=== PATIENT | female | born 1960 | race African-American/Black ===

== ENCOUNTER 2016-11-21 15:18 | Inpatient (IN) | payer MEDICAID, SELFPAY ==
[~2016-11-21] VITALS: Ht 175.3 cm; Wt 59.9 kg
--- NOTE | 2016-11-21 15:50 | Emergency Room Report ---
History of Present Illness General Chief Complaint: Upper Respiratory Illness Source: Patient Present Illness HPI 56-year-old female presents emergency department complaining of productive cough times greater than 2 weeks with dyspnea and orthopnea. Patient denies fevers or chills she states she recently finished a course of antibiotics which provided no relief. Patient denies history of asthma, COPD or tobacco use. PT states she feels she was previously rather healthy and reports being an avid runner. Patient denies cardiac history or previous pulmonary history. Patient denies lower extremity edema. bloody sputum, recent travel, or ill contacts. Denies CP, Palpitations, LOC, AMS, dizziness, Changes in Vision, Sensation, paresthesias, or a sudden severe headache. Allergies: Uncoded Allergies: CITRUS (Allergy, Severe, 11/21/16) aloc Patient History Past Medical History: see triage record Past Surgical History: none Pertinent Family History: none Last Menstrual Period: na Now: No Reviewed Nursing Documentation: PMH: Agreed, PSxH: Agreed Nursing Documentation-PMH Past Medical History: No History, Except For Review of Systems All Other Systems: negative except mentioned in HPI Physical Exam Vital Signs Date Time Temp Pulse Resp B/P Pulse Ox O2 Delivery O2 Flow Rate FiO2 11/21/16 15:21 98.4 128 20 122/80 100 Room Air Sp02 EP Interpretation: reviewed, abnormal - Tachycardic at 128 BPM, tachynepic upon PE. General Appearance: alert, GCS 15, non-toxic, mild distress Head: normocephalic, atraumatic Eyes: bilateral eye PERRL, bilateral eye normal inspection ENT: hearing grossly normal, normal pharynx, no angioedema, normal voice Neck: full range of motion, supple/symm/no masses Respiratory: chest non-tender, lungs clear, normal breath sounds, rhonchi, wheezing, other - Pt. has difficulty speaking full sentences, deep inhalation exacerbates coughing. Cardiovascular #1: no edema, tachycardia Musculoskeletal: back normal, gait/station normal, normal range of motion, non- tender, no calf tenderness, other - no swelling or tenderness. Neurologic: alert, oriented x3, responsive, motor strength/tone normal, sensory intact, speech normal Psychiatric: judgement/insight normal, memory normal, mood/affect normal Skin: normal color, no rash, warm/dry, well hydrated Medical Decision Making PA Attestation Dr. Mendiola is my supervising Physician whom patient management has been discussed with. Diagnostic Impression: Primary Impression: Dyspnea Qualified Codes: R06.09 - Other forms of dyspnea Additional Impression: Tachycardia ER Course 56-year-old female presents emergency department complaining of productive cough times greater than 2 weeks with dyspnea. Patient denies fevers or chills she states she recently finished a course of antibiotics which provided no relief. Patient denies history of asthma, COPD or tobacco use. Patient reports marijuana use. Patient denies cardiac history or previous pulmonary history. Patient denies lower extremity edema. bloody sputum, recent travel, or ill contacts. Ddx considered but are not limited to PNA, CHF, PE, Asthma/COPD, Cardiac pathology just to name a few. Vital signs: pt. is afebrile, tachycardic and tachypneic. -- Upon physical exam patient is noted to be to, tachycardiac, with distant lung sounds and wheezing/Rhonchi. I feel this patient requires early supervising physician involvement, in addition to a bed with cardiac monitoring. Dr. Gresham has been familiarized with this patient, and will be taking over further management and evaluation of this patient. ORDERS: - Albuterol HHN Treatment. DISPOSITION : Pt. Signed out to Supervising Physician Dr. Mendiola please see his note. Last Vital Signs Date Time Temp Pulse Resp B/P Pulse Ox O2 Delivery O2 Flow Rate FiO2 11/21/16 15:21 98.4 128 20 122/80 100 Room Air Disposition: ADMITTED INPATIENT Condition: Serious Signed Out To: Torrie Darby November 21, 2016 15:50
[2016-11-21] MEDS ORDERED: Solu-MEDROL 125mg Inj IVP ONE (16:00)
[2016-11-21] MEDS ORDERED: Albuterol ud Inhalation HHN ONE (16:00)
--- NOTE | 2016-11-21 16:26 | Emergency Room Report ---
History of Present Illness General Chief Complaint: Upper Respiratory Illness Source: Patient Present Illness HPI Patient presents with complaints of shortness of breath ongoing for the past 3 weeks Patient reports a pleuritic component to the left side Patient reports fevers and chills at nighttime Denies any bloody sputum denies any recent travel Denies any chest pain Patient used to be fairly active and run on a regular basis however she feels that she is decompensated Denies any diarrhea denies any headache or neck pain Denies any rash Allergies: Uncoded Allergies: CITRUS (Allergy, Severe, 11/21/16) aloc Patient History Past Medical History: see triage record Pertinent Family History: none Last Menstrual Period: na Reviewed Nursing Documentation: PMH: Agreed, PSxH: Agreed Nursing Documentation-PMH Past Medical History: No History, Except For Review of Systems All Other Systems: negative except mentioned in HPI Physical Exam Vital Signs Date Time Temp Pulse Resp B/P Pulse Ox O2 Delivery O2 Flow Rate FiO2 11/21/16 15:21 98.4 128 20 122/80 100 Room Air Sp02 EP Interpretation: reviewed, normal General Appearance: thin - And appears mildly tachypneic Head: normocephalic, atraumatic Eyes: bilateral eye EOMI, bilateral eye PERRL ENT: hearing grossly normal, normal pharynx, TMs + canals normal, uvula midline Neck: full range of motion, supple, no meningismus, no bony tend Respiratory: no retraction, no accessory muscle use, crackles - Appears tachypneic, no obvious retractions crackles are noted bilaterally, Cardiovascular #1: normal peripheral pulses, regular rate, rhythm, no edema, no gallop, no JVD, no murmur Gastrointestinal: normal bowel sounds, non tender, soft, no mass, no organomegaly, non-distended, no guarding, no hernia, no pulsatile mass, no rebound Genitourinary: no CVA tenderness Musculoskeletal: normal inspection Neurologic: oriented x3, responsive, millwork estimator III-XII nml as tested, motor strength/ tone normal, sensory intact Psychiatric: mood/affect normal Skin: normal color, no rash, warm/dry, palpation normal Lymphatic: normal inspection, no adenopathy Medical Decision Making Diagnostic Impression: Primary Impression: Dyspnea Qualified Codes: R06.09 - Other forms of dyspnea Additional Impressions: Pleural effusion, left Tachycardia ER Course Patient is a fairly complex patient with multiple differential to consideration including but not limited to cardiac cardiopulmonary and vascular emergencies Patient's imaging on the chest x-ray appeared abnormal the left lower lobe therefore CT imaging was obtained that shows large effusion with multiple differentials including carcinoma versus infectious Patient also is mildly anemic Given the mildly elevated high white blood for count a she was given antibiotics as well At this time patient requires further inpatient care and workup specialty consultation Labs Test 11/21/16 16:15 11/21/16 16:30 11/21/16 18:55 11/22/16 07:15 White Blood Count 16.1 K/UL (4.8-10.8) 16.4 K/UL (4.8-10.8) Red Blood Count 3.47 M/UL (4.20-5.40) 3.44 M/UL (4.20-5.40) Hemoglobin 10.6 G/DL (12.0-16.0) 9.8 G/DL (12.0-16.0) Hematocrit 31.5 % (37.0-47.0) 30.4 % (37.0-47.0) Mean Corpuscular Volume 91 FL (80-99) 88 FL (80-99) Mean Corpuscular Hemoglobin 30.6 PG (27.0-31.0) 28.5 PG (27.0-31.0) Mean Corpuscular Hemoglobin Concent 33.8 G/DL (32.0-36.0) 32.2 G/DL (32.0-36.0) Red Cell Distribution Width 12.0 % (11.6-14.8) 12.3 % (11.6-14.8) Platelet Count 393 K/UL (150-450) 448 K/UL (150-450) Mean Platelet Volume 5.9 FL (6.5-10.1) 6.3 FL (6.5-10.1) Neutrophils (%) (Auto) 86.0 % (45.0-75.0) % (45.0-75.0) Lymphocytes (%) (Auto) 6.8 % (20.0-45.0) % (20.0-45.0) Monocytes (%) (Auto) 6.4 % (1.0-10.0) % (1.0-10.0) Eosinophils (%) (Auto) 0.2 % (0.0-3.0) % (0.0-3.0) Basophils (%) (Auto) 0.7 % (0.0-2.0) % (0.0-2.0) Differential Total Cells Counted 100 100 Neutrophils % (Manual) 95 % (45-75) 93 % (45-75) Lymphocytes % (Manual) 2 % (20-45) 3 % (20-45) Monocytes % (Manual) 2 % (1-10) 4 % (1-10) Eosinophils % (Manual) 0 % (0-3) 0 % (0-3) Basophils % (Manual) 1 % (0-2) 0 % (0-2) Band Neutrophils 0 % (0-8) 0 % (0-8) Platelet Estimate Adequate Adequate Platelet Morphology Normal Normal Prothrombin Time 12.0 SEC (9.30-11.50) Prothromb Time International Ratio 1.2 (0.9-1.1) Activated Partial Thromboplast Time 34 SEC (23-33) Sodium Level 136 mEQ/L (135-145) Potassium Level 3.8 mEQ/L (3.4-4.9) Chloride Level 95 mEQ/L (98-107) Carbon Dioxide Level 27 mEQ/L (20-30) Anion Gap 14 (5-15) Blood Urea Nitrogen 5 mg/dL (7-23) Creatinine 0.7 mg/dL (0.5-0.9) Estimat Glomerular Filtration Rate > 60 mL/min (>60) Glucose Level 114 mg/dL (74-106) Calcium Level 8.7 mg/dL (8.6-10.2) Total Bilirubin 0.3 mg/dL (0.0-1.2) Aspartate Amino Transf (AST/SGOT) 10 U/L (5-40) Alanine Aminotransferase (ALT/SGPT) 6 U/L (3-33) Alkaline Phosphatase 98 U/L (35-104) Total Creatine Kinase 65 U/L (26-140) Creatine Kinase MB < 1.5 ng/mL (< 3.8) Creatine Kinase MB Relative Index Troponin I < 0.30 ng/mL (<=0.30) Pro-B-Type Natriuretic Peptide 35 pg/mL (0-125) Total Protein 7.2 g/dL (6.6-8.7) Albumin 2.8 g/dL (3.5-5.2) Globulin 4.4 g/dL Albumin/Globulin Ratio 0.6 (1.0-2.7) Lipase 14 U/L (< 60) Reticulocyte Count 0.4 % (0.0-2.0) Iron Level 16 ug/dL (37-145) Total Iron Binding Capacity 192 ug/dL (250-400) Percent Iron Saturation 8 % (15-50) Unsaturated Iron Binding 176 ug/dL (112-346) Ferritin 183 ng/mL (13-150) Lactate Dehydrogenase 136 U/L (135-230) Carcinoembryonic Antigen 1.8 ng/mL Vitamin B12 Level 993 pg/mL (211-946) Folate 10.2 ng/mL (>3.0) Hypochromasia 2+ Anisocytosis 1+ Spherocytes 1+ Test 11/22/16 15:15 Prothrombin Time 11.3 SEC (9.30-11.50) Prothromb Time International Ratio 1.1 (0.9-1.1) Activated Partial Thromboplast Time 35 SEC (23-33) Rhythm Strip Diag. Results EP Interpretation: yes Rate: 76 Rhythm: NSR, no PVC's, no ectopy Chest X-Ray Diagnostic Results EP Interpretation: Yes Findings: no pneumothorax, other - Left lower lobe effusion/atelectasis, heart size normal no acute bony abnormalities Number of Views: 1 CT/MRI/US Diagnostic Results CT/MRI/US Diagnostic Results : Impression CT chest:Impression: No evidence of pulmonary embolus, aortic dissection or aneurysm. Atelectasis of the left lower lobe with suggestion of underlying lung abscess versus tumor. Moderate left pleural effusion Moderate pericardial effusion Left hilar and mediastinal lymphadenopathy. Inflammatory versus neoplastic. 3.4 x 2.0 x 3.0 cm ovoid nodule, possibly cystic within the right breast. Mammographic and sonographic evaluation suggested. Abdomen findings discussed on the CT abdomen pelvis report CT abdomen pelvisImpression: 8 x 6 x 8 cm mass demonstrated in the left ischiorectal fossa containing fat and calcium suspicious for dermoid tumor. 4.3 x 3.5 x 5.2 cm mass involving the right adrenal gland. Complex cystic versus solid mass. This may be an adenoma. 4.3 x 3.7 cm left adnexal cyst possibly ovarian. Moderate stool Few hypodensities in the liver nonspecific. Moderate to large left pleural effusion. Atelectasis of the left lower lobe with suggestion of underlying tumor nodules versus abscess. Please refer to the CT chest for more information. Pericardial effusion. Spondylosis Last Vital Signs Date Time Temp Pulse Resp B/P Pulse Ox O2 Delivery O2 Flow Rate FiO2 11/21/16 15:21 98.4 128 20 122/80 100 Room Air Status: improved Disposition: ADMITTED INPATIENT Condition: Serious Referrals: KAYLEE MCCRACKEN,REFERRING (PCP) HEMANTH SWANN D.O. November 21, 2016 16:26
--- NOTE | 2016-11-21 16:29 | Diagnostic Imaging Report ---
Indication: COUGH for 2 weeks Technique: One view of the chest Comparison: none Findings: There is a apparent elevation left hemidiaphragm as well as some overlying parenchymal opacity. Right lung and pleural space, left upper lung are clear. There is a 1 cm calcific density projecting in the right mid lung periphery, may represent a calcified granuloma or a sclerotic rib lesion. Impression: Apparent elevation of the left hemidiaphragm, may indicate a large subpulmonic pleural effusion and/or parenchymal volume loss. There is probably some underlying parenchymal consolidation as well. Other findings as noted
[2016-11-21 16:39] LABS: MEAN CORPUSCULAR HEMOGLOBIN 30.6 PG (27.0-31.0); MEAN CORPUSCULAR HGB CONC 33.8 G/DL (32.0-36.0); MEAN CORPUSCULAR VOLUME 91 FL (80-99); MEAN PLATELET VOLUME 5.9 FL (6.5-10.1); PLATELET COUNT 393 K/UL (150-450); RED BLOOD COUNT 3.47 M/UL (4.20-5.40); WHITE BLOOD COUNT 16.1 K/UL (4.8-10.8)
[2016-11-21 16:40] VITALS: BP_SYST 116; BP_SYST 122; BP_DIAS 80; BP_DIAS 87
[2016-11-21 16:41] LABS: BASOPHILS % (AUTO) 0.7 % (0.0-2.0); EOSINOPHILS % (AUTO) 0.2 % (0.0-3.0); LYMPHOCYTES % (AUTO) 6.8 % (20.0-45.0); MONOCYTES % (AUTO) 6.4 % (1.0-10.0)
[2016-11-21 16:49] LABS: TROPONIN I < 0.30 ng/mL (<=0.30)
[2016-11-21 16:50] LABS: ALANINE AMINOTRANSFERASE 6 U/L (3-33); ALBUMIN/GLOBULIN RATIO 0.6 (1.0-2.7); ANION GAP 14 (5-15); ASPARTATE AMINO TRANSFERASE 10 U/L (5-40); CALCIUM 8.7 mg/dL (8.6-10.2); CARBON DIOXIDE 27 mEQ/L (20-30); CHLORIDE 95 mEQ/L (98-107); CREATININE 0.7 mg/dL (0.5-0.9); GLOMERULAR FILTRATION RATE > 60 mL/min (>60); HEMOLYSIS 1; LIPASE 14 U/L (< 60); POTASSIUM 3.8 mEQ/L (3.4-4.9); SODIUM 136 mEQ/L (135-145); TOTAL PROTEIN 7.2 g/dL (6.6-8.7)
[2016-11-21 16:55] LABS: INR 1.2 (0.9-1.1)
[2016-11-21 17:00] LABS: CKMB < 1.5 ng/mL (< 3.8)
[2016-11-21] MEDS ORDERED: LEVOFLOXACIN750 MG ORAL (18:00)
[2016-11-21] MEDS ORDERED: ASPIRIN81 MG ORAL (18:01)
[2016-11-21] MEDS ORDERED: CALCIUM + D SO1 EACH PO (18:03)
[2016-11-21] MEDS ORDERED: POTASSIUM99 M3 PO (18:04)
[2016-11-21] MEDS ORDERED: POTASSIUM CHLO10 ME3 ORAL (18:06)
[2016-11-21 18:07] VITALS: BP 111/68
[2016-11-21] MEDS ORDERED: BLACK COHOSH40 M2 PO (18:07)
[2016-11-21] MEDS ORDERED: NIACIN50 MG PO (18:08)
[2016-11-21] MEDS ORDERED: [UNRECOGNIZED DRUG - OTHER] INH (18:11)
[2016-11-21] MEDS ORDERED: Promethazine/Codeine 5ml UD ORAL PRN (19:45)
[2016-11-21] MEDS ORDERED: DuoNeb 0.5-3(2.5)mg/3ml neb HHN PRN (19:45)
[2016-11-21 20:00] VITALS: BP 116/73
[2016-11-21 21:34] LABS: BASOPHILS % (MANUAL) 1 % (0-2); LYMPHOCYTES % (MANUAL) 2 % (20-45); NEUTROPHILS % (MANUAL) 95 % (45-75); TOTAL CELLS COUNTED 100
[2016-11-21 21:35] LABS: BAND NEUTROPHILS % (MANUAL) 0 % (0-8); EOSINOPHILS % (MANUAL) 0 % (0-3); PLATELET ESTIMATE ADEQUATE; PLATELET MORPHOLOGY NORMAL
[2016-11-21 21:37] LABS: PATH BLOOD SMEAR/OMC SENT TO PATHOLOGIST
[2016-11-22] VITALS (7 sets, daily range): BP systolic 112–125; BP diastolic 74–84
[2016-11-22] MEDS ORDERED: ASPIRIN325 MG ORAL (00:54)
[2016-11-22 08:15] LABS: MEAN CORPUSCULAR HEMOGLOBIN 28.5 PG (27.0-31.0); MEAN CORPUSCULAR HGB CONC 32.2 G/DL (32.0-36.0); MEAN CORPUSCULAR VOLUME 88 FL (80-99); MEAN PLATELET VOLUME 6.3 FL (6.5-10.1); PLATELET COUNT 448 K/UL (150-450); RED BLOOD COUNT 3.44 M/UL (4.20-5.40); RED CELL DISTRIBUTION WIDTH 12.3 % (11.6-14.8); WHITE BLOOD COUNT 16.4 K/UL (4.8-10.8)
[2016-11-22] MEDS ORDERED: Vancomycin 1 GM in D5W 275 ML IVPB SCH (08:15)
--- NOTE | 2016-11-22 08:15 | Infectious Diseases Prog Note ---
Assessment/Plan Problems: (1) LLL pneumonia Assessment & Plan: possible abscess, will start vancomycin and zosyn empirically, and get fungal serology, send sputum culture (2) Pleural effusion, left Assessment & Plan: rule out empyema, recommend thoracentesis , and fluids to be sent for culture, fungal and AFB, and cytology (3) Sepsis Assessment & Plan: due to the above, will start vancomycin and zosyn , pending culture results (4) SOB (shortness of breath) Assessment & Plan: due to the above, pulmonary is following Subjective Allergies: Uncoded Allergies: CITRUS (Allergy, Severe, 11/21/16) aloc Objective Vital Signs Last 24 Hour Vital Signs Date Time Temp Pulse Resp B/P Pulse Ox O2 Delivery O2 Flow Rate FiO2 11/22/16 06:55 92 20 Nasal Cannula 2.0 28 11/22/16 06:55 94 Nasal Cannula 2.0 28 11/22/16 06:55 Nasal Cannula 2.0 28 11/22/16 04:00 97.9 99 20 114/78 95 Nasal Cannula 2.0 28 11/22/16 04:00 109 11/22/16 00:00 105 11/22/16 00:00 98.1 72 20 114/74 95 Nasal Cannula 2.0 28 11/21/16 23:54 Nasal Cannula 2.0 28 11/21/16 23:54 95 Nasal Cannula 2.0 28 11/21/16 23:53 106 20 98 Nasal Cannula 2.0 28 11/21/16 23:53 103 20 95 Nasal Cannula 2.0 28 11/21/16 23:52 103 20 Nasal Cannula 2.0 28 11/21/16 20:00 120 11/21/16 20:00 98.1 118 24 116/73 98 Room Air 11/21/16 19:12 98.4 124 24 126/85 98 Room Air 21 11/21/16 18:07 119 24 111/68 98 Room Air 11/21/16 16:40 117 24 Room Air 21 11/21/16 16:40 117 24 116/87 98 Room Air 11/21/16 16:33 118 23 100 Room Air 21 11/21/16 16:23 21 11/21/16 16:23 117 24 98 Room Air 21 11/21/16 16:23 117 24 Room Air 21 11/21/16 15:21 98.4 128 20 122/80 100 Room Air Height (Feet): 5 Height (Inches): 9.00 Weight (Pounds): 132 Laboratory Tests Test 11/21/16 16:15 11/21/16 16:30 11/21/16 18:55 11/22/16 07:15 White Blood Count 16.1 K/UL (4.8-10.8) H Pending Red Blood Count 3.47 M/UL (4.20-5.40) L Pending Hemoglobin 10.6 G/DL (12.0-16.0) L Pending Hematocrit 31.5 % (37.0-47.0) L Pending Mean Corpuscular Volume 91 FL (80-99) Pending Mean Corpuscular Hemoglobin 30.6 PG (27.0-31.0) Pending Mean Corpuscular Hemoglobin Concent 33.8 G/DL (32.0-36.0) Pending Red Cell Distribution Width 12.0 % (11.6-14.8) Pending Platelet Count 393 K/UL (150-450) Pending Mean Platelet Volume 5.9 FL (6.5-10.1) L Pending Neutrophils (%) (Auto) 86.0 % (45.0-75.0) H Pending Lymphocytes (%) (Auto) 6.8 % (20.0-45.0) L Pending Monocytes (%) (Auto) 6.4 % (1.0-10.0) Pending Eosinophils (%) (Auto) 0.2 % (0.0-3.0) Pending Basophils (%) (Auto) 0.7 % (0.0-2.0) Pending Differential Total Cells Counted 100 Neutrophils % (Manual) 95 % (45-75) H Lymphocytes % (Manual) 2 % (20-45) L Monocytes % (Manual) 2 % (1-10) Eosinophils % (Manual) 0 % (0-3) Basophils % (Manual) 1 % (0-2) Band Neutrophils 0 % (0-8) Platelet Estimate Adequate Platelet Morphology Normal Prothrombin Time 12.0 SEC (9.30-11.50) H Prothromb Time International Ratio 1.2 (0.9-1.1) H Activated Partial Thromboplast Time 34 SEC (23-33) H Sodium Level 136 mEQ/L (135-145) Potassium Level 3.8 mEQ/L (3.4-4.9) Chloride Level 95 mEQ/L (98-107) L Carbon Dioxide Level 27 mEQ/L (20-30) Anion Gap 14 (5-15) Blood Urea Nitrogen 5 mg/dL (7-23) L Creatinine 0.7 mg/dL (0.5-0.9) Estimat Glomerular Filtration Rate > 60 mL/min (>60) Glucose Level 114 mg/dL (74-106) H Calcium Level 8.7 mg/dL (8.6-10.2) Total Bilirubin 0.3 mg/dL (0.0-1.2) Aspartate Amino Transf (AST/SGOT) 10 U/L (5-40) Alanine Aminotransferase (ALT/SGPT) 6 U/L (3-33) Alkaline Phosphatase 98 U/L (35-104) Total Creatine Kinase 65 U/L (26-140) Creatine Kinase MB < 1.5 ng/mL (< 3.8) Creatine Kinase MB Relative Index Troponin I < 0.30 ng/mL (<=0.30) Pro-B-Type Natriuretic Peptide 35 pg/mL (0-125) Total Protein 7.2 g/dL (6.6-8.7) Albumin 2.8 g/dL (3.5-5.2) L Globulin 4.4 g/dL Albumin/Globulin Ratio 0.6 (1.0-2.7) L Lipase 14 U/L (< 60) Reticulocyte Count 0.4 % (0.0-2.0) Iron Level 16 ug/dL (37-145) L Total Iron Binding Capacity 192 ug/dL (250-400) L Percent Iron Saturation 8 % (15-50) L Unsaturated Iron Binding 176 ug/dL (112-346) Ferritin 183 ng/mL (13-150) H Lactate Dehydrogenase 136 U/L (135-230) Carcinoembryonic Antigen 1.8 ng/mL Vitamin B12 Level 993 pg/mL (211-946) H Folate Pending Current Medications Medications (Trade) Dose Ordered Sig/Ruben Route PRN Reason Start Time Stop Time Status Last Admin Dose Admin Acetaminophen (Tylenol) 650 mg Q4H PRN ORAL Mild Pain/Temp > 100.5 11/21/16 22:45 12/21/16 22:44 Albuterol/ Ipratropium (DuoNeb 0.5-3(2.5)mg/3ml) 3 ml Q4H PRN HHN Shortness of Breath 11/21/16 19:45 11/26/16 19:44 11/21/16 23:52 Aspirin (Ecotrin) 325 mg DAILY ORAL 11/22/16 09:00 12/22/16 08:59 Dextrose (Dextrose 50%) STAT PRN IV Hypoglycemia 11/21/16 22:45 12/21/16 22:44 Ondansetron HCl (Zofran) 4 mg Q6H PRN IVP Nausea & Vomiting 11/21/16 22:45 12/21/16 22:44 Promethazine HCl/ Codeine (Phenergan with Codeine) 5 ml Q4H PRN ORAL For Cough 11/21/16 19:45 12/21/16 19:44 Nicolle Schmitz M.D. November 22, 2016 08:15
[2016-11-22] MEDS ORDERED: Aspirin EC 325mg tab ORAL SCH (09:00)
[2016-11-22 09:37] LABS: LYMPHOCYTES % (MANUAL) 3 % (20-45); NEUTROPHILS % (MANUAL) 93 % (45-75); TOTAL CELLS COUNTED 100
[2016-11-22 09:38] LABS: ANISOCYTOSIS 1+; BAND NEUTROPHILS % (MANUAL) 0 % (0-8); BASOPHILS % (MANUAL) 0 % (0-2); EOSINOPHILS % (MANUAL) 0 % (0-3); HYPOCHROMASIA 2+; PLATELET ESTIMATE ADEQUATE; PLATELET MORPHOLOGY NORMAL; SPHEROCYTES 1+
--- NOTE | 2016-11-22 09:53 | Diagnostic Imaging Report ---
Indication: Dyspnea Technique: Continuous helical transaxial imaging of the chest was obtained from the thoracic inlet to the upper abdomen during rapid intravenous contrast administration. Arterial phase of enhancement obtained. Coronal 2-D reformats were also obtained and maximum intensity projection images in multiple planes. Study obtained in a Siemens sensation [address] Total Dose length Product (DLP): [address] Dose Index Volume (CTDIvol): 12.6x5, 14.3 mGy Comparison: None Findings: There is no evidence of pulmonary embolus with fairly good opacification of the pulmonary artery. Aorta is unremarkable. There are lymph nodes in the left abhijeet which may be inflammatory or neoplastic. Small nodes are also seen in the aortopulmonary window of the mediastinum. There is an ill-defined infiltrate involving the left lower lobe. In addition there is atelectasis of a portion of the left lower lobe. Within the collapsed lung there are areas of rounded lower attenuation suspicious for necrosis due to phlegmon or abscess. Differential includes tumor. There is a moderate-sized left pleural effusion. There is also moderate pericardial effusion. In the lateral aspect of the right breast there is a ovoid probably cystic appearing mass measuring approximately 3.4 x 2.0 x 3.0 cm. Suggest diagnostic mammography and ultrasound evaluation. Impression: No evidence of pulmonary embolus, aortic dissection or aneurysm. Atelectasis of the left lower lobe with suggestion of underlying lung abscess versus tumor. Moderate left pleural effusion Moderate pericardial effusion Left hilar and mediastinal lymphadenopathy. Inflammatory versus neoplastic. 3.4 x 2.0 x 3.0 cm ovoid nodule, possibly cystic within the right breast. Mammographic and sonographic evaluation suggested. Abdomen findings discussed on the CT abdomen pelvis report. The CT scanner at [facility] is accredited by the [employer] and the scans are performed using dose optimization techniques as appropriate to a performed exam including Automatic Exposure control.
--- NOTE | 2016-11-22 09:55 | Diagnostic Imaging Report ---
Indication: Abdominal pain Technique: Continuous helical transaxial imaging of the abdomen and pelvis was obtained from the lung bases to the pubic symphysis. No intravenous contrast was administered. Coronal 2-D reformats were also obtained. Total Dose length Product (DLP): [address] Dose Index Volume (CTDIvol): 10 mGy Comparison: none Findings: Pericardial effusion and moderate to large left pleural effusion noted. Abnormal hypodensities within the collapsed left lower lobe noted. These could be tumor nodules or areas of parenchymal necrosis the abscess. A There is slightly heterogeneous low-density right adrenal mass measuring 4.3 x 3.5 x 5.2 cm. This could be a low-density solid mass or possibly a cystic mass. This does not contain macroscopic fat. In the left ischiorectal fossa there is a well-circumscribed mass composed largely of macroscopic fat. Within the central part of the mass there is a ovoid focus of ossification with surrounding halo of soft tissue density. This has the appearance of a dermoid tumor and measures about 8 x 6 x 8 cm. In the left adnexa there is a 4.3 x 3.7 cm cyst which could be ovarian. Uterus is present. The right ovary is not seen. Moderate stool noted. Gallbladder is contracted. There are a few hypodensities within the liver nonspecific. Is at the time of the scan there is excreted contrast within the ureters and portions of the collecting system and the urinary bladder. Solid organ or parenchymal enhancement is limited on this current study given no contrast was administered, the bolus of contrast was given earlier for the CT chest. There is narrowing of intervertebral discs and accompanying endplate osteophyte formation. Hypertrophied facet joints also demonstrated. Impression: 8 x 6 x 8 cm mass demonstrated in the left ischiorectal fossa containing fat and calcium suspicious for dermoid tumor. 4.3 x 3.5 x 5.2 cm mass involving the right adrenal gland. Complex cystic versus solid mass. This may be an adenoma. 4.3 x 3.7 cm left adnexal cyst possibly ovarian. Moderate stool Few hypodensities in the liver nonspecific. Moderate to large left pleural effusion. Atelectasis of the left lower lobe with suggestion of underlying tumor nodules versus abscess. Please refer to the CT chest for more information. Pericardial effusion. Spondylosis The CT scanner at [facility] is accredited by the [employer] and the scans are performed using dose optimization techniques as appropriate to a performed exam including Automatic Exposure control.
[2016-11-22] MEDS ORDERED: Vancomycin 1gm in D5W 275ml IVPB ONE (10:30)
--- NOTE | 2016-11-22 12:00 | Diagnostic Imaging Report ---
Indication: Right adrenal mass Technique: MRI of the adrenal glands was performed in a 1.5 [place] magnet. Pulse sequences obtained include coronal and axial T2 single shot fast spin echo breathhold, axial T1 gradient echo in and out of phase, axial 2-D fiesta, axial T1 noncontrast lava, and axial T2 fast recovery fast spin-echo with fat saturation. Comparison: CT abdomen 11/21/16 Findings: There is a right adrenal mass noted. The mass measures approximately 4.7 x 3.4 x 5.1 cm and corresponds to the CT described mass. On in phase T1 gradient echo, the mass is relatively isointense to the spleen. On T1 gradient echo obtained out of phase, the mass exhibits markedly diminished signal intensity, which is indicative of micro-lipid content resulting in chemical shift artifact. This is pathognomonic of a benign adrenal adenoma, which requires no further workup. Once again, we note a partially imaged left pleural effusion. There are a few tiny cysts noted within the liver corresponding to a small hypodensity seen on recent CT. Small cyst noted in the upper pole the right kidney. Left adrenal gland is unremarkable. Desiccation and narrowing of several of the lumbar discs noted with accompanying endplate spurs. Impression: Current study is diagnostic of a 4.7 x 3.4 x 5.1 cm right adrenal adenoma. This is benign and requires no further workup. Left pleural effusion Multiple tiny liver cysts and a single right renal cyst. Spondylosis
--- NOTE | 2016-11-22 13:35 | Consultation ---
History of Present Illness General Date patient seen: November 22, 2016 Chief Complaint: Upper Respiratory Illness Referring physician: Dr. Ronquillo Reason for Consultation: pneumonia Present Illness HPI 56 year old female presented with complaints of shortness of breath ongoing for the past 3 weeks, fevers and chills at nighttime Denies any bloody sputum denies any recent travel. She took levofloxacin for 2 days prior to admission Allergies: Uncoded Allergies: CITRUS (Allergy, Severe, 11/21/16) aloc Medication History Scheduled Aspirin* (Aspirin*), 325 MG ORAL DAILY, (Reported) Ca Carbonate/Vitamin D3/Vit K (Calcium + D Soft Chewable Tab), 1 EACH PO QWEEK, (Reported) Levofloxacin* (Levofloxacin*), 750 MG ORAL DAILY, (Reported) Miscellaneous Medications Black Cohosh (Black Cohosh), Unknown Dose PO, (Reported) Eucalyptus Oil (Eucalyptus Oil), Unknown Dose INH, (Reported) Niacin* (Niacin*), Unknown Dose PO, (Reported) Potassium Chloride (Potassium Chloride), Unknown Dose ORAL, (Reported) Discontinued Medications Aspirin* (Aspirin*), 81 MG ORAL PRN PRN for For Pain, (Reported) Discontinued Reason: Prescription changed Potassium Gluconate (Potassium), Unknown Dose PO, (Reported) Discontinued Reason: Medication dose changed Patient History Healthcare decision maker pt A&Ox4 Resuscitation status Full Code Advanced Directive on File Review of Systems All Other Systems: negative except mentioned in HPI Physical Exam General Appearance: WD/WN Lines, tubes and drains: peripheral, PICC HEENT: normocephalic, atraumatic Neck: non-tender, normal alignment Respiratory/Chest: chest wall non-tender, lungs clear Abdomen: normal bowel sounds Genitourinary/Rectal: normal genital exam Last 24 Hour Vital Signs Date Time Temp Pulse Resp B/P Pulse Ox O2 Delivery O2 Flow Rate FiO2 11/22/16 11:46 97.2 112 18 114/76 95 Nasal Cannula 2.0 11/22/16 08:20 97.9 90 18 125/84 97 Nasal Cannula 2.0 11/22/16 06:55 92 20 Nasal Cannula 2.0 11/22/16 06:55 94 Nasal Cannula 2.0 11/22/16 06:55 Nasal Cannula 2.0 11/22/16 04:00 97.9 99 20 114/78 95 Nasal Cannula 2.0 28 11/22/16 04:00 109 11/22/16 00:00 105 11/22/16 00:00 98.1 72 20 114/74 95 Nasal Cannula 2.0 28 11/21/16 23:54 Nasal Cannula 2.0 28 11/21/16 23:54 95 Nasal Cannula 2.0 28 11/21/16 23:53 106 20 98 Nasal Cannula 2.0 28 11/21/16 23:53 103 20 95 Nasal Cannula 2.0 11/21/16 23:52 103 20 Nasal Cannula 2.0 28 11/21/16 20:00 120 11/21/16 20:00 98.1 118 24 116/73 98 Room Air 21 11/21/16 19:12 98.4 124 24 126/85 98 Room Air 21 11/21/16 18:07 119 24 111/68 98 Room Air 11/21/16 16:40 117 24 Room Air 21 11/21/16 16:40 117 24 116/87 98 Room Air 11/21/16 16:33 118 23 100 Room Air 21 11/21/16 16:23 21 11/21/16 16:23 117 24 98 Room Air 21 11/21/16 16:23 117 24 Room Air 21 11/21/16 15:21 98.4 128 20 122/80 100 Room Air Intake and Output 11/21/16 11/22/16 19:00 07:00 Intake Total 500 ml Balance 500 ml Intake IV Total 500 ml # Voids 2 Laboratory Tests Test 11/21/16 16:15 11/21/16 16:30 11/21/16 18:55 11/22/16 07:15 White Blood Count 16.1 K/UL (4.8-10.8) H 16.4 K/UL (4.8-10.8) H Red Blood Count 3.47 M/UL (4.20-5.40) L 3.44 M/UL (4.20-5.40) L Hemoglobin 10.6 G/DL (12.0-16.0) L 9.8 G/DL (12.0-16.0) L Hematocrit 31.5 % (37.0-47.0) L 30.4 % (37.0-47.0) L Mean Corpuscular Volume 91 FL (80-99) 88 FL (80-99) Mean Corpuscular Hemoglobin 30.6 PG (27.0-31.0) 28.5 PG (27.0-31.0) Mean Corpuscular Hemoglobin Concent 33.8 G/DL (32.0-36.0) 32.2 G/DL (32.0-36.0) Red Cell Distribution Width 12.0 % (11.6-14.8) 12.3 % (11.6-14.8) Platelet Count 393 K/UL (150-450) 448 K/UL (150-450) Mean Platelet Volume 5.9 FL (6.5-10.1) L 6.3 FL (6.5-10.1) L Neutrophils (%) (Auto) 86.0 % (45.0-75.0) H % (45.0-75.0) Lymphocytes (%) (Auto) 6.8 % (20.0-45.0) L % (20.0-45.0) Monocytes (%) (Auto) 6.4 % (1.0-10.0) % (1.0-10.0) Eosinophils (%) (Auto) 0.2 % (0.0-3.0) % (0.0-3.0) Basophils (%) (Auto) 0.7 % (0.0-2.0) % (0.0-2.0) Differential Total Cells Counted 100 100 Neutrophils % (Manual) 95 % (45-75) H 93 % (45-75) H Lymphocytes % (Manual) 2 % (20-45) L 3 % (20-45) L Monocytes % (Manual) 2 % (1-10) 4 % (1-10) Eosinophils % (Manual) 0 % (0-3) 0 % (0-3) Basophils % (Manual) 1 % (0-2) 0 % (0-2) Band Neutrophils 0 % (0-8) 0 % (0-8) Platelet Estimate Adequate Adequate Platelet Morphology Normal Normal Prothrombin Time 12.0 SEC (9.30-11.50) H Prothromb Time International Ratio 1.2 (0.9-1.1) H Activated Partial Thromboplast Time 34 SEC (23-33) H Sodium Level 136 mEQ/L (135-145) Potassium Level 3.8 mEQ/L (3.4-4.9) Chloride Level 95 mEQ/L (98-107) L Carbon Dioxide Level 27 mEQ/L (20-30) Anion Gap 14 (5-15) Blood Urea Nitrogen 5 mg/dL (7-23) L Creatinine 0.7 mg/dL (0.5-0.9) Estimat Glomerular Filtration Rate > 60 mL/min (>60) Glucose Level 114 mg/dL (74-106) H Calcium Level 8.7 mg/dL (8.6-10.2) Total Bilirubin 0.3 mg/dL (0.0-1.2) Aspartate Amino Transf (AST/SGOT) 10 U/L (5-40) Alanine Aminotransferase (ALT/SGPT) 6 U/L (3-33) Alkaline Phosphatase 98 U/L (35-104) Total Creatine Kinase 65 U/L (26-140) Creatine Kinase MB < 1.5 ng/mL (< 3.8) Creatine Kinase MB Relative Index Troponin I < 0.30 ng/mL (<=0.30) Pro-B-Type Natriuretic Peptide 35 pg/mL (0-125) Total Protein 7.2 g/dL (6.6-8.7) Albumin 2.8 g/dL (3.5-5.2) L Globulin 4.4 g/dL Albumin/Globulin Ratio 0.6 (1.0-2.7) L Lipase 14 U/L (< 60) Reticulocyte Count 0.4 % (0.0-2.0) Iron Level 16 ug/dL (37-145) L Total Iron Binding Capacity 192 ug/dL (250-400) L Percent Iron Saturation 8 % (15-50) L Unsaturated Iron Binding 176 ug/dL (112-346) Ferritin 183 ng/mL (13-150) H Lactate Dehydrogenase 136 U/L (135-230) Carcinoembryonic Antigen 1.8 ng/mL Vitamin B12 Level 993 pg/mL (211-946) H Folate 10.2 ng/mL (>3.0) Hypochromasia 2+ Anisocytosis 1+ Spherocytes 1+ Blastomyces Ab Immunodiffusion Pending Coccidioides Antibody (Comp Fix) Pending Cryptococcus Antigen Pending Histoplasma Mycelial Antibody Pending Histoplasma Antibody w Mycelial Ag Pending Histoplasma Antibody with Yeast Ag Pending Microbiology Date/Time Source Procedure Growth Status 11/21/16 22:50 Sputum Expectorated Gram Stain - Final Resulted 11/21/16 22:50 Sputum Expectorated Sputum Culture Pending Resulted Height (Feet): 5 Height (Inches): 9.00 Weight (Pounds): 132 Medications Current Medications Medications (Trade) Dose Ordered Sig/Ruben Route PRN Reason Start Time Stop Time Status Last Admin Dose Admin Acetaminophen 650 mg 650 mg Q4H PRN ORAL Mild Pain/Temp > 100.5 11/21/16 22:45 12/21/16 22:44 Albuterol/ Ipratropium (DuoNeb 0.5-3(2.5)mg/3ml) 3 ml Q4H PRN HHN Shortness of Breath 11/21/16 19:45 11/26/16 19:44 11/21/16 23:52 Aspirin (Ecotrin) 325 mg DAILY ORAL 11/22/16 09:00 12/22/16 08:59 11/22/16 09:42 Dextrose (Dextrose 50%) STAT PRN IV Hypoglycemia 11/21/16 22:45 12/21/16 22:44 Ondansetron HCl (Zofran) 4 mg Q6H PRN IVP Nausea & Vomiting 11/21/16 22:45 12/21/16 22:44 Piperacillin Sod/ Tazobactam Sod 4.5 gm/Dextrose 110 ml @ 27.5 mls/hr EVERY 8 HOURS IVPB 11/22/16 14:00 11/27/16 13:59 Promethazine HCl/ Codeine (Phenergan with Codeine) 5 ml Q4H PRN ORAL For Cough 11/21/16 19:45 12/21/16 19:44 Vancomycin HCl/ Dextrose (Vancomycin/D5W) 275 ml @ 183.708 mls/hr Q12H IVPB 11/22/16 21:00 11/27/16 20:59 Assessment/Plan Problem List: (1) LLL pneumonia ICD Codes: J18.1 - Lobar pneumonia, unspecified organism SNOMED: 241727745 (2) Sepsis ICD Codes: A41.9 - Sepsis, unspecified organism SNOMED: 53657934 Assessment/Plan check sputum Iv antibiotics ESTEFANI AVILES November 22, 2016 13:35
[2016-11-22] MEDS ORDERED: Piperacillin/Tazobactam 4.5 GM in D5W 110 ML IVPB SCH (14:00)
[2016-11-22 15:45] LABS: INR 1.1 (0.9-1.1); PROTHROMBIN TIME 11.3 SEC (9.30-11.50)
--- NOTE | 2016-11-22 17:58 | Consultation ---
Consult Note Consult Note Hematology Consultation Note REQ : TALIB RFC: Anemia eval ID: 56y old female with complaints of shortness of breath ongoing for the past 3 weeks, patient reports a pleuritic component to the left side, noted in er to have a left pleural effusion, she reports fevers and chills at nighttime. She denies any bloody sputum denies any recent travel. Denies any chest pain. Patient used to be fairly active and run on a regular basis however she feels that she is decompensated. She denies any diarrhea denies any headache or neck pain. She denies any rash. Hematology consulted for further eval and rx for her anemia. Allergies: CITRUS (Allergy, Severe, 11/21/16) Past Medical History: none Family History: none Reviewed Nursing Documentation: PMH: Agreed, PSxH: Agreed ROS: Constitutional: No fever, no chills, no night sweats, no fatigue Skin: No rashes, lumps, itchiness, dryness HEENT: No RILEY, ear ache, visual changes, double vision, nosebleeds, sore throat, lumps, swollen glands Breasts: No lumps, pain, discharge Pulmonary: No cough, sputum, shortness of breath, coughing up blood, hemoptysis Cardiovascular: No chest pain, tightness, palpitations, syncope GI: No nausea, vomiting, diarrhea, melena, hematochezia : No dysuria, frequency, urgency, urinary incontinence, foamy urine Musculoskeletal: No joint swelling or muscle pain Neurologic: No dizziness, fainting, seizures Endocrine: No weight change, heat or cold intolerance PE: General Appearance: A+O x3, NAD HEENT: normocephalic, atraumatic Neck: non-tender, normal alignment Respiratory/Chest: chest wall non-tender Cardiovascular/Chest: normal peripheral pulses Abdomen: normal bowel sounds, non tender Extremities: normal range of motion Laboratory Tests Test 11/21/16 18:55 11/22/16 07:15 11/22/16 15:15 Iron Level 16 ug/dL (37-145) L Total Iron Binding Capacity 192 ug/dL (250-400) L Percent Iron Saturation 8 % (15-50) L Unsaturated Iron Binding 176 ug/dL (112-346) Ferritin 183 ng/mL (13-150) H Lactate Dehydrogenase 136 U/L (135-230) Carcinoembryonic Antigen 1.8 ng/mL Vitamin B12 Level 993 pg/mL (211-946) H Folate 10.2 ng/mL (>3.0) White Blood Count 16.4 K/UL (4.8-10.8) H Red Blood Count 3.44 M/UL (4.20-5.40) L Hemoglobin 9.8 G/DL (12.0-16.0) L Hematocrit 30.4 % (37.0-47.0) L Mean Corpuscular Volume 88 FL (80-99) Mean Corpuscular Hemoglobin 28.5 PG (27.0-31.0) Mean Corpuscular Hemoglobin Concent 32.2 G/DL (32.0-36.0) Red Cell Distribution Width 12.3 % (11.6-14.8) Platelet Count 448 K/UL (150-450) Mean Platelet Volume 6.3 FL (6.5-10.1) L Neutrophils (%) (Auto) % (45.0-75.0) Lymphocytes (%) (Auto) % (20.0-45.0) Monocytes (%) (Auto) % (1.0-10.0) Eosinophils (%) (Auto) % (0.0-3.0) Basophils (%) (Auto) % (0.0-2.0) Differential Total Cells Counted 100 Neutrophils % (Manual) 93 % (45-75) H Lymphocytes % (Manual) 3 % (20-45) L Monocytes % (Manual) 4 % (1-10) Eosinophils % (Manual) 0 % (0-3) Basophils % (Manual) 0 % (0-2) Band Neutrophils 0 % (0-8) Platelet Estimate Adequate Platelet Morphology Normal Hypochromasia 2+ Anisocytosis 1+ Spherocytes 1+ Blastomyces Ab Immunodiffusion Pending Coccidioides Antibody (Comp Fix) Pending Cryptococcus Antigen Pending Histoplasma Mycelial Antibody Pending Histoplasma Antibody w Mycelial Ag Pending Histoplasma Antibody with Yeast Ag Pending Prothrombin Time 11.3 SEC (9.30-11.50) Prothromb Time International Ratio 1.1 (0.9-1.1) Activated Partial Thromboplast Time 35 SEC (23-33) H Assessment and Recs: # Anemia of chronic disease - evaluate with a anemia w/u, results are pending # Coagulopathy - likely related to poor po intake, recheck inr # LLL pneumonia with possible abscess, on abx as per ID service # Pleural effusion, left - pending thoracentesis # Sepsis - on abx as per ID # SOB (shortness of breath) - likely related to pna Matheus Lombardi November 22, 2016 17:58
--- NOTE | 2016-11-22 19:49 | Cardiology Progress Note ---
Assessment/Plan Assessment/Plan The patient is seen and examined, full consult note is dictated. Objective Last 24 Hour Vital Signs Date Time Temp Pulse Resp B/P Pulse Ox O2 Delivery O2 Flow Rate FiO2 11/22/16 16:00 100 11/22/16 15:58 98.1 103 18 124/84 98 Nasal Cannula 2.0 11/22/16 12:00 103 11/22/16 11:46 97.2 112 18 114/76 95 Nasal Cannula 2.0 11/22/16 08:20 97.9 90 18 125/84 97 Nasal Cannula 2.0 11/22/16 08:00 91 11/22/16 06:55 92 20 Nasal Cannula 2.0 28 11/22/16 06:55 94 Nasal Cannula 2.0 28 11/22/16 06:55 Nasal Cannula 2.0 28 11/22/16 04:00 97.9 99 20 114/78 95 Nasal Cannula 2.0 28 11/22/16 04:00 109 11/22/16 00:00 105 11/22/16 00:00 98.1 72 20 114/74 95 Nasal Cannula 2.0 28 11/21/16 23:54 Nasal Cannula 2.0 28 11/21/16 23:54 95 Nasal Cannula 2.0 28 11/21/16 23:53 106 20 98 Nasal Cannula 2.0 28 11/21/16 23:53 103 20 95 Nasal Cannula 2.0 28 11/21/16 23:52 103 20 Nasal Cannula 2.0 28 11/21/16 20:00 120 11/21/16 20:00 98.1 118 24 116/73 98 Room Air 21 Intake and Output 11/21/16 11/22/16 19:00 07:00 Intake Total 500 ml Balance 500 ml IV Total 500 ml # Voids 2 Laboratory Tests Test 11/22/16 07:15 11/22/16 15:15 White Blood Count 16.4 K/UL (4.8-10.8) H Red Blood Count 3.44 M/UL (4.20-5.40) L Hemoglobin 9.8 G/DL (12.0-16.0) L Hematocrit 30.4 % (37.0-47.0) L Mean Corpuscular Volume 88 FL (80-99) Mean Corpuscular Hemoglobin 28.5 PG (27.0-31.0) Mean Corpuscular Hemoglobin Concent 32.2 G/DL (32.0-36.0) Red Cell Distribution Width 12.3 % (11.6-14.8) Platelet Count 448 K/UL (150-450) Mean Platelet Volume 6.3 FL (6.5-10.1) L Neutrophils (%) (Auto) % (45.0-75.0) Lymphocytes (%) (Auto) % (20.0-45.0) Monocytes (%) (Auto) % (1.0-10.0) Eosinophils (%) (Auto) % (0.0-3.0) Basophils (%) (Auto) % (0.0-2.0) Differential Total Cells Counted 100 Neutrophils % (Manual) 93 % (45-75) H Lymphocytes % (Manual) 3 % (20-45) L Monocytes % (Manual) 4 % (1-10) Eosinophils % (Manual) 0 % (0-3) Basophils % (Manual) 0 % (0-2) Band Neutrophils 0 % (0-8) Platelet Estimate Adequate Platelet Morphology Normal Hypochromasia 2+ Anisocytosis 1+ Spherocytes 1+ Blastomyces Ab Immunodiffusion Pending Coccidioides Antibody (Comp Fix) Pending Cryptococcus Antigen Pending Histoplasma Mycelial Antibody Pending Histoplasma Antibody w Mycelial Ag Pending Histoplasma Antibody with Yeast Ag Pending Prothrombin Time 11.3 SEC (9.30-11.50) Prothromb Time International Ratio 1.1 (0.9-1.1) Activated Partial Thromboplast Time 35 SEC (23-33) H Microbiology Date/Time Source Procedure Growth Status 11/21/16 22:50 Sputum Expectorated Gram Stain - Final Resulted 11/21/16 22:50 Sputum Expectorated Sputum Culture Pending Resulted ALVINO RIVERO November 22, 2016 19:49
--- NOTE | 2016-11-22 20:16 | History and Physical Report ---
DATE OF ADMISSION: 11/21/2016 HISTORY OF PRESENT ILLNESS: The patient is admitted for shortness of breath as well as fever and productive cough which has been going on for two weeks. The patient got Z-PRITI, actually her symptoms got worse which is why she came to the hospital. Initially in the ER, she was tachycardiac and imaging done which also showed pleural effusion, cannot rule out also diagnosed. The patient also had leukocytosis. The patient was admitted for all those reasons. PAST MEDICAL HISTORY: Significant for history of hypertension, history of gastroesophageal reflux disease. PAST SURGICAL HISTORY: Benign lesion removed from the breasts. SOCIAL HISTORY: History of smoking. History of drug abuse. No history of alcohol abuse. MEDICATIONS: The patient takes mostly herbal medications. The patient is not taking any non-herbal medication at home except recent Z-PRITI that she took for upper respiratory symptoms. ALLERGIES: The patient is allergic to citrus FAMILY HISTORY: Noncontributory. SOCIAL HISTORY: As mentioned. REVIEW OF SYSTEMS: HEENT: Denies headaches. Respiratory: Reports shortness of breath, cough unproductive for the past two weeks, getting worse, no wheezing. No hemoptysis. Cardiovascular: Denies chest pain. Denies orthopnea. Gastrointestinal: Denies nausea, vomiting, or diarrhea. Does have occasional heart burn. Extremities: Denies any significant pain. [employer]S: Denies change in vision or speech pattern. PHYSICAL EXAMINATION: VITAL SIGNS: Temperature is 98.1 degrees, pulse 105, and blood pressure 114/75. HEENT: PERRLA. NECK: Supple. No lymphadenopathy. CHEST: Bibasilar rales CARDIOVASCULAR: Known tachycardic, regular rate and rhythm . GASTROINTESTINAL: Soft, nontender, and nondistended. No organomegaly. EXTREMITIES: No edema. Reflexes are equal on both sides. Moves all four extremities. NEUROLOGIC: Sensation intact to light touch. Cranial nerves II through XII are intact. LABORATORY DATA: Laboratory phillips, WBC 16, hemoglobin 10.6, and platelets of 393,000. Sodium 136, potassium 3.8, glucose 114, BUN 5, creatinine 0.7. ASSESSMENT: Basically the patient has multiple imaging abnormalities that includes adenopathy as well as pleural effusion, need to rule out pneumonia, need to rule out sepsis. I have consulted multiple consultants for electrolyte imbalance and all these abnormalities that includes Dr. Schneider, Dr. Lombardi, Dr. Schmitz, Dr. Hwang, Dr. Jones, Dr. Lomax. We will discuss with consultants regarding findings and workup and see what workup shows. Kahlil Ronquillo M.D. DR: Juan C JOB#: [id number] CC:
[2016-11-22] MEDS ORDERED: Iron Sucrose 100 MG in NS 55 ML IVPB SCH (21:00)
[2016-11-22] MEDS ORDERED: Vancomycin 750mg/D5W 275ml IVPB SCH ×2 (21:00)
--- NOTE | 2016-11-22 21:16 | Consultation ---
DATE OF CONSULTATION: 11/22/2016 INFECTIOUS DISEASE CONSULTATION: CONSULTING PHYSICIAN: Nicolle Scmhitz M.D. REQUESTING PHYSICIAN: Kahlil Ronquillo M.D. REASON FOR CONSULTATION: Left lung abscess with pleural effusion and recommendation for antibiotics treatment. HISTORY OF PRESENT ILLNESS: The patient is a 56-year-old female with no significant past medical history, presented to [facility] for progressive shortness of breath, started last week, associated with productive cough and night sweats. The patient's symptoms started a month ago with mild shortness of breath. Especially, when she exercises and runs, her shortness of breath has been progressive. Last week, she developed cough, productive of yellowish phlegm. She also had night sweats. She was seen by clinic as an outpatient and had workup including PPD test, which was negative in the skin. Once her symptoms got worse, she was referred to be admitted to the hospital. In ED, her CT scan of the chest showed left pleural effusion with cystic lesion at the left lower lobe, suspicious of abscess and pulmonary infiltrate, so I was consulted by the primary provider for antibiotics treatment and further management. PAST MEDICAL HISTORY: Negative. PAST SURGICAL HISTORY: Negative. ALLERGIES: She is allergic to citrus. MEDICATIONS: She received levofloxacin and methylprednisone in the emergency room. For the rest of her medications, please refer to MAR. SOCIAL HISTORY: She is unemployed. [place] runner. She denies using any drugs, tobacco, or alcohol. FAMILY HISTORY: Negative for malignancy or recurrent infection. REVIEW OF SYSTEMS: A 12-point of system reviewed were all negative apart from those mentioned above in the history of present illness. PHYSICAL EXAMINATION: VITAL SIGNS: Temperature is 97.2 degrees, pulse 112, respirations 18, blood pressure 114/76, and pulse oximetry 95% on two liters nasal cannula. GENERAL: A middle-aged female, up in bed, awake, alert, and oriented, not in distress. HEENT: Normocephalic and atraumatic. Pupils are reactive to light. Pale sclerae. Dry oral mucosa. No exudate. NECK: Supple. No lymphadenopathy. CARDIOVASCULAR: She is tachycardic. S1 and S2 are normal. No murmur. LUNGS: She had diminished breathing sound on the left lower lobe with crackles and fine wheezing on the right lower lobe. Normal breathing effort. ABDOMEN: Soft, nontender, and nondistended. Positive bowel sounds. No hepatosplenomegaly. No ascites. EXTREMITIES: No edema or cyanosis. LABORATORY DATA: White count is 16.4, BUN 5, and creatinine 0.7. IMAGING DATA: Chest CT scan with angiogram showed no evidence of PE, aortic dissection, or aneurysm, atelectasis of the left lower lobe with suggestion of underlying lung abscess versus tumor, moderate left pleural effusion, moderate pericardial effusion, left hilar and mediastinal lymphadenopathy, and 3.4 x 2 x 3 cm ovoid nodule cystic within the right breast. CT scan abdomen and pelvis without contrast showed 8 x 6 x 8 cm mass, demonstrated in the left ischiorectal fossa containing fat and calcium suspicious for dermoid tumor. A 4.3 x 3.5 x 5.2 cm mass involving the right adrenal gland. A 4.3 x 3.7 left adnexal cyst, possibly ovarian. [id number] left pleural effusion. Atelectasis of the left lower lobe with suggestion of underlying tumor nodule versus abscess. MRI of the abdomen showed 4.7 x 3.4 x 5.1 cm right adrenal adenoma and left pleural effusion. ASSESSMENT AND RECOMMENDATION: 1. Left lower lobe pneumonia, complicated with pleural effusion, rule out abscess versus tumor. Today, we will start the patient on vancomycin and Zosyn empiric treatment for possible abscess. We will send fungal serology and sputum culture. Recommend thoracentesis for further evaluation. The patient had skin PPD test, which was negative as an outpatient. We will order T-spot for screening to rule out tuberculosis. 2. Pleural effusion on the left, rule out empyema. Recommend thoracentesis and fluid to be sent for culture, fungal, AFB, and cytology. 3. Sepsis with leukocytosis due to the above. We will start vancomycin and Zosyn. Pending culture results. 4. Shortness of breath due to the above with no evidence of pulmonary embolism. Continue nebulizer treatment. Pulmonary is following. 5. Adrenal gland adenoma. Recommend Endocrinology consult and followup. 6. Adnexal cystic lesion. Recommend PEDIATRIC PHYSICIAN evaluation. and followup. Nicolle Schmitz M.D. DR: RIMA/blayne JOB#: [id number] CC:
--- NOTE | 2016-11-22 22:17 | General Progress Note ---
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, likely okay with outpatient eval, generally is benign # Anemia of chronic disease - anemia 2/2 chronic disease, no iron deficiency # Coagulopathy - likely related to poor po intake, recheck inr # LLL pneumonia with possible abscess, on abx as per ID service # Pleural effusion, left - pending thoracentesis # Sepsis - on abx as per ID # SOB (shortness of breath) - likely related to pna Subjective Constitutional: Reports: no symptoms HEENT: Reports: no symptoms Cardiovascular: Reports: no symptoms Respiratory: Reports: no symptoms Gastrointestinal/Abdominal: Reports: no symptoms Genitourinary: Reports: no symptoms Neurologic/Psychiatric: Reports: no symptoms Endocrine: Reports: no symptoms Hematologic/Lymphatic: Reports: anemia Allergies: Uncoded Allergies: CITRUS (Allergy, Severe, 11/21/16) aloc Subjective no chills, no events Objective Last 24 Hour Vital Signs Date Time Temp Pulse Resp B/P Pulse Ox O2 Delivery O2 Flow Rate FiO2 11/22/16 20:33 Nasal Cannula 2.0 28 11/22/16 20:33 95 Nasal Cannula 2.0 28 11/22/16 20:33 82 18 Nasal Cannula 2.0 28 11/22/16 20:21 98.1 83 19 112/77 96 Nasal Cannula 11/22/16 16:00 100 11/22/16 15:58 98.1 103 18 124/84 98 Nasal Cannula 2.0 11/22/16 12:00 103 11/22/16 11:46 97.2 112 18 114/76 95 Nasal Cannula 2.0 11/22/16 08:20 97.9 90 18 125/84 97 Nasal Cannula 2.0 11/22/16 08:00 91 11/22/16 06:55 92 20 Nasal Cannula 2.0 28 11/22/16 06:55 94 Nasal Cannula 2.0 28 11/22/16 06:55 Nasal Cannula 2.0 28 11/22/16 04:00 97.9 99 20 114/78 95 Nasal Cannula 2.0 28 11/22/16 04:00 109 11/22/16 00:00 105 11/22/16 00:00 98.1 72 20 114/74 95 Nasal Cannula 2.0 28 11/21/16 23:54 Nasal Cannula 2.0 28 11/21/16 23:54 95 Nasal Cannula 2.0 28 11/21/16 23:53 106 20 98 Nasal Cannula 2.0 28 11/21/16 23:53 103 20 95 Nasal Cannula 2.0 28 11/21/16 23:52 103 20 Nasal Cannula 2.0 28 Intake and Output 11/21/16 11/22/16 19:00 07:00 Intake Total 500 ml Balance 500 ml IV Total 500 ml # Voids 2 Laboratory Tests 11/22/16 07:15: White Blood Count 16.4H, Red Blood Count 3.44L, Hemoglobin 9.8L, Hematocrit 30.4L, Mean Corpuscular Volume 88, Mean Corpuscular Hemoglobin 28.5, Mean Corpuscular Hemoglobin Concent 32.2, Red Cell Distribution Width 12.3, Platelet Count 448, Mean Platelet Volume 6.3L, Neutrophils (%) (Auto) , Lymphocytes (%) ( Auto) , Monocytes (%) (Auto) , Eosinophils (%) (Auto) , Basophils (%) (Auto) , Differential Total Cells Counted 100, Neutrophils % (Manual) 93H, Lymphocytes % (Manual) 3L, Monocytes % (Manual) 4, Eosinophils % (Manual) 0, Basophils % ( Manual) 0, Band Neutrophils 0, Platelet Estimate Adequate, Platelet Morphology Normal, Hypochromasia 2+, Anisocytosis 1+, Spherocytes 1+, Blastomyces Ab Immunodiffusion [Pending], Coccidioides Antibody (Comp Fix) [Pending], Cryptococcus Antigen [Pending], Histoplasma Mycelial Antibody [Pending], Histoplasma Antibody w Mycelial Ag [Pending], Histoplasma Antibody with Yeast Ag [Pending] 11/22/16 15:15: Prothrombin Time 11.3, Prothromb Time International Ratio 1.1, Activated Partial Thromboplast Time 35H Height (Feet): 5 Height (Inches): 9.00 Weight (Pounds): 132 General Appearance: alert EENT: TMs normal Neck: normal alignment Cardiovascular: normal rate Respiratory/Chest: normal breath sounds Genitourinary/Rectal: heme negative stool Extremities: normal inspection Edema: no edema noted Leg (L), no edema noted Leg (R) Edema: mild edema Neurologic: alert Matheus Lombardi November 22, 2016 22:16
[2016-11-22] MEDS: Piperacillin/Tazobactam 4.5 GM in D5W 110 ML IVPB SCH (22:20)
--- NOTE | 2016-11-23 03:31 | Consultation ---
DATE OF CONSULTATION: 11/22/2016 CARDIOLOGY CONSULTATION CONSULTING PHYSICIAN: Tyson Schneider M.D. REFERRING PHYSICIAN: Kahlil Ronquillo M.D. REASON FOR CONSULTATION: Management of shortness of breath. HISTORY OF PRESENT ILLNESS: The patient is a very unfortunate 56-year-old female who presents to the hospital with complaints of productive cough and shortness of breath that has been going on for about three weeks. This was associated with a pleuritic chest pain that affecting mostly the left side. The patient started three weeks ago with fever, chills, has diaphoresis, and productive cough. Later on, just about a week ago, she was diagnosed with pneumonia and was placed on IV antibiotic. The patient was then referred to the hospital for further evaluation and management. In the emergency department, a CT of chest was done, which showed evidence of moderate pericardial effusion. Therefore, Cardiology consultation was made for evaluation of pericardial effusion as well as dyspnea. CT scan of the chest was also significant for pleural effusion, moderate size on the left as well as infiltration in the left lower lobe. There was no evidence of pulmonary embolism. There was also presence of left hilar mediastinal lymphadenopathy and inflammatory versus neoplastic and also an ovoid nodule within the right breast measured by 3.4 x 2.0 x 3.0 and evidence of the left lower lobe infiltration and atelectasis associated with chest x-ray and also showed presence of left pleural effusion and also volume loss on the left side. A 12-lead electrocardiogram in the emergency department showed sinus tachycardia. The patient was admitted to telemetry for further evaluation and management. PAST MEDICAL HISTORY: 1. History of anemia. 2. History of meningitis at age of 23. 3. History of cardiac problems. PAST SURGICAL HISTORY: There is no history of surgery. ALLERGIES: To citrus. MEDICATIONS: List of medications including aspirin 325 mg p.o. daily, calcium vitamin D chewable one tablet p.o. weekly, eucalyptus oil inhalation on a daily basis, levofloxacin 750 mg p.o. daily, Niacin 500 mg p.o. daily, and potassium chloride 10 mEq p.o. daily. HABITS: Former smoker, quit many years ago. Denies any alcohol or illicit drug use. REVIEW OF SYSTEMS: A 12-system review done essentially negative except what mentioned in the history of present illness. PHYSICAL EXAMINATION: VITAL SIGNS: Blood pressure at the time of arrival to the emergency department was 122/80, pulse of 128, respirations 20, and temperature 98.2 degrees Fahrenheit. GENERAL: The patient is a very unfortunate lady, in mild respiratory distress, consecutive coughing. HEENT: Atraumatic and normocephalic. Anicteric. Pupils are equal, round, and reactive to light and accommodation. Extraocular muscles intact. NECK: JVP is less than 5 cm. No carotid bruit. Carotid upstrokes 2+ bilaterally. CVS: Normal S1 and S2. Tachycardic. No murmurs, gallops, or rubs. No pulsus paradoxus. LUNGS: Diminished breath sounds at the left base. ABDOMEN: Soft, nontender, and nondistended. No hepatosplenomegaly. Positive bowel sounds. EXTREMITIES: No evidence of edema, clubbing, or cyanosis. LABORATORY AND DIAGNOSTIC DATA: Laboratory findings, WBC 16.1, hemoglobin 10.6, hematocrit 31.5, and platelet count is 393,000. Chemistry showed sodium of 136, potassium 3.8, chloride 95, bicarbonate 27, BUN 5, creatinine 0.7, and glucose 114. Calcium is 8.7. Troponin I is less than 0.3. ProBNP was 35. INR is 1.2. A 12-lead electrocardiogram, sinus tachycardia with a rate of 122 with no signs of acute ischemic features and normal QT interval. ASSESSMENT AND PLAN: This is a very unfortunate 56-year-old lady who is seen in Cardiology consultation at the request of Dr. Ronquillo. 1. Dyspnea due to moderate-sized pleural effusion. cause hypoxemia and tachypnea, most likely due to underlying infiltration/pneumonia. Left thoracentesis is scheduled for this patient in the morning. 2. A small pericardial effusion by echocardiography. The size of pleural effusion is inaccurately assessed as moderate size. There is no evidence of pericardial tamponade. However, the etiology of pericardial effusion remains to be unclear in view of the breast. No findings on CT scan because there is presence of a nodule in the breast. Recommend mammography to rule out breast carcinoma. Other etiology for pericardial effusion could be due to underlying left lower lobe lung pathology/infection/abscess/tumor. There is no indication for pericardiocentesis at this time. 3. Sinus tachycardia, secondary to infection/hypovolemia/hypoxemia. 4. Treatment of the underlying disorder is the mainstay of treatment for sinus tachycardia. I will continue monitoring hemodynamics. No AV gaurang agent is required at this time. 5. A 2D echocardiography shows presence of a normal left ventricular systolic function with no evidence of wall motion abnormalities. Normal BNP essentially rules out congestive heart failure. I would like to thank, Dr. Ronquillo, for involving me in the care of this most pleasant patient. Tyson Schneider M.D. DR: EDER JOB#: [id number] CC:
[2016-11-23 04:00] VITALS: BP 115/83
[2016-11-23] MEDS: Piperacillin/Tazobactam 4.5 GM in D5W 110 ML IVPB SCH ×3 (04:53→22:31)
[2016-11-23] MEDS: Promethazine/Codeine 5ml UD ORAL PRN ×3 (05:04→15:47)
[2016-11-23] MEDS: DuoNeb 0.5-3(2.5)mg/3ml neb HHN PRN ×2 (05:36→15:49)
[2016-11-23 08:03] VITALS: BP 112/69
[2016-11-23] MEDS: Aspirin EC 325mg tab ORAL SCH (08:41)
[2016-11-23] MEDS: Vancomycin 750 MG in D5W 275 ML IVPB SCH ×2 (08:42→20:46)
--- NOTE | 2016-11-23 11:35 | Diagnostic Imaging Report ---
APPROVED REPORT CPT Code: 44507 Present Symptoms Comments: CP SOB BILATERAL: Imaging reveals a patent deep venous system bilaterally. There is no evidence of thrombus within the femoral, popliteal or tibial segments. The greater saphenous veins are also within normal limits. Doppler indicates normal spontaneous flow within these segments.
[2016-11-23 12:00] VITALS: BP 112/73
--- NOTE | 2016-11-23 12:16 | General Progress Note ---
Assessment/Plan Problem List: (1) SOB (shortness of breath) ICD Codes: R06.02 - Shortness of breath SNOMED: 909685327 (2) Sepsis ICD Codes: A41.9 - Sepsis, unspecified organism SNOMED: 77857949 (3) Pleural effusion, left ICD Codes: J90 - Pleural effusion, not elsewhere classified SNOMED: 83796259 (4) Upper respiratory infection ICD Codes: J06.9 - Acute upper respiratory infection, unspecified SNOMED: 02902917 (5) Abnormal blood pressure SNOMED: 12142457 Status: progressing Assessment/Plan still has sob r/o pna adenopathy will discuss w hem/onc re etilology of adenopathy Subjective Respiratory: Reports: shortness of breath Allergies: Uncoded Allergies: CITRUS (Allergy, Severe, 11/21/16) aloc Objective Last 24 Hour Vital Signs Date Time Temp Pulse Resp B/P Pulse Ox O2 Delivery O2 Flow Rate FiO2 11/23/16 08:03 98.1 108 18 112/69 98 Room Air 11/23/16 07:57 86 18 Nasal Cannula 2.0 11/23/16 07:53 Room Air 11/23/16 07:52 97 Room Air 11/23/16 05:37 104 20 98 Room Air 21 11/23/16 05:36 106 20 96 Room Air 21 11/23/16 04:00 97.7 98 18 115/83 94 Room Air 11/22/16 23:43 98.1 102 18 117/80 93 Room Air 11/22/16 20:33 Nasal Cannula 2.0 28 11/22/16 20:33 95 Nasal Cannula 2.0 28 11/22/16 20:33 82 18 Nasal Cannula 2.0 28 11/22/16 20:21 98.1 83 19 112/77 96 Nasal Cannula 11/22/16 16:00 100 11/22/16 15:58 98.1 103 18 124/84 98 Nasal Cannula 2.0 Intake and Output 11/22/16 11/23/16 19:00 07:00 Intake Total 625.000 ml 575.0 ml Balance 625.000 ml 575.0 ml Intake Oral 240 ml 350 ml IV Total 385.000 ml 225.0 ml # Voids 3 1 Laboratory Tests 11/22/16 15:15: Prothrombin Time 11.3, Prothromb Time International Ratio 1.1, Activated Partial Thromboplast Time 35H 11/23/16 05:00: TB Test (T-Spot) [Pending], TB Test Nil Control (T-Spot) [Pending], TB Test Panel A (T-Spot) [Pending], TB Test Panel B (T-Spot) [Pending], TB Test Positive Control (T-Spot) [Pending] Height (Feet): 5 Height (Inches): 9.00 Weight (Pounds): 132 Cardiovascular: normal rate Respiratory/Chest: lungs clear Abdomen: soft Kahlil Ronquillo MD November 23, 2016 12:16
--- NOTE | 2016-11-23 15:01 | Diagnostic Imaging Report ---
Indications: Post left thoracentesis Technique: Portable AP chest Findings: Comparison: 11/21/16 Left basal hazy and consolidative opacities, elevation apparent left hemidiaphragm, indistinctness of left costophrenic angle persists, not significantly changed. Questionable development of small left basal pneumothorax. No apical pneumothorax. Linear density has developed in right lung base. Cardio mediastinal silhouette stable. IMPRESSION: No significant change in appearance of left basal pleural/parenchymal opacities following thoracentesis Questionable development of small left basal pneumothorax. Development of subsegmental atelectasis right lung base
--- NOTE | 2016-11-23 15:11 | Infectious Diseases Prog Note ---
Assessment/Plan Problems: (1) LLL pneumonia Assessment & Plan: with possible abscess, continue vancomycin and zosyn empirically, await fungal serology, and sputum culture, will screen for HIV (2) Pleural effusion, left Assessment & Plan: S/P thoracentesis , rule out empyema, recommend fluids to be sent for culture, fungal and AFB, and cytology (3) Sepsis Assessment & Plan: due to the above, on vancomycin and zosyn , pending culture results (4) SOB (shortness of breath) Assessment & Plan: due to the above, pulmonary is following (5) Adrenal adenoma Assessment & Plan: confirmed on MRI, recommend endocrinology eval and management Subjective Constitutional: Reports: anorexia, fatigue HEENT: Reports: no symptoms Respiratory: Reports: productive cough, shortness of breath Cardiovascular: Reports: no symptoms Gastrointestinal/Abdominal: Reports: no symptoms Genitourinary: Reports: no symptoms Neurologic: Reports: no symptoms Psychiatric: Reports: no symptoms Skin: Reports: no symptoms Endocrine: Reports: no symptoms Allergies: Uncoded Allergies: CITRUS (Allergy, Severe, 11/21/16) aloc Objective Vital Signs Last 24 Hour Vital Signs Date Time Temp Pulse Resp B/P Pulse Ox O2 Delivery O2 Flow Rate FiO2 11/23/16 12:00 98.1 93 18 112/73 98 Room Air 11/23/16 08:03 98.1 108 18 112/69 98 Room Air 11/23/16 07:57 86 18 Nasal Cannula 2.0 11/23/16 07:53 Room Air 11/23/16 07:52 97 Room Air 11/23/16 05:37 104 20 98 Room Air 21 11/23/16 05:36 106 20 96 Room Air 21 11/23/16 04:00 97.7 98 18 115/83 94 Room Air 11/22/16 23:43 98.1 102 18 117/80 93 Room Air 11/22/16 20:33 Nasal Cannula 2.0 28 11/22/16 20:33 95 Nasal Cannula 2.0 11/22/16 20:33 82 18 Nasal Cannula 2.0 11/22/16 20:21 98.1 83 19 112/77 96 Nasal Cannula 11/22/16 16:00 100 11/22/16 15:58 98.1 103 18 124/84 98 Nasal Cannula 2.0 Height (Feet): 5 Height (Inches): 9.00 Weight (Pounds): 132 General Appearance: WD/WN, no acute distress HEENT: normocephalic, atraumatic, anicteric, mucous membranes moist Respiratory/Chest: chest wall non-tender, no respiratory distress, no accessory muscle use, decreased breath sounds, crackles/rales Cardiovascular: normal peripheral pulses, normal rate, regular rhythm, no gallop/murmur Abdomen: normal bowel sounds, soft, non tender, no organomegaly, non distended , no mass Extremities: no cyanosis, no clubbing Skin: no rash, no lesions Microbiology Date/Time Source Procedure Growth Status 11/21/16 16:00 Blood Blood Culture - Preliminary NO GROWTH AFTER 24 HOURS Resulted 11/21/16 15:15 Blood Blood Culture - Preliminary NO GROWTH AFTER 24 HOURS Resulted 11/21/16 23:15 Nasal Nares Left MRSA Culture - Final NO METHICILLIN RESISTANT STAPH AUREUS... Complete 11/21/16 22:50 Sputum Expectorated Gram Stain - Final Resulted 11/21/16 22:50 Sputum Expectorated Sputum Culture Pending Resulted 11/21/16 23:15 Rectal Mucosa VRE Culture - Final NO VANCOMYCIN RESISTANT ENTEROCOCCUS ... Complete Laboratory Tests Test 11/22/16 15:15 11/23/16 05:00 11/23/16 14:39 Prothrombin Time 11.3 SEC (9.30-11.50) Prothromb Time International Ratio 1.1 (0.9-1.1) Activated Partial Thromboplast Time 35 SEC (23-33) H TB Test (T-Spot) Pending TB Test Nil Control (T-Spot) Pending TB Test Panel A (T-Spot) Pending TB Test Panel B (T-Spot) Pending TB Test Positive Control (T-Spot) Pending Body Fluid Source Pending Body Fluid Volume Pending Body Fluid Appearance Pending Body Fluid RBC Pending Body Fluid Total Nucleated Cells Pending Body Fluid Polynuclear WBCs (%) Pending Body Fluid Mononuclear WBCs (%) Pending Body Fluid Mesothelial Cells (%) Pending Body Fluid Glucose Pending Body Fluid Total Protein Pending Body Fluid Albumin Pending Current Medications Medications (Trade) Dose Ordered Sig/Ruben Route PRN Reason Start Time Stop Time Status Last Admin Dose Admin Acetaminophen (Tylenol) 650 mg Q4H PRN ORAL Mild Pain/Temp > 100.5 11/22/16 22:45 12/22/16 22:44 Albuterol/ Ipratropium (DuoNeb 0.5-3(2.5)mg/3ml) 3 ml Q4H PRN HHN Shortness of Breath 11/22/16 23:45 11/27/16 23:44 11/23/16 05:36 Aspirin (Ecotrin) 325 mg DAILY ORAL 11/23/16 09:00 12/23/16 08:59 11/23/16 08:41 Dextrose (Dextrose 50%) STAT PRN IV Hypoglycemia 11/22/16 22:45 12/22/16 22:44 Iron Sucrose 100 mg/Sodium Chloride 60 ml @ 240 mls/hr BEDTIME IVPB 11/23/16 21:00 11/26/16 21:01 Ondansetron HCl (Zofran) 4 mg Q6H PRN IVP Nausea & Vomiting 11/22/16 22:45 12/22/16 22:44 Piperacillin Sod/ Tazobactam Sod 4.5 gm/Dextrose 110 ml @ 27.5 mls/hr EVERY 8 HOURS IVPB 11/22/16 22:00 11/27/16 21:59 11/23/16 14:51 Promethazine HCl/ Codeine (Phenergan with Codeine) 5 ml Q4H PRN ORAL For Cough 11/22/16 23:45 12/22/16 23:44 11/23/16 09:13 Vancomycin HCl/ Dextrose (Vancomycin/D5W) 275 ml @ 183.708 mls/hr Q12H IVPB 11/23/16 09:00 11/28/16 08:59 11/23/16 08:42 Nicolle Schmitz M.D. November 23, 2016 15:11
--- NOTE | 2016-11-23 15:20 | Pulmonology Progress Note ---
Assessment/Plan Problems: (1) LLL pneumonia (2) Sepsis (3) Pleural effusion, left Assessment/Plan s/p paracentesis continue antibiotics check cultures Subjective ROS Limited/Unobtainable: No Interval Events: s/p thoracentesis Allergies: Uncoded Allergies: CITRUS (Allergy, Severe, 11/21/16) aloc Objective Last 24 Hour Vital Signs Date Time Temp Pulse Resp B/P Pulse Ox O2 Delivery O2 Flow Rate FiO2 11/23/16 12:00 98.1 93 18 112/73 98 Room Air 11/23/16 08:03 98.1 108 18 112/69 98 Room Air 11/23/16 07:57 86 18 Nasal Cannula 2.0 11/23/16 07:53 Room Air 11/23/16 07:52 97 Room Air 11/23/16 05:37 104 20 98 Room Air 21 11/23/16 05:36 106 20 96 Room Air 21 11/23/16 04:00 97.7 98 18 115/83 94 Room Air 11/22/16 23:43 98.1 102 18 117/80 93 Room Air 11/22/16 20:33 Nasal Cannula 2.0 28 11/22/16 20:33 95 Nasal Cannula 2.0 28 11/22/16 20:33 82 18 Nasal Cannula 2.0 28 11/22/16 20:21 98.1 83 19 112/77 96 Nasal Cannula 11/22/16 16:00 100 11/22/16 15:58 98.1 103 18 124/84 98 Nasal Cannula 2.0 Intake and Output 11/22/16 11/23/16 19:00 07:00 Intake Total 625.000 ml 575.0 ml Balance 625.000 ml 575.0 ml Intake Oral 240 ml 350 ml IV Total 385.000 ml 225.0 ml # Voids 3 1 General Appearance: cachetic HEENT: normocephalic Respiratory/Chest: lungs clear Cardiovascular: normal peripheral pulses, normal rate Abdomen: normal bowel sounds, soft, non tender Skin: no rash 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 Complete 11/21/16 22:50 Sputum Expectorated Gram Stain - Final Resulted 11/21/16 22:50 Sputum Expectorated Sputum Culture Pending Resulted 11/21/16 23:15 Rectal Mucosa VRE Culture - Final NO VANCOMYCIN RESISTANT ENTEROCOCCUS ... Complete Laboratory Tests 11/23/16 05:00: TB Test (T-Spot) [Pending], TB Test Nil Control (T-Spot) [Pending], TB Test Panel A (T-Spot) [Pending], TB Test Panel B (T-Spot) [Pending], TB Test Positive Control (T-Spot) [Pending] 11/23/16 14:39: Body Fluid Source [Pending], Body Fluid Volume [Pending], Body Fluid Appearance [Pending], Body Fluid RBC [Pending], Body Fluid Total Nucleated Cells [Pending] , Body Fluid Polynuclear WBCs (%) [Pending], Body Fluid Mononuclear WBCs (%) [ Pending], Body Fluid Mesothelial Cells (%) [Pending], Body Fluid Glucose [ Pending], Body Fluid Total Protein [Pending], Body Fluid Albumin [Pending] Current Medications Medications (Trade) Dose Ordered Sig/Ruben Route PRN Reason Start Time Stop Time Status Last Admin Dose Admin Acetaminophen (Tylenol) 650 mg Q4H PRN ORAL Mild Pain/Temp > 100.5 11/22/16 22:45 12/22/16 22:44 Albuterol/ Ipratropium (DuoNeb 0.5-3(2.5)mg/3ml) 3 ml Q4H PRN HHN Shortness of Breath 11/22/16 23:45 11/27/16 23:44 11/23/16 05:36 Aspirin (Ecotrin) 325 mg DAILY ORAL 11/23/16 09:00 12/23/16 08:59 11/23/16 08:41 Dextrose (Dextrose 50%) STAT PRN IV Hypoglycemia 11/22/16 22:45 12/22/16 22:44 Iron Sucrose 100 mg/Sodium Chloride 60 ml @ 240 mls/hr BEDTIME IVPB 11/23/16 21:00 11/26/16 21:01 Ondansetron HCl (Zofran) 4 mg Q6H PRN IVP Nausea & Vomiting 11/22/16 22:45 12/22/16 22:44 Piperacillin Sod/ Tazobactam Sod 4.5 gm/Dextrose 110 ml @ 27.5 mls/hr EVERY 8 HOURS IVPB 11/22/16 22:00 11/27/16 21:59 11/23/16 14:51 Promethazine HCl/ Codeine (Phenergan with Codeine) 5 ml Q4H PRN ORAL For Cough 11/22/16 23:45 12/22/16 23:44 11/23/16 09:13 Vancomycin HCl/ Dextrose (Vancomycin/D5W) 275 ml @ 183.708 mls/hr Q12H IVPB 11/23/16 09:00 11/28/16 08:59 11/23/16 08:42 ESTEFANI AVILES November 23, 2016 15:20
[2016-11-23 16:00] VITALS: BP 101/66
--- NOTE | 2016-11-23 16:13 | Diagnostic Imaging Report ---
Indications: Multiloculated left pleural effusion, left lower lobe lung collapse with multiple adjacent masses--abscesses versus neoplasm Technique: Procedure, indications, risks and alternatives were explained to the patient who understands and gives consent to proceed. The left pleural space was surveyed sonographically. The skin over the lateral aspect of the left hemithorax was sterilely prepped and draped in usual fashion. Skin and subcutaneous soft tissues were infiltrated with 1% lidocaine and sodium bicarbonate. A small dermatotomy was made, through which an 8 Slovenian thoracentesis catheter was advanced under direct sonographic guidance into the left pleural space. Pleural fluid was maximally aspirated via syringe. Followup imaging was performed. Catheter was removed. Dermatotomy site was manually compressed to achieve stasis, then cleansed and bandaged. The skin over the posterior aspect of the left hemithorax was sterilely prepped and draped in usual fashion. Skin and subcutaneous soft tissues were infiltrated with 1% lidocaine and sodium bicarbonate. A small dermatotomy was made, through which an 8 Slovenian thoracentesis catheter was advanced under direct sonographic guidance into the left pleural space. Pleural fluid was maximally drained via vacuum apparatus.. Followup imaging was performed. Catheter was removed. Dermatotomy site was manually compressed to achieve stasis, then cleansed and bandaged. Patient tolerated the procedure well without immediate complications. Fluid was sent to laboratory and pathology for analysis, as ordered. Findings: Initial imaging demonstrates a moderate amount of multiloculated fluid within the left pleural space, both laterally and posteriorly. Post procedure imaging demonstrates decrease in pleural fluid with some remaining loculations. Thoracentesis yields 60 cc of orange brown, slightly turbid fluid from the lateral loculations and 50 cc of clear light yellow fluid from the posterior loculations. IMPRESSION: Ultrasound-guided left thoracentesis yielding a total of 110 cc of of pleural fluid , laboratory and pathology results pending. Followup chest radiograph pending.
--- NOTE | 2016-11-23 16:56 | General Progress Note ---
Assessment/Plan Assessment/Plan Assessment and Recs: # Mediastinal and hilar adenopathy as well as pleural effusion - have discussed with radiology, at this time agree to proceed with thoracentesis with cytology and eval for malignant cells. IF negative can discuss to approach on the lung lesions v airway visualization with pulm # Anemia of chronic disease - anemia 2/2 chronic disease, no iron deficiency # Coagulopathy - likely related to poor po intake, recheck inr # LLL pneumonia with possible abscess, on abx as per ID service # Pleural effusion, left - s/p thora # Sepsis - on abx as per ID # SOB (shortness of breath) - likely related to pna Subjective Constitutional: Reports: no symptoms HEENT: Reports: no symptoms Cardiovascular: Reports: no symptoms Respiratory: Reports: no symptoms Gastrointestinal/Abdominal: Reports: poor appetite Genitourinary: Reports: no symptoms Neurologic/Psychiatric: Reports: no symptoms Endocrine: Reports: no symptoms Hematologic/Lymphatic: Reports: anemia Allergies: Uncoded Allergies: CITRUS (Allergy, Severe, 11/21/16) aloc Subjective no chills, no events, no fevers noted Objective Last 24 Hour Vital Signs Date Time Temp Pulse Resp B/P Pulse Ox O2 Delivery O2 Flow Rate FiO2 11/23/16 15:56 88 20 99 Room Air 21 11/23/16 15:45 95 20 97 Room Air 11/23/16 12:00 98.1 93 18 112/73 98 Room Air 11/23/16 08:03 98.1 108 18 112/69 98 Room Air 11/23/16 07:57 86 18 Nasal Cannula 2.0 11/23/16 07:53 Room Air 11/23/16 07:52 97 Room Air 11/23/16 05:37 104 20 98 Room Air 21 11/23/16 05:36 106 20 96 Room Air 21 11/23/16 04:00 97.7 98 18 115/83 94 Room Air 11/22/16 23:43 98.1 102 18 117/80 93 Room Air 11/22/16 20:33 Nasal Cannula 2.0 11/22/16 20:33 95 Nasal Cannula 2.0 28 11/22/16 20:33 82 18 Nasal Cannula 2.0 11/22/16 20:21 98.1 83 19 112/77 96 Nasal Cannula Intake and Output 11/22/16 11/23/16 19:00 07:00 Intake Total 625.000 ml 575.0 ml Balance 625.000 ml 575.0 ml Intake Oral 240 ml 350 ml IV Total 385.000 ml 225.0 ml # Voids 3 1 Laboratory Tests 11/23/16 05:00: TB Test (T-Spot) [Pending], TB Test Nil Control (T-Spot) [Pending], TB Test Panel A (T-Spot) [Pending], TB Test Panel B (T-Spot) [Pending], TB Test Positive Control (T-Spot) [Pending] 11/23/16 14:39: Body Fluid Source [Pending], Body Fluid Volume [Pending], Body Fluid Appearance [Pending], Body Fluid RBC [Pending], Body Fluid Total Nucleated Cells [Pending] , Body Fluid Polynuclear WBCs (%) [Pending], Body Fluid Mononuclear WBCs (%) [ Pending], Body Fluid Mesothelial Cells (%) [Pending], Body Fluid Glucose [ Pending], Body Fluid Total Protein [Pending], Body Fluid Albumin [Pending] Height (Feet): 5 Height (Inches): 9.00 Weight (Pounds): 132 General Appearance: alert EENT: TMs normal Neck: normal inspection Cardiovascular: regular rhythm Respiratory/Chest: normal breath sounds Abdomen: no mass Genitourinary/Rectal: normal rectal exam Edema: 1+ Leg (L), 1+ Leg (R) Edema: mild edema Neurologic: oriented x 3 Skin: warm/dry Matheus Lombardi November 23, 2016 16:56
[2016-11-23] MEDS ORDERED: NS 275ml ONE (17:45)
[2016-11-23] MEDS ORDERED: Tubing IV Secondary IV ONE (17:45)
[2016-11-23 17:48] LABS: APPEARANCE, BODY FLUID HAZY; BD FL SOURCE PLEURAL; BD FL VOLUME 48 mL; BODY FLUID NUCLEATED CELLS 318 /CUMM
[2016-11-23 17:49] LABS: BODY FLUID RBC 7680 /CUMM; MONONUCLEAR WBC 88 %; POLYMORPHONUCLEAR WBC 10 %
[2016-11-23 19:41] VITALS: BP 109/69
[2016-11-23] MEDS: Iron Sucrose 100 MG in NS 55 ML IVPB SCH (20:18)
--- NOTE | 2016-11-23 23:56 | Cardiology Progress Note ---
Assessment/Plan Assessment/Plan 1. Sinus tachycardia, due to hypovolemia, hypoxia, sepsis/PNA, treat the underlying culprit. 2. Dyspnea due to left lower lobe PNA/left pleural effusion, s/p left thoracentesis, normal LV systolic function, no evidence of CHF. 3. Small pericardial effusion, ? reactive due to PNA Subjective Subjective Sinus tachycardia at 110. s/p left thoracentesis. Objective Last 24 Hour Vital Signs Date Time Temp Pulse Resp B/P Pulse Ox O2 Delivery O2 Flow Rate FiO2 11/23/16 19:45 Room Air 11/23/16 19:45 94 Room Air 11/23/16 19:41 97.6 117 20 109/69 96 Room Air 11/23/16 16:00 98.1 95 18 101/66 97 Room Air 11/23/16 15:56 88 20 99 Room Air 21 11/23/16 15:45 95 20 97 Room Air 11/23/16 12:00 98.1 93 18 112/73 98 Room Air 11/23/16 08:03 98.1 108 18 112/69 98 Room Air 11/23/16 07:57 86 18 Nasal Cannula 2.0 11/23/16 07:53 Room Air 11/23/16 07:52 97 Room Air 11/23/16 05:37 104 20 98 Room Air 21 11/23/16 05:36 106 20 96 Room Air 21 11/23/16 04:00 97.7 98 18 115/83 94 Room Air Intake and Output 11/22/16 11/23/16 19:00 07:00 Intake Total 625.000 ml 575.0 ml Balance 625.000 ml 575.0 ml Intake Oral 240 ml 350 ml IV Total 385.000 ml 225.0 ml # Voids 3 1 2D Echo: LVEF 55%,small pericardial eff,large pleural eff,RVSP 56 mmHg, Grdae I LVDD Laboratory Tests Test 11/23/16 05:00 11/23/16 14:39 11/23/16 16:53 TB Test (T-Spot) Pending TB Test Nil Control (T-Spot) Pending TB Test Panel A (T-Spot) Pending TB Test Panel B (T-Spot) Pending TB Test Positive Control (T-Spot) Pending Body Fluid Source Pleural Body Fluid Volume 48 mL Body Fluid Appearance Hazy Body Fluid RBC 7680 /CUMM Body Fluid Total Nucleated Cells 318 /CUMM Body Fluid Polynuclear WBCs (%) 10 % Body Fluid Mononuclear WBCs (%) 88 % Body Fluid Mesothelial Cells (%) 2 % Body Fluid Glucose Pending Body Fluid Total Protein Pending Body Fluid Albumin Pending HIV (1&2) Antibody Rapid Negative (NEGATIVE) Microbiology Date/Time Source Procedure Growth Status 11/21/16 16:00 Blood Blood Culture - Preliminary NO GROWTH AFTER 24 HOURS Resulted 11/21/16 15:15 Blood Blood Culture - Preliminary NO GROWTH AFTER 24 HOURS Resulted 11/21/16 23:15 Nasal Nares Left MRSA Culture - Final NO METHICILLIN RESISTANT STAPH AUREUS... Complete 11/21/16 22:50 Sputum Expectorated Gram Stain - Final Resulted 11/21/16 22:50 Sputum Expectorated Sputum Culture Pending Resulted 11/21/16 23:15 Rectal Mucosa VRE Culture - Final NO VANCOMYCIN RESISTANT ENTEROCOCCUS ... Complete Objective HEENT: Atraumatic and normocephalic. Anicteric. Pupils are equal, round, and reactive to light and accommodation. Extraocular muscles intact. NECK: JVP is less than 5 cm. No carotid bruit. Carotid upstrokes 2+ bilaterally. CVS: Normal S1 and S2. Tachycardic. No murmurs, gallops, or rubs. No pulsus paradoxus. LUNGS: Diminished breath sounds at the left base. ABDOMEN: Soft, nontender, and nondistended. No hepatosplenomegaly. Positive bowel sounds. EXTREMITIES: No evidence of edema, clubbing, or cyanosis. ALVINO RIVERO November 23, 2016 23:55
[2016-11-24] VITALS: BP 129/66
[2016-11-24 04:00] VITALS: BP 125/70
[2016-11-24] MEDS: Piperacillin/Tazobactam 4.5 GM in D5W 110 ML IVPB SCH ×3 (04:50→22:50)
[2016-11-24] MEDS: DuoNeb 0.5-3(2.5)mg/3ml neb HHN PRN ×2 (05:18→20:10)
[2016-11-24 08:15] VITALS: BP 115/70
[2016-11-24] MEDS: Aspirin EC 325mg tab ORAL SCH (10:17)
[2016-11-24] MEDS: Vancomycin 750 MG in D5W 275 ML IVPB SCH ×2 (10:17→20:33)
[2016-11-24 11:49] VITALS: BP 105/71
--- NOTE | 2016-11-24 13:44 | General Progress Note ---
Assessment/Plan Problem List: (1) SOB (shortness of breath) ICD Codes: R06.02 - Shortness of breath SNOMED: 432724931 (2) Sepsis ICD Codes: A41.9 - Sepsis, unspecified organism SNOMED: 25975534 (3) Pleural effusion, left ICD Codes: J90 - Pleural effusion, not elsewhere classified SNOMED: 78030912 (4) Upper respiratory infection ICD Codes: J06.9 - Acute upper respiratory infection, unspecified SNOMED: 95230166 (5) Abnormal blood pressure SNOMED: 78733601 Status: progressing Assessment/Plan clinically improving biopsy pending removal of fluid Subjective ROS Limited/Unobtainable: Yes Constitutional: Reports: no symptoms Allergies: Uncoded Allergies: CITRUS (Allergy, Severe, 11/21/16) aloc Objective Last 24 Hour Vital Signs Date Time Temp Pulse Resp B/P Pulse Ox O2 Delivery O2 Flow Rate FiO2 11/24/16 11:49 97.4 90 21 105/71 100 Nasal Cannula 2.0 11/24/16 08:15 98.5 100 20 115/70 98 Nasal Cannula 2.0 11/24/16 07:20 Room Air 11/24/16 07:20 97 Room Air 11/24/16 05:29 105 18 99 Room Air 21 11/24/16 05:18 101 18 94 Room Air 11/24/16 04:00 97.5 65 20 125/70 97 Room Air 11/24/16 00:00 97.3 89 20 129/66 96 Room Air 11/23/16 19:45 Room Air 11/23/16 19:45 94 Room Air 11/23/16 19:41 97.6 117 20 109/69 96 Room Air 11/23/16 16:00 98.1 95 18 101/66 97 Room Air 11/23/16 15:56 88 20 99 Room Air 21 11/23/16 15:45 95 20 97 Room Air Intake and Output 11/23/16 11/24/16 19:00 07:00 Intake Total 1085.000 ml 500.000 ml Balance 1085.000 ml 500.000 ml Intake Oral 700 ml IV Total 385.000 ml 500.000 ml # Voids 2 2 # Bowel Movements 1 1 Laboratory Tests 11/23/16 14:39: Body Fluid Source Pleural, Body Fluid Volume 48, Body Fluid Appearance Hazy, Body Fluid RBC 7680, Body Fluid Total Nucleated Cells 318, Body Fluid Polynuclear WBCs (%) 10, Body Fluid Mononuclear WBCs (%) 88, Body Fluid Mesothelial Cells (%) 2, Body Fluid Glucose [Pending], Body Fluid Total Protein [Pending], Body Fluid Albumin [Pending] 11/23/16 16:53: HIV (1&2) Antibody Rapid Negative Height (Feet): 5 Height (Inches): 9.00 Weight (Pounds): 132 Neck: supple Cardiovascular: normal rate Respiratory/Chest: lungs clear Abdomen: soft Kahlil Ronquillo MD November 24, 2016 13:44
[2016-11-24] MEDS: Promethazine/Codeine 5ml UD ORAL PRN ×2 (15:24→21:54)
--- NOTE | 2016-11-24 15:48 | Infectious Diseases Prog Note ---
Assessment/Plan Problems: (1) LLL pneumonia Assessment & Plan: with possible abscess, continue vancomycin and zosyn empirically, await fungal serology, sputum culture grew brody spp, and normal linette , screening for HIV is negative (2) Pleural effusion, left Assessment & Plan: S/P thoracentesis , rule out empyema, fluids culture is negative so far , fungal and AFB, and cytology are pending (3) Sepsis Assessment & Plan: due to the above, on vancomycin and zosyn , pending culture results (4) SOB (shortness of breath) Assessment & Plan: due to the above, pulmonary is following (5) Adrenal adenoma Assessment & Plan: confirmed on MRI, recommend endocrinology eval and management Subjective Constitutional: Reports: no symptoms HEENT: Reports: no symptoms Respiratory: Reports: productive cough, shortness of breath Breasts: Reports: no symptoms Cardiovascular: Reports: no symptoms Gastrointestinal/Abdominal: Reports: no symptoms Genitourinary: Reports: no symptoms Neurologic: Reports: no symptoms Psychiatric: Reports: no symptoms Skin: Reports: no symptoms Endocrine: Reports: no symptoms Allergies: Uncoded Allergies: CITRUS (Allergy, Severe, 11/21/16) aloc Objective Vital Signs Last 24 Hour Vital Signs Date Time Temp Pulse Resp B/P Pulse Ox O2 Delivery O2 Flow Rate FiO2 11/24/16 11:49 97.4 90 21 105/71 100 Nasal Cannula 2.0 11/24/16 08:15 98.5 100 20 115/70 98 Nasal Cannula 2.0 11/24/16 07:20 Room Air 11/24/16 07:20 97 Room Air 11/24/16 05:29 105 18 99 Room Air 11/24/16 05:18 101 18 94 Room Air 11/24/16 04:00 97.5 65 20 125/70 97 Room Air 11/24/16 00:00 97.3 89 20 129/66 96 Room Air 11/23/16 19:45 Room Air 11/23/16 19:45 94 Room Air 11/23/16 19:41 97.6 117 20 109/69 96 Room Air 11/23/16 16:00 98.1 95 18 101/66 97 Room Air 11/23/16 15:56 88 20 99 Room Air 21 11/23/16 15:45 95 20 97 Room Air Height (Feet): 5 Height (Inches): 9.00 Weight (Pounds): 132 General Appearance: WD/WN, no acute distress HEENT: normocephalic, atraumatic, anicteric, mucous membranes moist Respiratory/Chest: chest wall non-tender, normal breath sounds, no respiratory distress, no accessory muscle use, decreased breath sounds, crackles/rales Cardiovascular: normal peripheral pulses, normal rate, regular rhythm, no gallop/murmur, no JVD Abdomen: normal bowel sounds, soft, non tender, no organomegaly, non distended , no mass, no scars Extremities: no cyanosis, no clubbing Skin: no rash, no lesions, no ulcers Microbiology Date/Time Source Procedure Growth Status 11/21/16 16:00 Blood Blood Culture - Preliminary NO GROWTH AFTER 48 HOURS Resulted 11/23/16 14:39 Pleural Fluid Gram Stain - Final Resulted 11/23/16 14:39 Pleural Fluid Body Fluid Culture - Preliminary NO GROWTH AFTER 24 HOURS Resulted 11/23/16 14:39 Thoracic Fluid Gram Stain - Final Resulted 11/23/16 14:39 Thoracic Fluid Body Fluid Culture - Preliminary NO GROWTH AFTER 24 HOURS Resulted 11/21/16 23:15 Nasal Nares Left MRSA Culture - Final NO METHICILLIN RESISTANT STAPH AUREUS... Complete 11/21/16 22:50 Sputum Expectorated Gram Stain - Final Complete 11/21/16 22:50 Sputum Culture - Final Brody Albicans Usual Upper Respiratory Linette Complete 11/21/16 23:15 Rectal Mucosa VRE Culture - Final NO VANCOMYCIN RESISTANT ENTEROCOCCUS ... Complete Laboratory Tests Test 11/23/16 16:53 HIV (1&2) Antibody Rapid Negative (NEGATIVE) Current Medications Medications (Trade) Dose Ordered Sig/Ruben Route PRN Reason Start Time Stop Time Status Last Admin Dose Admin Acetaminophen (Tylenol) 650 mg Q4H PRN ORAL Mild Pain/Temp > 100.5 11/22/16 22:45 12/22/16 22:44 Albuterol/ Ipratropium (DuoNeb 0.5-3(2.5)mg/3ml) 3 ml Q4H PRN HHN Shortness of Breath 11/22/16 23:45 11/27/16 23:44 11/24/16 05:18 Aspirin (Ecotrin) 325 mg DAILY ORAL 11/23/16 09:00 12/23/16 08:59 11/24/16 10:17 Dextrose (Dextrose 50%) STAT PRN IV Hypoglycemia 11/22/16 22:45 12/22/16 22:44 Iron Sucrose 100 mg/Sodium Chloride 60 ml @ 240 mls/hr BEDTIME IVPB 11/23/16 21:00 11/26/16 21:01 11/23/16 20:18 Ondansetron HCl (Zofran) 4 mg Q6H PRN IVP Nausea & Vomiting 11/22/16 22:45 12/22/16 22:44 Piperacillin Sod/ Tazobactam Sod 4.5 gm/Dextrose 110 ml @ 27.5 mls/hr EVERY 8 HOURS IVPB 11/22/16 22:00 11/27/16 21:59 11/24/16 14:54 Promethazine HCl/ Codeine (Phenergan with Codeine) 5 ml Q4H PRN ORAL For Cough 11/22/16 23:45 12/22/16 23:44 11/24/16 15:24 Vancomycin HCl (Vanco rx to dose) 1 ea DAILY PRN MISC PER RX PROTOCOL 11/23/16 16:30 12/23/16 16:29 Vancomycin HCl/ Dextrose (Vancomycin/D5W) 275 ml @ 183.708 mls/hr Q12H IVPB 11/23/16 09:00 11/28/16 08:59 11/24/16 10:17 Nicolle Schmitz M.D. November 24, 2016 15:48
[2016-11-24 15:49] VITALS: BP 110/75
[2016-11-24 16:16] LABS: PROTEIN, BODY FLUID 4.8 g/dL (.)
[2016-11-24 20:00] VITALS: BP 111/66
--- NOTE | 2016-11-24 22:29 | Pulmonology Progress Note ---
Assessment/Plan Problems: (1) LLL pneumonia (2) Sepsis (3) Pleural effusion, left Assessment/Plan s/p paracentesis clinically improving repeat cxr in one or two days continue antibiotics check cultures Subjective ROS Limited/Unobtainable: No Constitutional: Reports: no symptoms HEENT: Repors: no symptoms Respiratory: Reports: no symptoms Allergies: Uncoded Allergies: CITRUS (Allergy, Severe, 11/21/16) aloc Objective Last 24 Hour Vital Signs Date Time Temp Pulse Resp B/P Pulse Ox O2 Delivery O2 Flow Rate FiO2 11/24/16 20:13 96 16 97 Nasal Cannula 2.0 28 11/24/16 20:13 Nasal Cannula 2.0 28 11/24/16 20:13 99 Nasal Cannula 28 11/24/16 20:00 98.1 104 18 111/66 97 Nasal Cannula 2.0 11/24/16 15:49 96.9 86 21 110/75 100 Nasal Cannula 2.0 11/24/16 11:49 97.4 90 21 105/71 100 Nasal Cannula 2.0 11/24/16 08:15 98.5 100 20 115/70 98 Nasal Cannula 2.0 11/24/16 07:20 Room Air 11/24/16 07:20 97 Room Air 11/24/16 05:29 105 18 99 Room Air 21 11/24/16 05:18 101 18 94 Room Air 11/24/16 04:00 97.5 65 20 125/70 97 Room Air 11/24/16 00:00 97.3 89 20 129/66 96 Room Air Intake and Output 11/23/16 11/24/16 19:00 07:00 Intake Total 1085.000 ml 500.000 ml Balance 1085.000 ml 500.000 ml Intake Oral 700 ml IV Total 385.000 ml 500.000 ml # Voids 2 2 # Bowel Movements 1 1 General Appearance: WD/WN HEENT: normocephalic, atraumatic Respiratory/Chest: chest wall non-tender, lungs clear Breasts: no masses Cardiovascular: normal rate, regular rhythm Abdomen: normal bowel sounds, soft, non tender, non distended Extremities: no cyanosis, no clubbing Skin: no lesions 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 Complete 11/21/16 22:50 Sputum Expectorated Gram Stain - Final Complete 11/21/16 22:50 Sputum Culture - Final Caridad Albicans Usual Upper Respiratory Sarah Complete 11/21/16 23:15 Rectal Mucosa VRE Culture - Final NO VANCOMYCIN RESISTANT ENTEROCOCCUS ... Complete Laboratory Tests 11/24/16 20:10: Vancomycin Level Trough 6.9 Current Medications Medications (Trade) Dose Ordered Sig/Ruben Route PRN Reason Start Time Stop Time Status Last Admin Dose Admin Acetaminophen (Tylenol) 650 mg Q4H PRN ORAL Mild Pain/Temp > 100.5 11/22/16 22:45 12/22/16 22:44 Albuterol/ Ipratropium (DuoNeb 0.5-3(2.5)mg/3ml) 3 ml Q4H PRN HHN Shortness of Breath 11/22/16 23:45 11/27/16 23:44 11/24/16 20:10 Aspirin (Ecotrin) 325 mg DAILY ORAL 11/23/16 09:00 12/23/16 08:59 11/24/16 10:17 Dextrose (Dextrose 50%) STAT PRN IV Hypoglycemia 11/22/16 22:45 12/22/16 22:44 Iron Sucrose 100 mg/Sodium Chloride 60 ml @ 240 mls/hr BEDTIME IVPB 11/23/16 21:00 11/26/16 21:01 11/23/16 20:18 Ondansetron HCl (Zofran) 4 mg Q6H PRN IVP Nausea & Vomiting 11/22/16 22:45 12/22/16 22:44 Piperacillin Sod/ Tazobactam Sod/ Dextrose (Zosyn/D5W) 110 ml @ 27.5 mls/hr EVERY 8 HOURS IVPB 11/22/16 22:00 11/27/16 21:59 11/24/16 14:54 Promethazine HCl/ Codeine (Phenergan with Codeine) 5 ml Q4H PRN ORAL For Cough 11/22/16 23:45 12/22/16 23:44 11/24/16 21:54 Vancomycin HCl 1 ea 1 ea DAILY PRN MISC PER RX PROTOCOL 11/23/16 16:30 12/23/16 16:29 Vancomycin HCl 1 gm/Dextrose 275 ml @ 183.708 mls/hr Q12HR IVPB 11/25/16 21:00 11/30/16 20:59 Vancomycin HCl/ Sodium Chloride (Vancomycin/ Sodium Chloride) 275 ml @ 183.708 mls/hr ONCE ONCE IVPB 11/25/16 09:00 11/25/16 10:29 ESTEFANI AVILES November 24, 2016 22:29
[2016-11-24] MEDS: Iron Sucrose 100 MG in NS 55 ML IVPB SCH (22:33)
[2016-11-25] VITALS: BP 105/74
[2016-11-25 04:00] VITALS: BP 110/75
[2016-11-25] MEDS: Piperacillin/Tazobactam 4.5 GM in D5W 110 ML IVPB SCH ×3 (05:49→23:33)
[2016-11-25] MEDS: DuoNeb 0.5-3(2.5)mg/3ml neb HHN PRN ×2 (06:27→18:32)
[2016-11-25 08:14] VITALS: BP 106/68
[2016-11-25] MEDS: Aspirin EC 325mg tab ORAL SCH (08:55)
[2016-11-25] MEDS ORDERED: Vancomycin 1250mg in D5W 275ml IVPB ONE (09:00)
[2016-11-25] MEDS ORDERED: Vancomycin 1.25 GM in NS 275 ML IVPB ONE (09:00)
--- NOTE | 2016-11-25 09:25 | General Progress Note ---
Assessment/Plan Problem List: (1) SOB (shortness of breath) ICD Codes: R06.02 - Shortness of breath SNOMED: 191938367 (2) Sepsis ICD Codes: A41.9 - Sepsis, unspecified organism SNOMED: 47535957 (3) Pleural effusion, left ICD Codes: J90 - Pleural effusion, not elsewhere classified SNOMED: 91892450 (4) Upper respiratory infection ICD Codes: J06.9 - Acute upper respiratory infection, unspecified SNOMED: 53528503 (5) Abnormal blood pressure SNOMED: 72664909 Status: progressing Assessment/Plan afebrile vitals stable sepsis pna resp insuff pleural effusion no wheezing biopsy pending Subjective ROS Limited/Unobtainable: Yes Constitutional: Reports: no symptoms Allergies: Uncoded Allergies: CITRUS (Allergy, Severe, 11/21/16) aloc Objective Last 24 Hour Vital Signs Date Time Temp Pulse Resp B/P Pulse Ox O2 Delivery O2 Flow Rate FiO2 11/25/16 08:14 97.7 109 18 106/68 97 Room Air 11/25/16 06:34 88 20 99 Nasal Cannula 2.0 11/25/16 06:33 99 Nasal Cannula 2.0 11/25/16 06:32 Nasal Cannula 2.0 11/25/16 06:22 88 18 95 Room Air 11/25/16 04:00 98.1 92 18 110/75 100 Nasal Cannula 2.0 11/25/16 00:00 98.1 94 18 105/74 97 Room Air 11/24/16 20:13 96 16 97 Nasal Cannula 2.0 28 11/24/16 20:13 Nasal Cannula 2.0 28 11/24/16 20:13 99 Nasal Cannula 28 11/24/16 20:00 98.1 104 18 111/66 97 Nasal Cannula 2.0 11/24/16 15:49 96.9 86 21 110/75 100 Nasal Cannula 2.0 11/24/16 11:49 97.4 90 21 105/71 100 Nasal Cannula 2.0 Intake and Output 11/24/16 11/25/16 19:00 07:00 Intake Total 1705.000 ml 472.500 ml Balance 1705.000 ml 472.500 ml Intake Oral 1320 ml IV Total 385.000 ml 472.500 ml # Voids 2 5 # Bowel Movements 3 Laboratory Tests 11/24/16 20:10: Vancomycin Level Trough 6.9 Height (Feet): 5 Height (Inches): 9.00 Weight (Pounds): 132 Neck: supple Cardiovascular: normal rate Respiratory/Chest: lungs clear Abdomen: soft Kahlil Ronquillo MD November 25, 2016 09:25
--- NOTE | 2016-11-25 09:56 | General Progress Note ---
Assessment/Plan Assessment/Plan Assessment and Recs: # Mediastinal and hilar adenopathy as well as pleural effusion - cytology of the fluid is still pending. IF cytology is negative can discuss to approach on the lung lesions *after pleural effusion drained* v airway visualization with pulm service # Anemia of chronic disease - anemia 2/2 chronic disease, no iron deficiency # Coagulopathy - likely related to poor po intake, recheck inr # LLL pneumonia with possible abscess, on abx as per ID service # Pleural effusion, left - s/p thora # Sepsis - on abx as per ID # SOB (shortness of breath) - likely related to pna Subjective Date patient seen: November 24, 2016 Constitutional: Reports: no symptoms HEENT: Reports: no symptoms Cardiovascular: Reports: no symptoms Respiratory: Reports: no symptoms Gastrointestinal/Abdominal: Reports: no symptoms Genitourinary: Reports: no symptoms Endocrine: Reports: no symptoms Hematologic/Lymphatic: Reports: anemia Allergies: Uncoded Allergies: CITRUS (Allergy, Severe, 11/21/16) aloc Subjective no chills, no events, no fevers noted, cytology of thora pending Objective Last 24 Hour Vital Signs Date Time Temp Pulse Resp B/P Pulse Ox O2 Delivery O2 Flow Rate FiO2 11/25/16 08:14 97.7 109 18 106/68 97 Room Air 11/25/16 06:34 88 20 99 Nasal Cannula 2.0 11/25/16 06:33 99 Nasal Cannula 2.0 11/25/16 06:32 Nasal Cannula 2.0 11/25/16 06:22 88 18 95 Room Air 11/25/16 04:00 98.1 92 18 110/75 100 Nasal Cannula 2.0 11/25/16 00:00 98.1 94 18 105/74 97 Room Air 11/24/16 20:13 96 16 97 Nasal Cannula 2.0 28 11/24/16 20:13 Nasal Cannula 2.0 28 11/24/16 20:13 99 Nasal Cannula 28 11/24/16 20:00 98.1 104 18 111/66 97 Nasal Cannula 2.0 11/24/16 15:49 96.9 86 21 110/75 100 Nasal Cannula 2.0 11/24/16 11:49 97.4 90 21 105/71 100 Nasal Cannula 2.0 Intake and Output 11/24/16 11/25/16 19:00 07:00 Intake Total 1705.000 ml 472.500 ml Balance 1705.000 ml 472.500 ml Intake Oral 1320 ml IV Total 385.000 ml 472.500 ml # Voids 2 5 # Bowel Movements 3 Laboratory Tests 11/24/16 20:10: Vancomycin Level Trough 6.9 Height (Feet): 5 Height (Inches): 9.00 Weight (Pounds): 132 General Appearance: no apparent distress EENT: normal ENT inspection Neck: supple Cardiovascular: regular rhythm Respiratory/Chest: normal breath sounds Abdomen: non tender, soft Extremities: non-tender Edema: 1+ Leg (L), 1+ Leg (R) Neurologic: alert Skin: normal pigmentation Matheus Lombardi November 25, 2016 09:56
--- NOTE | 2016-11-25 11:11 | Pulmonology Progress Note ---
Assessment/Plan Problems: (1) LLL pneumonia (2) Sepsis (3) Pleural effusion, left Assessment/Plan s/p paracentesis, exudate by protein, cultures negative continue antibiotics check cultures check labs holly Subjective ROS Limited/Unobtainable: No Constitutional: Reports: no symptoms HEENT: Repors: no symptoms Respiratory: Reports: no symptoms Allergies: Uncoded Allergies: CITRUS (Allergy, Severe, 11/21/16) aloc Objective Last 24 Hour Vital Signs Date Time Temp Pulse Resp B/P Pulse Ox O2 Delivery O2 Flow Rate FiO2 11/25/16 08:14 97.7 109 18 106/68 97 Room Air 11/25/16 06:34 88 20 99 Nasal Cannula 2.0 11/25/16 06:33 99 Nasal Cannula 2.0 11/25/16 06:32 Nasal Cannula 2.0 11/25/16 06:22 88 18 95 Room Air 11/25/16 04:00 98.1 92 18 110/75 100 Nasal Cannula 2.0 11/25/16 00:00 98.1 94 18 105/74 97 Room Air 11/24/16 20:13 96 16 97 Nasal Cannula 2.0 28 11/24/16 20:13 Nasal Cannula 2.0 28 11/24/16 20:13 99 Nasal Cannula 28 11/24/16 20:00 98.1 104 18 111/66 97 Nasal Cannula 2.0 11/24/16 15:49 96.9 86 21 110/75 100 Nasal Cannula 2.0 11/24/16 11:49 97.4 90 21 105/71 100 Nasal Cannula 2.0 Intake and Output 11/24/16 11/25/16 19:00 07:00 Intake Total 1705.000 ml 472.500 ml Balance 1705.000 ml 472.500 ml Intake Oral 1320 ml IV Total 385.000 ml 472.500 ml # Voids 2 5 # Bowel Movements 3 HEENT: normocephalic, atraumatic Respiratory/Chest: lungs clear Cardiovascular: normal peripheral pulses, normal rate Abdomen: normal bowel sounds, soft, non tender, non distended, no scars Extremities: no cyanosis Skin: no rash Microbiology Date/Time Source Procedure Growth Status 11/23/16 14:39 Pleural Fluid Gram Stain - Final Resulted 11/23/16 14:39 Pleural Fluid Body Fluid Culture - Preliminary NO GROWTH AFTER 48 HOURS Resulted 11/23/16 14:39 Thoracic Fluid Gram Stain - Final Resulted 11/23/16 14:39 Thoracic Fluid Body Fluid Culture - Preliminary NO GROWTH AFTER 48 HOURS Resulted Laboratory Tests 11/24/16 20:10: Vancomycin Level Trough 6.9 Current Medications Medications (Trade) Dose Ordered Sig/Ruben Route PRN Reason Start Time Stop Time Status Last Admin Dose Admin Acetaminophen (Tylenol) 650 mg Q4H PRN ORAL Mild Pain/Temp > 100.5 11/22/16 22:45 12/22/16 22:44 Albuterol/ Ipratropium (DuoNeb 0.5-3(2.5)mg/3ml) 3 ml Q4H PRN HHN Shortness of Breath 11/22/16 23:45 11/27/16 23:44 11/25/16 06:27 Aspirin (Ecotrin) 325 mg DAILY ORAL 11/23/16 09:00 12/23/16 08:59 11/25/16 08:55 Dextrose (Dextrose 50%) STAT PRN IV Hypoglycemia 11/22/16 22:45 12/22/16 22:44 Iron Sucrose 100 mg/Sodium Chloride 60 ml @ 240 mls/hr BEDTIME IVPB 11/23/16 21:00 11/26/16 21:01 11/24/16 22:33 Ondansetron HCl (Zofran) 4 mg Q6H PRN IVP Nausea & Vomiting 11/22/16 22:45 12/22/16 22:44 Piperacillin Sod/ Tazobactam Sod/ Dextrose (Zosyn/D5W) 110 ml @ 27.5 mls/hr EVERY 8 HOURS IVPB 11/22/16 22:00 11/27/16 21:59 11/25/16 05:49 Promethazine HCl/ Codeine (Phenergan with Codeine) 5 ml Q4H PRN ORAL For Cough 11/22/16 23:45 12/22/16 23:44 11/24/16 21:54 Vancomycin HCl 1 ea 1 ea DAILY PRN MISC PER RX PROTOCOL 11/23/16 16:30 12/23/16 16:29 Vancomycin HCl/ Dextrose (Vancomycin/D5W) 275 ml @ 183.708 mls/hr Q12HR IVPB 11/25/16 21:00 11/30/16 20:59 ESTEFANI AVILES November 25, 2016 11:11
[2016-11-25 11:52] VITALS: BP 104/67
[2016-11-25] MEDS ORDERED: Tubing IV Secondary IV ONE (13:53)
--- NOTE | 2016-11-25 14:15 | Infectious Diseases Prog Note ---
Assessment/Plan Problems: (1) LLL pneumonia Assessment & Plan: with possible abscess, improving on vancomycin and zosyn empirically, await fungal serology, sputum culture grew brody spp, and normal linette , screening for HIV is negative (2) Pleural effusion, left Assessment & Plan: S/P thoracentesis , rule out empyema, fluids culture is negative so far , fungal and AFB, and cytology are pending (3) Sepsis Assessment & Plan: due to the above, on vancomycin and zosyn , pending culture results (4) SOB (shortness of breath) Assessment & Plan: due to the above, pulmonary is following (5) Adrenal adenoma Assessment & Plan: confirmed on MRI, recommend endocrinology eval and management Subjective Constitutional: Reports: fatigue HEENT: Reports: no symptoms Respiratory: Reports: no symptoms Breasts: Reports: no symptoms Cardiovascular: Reports: no symptoms Gastrointestinal/Abdominal: Reports: no symptoms Genitourinary: Reports: no symptoms Neurologic: Reports: no symptoms Psychiatric: Reports: no symptoms Skin: Reports: no symptoms Endocrine: Reports: no symptoms Hematologic: Reports: no symptoms Allergies: Uncoded Allergies: CITRUS (Allergy, Severe, 11/21/16) aloc Subjective she feels better , less cough and phlegm, no fever or chills. Objective Vital Signs Last 24 Hour Vital Signs Date Time Temp Pulse Resp B/P Pulse Ox O2 Delivery O2 Flow Rate FiO2 11/25/16 11:52 97.9 85 16 104/67 100 Room Air 11/25/16 08:14 97.7 109 18 106/68 97 Room Air 11/25/16 06:34 88 20 99 Nasal Cannula 2.0 11/25/16 06:33 99 Nasal Cannula 2.0 11/25/16 06:32 Nasal Cannula 2.0 11/25/16 06:22 88 18 95 Room Air 11/25/16 04:00 98.1 92 18 110/75 100 Nasal Cannula 2.0 11/25/16 00:00 98.1 94 18 105/74 97 Room Air 11/24/16 20:13 96 16 97 Nasal Cannula 2.0 28 11/24/16 20:13 Nasal Cannula 2.0 28 11/24/16 20:13 99 Nasal Cannula 28 11/24/16 20:00 98.1 104 18 111/66 97 Nasal Cannula 2.0 11/24/16 15:49 96.9 86 21 110/75 100 Nasal Cannula 2.0 Height (Feet): 5 Height (Inches): 9.00 Weight (Pounds): 132 General Appearance: WD/WN, no acute distress HEENT: normocephalic, atraumatic, anicteric Respiratory/Chest: chest wall non-tender, lungs clear, normal breath sounds, no respiratory distress, decreased breath sounds, crackles/rales Cardiovascular: normal peripheral pulses, normal rate, regular rhythm, no gallop/murmur, no JVD Abdomen: normal bowel sounds, soft, non tender, no organomegaly, non distended , no mass Extremities: no cyanosis, no clubbing Skin: no rash, no lesions Microbiology Date/Time Source Procedure Growth Status 11/23/16 14:39 Pleural Fluid Gram Stain - Final Resulted 11/23/16 14:39 Pleural Fluid Body Fluid Culture - Preliminary NO GROWTH AFTER 48 HOURS Resulted 11/23/16 14:39 Thoracic Fluid Gram Stain - Final Resulted 11/23/16 14:39 Thoracic Fluid Body Fluid Culture - Preliminary NO GROWTH AFTER 48 HOURS Resulted Laboratory Tests Test 11/24/16 20:10 Vancomycin Level Trough 6.9 ug/mL (5.0-12.0) Current Medications Medications (Trade) Dose Ordered Sig/Ruben Route PRN Reason Start Time Stop Time Status Last Admin Dose Admin Acetaminophen (Tylenol) 650 mg Q4H PRN ORAL Mild Pain/Temp > 100.5 11/22/16 22:45 12/22/16 22:44 Albuterol/ Ipratropium (DuoNeb 0.5-3(2.5)mg/3ml) 3 ml Q4H PRN HHN Shortness of Breath 11/22/16 23:45 11/27/16 23:44 11/25/16 06:27 Aspirin (Ecotrin) 325 mg DAILY ORAL 11/23/16 09:00 12/23/16 08:59 11/25/16 08:55 Dextrose (Dextrose 50%) STAT PRN IV Hypoglycemia 11/22/16 22:45 12/22/16 22:44 Iron Sucrose 100 mg/Sodium Chloride 60 ml @ 240 mls/hr BEDTIME IVPB 11/23/16 21:00 11/26/16 21:01 11/24/16 22:33 Ondansetron HCl (Zofran) 4 mg Q6H PRN IVP Nausea & Vomiting 11/22/16 22:45 12/22/16 22:44 Piperacillin Sod/ Tazobactam Sod/ Dextrose (Zosyn/D5W) 110 ml @ 27.5 mls/hr EVERY 8 HOURS IVPB 11/22/16 22:00 11/27/16 21:59 11/25/16 13:52 Promethazine HCl/ Codeine (Phenergan with Codeine) 5 ml Q4H PRN ORAL For Cough 11/22/16 23:45 12/22/16 23:44 11/24/16 21:54 Vancomycin HCl 1 ea 1 ea DAILY PRN MISC PER RX PROTOCOL 11/23/16 16:30 12/23/16 16:29 Vancomycin HCl/ Dextrose (Vancomycin/D5W) 275 ml @ 183.708 mls/hr Q12HR IVPB 11/25/16 21:00 11/30/16 20:59 Nicolle Schmitz M.D. November 25, 2016 14:15
[2016-11-25 16:11] VITALS: BP 121/80
[2016-11-25] MEDS: metroNIDAZOLE 500mg tab ORAL SCH (16:55)
--- NOTE | 2016-11-25 18:36 | Cardiology Progress Note ---
Assessment/Plan Assessment/Plan 1. Sinus tachycardia, due to hypovolemia, hypoxia, sepsis/PNA, treat the underlying culprit. 2. Dyspnea due to left lower lobe PNA/left pleural effusion, s/p left thoracentesis, normal LV systolic function, no evidence of CHF. 3. Small pericardial effusion, ? reactive due to PNA 4. Moderate to severe pulmonary HTN Subjective Subjective Transferred to the med surg unit. Not on the telemetry unit. s/p left thoracentesis. Objective Last 24 Hour Vital Signs Date Time Temp Pulse Resp B/P Pulse Ox O2 Delivery O2 Flow Rate FiO2 11/25/16 16:11 97.5 101 20 121/80 98 Room Air 11/25/16 11:52 97.9 85 16 104/67 100 Room Air 11/25/16 08:14 97.7 109 18 106/68 97 Room Air 11/25/16 06:34 88 20 99 Nasal Cannula 2.0 11/25/16 06:33 99 Nasal Cannula 2.0 11/25/16 06:32 Nasal Cannula 2.0 11/25/16 06:22 88 18 95 Room Air 11/25/16 04:00 98.1 92 18 110/75 100 Nasal Cannula 2.0 11/25/16 00:00 98.1 94 18 105/74 97 Room Air 11/24/16 20:13 96 16 97 Nasal Cannula 2.0 28 11/24/16 20:13 Nasal Cannula 2.0 28 11/24/16 20:13 99 Nasal Cannula 28 11/24/16 20:00 98.1 104 18 111/66 97 Nasal Cannula 2.0 Intake and Output 11/24/16 11/25/16 19:00 07:00 Intake Total 1705.000 ml 472.500 ml Balance 1705.000 ml 472.500 ml Intake Oral 1320 ml IV Total 385.000 ml 472.500 ml # Voids 2 5 # Bowel Movements 3 2D Echo: EF 55%, Small pericardial Eff, Large pleural Eff, Grade I LVDD,RVSP 56 mmHg Laboratory Tests Test 11/24/16 20:10 Vancomycin Level Trough 6.9 ug/mL (5.0-12.0) Microbiology Date/Time Source Procedure Growth Status 11/23/16 14:39 Pleural Fluid Gram Stain - Final Resulted 11/23/16 14:39 Pleural Fluid Body Fluid Culture - Preliminary NO GROWTH AFTER 48 HOURS Resulted 11/23/16 14:39 Thoracic Fluid Gram Stain - Final Resulted 11/23/16 14:39 Thoracic Fluid Body Fluid Culture - Preliminary NO GROWTH AFTER 48 HOURS Resulted Objective HEENT: Atraumatic and normocephalic. Anicteric. Pupils are equal, round, and reactive to light and accommodation. Extraocular muscles intact. NECK: JVP is less than 5 cm. No carotid bruit. Carotid upstrokes 2+ bilaterally. CVS: Normal S1 and S2. Tachycardic. No murmurs, gallops, or rubs. No pulsus paradoxus. LUNGS: Diminished breath sounds at the left base. ABDOMEN: Soft, nontender, and nondistended. No hepatosplenomegaly. Positive bowel sounds. EXTREMITIES: No evidence of edema, clubbing, or cyanosis. ALVINO RIVERO November 25, 2016 18:36
[2016-11-25 20:00] VITALS: BP 126/79
[2016-11-25] MEDS ORDERED: Vancomycin 1gm in D5W 275ml IVPB SCH (21:00)
[2016-11-25] MEDS: Iron Sucrose 100 MG in NS 55 ML IVPB SCH (22:22)
[2016-11-26] VITALS: BP 106/65
[2016-11-26] MEDS: metroNIDAZOLE 500mg tab ORAL SCH ×4 (00:42→20:49)
[2016-11-26 04:00] VITALS: BP 117/67
[2016-11-26] MEDS: DuoNeb 0.5-3(2.5)mg/3ml neb HHN PRN ×2 (04:53→17:47)
[2016-11-26] MEDS: Piperacillin/Tazobactam 4.5 GM in D5W 110 ML IVPB SCH (06:20)
[2016-11-26 08:15] VITALS: BP 121/82
[2016-11-26] MEDS: Aspirin EC 325mg tab ORAL SCH (08:50)
[2016-11-26 09:31] LABS: MEAN CORPUSCULAR HEMOGLOBIN 29.1 PG (27.0-31.0); MEAN CORPUSCULAR HGB CONC 32.7 G/DL (32.0-36.0); MEAN CORPUSCULAR VOLUME 89 FL (80-99); MEAN PLATELET VOLUME 5.9 FL (6.5-10.1); PLATELET COUNT 433 K/UL (150-450); RED BLOOD COUNT 3.33 M/UL (4.20-5.40); RED CELL DISTRIBUTION WIDTH 12.3 % (11.6-14.8); WHITE BLOOD COUNT 18.9 K/UL (4.8-10.8)
[2016-11-26 09:39] LABS: ALANINE AMINOTRANSFERASE 5 U/L (3-33); ALBUMIN/GLOBULIN RATIO 0.5 (1.0-2.7); ANION GAP 14 (5-15); ASPARTATE AMINO TRANSFERASE 21 U/L (5-40); CALCIUM 8.5 mg/dL (8.6-10.2); CARBON DIOXIDE 26 mEQ/L (20-30); CHLORIDE 100 mEQ/L (98-107); CREATININE 2.1 mg/dL (0.5-0.9); GLOMERULAR FILTRATION RATE 29.3 mL/min (>60); HEMOLYSIS 1; POTASSIUM 3.9 mEQ/L (3.4-4.9); SODIUM 140 mEQ/L (135-145); TOTAL PROTEIN 6.3 g/dL (6.6-8.7)
[2016-11-26 10:13] LABS: BAND NEUTROPHILS % (MANUAL) 0 % (0-8); BASOPHILS % (MANUAL) 0 % (0-2); EOSINOPHILS % (MANUAL) 0 % (0-3); HYPOCHROMASIA 1+; LYMPHOCYTES % (MANUAL) 4 % (20-45); NEUTROPHILS % (MANUAL) 94 % (45-75); PLATELET ESTIMATE ADEQUATE; PLATELET MORPHOLOGY NORMAL; TOTAL CELLS COUNTED 100
--- NOTE | 2016-11-26 10:36 | Diagnostic Imaging Report ---
Indication: Dyspnea Comparison: 11/23/16 A single view chest radiograph was obtained. Findings: There is a left pleural effusion. The heart is normal in size. Bones are unremarkable Impression: Left pleural effusion. No change.
[2016-11-26] MEDS ORDERED: Vancomycin 750mg/D5W 275ml IVPB SCH ×4 (11:00→14:00)
[2016-11-26 12:16] VITALS: BP 113/73
--- NOTE | 2016-11-26 13:40 | General Progress Note ---
Assessment/Plan Problem List: (1) SOB (shortness of breath) ICD Codes: R06.02 - Shortness of breath SNOMED: 400618672 (2) Sepsis ICD Codes: A41.9 - Sepsis, unspecified organism SNOMED: 71725940 (3) Pleural effusion, left ICD Codes: J90 - Pleural effusion, not elsewhere classified SNOMED: 50392921 (4) Upper respiratory infection ICD Codes: J06.9 - Acute upper respiratory infection, unspecified SNOMED: 91929281 (5) Abnormal blood pressure SNOMED: 36409996 Status: progressing Assessment/Plan no wheezing sepsis pleural effusion biopsy pending adenopathy r/o malignancy Subjective ROS Limited/Unobtainable: Yes Constitutional: Reports: no symptoms Allergies: Uncoded Allergies: CITRUS (Allergy, Severe, 11/21/16) aloc Objective Last 24 Hour Vital Signs Date Time Temp Pulse Resp B/P Pulse Ox O2 Delivery O2 Flow Rate FiO2 11/26/16 12:16 98.9 90 21 113/73 97 Nasal Cannula 2.0 11/26/16 08:15 97.7 94 23 121/82 96 Nasal Cannula 2.0 11/26/16 07:45 95 Room Air 11/26/16 07:45 Room Air 11/26/16 05:02 95 20 99 Nasal Cannula 2.0 11/26/16 04:53 96 20 99 Nasal Cannula 2.0 11/26/16 04:00 97.9 95 20 117/67 Nasal Cannula 2.0 11/26/16 00:00 98.1 102 20 106/65 97 Nasal Cannula 2.0 11/25/16 20:00 98.1 124 20 126/79 95 Nasal Cannula 2.0 11/25/16 18:40 112 18 99 Nasal Cannula 2.0 11/25/16 18:32 109 18 94 Nasal Cannula 2.0 11/25/16 18:32 94 Nasal Cannula 2.0 11/25/16 18:32 Nasal Cannula 2.0 11/25/16 16:11 97.5 101 20 121/80 98 Room Air Intake and Output 11/25/16 11/26/16 19:00 07:00 Intake Total 1582.5 ml Balance 1582.5 ml Intake Oral 1500 ml IV Total 82.5 ml # Voids 5 2 # Bowel Movements 4 2 Laboratory Tests 11/26/16 08:50: White Blood Count 18.9H, Red Blood Count 3.33L, Hemoglobin 9.7L, Hematocrit 29.6L, Mean Corpuscular Volume 89, Mean Corpuscular Hemoglobin 29.1, Mean Corpuscular Hemoglobin Concent 32.7, Red Cell Distribution Width 12.3, Platelet Count 433, Mean Platelet Volume 5.9L, Neutrophils (%) (Auto) , Lymphocytes (%) ( Auto) , Monocytes (%) (Auto) , Eosinophils (%) (Auto) , Basophils (%) (Auto) , Differential Total Cells Counted 100, Neutrophils % (Manual) 94H, Lymphocytes % (Manual) 4L, Monocytes % (Manual) 2, Eosinophils % (Manual) 0, Basophils % ( Manual) 0, Band Neutrophils 0, Platelet Estimate Adequate, Platelet Morphology Normal, Hypochromasia 1+, Sodium Level 140, Potassium Level 3.9, Chloride Level 100, Carbon Dioxide Level 26, Anion Gap 14, Blood Urea Nitrogen 12, Creatinine 2.1H, Estimat Glomerular Filtration Rate 29.3, Glucose Level 118H, Calcium Level 8.5L, Total Bilirubin < 0.2, Aspartate Amino Transf (AST/SGOT) 21, Alanine Aminotransferase (ALT/SGPT) 5, Alkaline Phosphatase 84, Pro-B-Type Natriuretic Peptide 414H, Total Protein 6.3L, Albumin 2.3L, Globulin 4.0, Albumin/Globulin Ratio 0.5L, Vancomycin Level Trough 23.3H Height (Feet): 5 Height (Inches): 9.00 Weight (Pounds): 132 Cardiovascular: normal rate Respiratory/Chest: lungs clear Abdomen: soft Kahlil Ronquillo MD November 26, 2016 13:40
--- NOTE | 2016-11-26 14:53 | Consultation ---
Consult Note Consult Note Asked to eval for rising Cr to 2.1- Patient initially admitted with SOB and pleural effusion serum Cr of WNL has risen to 2.1 No UA available Patient interviewed and examined- data reviewed Assessment/Plan Status: Acute Renal Failure- Iron Defficiency Anemia- HypoAlbuminemia , Etiology ??? Penumonia / left Pleural effusion Adrenal Adenoma Plan: Andres- UA- ( none available since admission) Urine Eosinophils and Spot Na DC Vanco- Monitor dose- adjust Zosyn dose IV Iron per orders JOAQUÍN WORRELL November 26, 2016 14:53
[2016-11-26 16:25] LABS: APPEARANCE,URINE SLIGHTLY CLOUDY; KETONES,URINE NEGATIVE (NEGATIVE); LEUKOCYTE ESTERASE ,URINE 1+ (NEGATIVE); NITRITE,URINE NEGATIVE (NEGATIVE); PH,URINE 6.5 (4.5-8.0); PROTEIN,URINE 2+ (NEGATIVE); UROBILINOGEN,URINE NORMAL MG/DL (0.0-1.0)
[2016-11-26 16:39] LABS: RBC,URINE 0-2 /HPF (0 - 2)
[2016-11-26 16:40] LABS: AMORPHOUS SEDIMENT,UR MODERATE /LPF; BACTERIA,URINE FEW /HPF; SQUAMOUS EPITHELIAL CELL,UR MODERATE /LPF (NONE/OCC)
[2016-11-26] MEDS: Docusate 100mg cap ORAL SCH (17:14)
--- NOTE | 2016-11-26 18:31 | Pulmonology Progress Note ---
Assessment/Plan Problems: (1) LLL pneumonia (2) Sepsis (3) Pleural effusion, left Assessment/Plan s/p paracentesis wbc rising might need thoracoscopy watch labs continue antibiotics Subjective ROS Limited/Unobtainable: No Allergies: Coded Allergies: CITRUS AND DERIVATIVES (Unverified Allergy, Unknown, 11/27/16) TOMATO (Verified Allergy, Unknown, 11/27/16) per patient VANCOMYCIN (Verified Adverse Reaction, Unknown, 11/27/16) had severe abdominal pain per patient Uncoded Allergies: CITRUS (Allergy, Severe, 11/21/16) aloc Objective Last 24 Hour Vital Signs Date Time Temp Pulse Resp B/P Pulse Ox O2 Delivery O2 Flow Rate FiO2 11/26/16 17:57 97 20 99 Nasal Cannula 2.0 11/26/16 17:47 96 20 99 Nasal Cannula 2.0 11/26/16 12:16 98.9 90 21 113/73 97 Nasal Cannula 2.0 11/26/16 08:15 97.7 94 23 121/82 96 Nasal Cannula 2.0 11/26/16 07:45 95 Room Air 11/26/16 07:45 Room Air 11/26/16 05:02 95 20 99 Nasal Cannula 2.0 11/26/16 04:53 96 20 99 Nasal Cannula 2.0 11/26/16 04:00 97.9 95 20 117/67 Nasal Cannula 2.0 11/26/16 00:00 98.1 102 20 106/65 97 Nasal Cannula 2.0 11/25/16 20:00 98.1 124 20 126/79 95 Nasal Cannula 2.0 11/25/16 18:40 112 18 99 Nasal Cannula 2.0 11/25/16 18:32 109 18 94 Nasal Cannula 2.0 11/25/16 18:32 94 Nasal Cannula 2.0 11/25/16 18:32 Nasal Cannula 2.0 28 Intake and Output 11/25/16 11/26/16 19:00 07:00 Intake Total 1582.5 ml Balance 1582.5 ml Intake Oral 1500 ml IV Total 82.5 ml # Voids 5 2 # Bowel Movements 4 2 General Appearance: WD/WN HEENT: normocephalic, atraumatic Respiratory/Chest: chest wall non-tender, lungs clear Breasts: no masses Cardiovascular: normal peripheral pulses Abdomen: normal bowel sounds Genitourinary: normal external genitalia Laboratory Tests 11/26/16 08:50: White Blood Count 18.9H, Red Blood Count 3.33L, Hemoglobin 9.7L, Hematocrit 29.6L, Mean Corpuscular Volume 89, Mean Corpuscular Hemoglobin 29.1, Mean Corpuscular Hemoglobin Concent 32.7, Red Cell Distribution Width 12.3, Platelet Count 433, Mean Platelet Volume 5.9L, Neutrophils (%) (Auto) , Lymphocytes (%) ( Auto) , Monocytes (%) (Auto) , Eosinophils (%) (Auto) , Basophils (%) (Auto) , Differential Total Cells Counted 100, Neutrophils % (Manual) 94H, Lymphocytes % (Manual) 4L, Monocytes % (Manual) 2, Eosinophils % (Manual) 0, Basophils % ( Manual) 0, Band Neutrophils 0, Platelet Estimate Adequate, Platelet Morphology Normal, Hypochromasia 1+, Sodium Level 140, Potassium Level 3.9, Chloride Level 100, Carbon Dioxide Level 26, Anion Gap 14, Blood Urea Nitrogen 12, Creatinine 2.1H, Estimat Glomerular Filtration Rate 29.3, Glucose Level 118H, Calcium Level 8.5L, Total Bilirubin < 0.2, Aspartate Amino Transf (AST/SGOT) 21, Alanine Aminotransferase (ALT/SGPT) 5, Alkaline Phosphatase 84, Pro-B-Type Natriuretic Peptide 414H, Total Protein 6.3L, Albumin 2.3L, Globulin 4.0, Albumin/Globulin Ratio 0.5L, Vancomycin Level Trough 23.3H 11/26/16 16:00: Urine Color Pale yellow, Urine Appearance Slightly cloudy, Urine pH 6.5, Urine Specific [place] 1.005, Urine Protein 2+H, Urine Glucose (UA) Negative, Urine Ketones Negative, Urine Occult Blood Negative, Urine Nitrite Negative, Urine Bilirubin Negative, Urine Urobilinogen Normal, Urine Leukocyte Esterase 1+H, Urine RBC 0-2, Urine WBC 5-10H, Urine Squamous Epithelial Cells ModerateH, Urine Amorphous Sediment ModerateH, Urine Bacteria Few, Urine Random Sodium 26 Current Medications Medications (Trade) Dose Ordered Sig/Ruben Route PRN Reason Start Time Stop Time Status Last Admin Dose Admin Acetaminophen (Tylenol) 650 mg Q4H PRN ORAL Mild Pain/Temp > 100.5 11/22/16 22:45 12/22/16 22:44 Albuterol/ Ipratropium (DuoNeb 0.5-3(2.5)mg/3ml) 3 ml Q4H PRN HHN Shortness of Breath 11/22/16 23:45 11/27/16 23:44 11/26/16 17:47 Aspirin (Ecotrin) 325 mg DAILY ORAL 11/23/16 09:00 12/23/16 08:59 11/26/16 08:50 Dextrose (Dextrose 50%) STAT PRN IV Hypoglycemia 11/22/16 22:45 12/22/16 22:44 Docusate Sodium 100 mg 100 mg TWICE A DAY ORAL 11/26/16 18:00 12/26/16 17:59 Iron Sucrose/ Sodium Chloride (Venofer/Sodium Chloride) 60 ml @ 240 mls/hr BEDTIME IVPB 11/23/16 21:00 11/26/16 21:01 11/25/16 22:22 Metronidazole (Flagyl) 500 mg Q8H ORAL 11/25/16 17:00 12/02/16 16:59 11/26/16 17:14 Ondansetron HCl (Zofran) 4 mg Q6H PRN IVP Nausea & Vomiting 11/22/16 22:45 12/22/16 22:44 Pantoprazole (Protonix) 40 mg Q12HR ORAL 11/26/16 21:00 12/26/16 20:59 Piperacillin Sod/ Tazobactam Sod/ Dextrose (Zosyn/D5W) 110 ml @ 220 mls/hr Q6HR IVPB 11/26/16 20:00 12/03/16 19:59 Promethazine HCl/ Codeine (Phenergan with Codeine) 5 ml Q4H PRN ORAL For Cough 11/22/16 23:45 12/22/16 23:44 11/24/16 21:54 ESTEFANI AVILES November 26, 2016 18:31
[2016-11-26] MEDS: Piperacillin/Tazobactam 2.25 GM in D5W 110 ML IVPB SCH (19:59)
[2016-11-26 20:00] VITALS: BP 116/75
[2016-11-26] MEDS: Iron Sucrose 100 MG in NS 55 ML IVPB SCH (20:48)
[2016-11-26] MEDS ORDERED: Piperacillin/Tazobactam 2.25 GM in D5W 110 ML IVPB SCH (22:00)
--- NOTE | 2016-11-26 23:07 | General Progress Note ---
Assessment/Plan Assessment/Plan Assessment and Recs: # Mediastinal and hilar adenopathy as well as pleural effusion - cytology of the fluid is still pending. IF cytology is negative can discuss to approach on the lung lesions *after pleural effusion drained* v thorascopy/bronchoscopy if needed. cytology report still pending # Anemia of chronic disease - anemia 2/2 chronic disease, no iron deficiency # Coagulopathy - likely related to poor po intake, better # LLL pneumonia with possible abscess, on abx as per ID service # Pleural effusion, left - s/p thora 110cc removed # Sepsis - on abx as per ID # SOB (shortness of breath) - likely related to pna Subjective Constitutional: Reports: no symptoms HEENT: Reports: no symptoms Cardiovascular: Reports: no symptoms Respiratory: Reports: no symptoms Gastrointestinal/Abdominal: Reports: no symptoms Genitourinary: Reports: no symptoms Endocrine: Reports: no symptoms Hematologic/Lymphatic: Reports: anemia Allergies: Uncoded Allergies: CITRUS (Allergy, Severe, 11/21/16) aloc Subjective no chills, no events, no fevers noted, cytology of thora pending Objective Last 24 Hour Vital Signs Date Time Temp Pulse Resp B/P Pulse Ox O2 Delivery O2 Flow Rate FiO2 11/26/16 20:00 97.3 106 20 116/75 93 Room Air 11/26/16 19:40 95 Room Air 11/26/16 19:40 Room Air 11/26/16 17:57 97 20 99 Nasal Cannula 2.0 11/26/16 17:47 96 20 99 Nasal Cannula 2.0 11/26/16 12:16 98.9 90 21 113/73 97 Nasal Cannula 2.0 11/26/16 08:15 97.7 94 23 121/82 96 Nasal Cannula 2.0 11/26/16 07:45 95 Room Air 11/26/16 07:45 Room Air 11/26/16 05:02 95 20 99 Nasal Cannula 2.0 11/26/16 04:53 96 20 99 Nasal Cannula 2.0 11/26/16 04:00 97.9 95 20 117/67 Nasal Cannula 2.0 11/26/16 00:00 98.1 102 20 106/65 97 Nasal Cannula 2.0 Intake and Output 11/25/16 11/26/16 19:00 07:00 Intake Total 1582.5 ml Balance 1582.5 ml Intake Oral 1500 ml IV Total 82.5 ml # Voids 5 2 # Bowel Movements 4 2 Laboratory Tests 11/26/16 08:50: White Blood Count 18.9H, Red Blood Count 3.33L, Hemoglobin 9.7L, Hematocrit 29.6L, Mean Corpuscular Volume 89, Mean Corpuscular Hemoglobin 29.1, Mean Corpuscular Hemoglobin Concent 32.7, Red Cell Distribution Width 12.3, Platelet Count 433, Mean Platelet Volume 5.9L, Neutrophils (%) (Auto) , Lymphocytes (%) ( Auto) , Monocytes (%) (Auto) , Eosinophils (%) (Auto) , Basophils (%) (Auto) , Differential Total Cells Counted 100, Neutrophils % (Manual) 94H, Lymphocytes % (Manual) 4L, Monocytes % (Manual) 2, Eosinophils % (Manual) 0, Basophils % ( Manual) 0, Band Neutrophils 0, Platelet Estimate Adequate, Platelet Morphology Normal, Hypochromasia 1+, Sodium Level 140, Potassium Level 3.9, Chloride Level 100, Carbon Dioxide Level 26, Anion Gap 14, Blood Urea Nitrogen 12, Creatinine 2.1H, Estimat Glomerular Filtration Rate 29.3, Glucose Level 118H, Calcium Level 8.5L, Total Bilirubin < 0.2, Aspartate Amino Transf (AST/SGOT) 21, Alanine Aminotransferase (ALT/SGPT) 5, Alkaline Phosphatase 84, Pro-B-Type Natriuretic Peptide 414H, Total Protein 6.3L, Albumin 2.3L, Globulin 4.0, Albumin/Globulin Ratio 0.5L, Vancomycin Level Trough 23.3H 11/26/16 16:00: Urine Color Pale yellow, Urine Appearance Slightly cloudy, Urine pH 6.5, Urine Specific [place] 1.005, Urine Protein 2+H, Urine Glucose (UA) Negative, Urine Ketones Negative, Urine Occult Blood Negative, Urine Nitrite Negative, Urine Bilirubin Negative, Urine Urobilinogen Normal, Urine Leukocyte Esterase 1+H, Urine RBC 0-2, Urine WBC 5-10H, Urine Squamous Epithelial Cells ModerateH, Urine Amorphous Sediment ModerateH, Urine Bacteria Few, Urine Random Sodium 26 Height (Feet): 5 Height (Inches): 9.00 Weight (Pounds): 132 General Appearance: no apparent distress EENT: normal ENT inspection Neck: abnormal alignment Cardiovascular: no gallop/murmur Respiratory/Chest: normal breath sounds, respiratory distress Extremities: normal range of motion Edema: 1+ Leg (L), 1+ Leg (R) Edema: mild edema Neurologic: no motor/sensory deficits Matheus Lombardi November 26, 2016 23:07
--- NOTE | 2016-11-26 23:47 | Cardiology Progress Note ---
Assessment/Plan Assessment/Plan 1. Sinus tachycardia, due to hypovolemia, hypoxia, sepsis/PNA/ ?lung abscess, treatment of ST is treatment of the culprit. 2. Dyspnea due to left lower lobe PNA/left pleural effusion, s/p left thoracentesis, normal LV systolic function, no evidence of CHF. 3. Small pericardial effusion, ? reactive due to PNA 4. Moderate to severe pulmonary HTN Subjective Subjective Denies chest pain or SOB. Not on the telemetry unit. s/p left thoracentesis. Objective Last 24 Hour Vital Signs Date Time Temp Pulse Resp B/P Pulse Ox O2 Delivery O2 Flow Rate FiO2 11/26/16 20:00 97.3 106 20 116/75 93 Room Air 11/26/16 19:40 95 Room Air 11/26/16 19:40 Room Air 11/26/16 17:57 97 20 99 Nasal Cannula 2.0 11/26/16 17:47 96 20 99 Nasal Cannula 2.0 11/26/16 12:16 98.9 90 21 113/73 97 Nasal Cannula 2.0 11/26/16 08:15 97.7 94 23 121/82 96 Nasal Cannula 2.0 11/26/16 07:45 95 Room Air 11/26/16 07:45 Room Air 11/26/16 05:02 95 20 99 Nasal Cannula 2.0 11/26/16 04:53 96 20 99 Nasal Cannula 2.0 11/26/16 04:00 97.9 95 20 117/67 Nasal Cannula 2.0 11/26/16 00:00 98.1 102 20 106/65 97 Nasal Cannula 2.0 Intake and Output 11/25/16 11/26/16 19:00 07:00 Intake Total 1582.5 ml Balance 1582.5 ml Intake Oral 1500 ml IV Total 82.5 ml # Voids 5 2 # Bowel Movements 4 2 2D Echo: EF 55%, Small pericardial Eff, Large pleural Eff, Grade I LVDD,RVSP 56 mmHg Laboratory Tests Test 11/26/16 08:50 11/26/16 16:00 White Blood Count 18.9 K/UL (4.8-10.8) H Red Blood Count 3.33 M/UL (4.20-5.40) L Hemoglobin 9.7 G/DL (12.0-16.0) L Hematocrit 29.6 % (37.0-47.0) L Mean Corpuscular Volume 89 FL (80-99) Mean Corpuscular Hemoglobin 29.1 PG (27.0-31.0) Mean Corpuscular Hemoglobin Concent 32.7 G/DL (32.0-36.0) Red Cell Distribution Width 12.3 % (11.6-14.8) Platelet Count 433 K/UL (150-450) Mean Platelet Volume 5.9 FL (6.5-10.1) L Neutrophils (%) (Auto) % (45.0-75.0) Lymphocytes (%) (Auto) % (20.0-45.0) Monocytes (%) (Auto) % (1.0-10.0) Eosinophils (%) (Auto) % (0.0-3.0) Basophils (%) (Auto) % (0.0-2.0) Differential Total Cells Counted 100 Neutrophils % (Manual) 94 % (45-75) H Lymphocytes % (Manual) 4 % (20-45) L Monocytes % (Manual) 2 % (1-10) Eosinophils % (Manual) 0 % (0-3) Basophils % (Manual) 0 % (0-2) Band Neutrophils 0 % (0-8) Platelet Estimate Adequate Platelet Morphology Normal Hypochromasia 1+ Sodium Level 140 mEQ/L (135-145) Potassium Level 3.9 mEQ/L (3.4-4.9) Chloride Level 100 mEQ/L (98-107) Carbon Dioxide Level 26 mEQ/L (20-30) Anion Gap 14 (5-15) Blood Urea Nitrogen 12 mg/dL (7-23) Creatinine 2.1 mg/dL (0.5-0.9) H Estimat Glomerular Filtration Rate 29.3 mL/min (>60) Glucose Level 118 mg/dL (74-106) H Calcium Level 8.5 mg/dL (8.6-10.2) L Total Bilirubin < 0.2 mg/dL (0.0-1.2) Aspartate Amino Transf (AST/SGOT) 21 U/L (5-40) Alanine Aminotransferase (ALT/SGPT) 5 U/L (3-33) Alkaline Phosphatase 84 U/L (35-104) Pro-B-Type Natriuretic Peptide 414 pg/mL (0-125) H Total Protein 6.3 g/dL (6.6-8.7) L Albumin 2.3 g/dL (3.5-5.2) L Globulin 4.0 g/dL Albumin/Globulin Ratio 0.5 (1.0-2.7) L Vancomycin Level Trough 23.3 ug/mL (5.0-12.0) H Urine Color Pale yellow Urine Appearance Slightly cloudy Urine pH 6.5 (4.5-8.0) Urine Specific [place] 1.005 (1.005-1.035) Urine Protein 2+ (NEGATIVE) H Urine Glucose (UA) Negative (NEGATIVE) Urine Ketones Negative (NEGATIVE) Urine Occult Blood Negative (NEGATIVE) Urine Nitrite Negative (NEGATIVE) Urine Bilirubin Negative (NEGATIVE) Urine Urobilinogen Normal MG/DL (0.0-1.0) Urine Leukocyte Esterase 1+ (NEGATIVE) H Urine RBC 0-2 /HPF (0 - 2) Urine WBC 5-10 /HPF (0 - 2) H Urine Squamous Epithelial Cells Moderate /LPF (NONE/OCC) H Urine Amorphous Sediment Moderate /LPF (NONE) H Urine Bacteria Few /HPF (NONE) Urine Random Sodium 26 mmol/L Objective HEENT: Atraumatic and normocephalic. Anicteric. Pupils are equal, round, and reactive to light and accommodation. Extraocular muscles intact. NECK: JVP is less than 5 cm. No carotid bruit. Carotid upstrokes 2+ bilaterally. CVS: Normal S1 and S2. Tachycardic. No murmurs, gallops, or rubs. No pulsus paradoxus. LUNGS: Diminished breath sounds at the left base. ABDOMEN: Soft, nontender, and nondistended. No hepatosplenomegaly. Positive bowel sounds. EXTREMITIES: No evidence of edema, clubbing, or cyanosis. ALVINO RIVERO November 26, 2016 23:47
[2016-11-27] VITALS: BP 116/75
--- NOTE | 2016-11-27 01:45 | Consultation ---
DATE OF CONSULTATION: 11/26/2016 ENDOCRINOLOGY CONSULTATION CONSULTING PHYSICIAN: René Hwang M.D. REFERRING PHYSICIAN: Kahlil Ronquillo M.D. REASON FOR CONSULTATION: Adrenal mass. HISTORY OF PRESENT ILLNESS: This is a 56-year-old female who was admitted to the hospital with shortness of breath and was diagnosed with left-sided pleural effusion and pneumonia and incidentally she was diagnosed with right adrenal mass by CTA of the chest. An MRI of the abdomen was ordered, which revealed a 5.1 cm adrenal adenoma, not suspicious for malignancy. Endocrinology was consulted. PAST MEDICAL HISTORY: Anemia, HIV at the age of 23, and history of cardiac issues. PAST SURGICAL HISTORY: None. MEDICATIONS: Reviewed and reconciled. ALLERGIES: [place]. SOCIAL HISTORY: Former smoker, quit many years ago. No alcohol or drug use. REVIEW OF SYSTEMS: A 12-point review of systems was performed, pertinent positives and negatives are as mentioned in the history of present illness. PHYSICAL EXAMINATION: VITAL SIGNS: Blood pressure 120/80, pulse of 80, temperature 98.3 degrees, and respiratory rate 18. HEENT: Pupils are equal and reactive to light. Sclerae are anicteric. NECK: No JVD. No thyromegaly. No bruit. LUNGS: Left-sided decreased breath sounds. HEART: Regular rate and rhythm. ABDOMEN: Positive bowel sounds. EXTREMITIES: No clubbing, cyanosis, or edema. LABORATORY AND DIAGNOSTIC DATA: Imaging discussed in the history of present illness. WBC 18, hemoglobin 9.7, hematocrit 29.6, and platelets of 433,000. Sodium 140, potassium 3.9, chloride 100, bicarbonate 26, BUN 12, creatinine 2.1, and glucose of 118. Calcium 8.5. DIAGNOSES: 1. Pneumonia, left-sided pleural effusion. 2. A 5.1 cm right adrenal adenoma. DISCUSSION: The radiographic characteristics of the adenoma is consistent with a benign lesion. I doubt this adenoma is functional since the patient does not have any clinical features or findings of hyperaldosteronism or Xenia's disease or pheochromocytoma, but in any case such possibility seems to be ruled out and it is best to be ruled out as an outpatient since the patient is hospitalized now with a different acute illness, which is pleural effusion and pneumonia and she is on antibiotic and all those current treatment will affect the hormonal evaluation. I provided the patient with my business card so she or her physician can get in touch with me as an outpatient and at that time, I am going to guide her how to run the biochemical workup of adrenal adenoma. Even if the adrenal adenoma is not functional, which is most likely not, she is a candidate of right adrenalectomy due to the large size of adenoma, which is best to be done through a robotic assisted laparoscopic procedure. Thank you, Dr. Ronquillo, for the courtesy of this consultation. René Hwang M.D. DR: TANIA JOB#: [id number] CC: [email or web address]
[2016-11-27 04:00] VITALS: BP 107/60
[2016-11-27] MEDS: Piperacillin/Tazobactam 2.25 GM in D5W 110 ML IVPB SCH ×3 (05:59→19:01)
[2016-11-27 06:17] LABS: MEAN CORPUSCULAR HEMOGLOBIN 28.8 PG (27.0-31.0); MEAN CORPUSCULAR HGB CONC 32.3 G/DL (32.0-36.0); MEAN CORPUSCULAR VOLUME 89 FL (80-99); PLATELET COUNT 430 K/UL (150-450); RED BLOOD COUNT 3.21 M/UL (4.20-5.40); RED CELL DISTRIBUTION WIDTH 12.5 % (11.6-14.8); WHITE BLOOD COUNT 17.1 K/UL (4.8-10.8)
[2016-11-27 06:32] LABS: HEMOGLOBIN A1C 6.7 % (< 6.0)
[2016-11-27 06:37] LABS: CHOLESTEROL 99 mg/dL (< 200); CHOLESTEROL/HDL RATIO 2.4 (3.3-4.4); CRP QUANT 13.2 mg/dL (< 0.5); HEMOLYSIS 1; LDL CHOLESTEROL (CALC.) 47 mg/dL (60-99); MAGNESIUM 2.4 mg/dL (1.7-2.5); PHOSPHORUS 4.8 mg/dL (2.5-4.8); URIC ACID 4.6 mg/dL (3.0-7.5)
[2016-11-27 06:38] LABS: THYROID STIMULATING HORMONE 0.753 uIU/mL (0.300-4.500)
[2016-11-27 07:11] LABS: CREATININE 3.1 mg/dL (0.5-0.9); GLOMERULAR FILTRATION RATE 18.7 mL/min (>60)
[2016-11-27] MEDS: DuoNeb 0.5-3(2.5)mg/3ml neb HHN PRN ×2 (07:20→19:31)
--- NOTE | 2016-11-27 08:04 | General Progress Note ---
Assessment/Plan Problem List: (1) Upper respiratory infection ICD Codes: J06.9 - Acute upper respiratory infection, unspecified SNOMED: 97171473 (2) LLL pneumonia ICD Codes: J18.1 - Lobar pneumonia, unspecified organism SNOMED: 751673907 (3) Pleural effusion, left ICD Codes: J90 - Pleural effusion, not elsewhere classified SNOMED: 29704065 (4) Adrenal adenoma ICD Codes: D35.00 - Benign neoplasm of unspecified adrenal gland SNOMED: 504352384 Assessment/Plan 5.1 cm adrenal adenoma is most likely non functional she is a candidate for elective adrenalectomy due to the large size of adenoma > 5 cm biochemical testing in order to rule out possibility of functionality of adenoma is best to be done after her current acute illness is resolved and as OP I provided her with my contact information - she was advised to get in touch with me after discharge I will sign off for now Subjective Allergies: Uncoded Allergies: CITRUS (Allergy, Severe, 11/21/16) aloc All Systems: reviewed and negative except above Subjective events noted Objective Last 24 Hour Vital Signs Date Time Temp Pulse Resp B/P Pulse Ox O2 Delivery O2 Flow Rate FiO2 11/27/16 07:30 96 16 99 Nasal Cannula 2.0 11/27/16 07:20 92 16 99 Nasal Cannula 2.0 11/27/16 07:20 Nasal Cannula 2.0 11/27/16 07:20 97 Nasal Cannula 2.0 11/27/16 04:00 97.5 98 20 107/60 100 Nasal Cannula 2.0 11/27/16 00:00 98.1 103 20 116/75 96 Nasal Cannula 2.0 11/26/16 20:00 97.3 106 20 116/75 93 Room Air 11/26/16 19:40 95 Room Air 11/26/16 19:40 Room Air 11/26/16 17:57 97 20 99 Nasal Cannula 2.0 11/26/16 17:47 96 20 99 Nasal Cannula 2.0 11/26/16 12:16 98.9 90 21 113/73 97 Nasal Cannula 2.0 11/26/16 08:15 97.7 94 23 121/82 96 Nasal Cannula 2.0 Intake and Output 11/26/16 11/27/16 19:00 07:00 Intake Total 960 ml Output Total 1000 ml Balance 960 ml -1000 ml Intake Oral 960 ml Output Urine Total 1000 ml # Voids 4 # Bowel Movements 1 Laboratory Tests 11/26/16 08:50: White Blood Count 18.9H, Red Blood Count 3.33L, Hemoglobin 9.7L, Hematocrit 29.6L, Mean Corpuscular Volume 89, Mean Corpuscular Hemoglobin 29.1, Mean Corpuscular Hemoglobin Concent 32.7, Red Cell Distribution Width 12.3, Platelet Count 433, Mean Platelet Volume 5.9L, Neutrophils (%) (Auto) , Lymphocytes (%) ( Auto) , Monocytes (%) (Auto) , Eosinophils (%) (Auto) , Basophils (%) (Auto) , Differential Total Cells Counted 100, Neutrophils % (Manual) 94H, Lymphocytes % (Manual) 4L, Monocytes % (Manual) 2, Eosinophils % (Manual) 0, Basophils % ( Manual) 0, Band Neutrophils 0, Platelet Estimate Adequate, Platelet Morphology Normal, Hypochromasia 1+, Sodium Level 140, Potassium Level 3.9, Chloride Level 100, Carbon Dioxide Level 26, Anion Gap 14, Blood Urea Nitrogen 12, Creatinine 2.1H, Estimat Glomerular Filtration Rate 29.3, Glucose Level 118H, Calcium Level 8.5L, Total Bilirubin < 0.2, Aspartate Amino Transf (AST/SGOT) 21, Alanine Aminotransferase (ALT/SGPT) 5, Alkaline Phosphatase 84, Pro-B-Type Natriuretic Peptide 414H, Total Protein 6.3L, Albumin 2.3L, Globulin 4.0, Albumin/Globulin Ratio 0.5L, Vancomycin Level Trough 23.3H 11/26/16 16:00: Urine Color Pale yellow, Urine Appearance Slightly cloudy, Urine pH 6.5, Urine Specific [place] 1.005, Urine Protein 2+H, Urine Glucose (UA) Negative, Urine Ketones Negative, Urine Occult Blood Negative, Urine Nitrite Negative, Urine Bilirubin Negative, Urine Urobilinogen Normal, Urine Leukocyte Esterase 1+H, Urine RBC 0-2, Urine WBC 5-10H, Urine Squamous Epithelial Cells ModerateH, Urine Amorphous Sediment ModerateH, Urine Bacteria Few, Urine Random Sodium 26 11/27/16 03:00: Urine Eosinophils None seen 11/27/16 05:15: White Blood Count 17.1H, Red Blood Count 3.21L, Hemoglobin 9.2L, Hematocrit 28.6L, Mean Corpuscular Volume 89, Mean Corpuscular Hemoglobin 28.8, Mean Corpuscular Hemoglobin Concent 32.3, Red Cell Distribution Width 12.5, Platelet Count 430, Mean Platelet Volume 6.0L, Neutrophils (%) (Auto) , Lymphocytes (%) ( Auto) , Monocytes (%) (Auto) , Eosinophils (%) (Auto) , Basophils (%) (Auto) , Neutrophils % (Manual) [Pending], Lymphocytes % (Manual) [Pending], Platelet Estimate [Pending], Platelet Morphology [Pending], Creatinine 3.1H, Estimat Glomerular Filtration Rate 18.7, Pro-B-Type Natriuretic Peptide 315H, Hemoglobin A1c 6.7H, Uric Acid 4.6, Phosphorus Level 4.8, Magnesium Level 2.4, Gamma Glutamyl Transpeptidase 22, Total Creatine Kinase 24L, C-Reactive Protein , Quantitative 13.2H, Triglycerides Level 50, Cholesterol Level 99, LDL Cholesterol 47L, HDL Cholesterol 42, Cholesterol/HDL Ratio 2.4L, Thyroid Stimulating Hormone (TSH) 0.753, Random Vancomycin Level 24.1 Height (Feet): 5 Height (Inches): 9.00 Weight (Pounds): 132 General Appearance: no apparent distress Neck: normal alignment Cardiovascular: normal rate, regular rhythm Respiratory/Chest: chest wall non-tender Abdomen: normal bowel sounds Edema: no edema noted Arm (L), no edema noted Arm (R), no edema noted Leg (L), no edema noted Leg (R), no edema noted Pedal (L), no edema noted Pedal (R), no edema noted Generalized Objective Current Medications Medications (Trade) Dose Ordered Sig/Ruben Route PRN Reason Start Time Stop Time Status Last Admin Dose Admin Acetaminophen (Tylenol) 650 mg Q4H PRN ORAL Mild Pain/Temp > 100.5 11/22/16 22:45 12/22/16 22:44 Albuterol/ Ipratropium (DuoNeb 0.5-3(2.5)mg/3ml) 3 ml Q4H PRN HHN Shortness of Breath 11/22/16 23:45 11/27/16 23:44 11/27/16 07:20 Aspirin (Ecotrin) 325 mg DAILY ORAL 11/23/16 09:00 12/23/16 08:59 11/26/16 08:50 Dextrose (Dextrose 50%) STAT PRN IV Hypoglycemia 11/22/16 22:45 12/22/16 22:44 Docusate Sodium 100 mg 100 mg TWICE A DAY ORAL 11/26/16 18:00 12/26/16 17:59 Metronidazole (Flagyl) 500 mg Q8H ORAL 11/25/16 17:00 12/02/16 16:59 11/26/16 20:49 Ondansetron HCl (Zofran) 4 mg Q6H PRN IVP Nausea & Vomiting 11/22/16 22:45 12/22/16 22:44 11/27/16 06:17 Pantoprazole (Protonix) 40 mg Q12HR ORAL 11/26/16 21:00 12/26/16 20:59 11/26/16 20:48 Piperacillin Sod/ Tazobactam Sod/ Dextrose (Zosyn/D5W) 110 ml @ 220 mls/hr Q6HR IVPB 11/26/16 20:00 12/03/16 19:59 11/27/16 05:59 Promethazine HCl/ Codeine (Phenergan with Codeine) 5 ml Q4H PRN ORAL For Cough 11/22/16 23:45 12/22/16 23:44 11/24/16 21:54 QUINTON MELGOZA November 27, 2016 08:04
[2016-11-27 08:15] VITALS: BP 109/68
[2016-11-27 08:30] LABS: ALANINE AMINOTRANSFERASE 8 U/L (3-33); ALBUMIN/GLOBULIN RATIO 0.6 (1.0-2.7); ANION GAP 17 (5-15); ASPARTATE AMINO TRANSFERASE 20 U/L (5-40); CALCIUM 8.3 mg/dL (8.6-10.2); CARBON DIOXIDE 25 mEQ/L (20-30); CHLORIDE 98 mEQ/L (98-107); CREATININE 3.1 mg/dL (0.5-0.9); GLOMERULAR FILTRATION RATE 18.7 mL/min (>60); HEMOLYSIS 19; POTASSIUM 4.5 mEQ/L (3.4-4.9); SODIUM 140 mEQ/L (135-145); TOTAL PROTEIN 5.8 g/dL (6.6-8.7)
[2016-11-27] MEDS: Docusate 100mg cap ORAL SCH ×2 (08:45→18:00)
[2016-11-27] MEDS: metroNIDAZOLE 500mg tab ORAL SCH ×2 (08:50→16:00)
[2016-11-27] MEDS: Aspirin EC 325mg tab ORAL SCH (08:50)
[2016-11-27 09:05] LABS: BAND NEUTROPHILS % (MANUAL) 0 % (0-8); BASOPHILS % (MANUAL) 0 % (0-2); EOSINOPHILS % (MANUAL) 0 % (0-3); HYPOCHROMASIA 1+; LYMPHOCYTES % (MANUAL) 5 % (20-45); NEUTROPHILS % (MANUAL) 91 % (45-75); PLATELET ESTIMATE ADEQUATE; PLATELET MORPHOLOGY NORMAL; TOTAL CELLS COUNTED 100
[2016-11-27 12:32] VITALS: BP 127/67
--- NOTE | 2016-11-27 12:48 | General Progress Note ---
Assessment/Plan Status: unchanged, deteriorating - serum Cr Status Narrative Cr ernesto- Vanco 24 Assessment/Plan Status: Acute Renal Failure- worsening Iron Defficiency Anemia- HypoAlbuminemia , Etiology ??? Penumonia / left Pleural effusion Adrenal Adenoma high A1c ? DM Plan: Andres- 24 h urine for protein UA- ( none available since admission) Urine Eosinophils and Spot Na DC Vanco- monitor Vanco level Monitor dose- adjust Zosyn dose IV Iron change diet to renal , medium CHO per orders Subjective ROS Limited/Unobtainable: No Constitutional: Reports: malaise, weakness Allergies: Uncoded Allergies: CITRUS (Allergy, Severe, 11/21/16) aloc Objective Last 24 Hour Vital Signs Date Time Temp Pulse Resp B/P Pulse Ox O2 Delivery O2 Flow Rate FiO2 11/27/16 12:32 97.6 79 22 127/67 97 Room Air 11/27/16 08:15 98.3 111 24 109/68 97 Nasal Cannula 2.0 11/27/16 07:30 96 16 99 Nasal Cannula 2.0 11/27/16 07:20 92 16 99 Nasal Cannula 2.0 11/27/16 07:20 Nasal Cannula 2.0 28 11/27/16 07:20 97 Nasal Cannula 2.0 11/27/16 04:00 97.5 98 20 107/60 100 Nasal Cannula 2.0 11/27/16 00:00 98.1 103 20 116/75 96 Nasal Cannula 2.0 11/26/16 20:00 97.3 106 20 116/75 93 Room Air 11/26/16 19:40 95 Room Air 11/26/16 19:40 Room Air 11/26/16 17:57 97 20 99 Nasal Cannula 2.0 11/26/16 17:47 96 20 99 Nasal Cannula 2.0 28 Intake and Output 11/26/16 11/27/16 19:00 07:00 Intake Total 960 ml Output Total 1000 ml Balance 960 ml -1000 ml Intake Oral 960 ml Output Urine Total 1000 ml # Voids 4 # Bowel Movements 3 1 Laboratory Tests 11/26/16 16:00: Urine Color Pale yellow, Urine Appearance Slightly cloudy, Urine pH 6.5, Urine Specific [place] 1.005, Urine Protein 2+H, Urine Glucose (UA) Negative, Urine Ketones Negative, Urine Occult Blood Negative, Urine Nitrite Negative, Urine Bilirubin Negative, Urine Urobilinogen Normal, Urine Leukocyte Esterase 1+H, Urine RBC 0-2, Urine WBC 5-10H, Urine Squamous Epithelial Cells ModerateH, Urine Amorphous Sediment ModerateH, Urine Bacteria Few, Urine Random Sodium 26 11/27/16 03:00: Urine Eosinophils None seen 11/27/16 05:15: White Blood Count 17.1H, Red Blood Count 3.21L, Hemoglobin 9.2L, Hematocrit 28.6L, Mean Corpuscular Volume 89, Mean Corpuscular Hemoglobin 28.8, Mean Corpuscular Hemoglobin Concent 32.3, Red Cell Distribution Width 12.5, Platelet Count 430, Mean Platelet Volume 6.0L, Neutrophils (%) (Auto) , Lymphocytes (%) ( Auto) , Monocytes (%) (Auto) , Eosinophils (%) (Auto) , Basophils (%) (Auto) , Differential Total Cells Counted 100, Neutrophils % (Manual) 91H, Lymphocytes % (Manual) 5L, Monocytes % (Manual) 4, Eosinophils % (Manual) 0, Basophils % ( Manual) 0, Band Neutrophils 0, Platelet Estimate Adequate, Platelet Morphology Normal, Hypochromasia 1+, Sodium Level 140, Potassium Level 4.5, Chloride Level 98, Carbon Dioxide Level 25, Anion Gap 17H, Blood Urea Nitrogen 15, Creatinine 3.1H, Estimat Glomerular Filtration Rate 18.7, Glucose Level 84, Hemoglobin A1c 6.7H, Uric Acid 4.6, Calcium Level 8.3L, Phosphorus Level 4.8, Magnesium Level 2.4, Total Bilirubin < 0.2, Gamma Glutamyl Transpeptidase 22, Aspartate Amino Transf (AST/SGOT) 20, Alanine Aminotransferase (ALT/SGPT) 8, Alkaline Phosphatase 81, Total Creatine Kinase 24L, C-Reactive Protein, Quantitative 13.2H, Pro-B-Type Natriuretic Peptide 315H, Total Protein 5.8L, Albumin 2.2L, Globulin 3.6, Albumin/Globulin Ratio 0.6L, Triglycerides Level 50, Cholesterol Level 99, LDL Cholesterol 47L, HDL Cholesterol 42, Cholesterol/HDL Ratio 2.4L, Thyroid Stimulating Hormone (TSH) 0.753, Random Vancomycin Level 24.1 Height (Feet): 5 Height (Inches): 9.00 Weight (Pounds): 132 General Appearance: no apparent distress, lethargic Cardiovascular: tachycardia Respiratory/Chest: decreased breath sounds Abdomen: distended JOAQUÍN WORRELL November 27, 2016 12:48
--- NOTE | 2016-11-27 15:57 | Infectious Diseases Prog Note ---
Assessment/Plan Problems: (1) LLL pneumonia Assessment & Plan: with possible abscess, improved on vancomycin and zosyn empirically, now off vancomycin due to renal failure , will switch to doxycycline . await fungal serology, and T spot test sputum culture grew brody spp, and normal linette , screening for HIV is negative (2) Pleural effusion, left Assessment & Plan: S/P thoracentesis , rule out empyema, fluids culture is negative so far , fungal and AFB, and cytology are pending (3) SOB (shortness of breath) Assessment & Plan: due to the above, pulmonary is following (4) Adrenal adenoma Assessment & Plan: confirmed on MRI, recommend endocrinology eval and management (5) ESTHER (acute kidney injury) Assessment & Plan: multifactorial, MEDS VS dehydration , now off vancomycin, will start IVF for hydration, monitor renal function test. renal is following (6) Diarrhea Assessment & Plan: resolved, with negative C diff Subjective Constitutional: Reports: anorexia, fatigue HEENT: Reports: no symptoms Respiratory: Reports: dry cough Breasts: Reports: no symptoms Cardiovascular: Reports: no symptoms Gastrointestinal/Abdominal: Reports: bloating, nausea Genitourinary: Reports: no symptoms Neurologic: Reports: no symptoms Psychiatric: Reports: no symptoms Skin: Reports: no symptoms Endocrine: Reports: no symptoms Allergies: Coded Allergies: CITRUS AND DERIVATIVES (Unverified Allergy, Unknown, 11/27/16) Uncoded Allergies: CITRUS (Allergy, Severe, 11/21/16) aloc Subjective she feels worse today, more nauseated, no diarrhea, less cough and phlegm, no fever or chills. Objective Vital Signs Last 24 Hour Vital Signs Date Time Temp Pulse Resp B/P Pulse Ox O2 Delivery O2 Flow Rate FiO2 11/27/16 12:32 97.6 79 22 127/67 97 Room Air 11/27/16 08:15 98.3 111 24 109/68 97 Nasal Cannula 2.0 11/27/16 07:30 96 16 99 Nasal Cannula 2.0 11/27/16 07:20 92 16 99 Nasal Cannula 2.0 11/27/16 07:20 Nasal Cannula 2.0 11/27/16 07:20 97 Nasal Cannula 2.0 11/27/16 04:00 97.5 98 20 107/60 100 Nasal Cannula 2.0 11/27/16 00:00 98.1 103 20 116/75 96 Nasal Cannula 2.0 11/26/16 20:00 97.3 106 20 116/75 93 Room Air 11/26/16 19:40 95 Room Air 11/26/16 19:40 Room Air 11/26/16 17:57 97 20 99 Nasal Cannula 2.0 28 11/26/16 17:47 96 20 99 Nasal Cannula 2.0 28 Height (Feet): 5 Height (Inches): 9.00 Weight (Pounds): 132 General Appearance: WD/WN, no acute distress HEENT: normocephalic, atraumatic, anicteric, mucous membranes moist Respiratory/Chest: chest wall non-tender, no respiratory distress, no accessory muscle use, decreased breath sounds, crackles/rales Cardiovascular: normal peripheral pulses, normal rate, regular rhythm, no gallop/murmur, no JVD Abdomen: normal bowel sounds, soft, non tender, no organomegaly, non distended , no mass Extremities: no cyanosis, no clubbing Skin: no rash, no lesions Microbiology Date/Time Source Procedure Growth Status 11/26/16 20:30 Stool Clostridium difficile Toxin Assay - Final Complete Laboratory Tests Test 11/26/16 16:00 11/27/16 03:00 11/27/16 05:15 Urine Color Pale yellow Urine Appearance Slightly cloudy Urine pH 6.5 (4.5-8.0) Urine Specific [place] 1.005 (1.005-1.035) Urine Protein 2+ (NEGATIVE) H Urine Glucose (UA) Negative (NEGATIVE) Urine Ketones Negative (NEGATIVE) Urine Occult Blood Negative (NEGATIVE) Urine Nitrite Negative (NEGATIVE) Urine Bilirubin Negative (NEGATIVE) Urine Urobilinogen Normal MG/DL (0.0-1.0) Urine Leukocyte Esterase 1+ (NEGATIVE) H Urine RBC 0-2 /HPF (0 - 2) Urine WBC 5-10 /HPF (0 - 2) H Urine Squamous Epithelial Cells Moderate /LPF (NONE/OCC) H Urine Amorphous Sediment Moderate /LPF (NONE) H Urine Bacteria Few /HPF (NONE) Urine Random Sodium 26 mmol/L Urine Eosinophils None seen White Blood Count 17.1 K/UL (4.8-10.8) H Red Blood Count 3.21 M/UL (4.20-5.40) L Hemoglobin 9.2 G/DL (12.0-16.0) L Hematocrit 28.6 % (37.0-47.0) L Mean Corpuscular Volume 89 FL (80-99) Mean Corpuscular Hemoglobin 28.8 PG (27.0-31.0) Mean Corpuscular Hemoglobin Concent 32.3 G/DL (32.0-36.0) Red Cell Distribution Width 12.5 % (11.6-14.8) Platelet Count 430 K/UL (150-450) Mean Platelet Volume 6.0 FL (6.5-10.1) L Neutrophils (%) (Auto) % (45.0-75.0) Lymphocytes (%) (Auto) % (20.0-45.0) Monocytes (%) (Auto) % (1.0-10.0) Eosinophils (%) (Auto) % (0.0-3.0) Basophils (%) (Auto) % (0.0-2.0) Differential Total Cells Counted 100 Neutrophils % (Manual) 91 % (45-75) H Lymphocytes % (Manual) 5 % (20-45) L Monocytes % (Manual) 4 % (1-10) Eosinophils % (Manual) 0 % (0-3) Basophils % (Manual) 0 % (0-2) Band Neutrophils 0 % (0-8) Platelet Estimate Adequate Platelet Morphology Normal Hypochromasia 1+ Sodium Level 140 mEQ/L (135-145) Potassium Level 4.5 mEQ/L (3.4-4.9) Chloride Level 98 mEQ/L (98-107) Carbon Dioxide Level 25 mEQ/L (20-30) Anion Gap 17 (5-15) H Blood Urea Nitrogen 15 mg/dL (7-23) Creatinine 3.1 mg/dL (0.5-0.9) H Estimat Glomerular Filtration Rate 18.7 mL/min (>60) Glucose Level 84 mg/dL (74-106) Hemoglobin A1c 6.7 % (< 6.0) H Uric Acid 4.6 mg/dL (3.0-7.5) Calcium Level 8.3 mg/dL (8.6-10.2) L Phosphorus Level 4.8 mg/dL (2.5-4.8) Magnesium Level 2.4 mg/dL (1.7-2.5) Total Bilirubin < 0.2 mg/dL (0.0-1.2) Gamma Glutamyl Transpeptidase 22 U/L (5-36) Aspartate Amino Transf (AST/SGOT) 20 U/L (5-40) Alanine Aminotransferase (ALT/SGPT) 8 U/L (3-33) Alkaline Phosphatase 81 U/L (35-104) Total Creatine Kinase 24 U/L (26-140) L C-Reactive Protein, Quantitative 13.2 mg/dL (< 0.5) H Pro-B-Type Natriuretic Peptide 315 pg/mL (0-125) H Total Protein 5.8 g/dL (6.6-8.7) L Albumin 2.2 g/dL (3.5-5.2) L Globulin 3.6 g/dL Albumin/Globulin Ratio 0.6 (1.0-2.7) L Triglycerides Level 50 mg/dL (< 150) Cholesterol Level 99 mg/dL (< 200) LDL Cholesterol 47 mg/dL (60-99) L HDL Cholesterol 42 mg/dL (> 60) Cholesterol/HDL Ratio 2.4 (3.3-4.4) L Thyroid Stimulating Hormone (TSH) 0.753 uIU/mL (0.300-4.500) Random Vancomycin Level 24.1 ug/mL Current Medications Medications (Trade) Dose Ordered Sig/Ruben Route PRN Reason Start Time Stop Time Status Last Admin Dose Admin Acetaminophen (Tylenol) 650 mg Q4H PRN ORAL Mild Pain/Temp > 100.5 11/22/16 22:45 12/22/16 22:44 Albuterol/ Ipratropium (DuoNeb 0.5-3(2.5)mg/3ml) 3 ml Q4H PRN HHN Shortness of Breath 11/22/16 23:45 11/27/16 23:44 11/27/16 07:20 Aspirin (Ecotrin) 325 mg DAILY ORAL 11/23/16 09:00 12/23/16 08:59 11/27/16 08:50 Dextrose (Dextrose 50%) STAT PRN IV Hypoglycemia 11/22/16 22:45 12/22/16 22:44 Docusate Sodium 100 mg 100 mg TWICE A DAY ORAL 11/26/16 18:00 12/26/16 17:59 Metronidazole (Flagyl) 500 mg Q8H ORAL 11/25/16 17:00 6/3/17 16:59 11/27/16 08:50 Ondansetron HCl (Zofran) 4 mg Q6H PRN IVP Nausea & Vomiting 11/22/16 22:45 12/22/16 22:44 11/27/16 14:02 Pantoprazole (Protonix) 40 mg Q12HR ORAL 11/26/16 21:00 12/26/16 20:59 11/26/16 20:48 Piperacillin Sod/ Tazobactam Sod 2.25 gm/Dextrose 110 ml @ 220 mls/hr Q6HR IVPB 11/26/16 20:00 12/03/16 19:59 11/27/16 12:34 Promethazine HCl/ Codeine (Phenergan with Codeine) 5 ml Q4H PRN ORAL For Cough 11/22/16 23:45 12/22/16 23:44 11/24/16 21:54 Sodium Chloride (Sodium Chloride 1000ml bag) 1,000 ml @ 100 mls/hr Q10H IV 11/27/16 14:45 11/28/16 14:44 Nicolle Schmitz M.D. November 27, 2016 15:57
[2016-11-27 16:26] VITALS: BP 103/68
[2016-11-27] MEDS: Doxycycline Hyclate 100 MG in D5W 110 ML IV SCH (17:38)
[2016-11-27] MEDS ORDERED: NS 275ml ONE (17:57)
[2016-11-27] MEDS ORDERED: Tubing IV Secondary IV ONE (17:57)
--- NOTE | 2016-11-27 18:01 | General Progress Note ---
Assessment/Plan Assessment/Plan Assessment and Recs: # Mediastinal and hilar adenopathy as well as pleural effusion - cytology of the fluid is still pending. IF cytology is negative can discuss to approach on the lung lesions *after pleural effusion drained* v thorascopy/bronchoscopy if needed. cytology report still pending (talked to pathologist today, potential results tomorrow) # Anemia of chronic disease - anemia 2/2 chronic disease, no iron deficiency # Coagulopathy - likely related to poor po intake, better # LLL pneumonia with possible abscess, on abx as per ID service # Pleural effusion, left - s/p thora 110cc removed # Sepsis - on abx as per ID # SOB (shortness of breath) - likely related to pna Subjective Constitutional: Reports: no symptoms HEENT: Reports: no symptoms Cardiovascular: Reports: no symptoms Respiratory: Reports: no symptoms Gastrointestinal/Abdominal: Reports: poor appetite Genitourinary: Reports: no symptoms Neurologic/Psychiatric: Reports: no symptoms Endocrine: Reports: no symptoms Hematologic/Lymphatic: Reports: anemia Allergies: Coded Allergies: CITRUS AND DERIVATIVES (Unverified Allergy, Unknown, 11/27/16) Uncoded Allergies: CITRUS (Allergy, Severe, 11/21/16) aloc Subjective no chills, no events, no fevers noted, cytology of thora pending Objective Last 24 Hour Vital Signs Date Time Temp Pulse Resp B/P Pulse Ox O2 Delivery O2 Flow Rate FiO2 11/27/16 16:26 97.6 91 21 103/68 98 Nasal Cannula 2.0 11/27/16 12:32 97.6 79 22 127/67 97 Room Air 11/27/16 08:15 98.3 111 24 109/68 97 Nasal Cannula 2.0 11/27/16 07:30 96 16 99 Nasal Cannula 2.0 11/27/16 07:20 92 16 99 Nasal Cannula 2.0 11/27/16 07:20 Nasal Cannula 2.0 11/27/16 07:20 97 Nasal Cannula 2.0 11/27/16 04:00 97.5 98 20 107/60 100 Nasal Cannula 2.0 11/27/16 00:00 98.1 103 20 116/75 96 Nasal Cannula 2.0 11/26/16 20:00 97.3 106 20 116/75 93 Room Air 5/28/17 19:40 95 Room Air 11/26/16 19:40 Room Air Intake and Output 11/26/16 11/27/16 19:00 07:00 Intake Total 960 ml Output Total 1000 ml Balance 960 ml -1000 ml Intake Oral 960 ml Output Urine Total 1000 ml # Voids 4 # Bowel Movements 3 1 Laboratory Tests 11/27/16 03:00: Urine Eosinophils None seen 11/27/16 05:15: White Blood Count 17.1H, Red Blood Count 3.21L, Hemoglobin 9.2L, Hematocrit 28.6L, Mean Corpuscular Volume 89, Mean Corpuscular Hemoglobin 28.8, Mean Corpuscular Hemoglobin Concent 32.3, Red Cell Distribution Width 12.5, Platelet Count 430, Mean Platelet Volume 6.0L, Neutrophils (%) (Auto) , Lymphocytes (%) ( Auto) , Monocytes (%) (Auto) , Eosinophils (%) (Auto) , Basophils (%) (Auto) , Differential Total Cells Counted 100, Neutrophils % (Manual) 91H, Lymphocytes % (Manual) 5L, Monocytes % (Manual) 4, Eosinophils % (Manual) 0, Basophils % ( Manual) 0, Band Neutrophils 0, Platelet Estimate Adequate, Platelet Morphology Normal, Hypochromasia 1+, Sodium Level 140, Potassium Level 4.5, Chloride Level 98, Carbon Dioxide Level 25, Anion Gap 17H, Blood Urea Nitrogen 15, Creatinine 3.1H, Estimat Glomerular Filtration Rate 18.7, Glucose Level 84, Hemoglobin A1c 6.7H, Uric Acid 4.6, Calcium Level 8.3L, Phosphorus Level 4.8, Magnesium Level 2.4, Total Bilirubin < 0.2, Gamma Glutamyl Transpeptidase 22, Aspartate Amino Transf (AST/SGOT) 20, Alanine Aminotransferase (ALT/SGPT) 8, Alkaline Phosphatase 81, Total Creatine Kinase 24L, C-Reactive Protein, Quantitative 13.2H, Pro-B-Type Natriuretic Peptide 315H, Total Protein 5.8L, Albumin 2.2L, Globulin 3.6, Albumin/Globulin Ratio 0.6L, Triglycerides Level 50, Cholesterol Level 99, LDL Cholesterol 47L, HDL Cholesterol 42, Cholesterol/HDL Ratio 2.4L, Thyroid Stimulating Hormone (TSH) 0.753, Random Vancomycin Level 24.1 Height (Feet): 5 Height (Inches): 9.00 Weight (Pounds): 132 General Appearance: no apparent distress EENT: PERRL/EOMI Neck: supple Cardiovascular: normal rate Respiratory/Chest: lungs clear Genitourinary/Rectal: normal rectal exam Extremities: normal inspection Edema: mild edema Neurologic: abnormal gait Matheus Lombardi November 27, 2016 18:00
[2016-11-27 20:00] VITALS: BP 106/73
--- NOTE | 2016-11-27 22:42 | Pulmonology Progress Note ---
Assessment/Plan Problems: (1) LLL pneumonia (2) Sepsis (3) Pleural effusion, left Assessment/Plan s/p paracentesis wbc rising might need thoracoscopy continue antibiotics Subjective ROS Limited/Unobtainable: No Allergies: Coded Allergies: CITRUS AND DERIVATIVES (Unverified Allergy, Unknown, 11/27/16) TOMATO (Verified Allergy, Unknown, 11/27/16) per patient VANCOMYCIN (Verified Adverse Reaction, Unknown, 11/27/16) had severe abdominal pain per patient Uncoded Allergies: CITRUS (Allergy, Severe, 11/21/16) aloc Objective Last 24 Hour Vital Signs Date Time Temp Pulse Resp B/P Pulse Ox O2 Delivery O2 Flow Rate FiO2 11/27/16 20:00 98.2 92 16 106/73 99 Nasal Cannula 11/27/16 19:33 92 16 97 Nasal Cannula 2.0 11/27/16 19:33 97 16 100 Nasal Cannula 2.0 11/27/16 19:29 Nasal Cannula 2.0 11/27/16 19:29 100 Nasal Cannula 2.0 11/27/16 16:26 97.6 91 21 103/68 98 Nasal Cannula 2.0 11/27/16 12:32 97.6 79 22 127/67 97 Room Air 11/27/16 08:15 98.3 111 24 109/68 97 Nasal Cannula 2.0 11/27/16 07:30 96 16 99 Nasal Cannula 2.0 11/27/16 07:20 92 16 99 Nasal Cannula 2.0 11/27/16 07:20 Nasal Cannula 2.0 11/27/16 07:20 97 Nasal Cannula 2.0 11/27/16 04:00 97.5 98 20 107/60 100 Nasal Cannula 2.0 11/27/16 00:00 98.1 103 20 116/75 96 Nasal Cannula 2.0 Intake and Output 11/26/16 11/27/16 19:00 07:00 Intake Total 960 ml 110 ml Output Total 1000 ml Balance 960 ml -890 ml Intake Oral 960 ml IV Total 110 ml Output Urine Total 1000 ml # Voids 4 # Bowel Movements 3 1 General Appearance: WD/WN HEENT: normocephalic, anicteric Respiratory/Chest: chest wall non-tender, lungs clear Cardiovascular: normal peripheral pulses, normal rate Abdomen: soft, non tender Extremities: no clubbing Microbiology Date/Time Source Procedure Growth Status 11/26/16 20:30 Stool Clostridium difficile Toxin Assay - Final Complete Laboratory Tests 11/27/16 03:00: Urine Eosinophils None seen 11/27/16 05:15: White Blood Count 17.1H, Red Blood Count 3.21L, Hemoglobin 9.2L, Hematocrit 28.6L, Mean Corpuscular Volume 89, Mean Corpuscular Hemoglobin 28.8, Mean Corpuscular Hemoglobin Concent 32.3, Red Cell Distribution Width 12.5, Platelet Count 430, Mean Platelet Volume 6.0L, Neutrophils (%) (Auto) , Lymphocytes (%) ( Auto) , Monocytes (%) (Auto) , Eosinophils (%) (Auto) , Basophils (%) (Auto) , Differential Total Cells Counted 100, Neutrophils % (Manual) 91H, Lymphocytes % (Manual) 5L, Monocytes % (Manual) 4, Eosinophils % (Manual) 0, Basophils % ( Manual) 0, Band Neutrophils 0, Platelet Estimate Adequate, Platelet Morphology Normal, Hypochromasia 1+, Sodium Level 140, Potassium Level 4.5, Chloride Level 98, Carbon Dioxide Level 25, Anion Gap 17H, Blood Urea Nitrogen 15, Creatinine 3.1H, Estimat Glomerular Filtration Rate 18.7, Glucose Level 84, Hemoglobin A1c 6.7H, Uric Acid 4.6, Calcium Level 8.3L, Phosphorus Level 4.8, Magnesium Level 2.4, Total Bilirubin < 0.2, Gamma Glutamyl Transpeptidase 22, Aspartate Amino Transf (AST/SGOT) 20, Alanine Aminotransferase (ALT/SGPT) 8, Alkaline Phosphatase 81, Total Creatine Kinase 24L, C-Reactive Protein, Quantitative 13.2H, Pro-B-Type Natriuretic Peptide 315H, Total Protein 5.8L, Albumin 2.2L, Globulin 3.6, Albumin/Globulin Ratio 0.6L, Triglycerides Level 50, Cholesterol Level 99, LDL Cholesterol 47L, HDL Cholesterol 42, Cholesterol/HDL Ratio 2.4L, Thyroid Stimulating Hormone (TSH) 0.753, Random Vancomycin Level 24.1 Current Medications Medications (Trade) Dose Ordered Sig/Ruben Route PRN Reason Start Time Stop Time Status Last Admin Dose Admin Acetaminophen (Tylenol) 650 mg Q4H PRN ORAL Mild Pain/Temp > 100.5 11/22/16 22:45 12/22/16 22:44 Albuterol/ Ipratropium (DuoNeb 0.5-3(2.5)mg/3ml) 3 ml Q4H PRN HHN Shortness of Breath 11/22/16 23:45 11/27/16 23:44 11/27/16 19:31 Aspirin (Ecotrin) 325 mg DAILY ORAL 11/23/16 09:00 12/23/16 08:59 11/27/16 08:50 Dextrose (Dextrose 50%) STAT PRN IV Hypoglycemia 11/22/16 22:45 12/22/16 22:44 Docusate Sodium 100 mg 100 mg TWICE A DAY ORAL 11/26/16 18:00 12/26/16 17:59 Doxycycline Hyclate/Dextrose (Vibramycin/D5W) 110 ml @ 110 mls/hr Q12HR@0500,1700 IV 11/27/16 17:00 12/04/16 16:59 11/27/16 17:38 Metronidazole (Flagyl) 500 mg Q8H ORAL 11/25/16 17:00 12/02/16 16:59 11/27/16 16:00 Ondansetron HCl (Zofran) 4 mg Q6H PRN IVP Nausea & Vomiting 11/22/16 22:45 12/22/16 22:44 11/27/16 21:06 Pantoprazole (Protonix) 40 mg Q12HR ORAL 11/26/16 21:00 12/26/16 20:59 11/27/16 21:05 Piperacillin Sod/ Tazobactam Sod 2.25 gm/Dextrose 110 ml @ 220 mls/hr Q6HR IVPB 11/26/16 20:00 12/03/16 19:59 11/27/16 19:01 Promethazine HCl/ Codeine (Phenergan with Codeine) 5 ml Q4H PRN ORAL For Cough 11/22/16 23:45 12/22/16 23:44 11/24/16 21:54 Sodium Chloride 1,000 ml @ 100 mls/hr Q10H IV 11/27/16 14:45 11/28/16 14:44 11/27/16 15:58 ESTEFANI AVILES November 27, 2016 22:42
[2016-11-28] VITALS: BP_SYST 106; BP_SYST 175; BP_DIAS 71; BP_DIAS 95
[2016-11-28] MEDS: metroNIDAZOLE 500mg tab ORAL SCH ×3 (00:34→17:00)
[2016-11-28] MEDS: Piperacillin/Tazobactam 2.25 GM in D5W 110 ML IVPB SCH ×5 (00:34→23:13)
[2016-11-28 04:00] VITALS: BP 110/70
[2016-11-28] MEDS: Doxycycline Hyclate 100 MG in D5W 110 ML IV SCH ×2 (05:04→17:26)
[2016-11-28 06:57] LABS: MEAN CORPUSCULAR HEMOGLOBIN 28.4 PG (27.0-31.0); MEAN CORPUSCULAR HGB CONC 31.6 G/DL (32.0-36.0); MEAN CORPUSCULAR VOLUME 90 FL (80-99); MEAN PLATELET VOLUME 6.2 FL (6.5-10.1); PLATELET COUNT 426 K/UL (150-450); RED BLOOD COUNT 3.21 M/UL (4.20-5.40); RED CELL DISTRIBUTION WIDTH 12.9 % (11.6-14.8); WHITE BLOOD COUNT 15.3 K/UL (4.8-10.8)
[2016-11-28 07:14] LABS: ALANINE AMINOTRANSFERASE 6 U/L (3-33); ALBUMIN/GLOBULIN RATIO 0.5 (1.0-2.7); ANION GAP 13 (5-15); ASPARTATE AMINO TRANSFERASE 14 U/L (5-40); CALCIUM 8.3 mg/dL (8.6-10.2); CARBON DIOXIDE 25 mEQ/L (20-30); CHLORIDE 101 mEQ/L (98-107); CREATININE 3.6 mg/dL (0.5-0.9); GLOMERULAR FILTRATION RATE 15.8 mL/min (>60); HEMOLYSIS 2; POTASSIUM 4.2 mEQ/L (3.4-4.9); SODIUM 139 mEQ/L (135-145); TOTAL PROTEIN 6.2 g/dL (6.6-8.7)
[2016-11-28 07:50] LABS: CRP QUANT 10.8 mg/dL (< 0.5); MAGNESIUM 2.4 mg/dL (1.7-2.5); PHOSPHORUS 4.1 mg/dL (2.5-4.8); URIC ACID 4.7 mg/dL (3.0-7.5)
[2016-11-28 08:00] VITALS: BP 110/72
[2016-11-28] MEDS: Docusate 100mg cap ORAL SCH ×2 (09:00→18:00)
--- NOTE | 2016-11-28 09:00 | Cardiology Progress Note ---
Assessment/Plan Assessment/Plan 1. Sinus tachycardia, better, due to hypovolemia, hypoxia, sepsis/PNA/ ?lung abscess, treatment of ST is treatment of the culprit. 2. Dyspnea due to left lower lobe PNA/left pleural effusion, s/p left thoracentesis, normal LV systolic function, no evidence of CHF. 3. Small pericardial effusion, ? reactive due to PNA 4. Moderate to severe pulmonary HTN 5. In isolation for AFB sputum Subjective Subjective Denies chest pain, mild SOB. In isolation room Objective Last 24 Hour Vital Signs Date Time Temp Pulse Resp B/P Pulse Ox O2 Delivery O2 Flow Rate FiO2 11/28/16 08:00 98.1 90 20 110/72 97 Nasal Cannula 2.0 11/28/16 04:00 98.4 79 18 110/70 100 Room Air 11/28/16 00:00 98.2 87 18 106/71 98 Room Air 11/27/16 20:00 98.2 92 16 106/73 99 Nasal Cannula 11/27/16 19:33 92 16 97 Nasal Cannula 2.0 28 11/27/16 19:33 97 16 100 Nasal Cannula 2.0 28 11/27/16 19:29 Nasal Cannula 2.0 28 11/27/16 19:29 100 Nasal Cannula 2.0 28 11/27/16 16:26 97.6 91 21 103/68 98 Nasal Cannula 2.0 11/27/16 12:32 97.6 79 22 127/67 97 Room Air Intake and Output 11/27/16 11/28/16 19:00 07:00 Intake Total 1220 ml 330 ml Output Total 1000 ml 1400 ml Balance 220 ml -1070 ml Intake Oral 960 ml IV Total 260 ml 330 ml Output Urine Total 1000 ml 1400 ml # Bowel Movements 4 2D Echo: EF 55%, Small pericardial Eff, Large pleural Eff, Grade I LVDD,RVSP 56 mmHg Laboratory Tests Test 11/28/16 05:55 11/28/16 06:30 White Blood Count 15.3 K/UL (4.8-10.8) H Red Blood Count 3.21 M/UL (4.20-5.40) L Hemoglobin 9.1 G/DL (12.0-16.0) L Hematocrit 28.8 % (37.0-47.0) L Mean Corpuscular Volume 90 FL (80-99) Mean Corpuscular Hemoglobin 28.4 PG (27.0-31.0) Mean Corpuscular Hemoglobin Concent 31.6 G/DL (32.0-36.0) L Red Cell Distribution Width 12.9 % (11.6-14.8) Platelet Count 426 K/UL (150-450) Mean Platelet Volume 6.2 FL (6.5-10.1) L Neutrophils (%) (Auto) % (45.0-75.0) Lymphocytes (%) (Auto) % (20.0-45.0) Monocytes (%) (Auto) % (1.0-10.0) Eosinophils (%) (Auto) % (0.0-3.0) Basophils (%) (Auto) % (0.0-2.0) Neutrophils % (Manual) Pending Lymphocytes % (Manual) Pending Platelet Estimate Pending Platelet Morphology Pending Sodium Level 139 mEQ/L (135-145) Potassium Level 4.2 mEQ/L (3.4-4.9) Chloride Level 101 mEQ/L (98-107) Carbon Dioxide Level 25 mEQ/L (20-30) Anion Gap 13 (5-15) Blood Urea Nitrogen 17 mg/dL (7-23) Creatinine 3.6 mg/dL (0.5-0.9) H Estimat Glomerular Filtration Rate 15.8 mL/min (>60) Glucose Level 112 mg/dL (74-106) H Uric Acid 4.7 mg/dL (3.0-7.5) Calcium Level 8.3 mg/dL (8.6-10.2) L Phosphorus Level 4.1 mg/dL (2.5-4.8) Magnesium Level 2.4 mg/dL (1.7-2.5) Total Bilirubin < 0.2 mg/dL (0.0-1.2) Aspartate Amino Transf (AST/SGOT) 14 U/L (5-40) Alanine Aminotransferase (ALT/SGPT) 6 U/L (3-33) Alkaline Phosphatase 94 U/L (35-104) C-Reactive Protein, Quantitative 10.8 mg/dL (< 0.5) H Pro-B-Type Natriuretic Peptide 296 pg/mL (0-125) H Total Protein 6.2 g/dL (6.6-8.7) L Albumin 2.2 g/dL (3.5-5.2) L Globulin 4.0 g/dL Albumin/Globulin Ratio 0.5 (1.0-2.7) L Random Vancomycin Level 16.6 ug/mL Urine Eosinophils None seen Microbiology Date/Time Source Procedure Growth Status 11/26/16 20:30 Stool Clostridium difficile Toxin Assay - Final Complete Objective HEENT: Atraumatic and normocephalic. Anicteric. Pupils are equal, round, and reactive to light and accommodation. Extraocular muscles intact. NECK: JVP is less than 5 cm. No carotid bruit. Carotid upstrokes 2+ bilaterally. CVS: Normal S1 and S2. No murmurs, gallops, or rubs. No pulsus paradoxus. LUNGS: Diminished breath sounds at the left base. ABDOMEN: Soft, nontender, and nondistended. No hepatosplenomegaly. Positive bowel sounds. EXTREMITIES: No evidence of edema, clubbing, or cyanosis. ALVINO RIVERO November 28, 2016 09:00
[2016-11-28 09:15] LABS: BAND NEUTROPHILS % (MANUAL) 0 % (0-8); BASOPHILS % (MANUAL) 0 % (0-2); EOSINOPHILS % (MANUAL) 0 % (0-3); HYPOCHROMASIA 1+; LYMPHOCYTES % (MANUAL) 8 % (20-45); NEUTROPHILS % (MANUAL) 86 % (45-75); PLATELET ESTIMATE ADEQUATE; PLATELET MORPHOLOGY NORMAL; TOTAL CELLS COUNTED 100
[2016-11-28] MEDS: Aspirin EC 325mg tab ORAL SCH (10:18)
[2016-11-28 10:20] LABS: BLASTOMYCES AB - ID Negative (Neg:<1:1); CRYPTOCOCCAL ANTIGEN SERUM Negative (Negative); HISTO AB MYCELIAL Negative (Neg:<1:2); HISTO AB YEAST Negative (Neg:<1:2); HISTOPLASMA MYCELIAL ID AB Negative (Negative)
[2016-11-28 12:00] VITALS: BP 116/83
--- NOTE | 2016-11-28 13:01 | General Progress Note ---
Assessment/Plan Problem List: (1) SOB (shortness of breath) ICD Codes: R06.02 - Shortness of breath SNOMED: 043265979 (2) Sepsis ICD Codes: A41.9 - Sepsis, unspecified organism SNOMED: 78667082 (3) Pleural effusion, left ICD Codes: J90 - Pleural effusion, not elsewhere classified SNOMED: 47079756 (4) Upper respiratory infection ICD Codes: J06.9 - Acute upper respiratory infection, unspecified SNOMED: 39334858 (5) Abnormal blood pressure SNOMED: 60402010 Status: deteriorating Assessment/Plan no wheezing sepsis pleural effusion biopsy pending adenopathy r/o malignancy worsening azotemia.treatment per renal nausea and mild abdominal pain so i consutled dr alvarenga Subjective ROS Limited/Unobtainable: Yes Constitutional: Reports: no symptoms Allergies: Coded Allergies: CITRUS AND DERIVATIVES (Unverified Allergy, Unknown, 11/27/16) TOMATO (Verified Allergy, Unknown, 11/27/16) per patient VANCOMYCIN (Verified Adverse Reaction, Unknown, 11/27/16) had severe abdominal pain per patient Uncoded Allergies: CITRUS (Allergy, Severe, 11/21/16) aloc Objective Last 24 Hour Vital Signs Date Time Temp Pulse Resp B/P Pulse Ox O2 Delivery O2 Flow Rate FiO2 11/28/16 12:00 97.5 93 20 116/83 99 Nasal Cannula 2.0 11/28/16 08:00 98.1 90 20 110/72 97 Nasal Cannula 2.0 11/28/16 07:00 97 Nasal Cannula 2.0 28 11/28/16 07:00 Nasal Cannula 2.0 28 11/28/16 04:00 98.4 79 18 110/70 100 Room Air 11/28/16 00:00 98.2 87 18 106/71 98 Room Air 11/27/16 20:00 98.2 92 16 106/73 99 Nasal Cannula 11/27/16 19:33 92 16 97 Nasal Cannula 2.0 28 11/27/16 19:33 97 16 100 Nasal Cannula 2.0 28 11/27/16 19:29 Nasal Cannula 2.0 28 11/27/16 19:29 100 Nasal Cannula 2.0 28 11/27/16 16:26 97.6 91 21 103/68 98 Nasal Cannula 2.0 Intake and Output 11/27/16 11/28/16 19:00 07:00 Intake Total 1220 ml 330 ml Output Total 1000 ml 1400 ml Balance 220 ml -1070 ml Intake Oral 960 ml IV Total 260 ml 330 ml Output Urine Total 1000 ml 1400 ml # Bowel Movements 4 Laboratory Tests 11/28/16 05:55: White Blood Count 15.3H, Red Blood Count 3.21L, Hemoglobin 9.1L, Hematocrit 28.8L, Mean Corpuscular Volume 90, Mean Corpuscular Hemoglobin 28.4, Mean Corpuscular Hemoglobin Concent 31.6L, Red Cell Distribution Width 12.9, Platelet Count 426, Mean Platelet Volume 6.2L, Neutrophils (%) (Auto) , Lymphocytes (%) (Auto) , Monocytes (%) (Auto) , Eosinophils (%) (Auto) , Basophils (%) (Auto) , Differential Total Cells Counted 100, Neutrophils % ( Manual) 86H, Lymphocytes % (Manual) 8L, Monocytes % (Manual) 6, Eosinophils % ( Manual) 0, Basophils % (Manual) 0, Band Neutrophils 0, Platelet Estimate Adequate, Platelet Morphology Normal, Hypochromasia 1+, Sodium Level 139, Potassium Level 4.2, Chloride Level 101, Carbon Dioxide Level 25, Anion Gap 13, Blood Urea Nitrogen 17, Creatinine 3.6H, Estimat Glomerular Filtration Rate 15.8 , Glucose Level 112H, Uric Acid 4.7, Calcium Level 8.3L, Phosphorus Level 4.1, Magnesium Level 2.4, Total Bilirubin < 0.2, Aspartate Amino Transf (AST/SGOT) 14 , Alanine Aminotransferase (ALT/SGPT) 6, Alkaline Phosphatase 94, C-Reactive Protein, Quantitative 10.8H, Pro-B-Type Natriuretic Peptide 296H, Total Protein 6.2L, Albumin 2.2L, Globulin 4.0, Albumin/Globulin Ratio 0.5L, Random Vancomycin Level 16.6 11/28/16 06:30: Urine Eosinophils None seen 11/28/16 10:35: TB Test (T-Spot) [Pending], TB Test Nil Control (T-Spot) [Pending], TB Test Panel A (T-Spot) [Pending], TB Test Panel B (T-Spot) [Pending], TB Test Positive Control (T-Spot) [Pending] Height (Feet): 5 Height (Inches): 9.00 Weight (Pounds): 132 EENT: PERRL/EOMI Neck: supple Cardiovascular: normal rate Respiratory/Chest: lungs clear Abdomen: soft Kahlil Ronquillo MD November 28, 2016 13:01
--- NOTE | 2016-11-28 14:59 | General Progress Note ---
Assessment/Plan Status: unchanged, deteriorating - serum Cr Status Narrative Cr rising- Vanco level lower Assessment/Plan Status: Acute Renal Failure- worsening Iron Defficiency Anemia- HypoAlbuminemia , Etiology ??? Penumonia / left Pleural effusion Adrenal Adenoma high A1c ? DM Plan: Andres- 24 h urine for protein Urine Eosinophils and Spot Na DC Vanco- monitor Vanco level Monitor dose- adjust Zosyn dose IV Iron change diet to renal , medium CHO per orders Subjective ROS Limited/Unobtainable: No Constitutional: Reports: malaise, weakness Allergies: Coded Allergies: CITRUS AND DERIVATIVES (Unverified Allergy, Unknown, 11/27/16) TOMATO (Verified Allergy, Unknown, 11/27/16) per patient VANCOMYCIN (Verified Adverse Reaction, Unknown, 11/27/16) had severe abdominal pain per patient Uncoded Allergies: CITRUS (Allergy, Severe, 11/21/16) aloc Objective Last 24 Hour Vital Signs Date Time Temp Pulse Resp B/P Pulse Ox O2 Delivery O2 Flow Rate FiO2 11/28/16 12:00 97.5 93 20 116/83 99 Nasal Cannula 2.0 11/28/16 08:00 98.1 90 20 110/72 97 Nasal Cannula 2.0 11/28/16 07:00 97 Nasal Cannula 2.0 28 11/28/16 07:00 Nasal Cannula 2.0 28 11/28/16 04:00 98.4 79 18 110/70 100 Room Air 11/28/16 00:00 98.2 87 18 106/71 98 Room Air 11/27/16 20:00 98.2 92 16 106/73 99 Nasal Cannula 11/27/16 19:33 92 16 97 Nasal Cannula 2.0 28 11/27/16 19:33 97 16 100 Nasal Cannula 2.0 28 11/27/16 19:29 Nasal Cannula 2.0 28 11/27/16 19:29 100 Nasal Cannula 2.0 28 11/27/16 16:26 97.6 91 21 103/68 98 Nasal Cannula 2.0 Intake and Output 11/27/16 11/28/16 19:00 07:00 Intake Total 1220 ml 330 ml Output Total 1000 ml 1400 ml Balance 220 ml -1070 ml Intake Oral 960 ml IV Total 260 ml 330 ml Output Urine Total 1000 ml 1400 ml # Bowel Movements 4 Laboratory Tests 11/28/16 05:55: White Blood Count 15.3H, Red Blood Count 3.21L, Hemoglobin 9.1L, Hematocrit 28.8L, Mean Corpuscular Volume 90, Mean Corpuscular Hemoglobin 28.4, Mean Corpuscular Hemoglobin Concent 31.6L, Red Cell Distribution Width 12.9, Platelet Count 426, Mean Platelet Volume 6.2L, Neutrophils (%) (Auto) , Lymphocytes (%) (Auto) , Monocytes (%) (Auto) , Eosinophils (%) (Auto) , Basophils (%) (Auto) , Differential Total Cells Counted 100, Neutrophils % ( Manual) 86H, Lymphocytes % (Manual) 8L, Monocytes % (Manual) 6, Eosinophils % ( Manual) 0, Basophils % (Manual) 0, Band Neutrophils 0, Platelet Estimate Adequate, Platelet Morphology Normal, Hypochromasia 1+, Sodium Level 139, Potassium Level 4.2, Chloride Level 101, Carbon Dioxide Level 25, Anion Gap 13, Blood Urea Nitrogen 17, Creatinine 3.6H, Estimat Glomerular Filtration Rate 15.8 , Glucose Level 112H, Uric Acid 4.7, Calcium Level 8.3L, Phosphorus Level 4.1, Magnesium Level 2.4, Total Bilirubin < 0.2, Aspartate Amino Transf (AST/SGOT) 14 , Alanine Aminotransferase (ALT/SGPT) 6, Alkaline Phosphatase 94, C-Reactive Protein, Quantitative 10.8H, Pro-B-Type Natriuretic Peptide 296H, Total Protein 6.2L, Albumin 2.2L, Globulin 4.0, Albumin/Globulin Ratio 0.5L, Random Vancomycin Level 16.6 11/28/16 06:30: Urine Eosinophils None seen 11/28/16 10:35: TB Test (T-Spot) [Pending], TB Test Nil Control (T-Spot) [Pending], TB Test Panel A (T-Spot) [Pending], TB Test Panel B (T-Spot) [Pending], TB Test Positive Control (T-Spot) [Pending] Height (Feet): 5 Height (Inches): 9.00 Weight (Pounds): 132 General Appearance: alert, mild distress Cardiovascular: tachycardia Respiratory/Chest: decreased breath sounds Abdomen: distended Objective no other change JOAQUÍN WORRELL November 28, 2016 14:59
[2016-11-28 16:00] VITALS: BP 120/81
--- NOTE | 2016-11-28 16:00 | Pulmonology Progress Note ---
Assessment/Plan Problems: (1) Pleural effusion, left (2) LLL pneumonia (3) Sepsis (4) ESTHER (acute kidney injury) Assessment/Plan will need repeat paracentesis wbc still elevated f/u renal parameters continue antibiotics Subjective ROS Limited/Unobtainable: No - slightly better Allergies: Coded Allergies: CITRUS AND DERIVATIVES (Unverified Allergy, Unknown, 11/27/16) TOMATO (Verified Allergy, Unknown, 11/27/16) per patient VANCOMYCIN (Verified Adverse Reaction, Unknown, 11/27/16) had severe abdominal pain per patient Uncoded Allergies: CITRUS (Allergy, Severe, 11/21/16) aloc Objective Last 24 Hour Vital Signs Date Time Temp Pulse Resp B/P Pulse Ox O2 Delivery O2 Flow Rate FiO2 11/28/16 12:00 97.5 93 20 116/83 99 Nasal Cannula 2.0 11/28/16 08:00 98.1 90 20 110/72 97 Nasal Cannula 2.0 11/28/16 07:00 97 Nasal Cannula 2.0 28 11/28/16 07:00 Nasal Cannula 2.0 11/28/16 04:00 98.4 79 18 110/70 100 Room Air 11/28/16 00:00 98.2 87 18 106/71 98 Room Air 11/27/16 20:00 98.2 92 16 106/73 99 Nasal Cannula 11/27/16 19:33 92 16 97 Nasal Cannula 2.0 11/27/16 19:33 97 16 100 Nasal Cannula 2.0 11/27/16 19:29 Nasal Cannula 2.0 11/27/16 19:29 100 Nasal Cannula 2.0 11/27/16 16:26 97.6 91 21 103/68 98 Nasal Cannula 2.0 Intake and Output 11/27/16 11/28/16 19:00 07:00 Intake Total 1220 ml 330 ml Output Total 1000 ml 1400 ml Balance 220 ml -1070 ml Intake Oral 960 ml IV Total 260 ml 330 ml Output Urine Total 1000 ml 1400 ml # Bowel Movements 4 General Appearance: WD/WN HEENT: normocephalic, atraumatic Respiratory/Chest: chest wall non-tender, lungs clear Cardiovascular: normal peripheral pulses, normal rate Abdomen: normal bowel sounds, non distended Genitourinary: normal external genitalia Microbiology Date/Time Source Procedure Growth Status 11/26/16 20:30 Stool Clostridium difficile Toxin Assay - Final Complete Laboratory Tests 11/28/16 05:55: White Blood Count 15.3H, Red Blood Count 3.21L, Hemoglobin 9.1L, Hematocrit 28.8L, Mean Corpuscular Volume 90, Mean Corpuscular Hemoglobin 28.4, Mean Corpuscular Hemoglobin Concent 31.6L, Red Cell Distribution Width 12.9, Platelet Count 426, Mean Platelet Volume 6.2L, Neutrophils (%) (Auto) , Lymphocytes (%) (Auto) , Monocytes (%) (Auto) , Eosinophils (%) (Auto) , Basophils (%) (Auto) , Differential Total Cells Counted 100, Neutrophils % ( Manual) 86H, Lymphocytes % (Manual) 8L, Monocytes % (Manual) 6, Eosinophils % ( Manual) 0, Basophils % (Manual) 0, Band Neutrophils 0, Platelet Estimate Adequate, Platelet Morphology Normal, Hypochromasia 1+, Sodium Level 139, Potassium Level 4.2, Chloride Level 101, Carbon Dioxide Level 25, Anion Gap 13, Blood Urea Nitrogen 17, Creatinine 3.6H, Estimat Glomerular Filtration Rate 15.8 , Glucose Level 112H, Uric Acid 4.7, Calcium Level 8.3L, Phosphorus Level 4.1, Magnesium Level 2.4, Total Bilirubin < 0.2, Aspartate Amino Transf (AST/SGOT) 14 , Alanine Aminotransferase (ALT/SGPT) 6, Alkaline Phosphatase 94, C-Reactive Protein, Quantitative 10.8H, Pro-B-Type Natriuretic Peptide 296H, Total Protein 6.2L, Albumin 2.2L, Globulin 4.0, Albumin/Globulin Ratio 0.5L, Random Vancomycin Level 16.6 11/28/16 06:30: Urine Eosinophils None seen 11/28/16 10:35: TB Test (T-Spot) [Pending], TB Test Nil Control (T-Spot) [Pending], TB Test Panel A (T-Spot) [Pending], TB Test Panel B (T-Spot) [Pending], TB Test Positive Control (T-Spot) [Pending] 11/28/16 15:00: Urine Collection Time 24, Urine Total Volume 2500, Urine Total Protein mg/dL 22 , Urine Total Protein 24 Hour 550.0H Current Medications Medications (Trade) Dose Ordered Sig/Ruben Route PRN Reason Start Time Stop Time Status Last Admin Dose Admin Acetaminophen (Tylenol) 650 mg Q4H PRN ORAL Mild Pain/Temp > 100.5 11/22/16 22:45 12/22/16 22:44 Aspirin (Ecotrin) 325 mg DAILY ORAL 11/23/16 09:00 12/23/16 08:59 11/28/16 10:18 Dextrose (Dextrose 50%) STAT PRN IV Hypoglycemia 11/22/16 22:45 12/22/16 22:44 Docusate Sodium 100 mg 100 mg TWICE A DAY ORAL 11/26/16 18:00 12/26/16 17:59 Doxycycline Hyclate/Dextrose (Vibramycin/D5W) 110 ml @ 110 mls/hr Q12HR@0500,1700 IV 11/27/16 17:00 12/04/16 16:59 11/28/16 05:04 Metronidazole (Flagyl) 500 mg Q8H ORAL 11/25/16 17:00 12/02/16 16:59 11/28/16 10:18 Ondansetron HCl (Zofran) 4 mg Q6H PRN IVP Nausea & Vomiting 11/22/16 22:45 12/22/16 22:44 11/28/16 06:23 Pantoprazole (Protonix) 40 mg Q12HR ORAL 11/26/16 21:00 12/26/16 20:59 11/28/16 10:18 Piperacillin Sod/ Tazobactam Sod 2.25 gm/Dextrose 110 ml @ 220 mls/hr Q6HR IVPB 11/26/16 20:00 12/03/16 19:59 11/28/16 13:00 Promethazine HCl/ Codeine (Phenergan with Codeine) 5 ml Q4H PRN ORAL For Cough 11/22/16 23:45 12/22/16 23:44 11/24/16 21:54 ESTEFANI AVILES November 28, 2016 16:00
--- NOTE | 2016-11-28 16:04 | GI Initial Consult Note ---
History of Present Illness General Date patient seen: November 28, 2016 Time patient seen: 14:00 Reason for Hospitalization: Upper Respiratory Illness Referring physician: Dr. Ronquillo Reason for Consultation: NAUSEA Present Illness HPI HISTORY OF PRESENT ILLNESS: The patient is admitted for shortness of breath as well as fever and productive cough which has been going on for two weeks. The patient got Z-PRITI, actually her symptoms got worse which is why she came to the hospital. Initially in the ER, she was tachycardiac and imaging done which also showed pleural effusion. GI CONSULT: HPI as noted above. GI consulted for nausea. Pt seen on floor, airborne isolation, A&Ox4 NAD c/o of nausea without vomiting. Denies any abdominal pain at this time. Pt presents with leukocytosis, anemia, iron deficiency. No history of any endoscopic procedures. Home Meds Reported Medications Aspirin* (ASPIRIN*) 325 Mg Tablet, 325 MG ORAL DAILY, TAB 11/22/16 Eucalyptus Oil (EUCALYPTUS OIL) 118 Ml Oil, INH Inhales eucalyptus as many times as she can. 11/21/16 Niacin* (NIACIN*) 50 Mg Tablet, PO 11/21/16 Black Cohosh (BLACK COHOSH) 40 Mg Capsule, PO Patient takes 4 tablets/day. 11/21/16 Potassium Chloride (POTASSIUM CHLORIDE) 10 Meq Tablet.er, ORAL Patient takes potassium (unknown kind) 4x/month. 11/21/16 Ca Carbonate/Vitamin D3/Vit K (CALCIUM + D SOFT CHEWABLE TAB) 1 Each Tab.chew, 1 EACH PO QWEEK 11/21/16 Levofloxacin* (LEVOFLOXACIN*) 750 Mg Tablet, 750 MG ORAL DAILY Take Levofloxacin 750mg PO QD x 5 days. 11/21/16 Discontinued Reported Medications Aspirin* (ASPIRIN*) 81 Mg Tab.chew, 81 MG ORAL PRN Y for For Pain Patient takes 1-3 tablets depending on her pain 11/21/16 Med list reviewed/reconciled: Yes Allergies: Coded Allergies: CITRUS AND DERIVATIVES (Unverified Allergy, Unknown, 11/27/16) TOMATO (Verified Allergy, Unknown, 11/27/16) per patient VANCOMYCIN (Verified Adverse Reaction, Unknown, 11/27/16) had severe abdominal pain per patient Uncoded Allergies: CITRUS (Allergy, Severe, 11/21/16) aloc Patient History History Provided By: Patient, Medical Record PMH Narrative PAST MEDICAL HISTORY: Significant for history of hypertension, history of gastroesophageal reflux disease. PAST SURGICAL HISTORY: Benign lesion removed from the breasts. SOCIAL HISTORY: History of smoking. History of drug abuse. No history of alcohol abuse. Review of Systems All Other Systems: negative except mentioned in HPI Physical Exam Vital Signs Date Time Temp Pulse Resp B/P Pulse Ox O2 Delivery O2 Flow Rate FiO2 11/24/16 07:20 97 Room Air 11/24/16 08:15 98.5 100 20 115/70 2.0 11/24/16 20:13 28 Sp02 EP Interpretation: reviewed Labs Laboratory Tests Test 11/28/16 05:55 11/28/16 06:30 11/28/16 10:35 11/28/16 15:00 White Blood Count 15.3 K/UL (4.8-10.8) H Red Blood Count 3.21 M/UL (4.20-5.40) L Hemoglobin 9.1 G/DL (12.0-16.0) L Hematocrit 28.8 % (37.0-47.0) L Mean Corpuscular Volume 90 FL (80-99) Mean Corpuscular Hemoglobin 28.4 PG (27.0-31.0) Mean Corpuscular Hemoglobin Concent 31.6 G/DL (32.0-36.0) L Red Cell Distribution Width 12.9 % (11.6-14.8) Platelet Count 426 K/UL (150-450) Mean Platelet Volume 6.2 FL (6.5-10.1) L Neutrophils (%) (Auto) % (45.0-75.0) Lymphocytes (%) (Auto) % (20.0-45.0) Monocytes (%) (Auto) % (1.0-10.0) Eosinophils (%) (Auto) % (0.0-3.0) Basophils (%) (Auto) % (0.0-2.0) Differential Total Cells Counted 100 Neutrophils % (Manual) 86 % (45-75) H Lymphocytes % (Manual) 8 % (20-45) L Monocytes % (Manual) 6 % (1-10) Eosinophils % (Manual) 0 % (0-3) Basophils % (Manual) 0 % (0-2) Band Neutrophils 0 % (0-8) Platelet Estimate Adequate Platelet Morphology Normal Hypochromasia 1+ Sodium Level 139 mEQ/L (135-145) Potassium Level 4.2 mEQ/L (3.4-4.9) Chloride Level 101 mEQ/L (98-107) Carbon Dioxide Level 25 mEQ/L (20-30) Anion Gap 13 (5-15) Blood Urea Nitrogen 17 mg/dL (7-23) Creatinine 3.6 mg/dL (0.5-0.9) H Estimat Glomerular Filtration Rate 15.8 mL/min (>60) Glucose Level 112 mg/dL (74-106) H Uric Acid 4.7 mg/dL (3.0-7.5) Calcium Level 8.3 mg/dL (8.6-10.2) L Phosphorus Level 4.1 mg/dL (2.5-4.8) Magnesium Level 2.4 mg/dL (1.7-2.5) Total Bilirubin < 0.2 mg/dL (0.0-1.2) Aspartate Amino Transf (AST/SGOT) 14 U/L (5-40) Alanine Aminotransferase (ALT/SGPT) 6 U/L (3-33) Alkaline Phosphatase 94 U/L (35-104) C-Reactive Protein, Quantitative 10.8 mg/dL (< 0.5) H Pro-B-Type Natriuretic Peptide 296 pg/mL (0-125) H Total Protein 6.2 g/dL (6.6-8.7) L Albumin 2.2 g/dL (3.5-5.2) L Globulin 4.0 g/dL Albumin/Globulin Ratio 0.5 (1.0-2.7) L Random Vancomycin Level 16.6 ug/mL Urine Eosinophils None seen TB Test (T-Spot) Pending TB Test Nil Control (T-Spot) Pending TB Test Panel A (T-Spot) Pending TB Test Panel B (T-Spot) Pending TB Test Positive Control (T-Spot) Pending Urine Collection Time 24 HRS Urine Total Volume 2500 ML Urine Total Protein mg/dL 22 mg/dL Urine Total Protein 24 Hour 550.0 mg/24hr (< 150) H General Appearance: well appearing, no apparent distress Head: normocephalic EENT: normal ENT inspection Neck: full range of motion, supple Respiratory: normal breath sounds, no respiratory distress Cardiovascular: normal rate Gastrointestinal: normal inspection, non tender, normal bowel sounds Rectal: deferred Neurologic: normal inspection, alert, oriented x3, responsive Psychiatric: normal inspection, judgement/insight normal, memory normal Skin: normal inspection, normal color, no rash Lymphatic: normal inspection, no adenopathy Current Medications Current Medications Medications (Trade) Dose Ordered Sig/Ruben Route PRN Reason Start Time Stop Time Status Last Admin Dose Admin Acetaminophen (Tylenol) 650 mg Q4H PRN ORAL Mild Pain/Temp > 100.5 11/22/16 22:45 12/22/16 22:44 Aspirin (Ecotrin) 325 mg DAILY ORAL 11/23/16 09:00 12/23/16 08:59 11/28/16 10:18 Dextrose (Dextrose 50%) STAT PRN IV Hypoglycemia 11/22/16 22:45 12/22/16 22:44 Docusate Sodium 100 mg 100 mg TWICE A DAY ORAL 11/26/16 18:00 12/26/16 17:59 Doxycycline Hyclate/Dextrose (Vibramycin/D5W) 110 ml @ 110 mls/hr Q12HR@0500,1700 IV 11/27/16 17:00 12/04/16 16:59 11/28/16 05:04 Metronidazole (Flagyl) 500 mg Q8H ORAL 11/25/16 17:00 12/02/16 16:59 11/28/16 10:18 Ondansetron HCl (Zofran) 4 mg Q6H PRN IVP Nausea & Vomiting 11/22/16 22:45 12/22/16 22:44 11/28/16 06:23 Pantoprazole (Protonix) 40 mg Q12HR ORAL 11/26/16 21:00 12/26/16 20:59 11/28/16 10:18 Piperacillin Sod/ Tazobactam Sod 2.25 gm/Dextrose 110 ml @ 220 mls/hr Q6HR IVPB 11/26/16 20:00 12/03/16 19:59 11/28/16 13:00 Promethazine HCl/ Codeine (Phenergan with Codeine) 5 ml Q4H PRN ORAL For Cough 11/22/16 23:45 12/22/16 23:44 11/24/16 21:54 GI: Plan Problems: (1) Anemia (2) Iron deficiency (3) Vomiting (4) Diarrhea (5) Severe malnutrition Plan airborne isolation r/o TB iron deficiency cdiff negative s/p thoracentesis 11/23/16. defer GI procedures at this time symptomatic treatment zofran prn anemia work up OB stool monitor H&H, transfuse prn reorder iron panel con ppi bowel regime abx fu labs Discussed with Dr. Clark. Thank you for this referral, we will follow. Jeny Mao N.P. November 28, 2016 16:04
[2016-11-28] MEDS ORDERED: Tubing IV Secondary IV ONE (17:12)
[2016-11-28 17:53] LABS: INR 1.2 (0.9-1.1)
--- NOTE | 2016-11-28 18:50 | Infectious Diseases Prog Note ---
Assessment/Plan Problems: (1) LLL pneumonia Assessment & Plan: with possible tumor VS abscess, on doxycycline, and zosyn . await fungal serology, and T spot test sputum culture grew brody spp, and normal linette , screening for HIV is negative (2) Pleural effusion, left Assessment & Plan: S/P thoracentesis , fluids culture is negative so far , fungal and AFB are pending , cytology showed lymphocytosis which is suggestive of either malignancy VS TB. (3) SOB (shortness of breath) Assessment & Plan: due to the above, pulmonary is following (4) Adrenal adenoma Assessment & Plan: confirmed on MRI, recommend endocrinology eval and management (5) ESTHER (acute kidney injury) Assessment & Plan: multifactorial, MEDS VS dehydration , off vancomycin, continue IVF for hydration, monitor renal function test. renal is following (6) Diarrhea Assessment & Plan: resolved, with negative C diff Subjective Constitutional: Reports: anorexia, fatigue HEENT: Reports: no symptoms Respiratory: Reports: dry cough, shortness of breath Cardiovascular: Reports: no symptoms Gastrointestinal/Abdominal: Reports: no symptoms Genitourinary: Reports: no symptoms Neurologic: Reports: no symptoms Psychiatric: Reports: no symptoms Skin: Reports: no symptoms Endocrine: Reports: no symptoms Allergies: Coded Allergies: CITRUS AND DERIVATIVES (Unverified Allergy, Unknown, 11/27/16) TOMATO (Verified Allergy, Unknown, 11/27/16) per patient VANCOMYCIN (Verified Adverse Reaction, Unknown, 11/27/16) had severe abdominal pain per patient Uncoded Allergies: CITRUS (Allergy, Severe, 11/21/16) aloc Subjective she feels a little better , no diarrhea, less cough and phlegm, no fever or chills. Objective Vital Signs Last 24 Hour Vital Signs Date Time Temp Pulse Resp B/P Pulse Ox O2 Delivery O2 Flow Rate FiO2 11/28/16 16:00 97.3 92 20 120/81 99 Nasal Cannula 2.0 11/28/16 12:00 97.5 93 20 116/83 99 Nasal Cannula 2.0 11/28/16 08:00 98.1 90 20 110/72 97 Nasal Cannula 2.0 11/28/16 07:00 97 Nasal Cannula 2.0 28 11/28/16 07:00 Nasal Cannula 2.0 28 11/28/16 04:00 98.4 79 18 110/70 100 Room Air 11/28/16 00:00 98.2 87 18 106/71 98 Room Air 11/27/16 20:00 98.2 92 16 106/73 99 Nasal Cannula 11/27/16 19:33 92 16 97 Nasal Cannula 2.0 28 11/27/16 19:33 97 16 100 Nasal Cannula 2.0 28 11/27/16 19:29 Nasal Cannula 2.0 28 11/27/16 19:29 100 Nasal Cannula 2.0 28 Height (Feet): 5 Height (Inches): 9.00 Weight (Pounds): 132 General Appearance: WD/WN, no acute distress HEENT: normocephalic, atraumatic, anicteric, mucous membranes moist Respiratory/Chest: chest wall non-tender, no respiratory distress, no accessory muscle use, decreased breath sounds, crackles/rales Cardiovascular: normal peripheral pulses, normal rate, regular rhythm, no gallop/murmur, no JVD Abdomen: normal bowel sounds, soft, non tender, no organomegaly, non distended , no mass, no scars Extremities: no cyanosis, no clubbing Microbiology Date/Time Source Procedure Growth Status 11/26/16 20:30 Stool Clostridium difficile Toxin Assay - Final Complete Laboratory Tests Test 11/28/16 05:55 11/28/16 06:30 11/28/16 10:35 11/28/16 15:00 White Blood Count 15.3 K/UL (4.8-10.8) H Red Blood Count 3.21 M/UL (4.20-5.40) L Hemoglobin 9.1 G/DL (12.0-16.0) L Hematocrit 28.8 % (37.0-47.0) L Mean Corpuscular Volume 90 FL (80-99) Mean Corpuscular Hemoglobin 28.4 PG (27.0-31.0) Mean Corpuscular Hemoglobin Concent 31.6 G/DL (32.0-36.0) L Red Cell Distribution Width 12.9 % (11.6-14.8) Platelet Count 426 K/UL (150-450) Mean Platelet Volume 6.2 FL (6.5-10.1) L Neutrophils (%) (Auto) % (45.0-75.0) Lymphocytes (%) (Auto) % (20.0-45.0) Monocytes (%) (Auto) % (1.0-10.0) Eosinophils (%) (Auto) % (0.0-3.0) Basophils (%) (Auto) % (0.0-2.0) Differential Total Cells Counted 100 Neutrophils % (Manual) 86 % (45-75) H Lymphocytes % (Manual) 8 % (20-45) L Monocytes % (Manual) 6 % (1-10) Eosinophils % (Manual) 0 % (0-3) Basophils % (Manual) 0 % (0-2) Band Neutrophils 0 % (0-8) Platelet Estimate Adequate Platelet Morphology Normal Hypochromasia 1+ Sodium Level 139 mEQ/L (135-145) Potassium Level 4.2 mEQ/L (3.4-4.9) Chloride Level 101 mEQ/L (98-107) Carbon Dioxide Level 25 mEQ/L (20-30) Anion Gap 13 (5-15) Blood Urea Nitrogen 17 mg/dL (7-23) Creatinine 3.6 mg/dL (0.5-0.9) H Estimat Glomerular Filtration Rate 15.8 mL/min (>60) Glucose Level 112 mg/dL (74-106) H Uric Acid 4.7 mg/dL (3.0-7.5) Calcium Level 8.3 mg/dL (8.6-10.2) L Phosphorus Level 4.1 mg/dL (2.5-4.8) Magnesium Level 2.4 mg/dL (1.7-2.5) Total Bilirubin < 0.2 mg/dL (0.0-1.2) Aspartate Amino Transf (AST/SGOT) 14 U/L (5-40) Alanine Aminotransferase (ALT/SGPT) 6 U/L (3-33) Alkaline Phosphatase 94 U/L (35-104) C-Reactive Protein, Quantitative 10.8 mg/dL (< 0.5) H Pro-B-Type Natriuretic Peptide 296 pg/mL (0-125) H Total Protein 6.2 g/dL (6.6-8.7) L Albumin 2.2 g/dL (3.5-5.2) L Globulin 4.0 g/dL Albumin/Globulin Ratio 0.5 (1.0-2.7) L Random Vancomycin Level 16.6 ug/mL Urine Eosinophils None seen TB Test (T-Spot) Pending TB Test Nil Control (T-Spot) Pending TB Test Panel A (T-Spot) Pending TB Test Panel B (T-Spot) Pending TB Test Positive Control (T-Spot) Pending Urine Collection Time 24 HRS Urine Total Volume 2500 ML Urine Total Protein mg/dL 22 mg/dL Urine Total Protein 24 Hour 550.0 mg/24hr (< 150) H Test 11/28/16 17:20 Prothrombin Time 12.0 SEC (9.30-11.50) H Prothromb Time International Ratio 1.2 (0.9-1.1) H Activated Partial Thromboplast Time 37 SEC (23-33) H Current Medications Medications (Trade) Dose Ordered Sig/Ruben Route PRN Reason Start Time Stop Time Status Last Admin Dose Admin Acetaminophen (Tylenol) 650 mg Q4H PRN ORAL Mild Pain/Temp > 100.5 11/22/16 22:45 12/22/16 22:44 Aspirin (Ecotrin) 325 mg DAILY ORAL 11/23/16 09:00 12/23/16 08:59 11/28/16 10:18 Dextrose (Dextrose 50%) STAT PRN IV Hypoglycemia 11/22/16 22:45 12/22/16 22:44 Docusate Sodium 100 mg 100 mg TWICE A DAY ORAL 11/26/16 18:00 12/26/16 17:59 Doxycycline Hyclate/Dextrose (Vibramycin/D5W) 110 ml @ 110 mls/hr Q12HR@0500,1700 IV 11/27/16 17:00 12/04/16 16:59 11/28/16 17:26 Ondansetron HCl (Zofran) 4 mg Q6H PRN IVP Nausea & Vomiting 11/22/16 22:45 12/22/16 22:44 11/28/16 06:23 Pantoprazole (Protonix) 40 mg Q12HR ORAL 11/26/16 21:00 12/26/16 20:59 11/28/16 10:18 Piperacillin Sod/ Tazobactam Sod 2.25 gm/Dextrose 110 ml @ 220 mls/hr Q6HR IVPB 11/26/16 20:00 12/03/16 19:59 11/28/16 13:00 Promethazine HCl/ Codeine (Phenergan with Codeine) 5 ml Q4H PRN ORAL For Cough 11/22/16 23:45 12/22/16 23:44 11/24/16 21:54 Nicolle Schmitz M.D. November 28, 2016 18:50
[2016-11-28 20:00] VITALS: BP 124/69
--- NOTE | 2016-11-28 23:40 | General Progress Note ---
Assessment/Plan Assessment/Plan Assessment and Recs: # Mediastinal and hilar adenopathy as well as pleural effusion - cytology shows lymphocytosis, tumor v TB v abscess, final results pending, have discussed with Dr. Burr (pathology) on 11/28/16 # Anemia of chronic disease - anemia 2/2 chronic disease, no iron deficiency # Coagulopathy - likely related to poor po intake, better # LLL pneumonia with possible abscess, on abx as per ID service # Pleural effusion, left - s/p thora 110cc removed # Sepsis - on abx as per ID # SOB (shortness of breath) - likely related to pna Subjective HEENT: Denies: blurred vision, double vision, ear discharge, ear pain, eye pain , mouth pain, mouth swelling, no symptoms, nose congestion, nose pain, other, tearing, throat pain, throat swelling Cardiovascular: Denies: chest pain, edema, irregular heart rate, lightheadedness, no symptoms, other, palpitations, syncope Respiratory: Denies: SOB at rest, SOB with excertion, cough, no symptoms, orthopnea, other, shortness of breath, sputum, stridor, wheezing Gastrointestinal/Abdominal: Denies: abdomen distended, abdominal pain, black stools, blood in stool, constipated, diarrhea, difficulty swallowing, nausea, no symptoms, other, poor appetite, poor fluid intake, rectal bleeding, tarry stools, vomiting Genitourinary: Denies: burning, discharge, flank pain, frequency, hematuria, incontinence, no symptoms, other, pain, urgency Neurologic/Psychiatric: Denies: anxiety, depressed, emotional problems, headache, no symptoms, numbness, other, paresthesia, pre-existing deficit, seizure, tingling, tremors, weakness Endocrine: Denies: excessive sweating, flushing, increased hunger, increased thirst, increased urine, intolerance to cold, intolerance to heat, no symptoms, other, unexplained weight gain, unexplained weight loss Hematologic/Lymphatic: Denies: anemia, easy bleeding, easy bruising, no symptoms, other Allergies: Coded Allergies: CITRUS AND DERIVATIVES (Unverified Allergy, Unknown, 11/27/16) TOMATO (Verified Allergy, Unknown, 11/27/16) per patient VANCOMYCIN (Verified Adverse Reaction, Unknown, 11/27/16) had severe abdominal pain per patient Uncoded Allergies: CITRUS (Allergy, Severe, 11/21/16) aloc Subjective no chills, no events, no fevers noted, cytology of thora pending Objective Last 24 Hour Vital Signs Date Time Temp Pulse Resp B/P Pulse Ox O2 Delivery O2 Flow Rate FiO2 11/28/16 20:00 98.2 96 18 124/69 100 Room Air 11/28/16 19:50 Nasal Cannula 2.0 28 11/28/16 19:50 88 18 Nasal Cannula 2.0 28 11/28/16 19:50 99 Nasal Cannula 2.0 28 11/28/16 16:00 97.3 92 20 120/81 99 Nasal Cannula 2.0 11/28/16 12:00 97.5 93 20 116/83 99 Nasal Cannula 2.0 11/28/16 08:00 98.1 90 20 110/72 97 Nasal Cannula 2.0 11/28/16 07:00 97 Nasal Cannula 2.0 28 11/28/16 07:00 Nasal Cannula 2.0 28 11/28/16 04:00 98.4 79 18 110/70 100 Room Air 11/28/16 00:00 98.2 87 18 106/71 98 Room Air Intake and Output 11/27/16 11/28/16 18:59 06:59 Intake Total 1330 ml 330 ml Output Total 1000 ml 1400 ml Balance 330 ml -1070 ml Intake Oral 960 ml IV Total 370 ml 330 ml Output Urine Total 1000 ml 1400 ml # Bowel Movements 4 Laboratory Tests 11/28/16 05:55: White Blood Count 15.3H, Red Blood Count 3.21L, Hemoglobin 9.1L, Hematocrit 28.8L, Mean Corpuscular Volume 90, Mean Corpuscular Hemoglobin 28.4, Mean Corpuscular Hemoglobin Concent 31.6L, Red Cell Distribution Width 12.9, Platelet Count 426, Mean Platelet Volume 6.2L, Neutrophils (%) (Auto) , Lymphocytes (%) (Auto) , Monocytes (%) (Auto) , Eosinophils (%) (Auto) , Basophils (%) (Auto) , Differential Total Cells Counted 100, Neutrophils % ( Manual) 86H, Lymphocytes % (Manual) 8L, Monocytes % (Manual) 6, Eosinophils % ( Manual) 0, Basophils % (Manual) 0, Band Neutrophils 0, Platelet Estimate Adequate, Platelet Morphology Normal, Hypochromasia 1+, Sodium Level 139, Potassium Level 4.2, Chloride Level 101, Carbon Dioxide Level 25, Anion Gap 13, Blood Urea Nitrogen 17, Creatinine 3.6H, Estimat Glomerular Filtration Rate 15.8 , Glucose Level 112H, Uric Acid 4.7, Calcium Level 8.3L, Phosphorus Level 4.1, Magnesium Level 2.4, Total Bilirubin < 0.2, Aspartate Amino Transf (AST/SGOT) 14 , Alanine Aminotransferase (ALT/SGPT) 6, Alkaline Phosphatase 94, C-Reactive Protein, Quantitative 10.8H, Pro-B-Type Natriuretic Peptide 296H, Total Protein 6.2L, Albumin 2.2L, Globulin 4.0, Albumin/Globulin Ratio 0.5L, Random Vancomycin Level 16.6 11/28/16 06:30: Urine Eosinophils None seen 11/28/16 10:35: TB Test (T-Spot) [Pending], TB Test Nil Control (T-Spot) [Pending], TB Test Panel A (T-Spot) [Pending], TB Test Panel B (T-Spot) [Pending], TB Test Positive Control (T-Spot) [Pending] 11/28/16 15:00: Urine Collection Time 24, Urine Total Volume 2500, Urine Total Protein mg/dL 22 , Urine Total Protein 24 Hour 550.0H 11/28/16 17:20: Prothrombin Time 12.0H, Prothromb Time International Ratio 1.2H, Activated Partial Thromboplast Time 37H Height (Feet): 5 Height (Inches): 9.00 Weight (Pounds): 132 General Appearance: lethargic EENT: normal ENT inspection Neck: normal inspection Cardiovascular: normal rate Respiratory/Chest: no respiratory distress Genitourinary/Rectal: normal rectal exam Edema: no edema noted Leg (L), no edema noted Leg (R) Edema: moderate edema Neurologic: alert Matheus Lombardi November 28, 2016 23:40
[2016-11-29] VITALS: BP 113/65
[2016-11-29 04:00] VITALS: BP 117/77
[2016-11-29] MEDS: Doxycycline Hyclate 100 MG in D5W 110 ML IV SCH ×2 (04:39→16:04)
[2016-11-29] MEDS: Piperacillin/Tazobactam 2.25 GM in D5W 110 ML IVPB SCH ×3 (06:23→18:24)
[2016-11-29 07:07] LABS: MEAN CORPUSCULAR HEMOGLOBIN 28.7 PG (27.0-31.0); MEAN CORPUSCULAR HGB CONC 31.9 G/DL (32.0-36.0); MEAN CORPUSCULAR VOLUME 90 FL (80-99); PLATELET COUNT 418 K/UL (150-450); RED BLOOD COUNT 3.16 M/UL (4.20-5.40); RED CELL DISTRIBUTION WIDTH 13.3 % (11.6-14.8); WHITE BLOOD COUNT 15.8 K/UL (4.8-10.8)
[2016-11-29 07:39] LABS: HEMOLYSIS 0; IRON 22 ug/dL (37-145); TOTAL IRON BINDING CAPACITY 142 ug/dL (250-400)
[2016-11-29 07:47] LABS: FERRITIN 479 ng/mL (13-150)
[2016-11-29 07:52] LABS: ALANINE AMINOTRANSFERASE 6 U/L (3-33); ALBUMIN/GLOBULIN RATIO 0.5 (1.0-2.7); ANION GAP 13 (5-15); ASPARTATE AMINO TRANSFERASE 13 U/L (5-40); CALCIUM 8.1 mg/dL (8.6-10.2); CARBON DIOXIDE 24 mEQ/L (20-30); CHLORIDE 103 mEQ/L (98-107); CREATININE 3.5 mg/dL (0.5-0.9); CRP QUANT 9.5 mg/dL (< 0.5); GLOMERULAR FILTRATION RATE 16.2 mL/min (>60); HEMOLYSIS 0; MAGNESIUM 2.2 mg/dL (1.7-2.5); PHOSPHORUS 3.3 mg/dL (2.5-4.8); POTASSIUM 4.2 mEQ/L (3.4-4.9); SODIUM 140 mEQ/L (135-145); TOTAL PROTEIN 6.3 g/dL (6.6-8.7)
[2016-11-29 08:07] VITALS: BP 122/85
[2016-11-29] MEDS: Docusate 100mg cap ORAL SCH ×2 (09:00→18:00)
[2016-11-29] MEDS: Aspirin EC 325mg tab ORAL SCH (09:03)
--- NOTE | 2016-11-29 09:21 | General Progress Note ---
Assessment/Plan Status: unchanged Status Narrative Cr unchanged Assessment/Plan Status: Acute Renal Failure- Cr appears to be levelling Iron Defficiency Anemia- HypoAlbuminemia , Etiology ??? Penumonia / left Pleural effusion Adrenal Adenoma high A1c ? DM Plan: Andres- 24 h urine for protein 500 mg Urine Eosinophils and Spot Na DC Vanco- monitor Vanco level Monitor dose- adjust Zosyn dose IV Iron change diet to renal , medium CHO per orders Subjective ROS Limited/Unobtainable: No Constitutional: Reports: malaise, weakness Allergies: Coded Allergies: CITRUS AND DERIVATIVES (Unverified Allergy, Unknown, 11/27/16) TOMATO (Verified Allergy, Unknown, 11/27/16) per patient VANCOMYCIN (Verified Adverse Reaction, Unknown, 11/27/16) had severe abdominal pain per patient Uncoded Allergies: CITRUS (Allergy, Severe, 11/21/16) aloc Objective Last 24 Hour Vital Signs Date Time Temp Pulse Resp B/P Pulse Ox O2 Delivery O2 Flow Rate FiO2 11/29/16 08:07 97.6 93 23 122/85 97 Nasal Cannula 2.0 11/29/16 04:00 97.9 96 18 117/77 98 Nasal Cannula 2.0 11/29/16 00:00 98.2 98 20 113/65 100 Room Air 11/28/16 20:00 98.2 96 18 124/69 100 Room Air 11/28/16 19:50 Nasal Cannula 2.0 28 11/28/16 19:50 88 18 Nasal Cannula 2.0 28 11/28/16 19:50 99 Nasal Cannula 2.0 28 11/28/16 16:00 97.3 92 20 120/81 99 Nasal Cannula 2.0 11/28/16 12:00 97.5 93 20 116/83 99 Nasal Cannula 2.0 Intake and Output 11/28/16 11/29/16 19:00 07:00 Intake Total 730 ml 110 ml Output Total 1300 ml 850 ml Balance -570 ml -740 ml Intake Oral 400 ml IV Total 330 ml 110 ml Output Urine Total 1300 ml 850 ml Laboratory Tests 11/28/16 10:35: TB Test (T-Spot) [Pending], TB Test Nil Control (T-Spot) [Pending], TB Test Panel A (T-Spot) [Pending], TB Test Panel B (T-Spot) [Pending], TB Test Positive Control (T-Spot) [Pending] 11/28/16 15:00: Urine Collection Time 24, Urine Total Volume 2500, Urine Total Protein mg/dL 22 , Urine Total Protein 24 Hour 550.0H 11/28/16 17:20: Prothrombin Time 12.0H, Prothromb Time International Ratio 1.2H, Activated Partial Thromboplast Time 37H 11/29/16 04:30: Urine Eosinophils None seen 11/29/16 06:40: White Blood Count 15.8H, Red Blood Count 3.16L, Hemoglobin 9.1L, Hematocrit 28.4L, Mean Corpuscular Volume 90, Mean Corpuscular Hemoglobin 28.7, Mean Corpuscular Hemoglobin Concent 31.9L, Red Cell Distribution Width 13.3, Platelet Count 418, Mean Platelet Volume 6.0L, Neutrophils (%) (Auto) , Lymphocytes (%) (Auto) , Monocytes (%) (Auto) , Eosinophils (%) (Auto) , Basophils (%) (Auto) , Neutrophils % (Manual) [Pending], Lymphocytes % (Manual) [Pending], Platelet Estimate [Pending], Platelet Morphology [Pending], Reticulocyte Count [Pending], Sodium Level 140, Potassium Level 4.2, Chloride Level 103, Carbon Dioxide Level 24, Anion Gap 13, Blood Urea Nitrogen 17, Creatinine 3.5H, Estimat Glomerular Filtration Rate 16.2, Glucose Level 94, Uric Acid 5.0, Calcium Level 8.1L, Phosphorus Level 3.3, Magnesium Level 2.2, Iron Level 22L, Total Iron Binding Capacity 142L, Percent Iron Saturation 15, Unsaturated Iron Binding 120, Ferritin 479H, Total Bilirubin < 0.2, Gamma Glutamyl Transpeptidase 27, Aspartate Amino Transf (AST/SGOT) 13, Alanine Aminotransferase (ALT/SGPT) 6, Alkaline Phosphatase 75, Total Creatine Kinase 22L, C-Reactive Protein, Quantitative 9.5H, Pro-B-Type Natriuretic Peptide 428H , Total Protein 6.3L, Albumin 2.2L, Globulin 4.1, Albumin/Globulin Ratio 0.5L Height (Feet): 5 Height (Inches): 9.00 Weight (Pounds): 132 General Appearance: no apparent distress Neck: limited range of motion Cardiovascular: tachycardia Respiratory/Chest: decreased breath sounds Abdomen: soft Objective no other change JOAQUÍN WORRELL November 29, 2016 09:21
--- NOTE | 2016-11-29 09:34 | GI Progress Note ---
Assessment/Plan Problems: (1) Severe malnutrition ICD Codes: E43 - Unspecified severe protein-calorie malnutrition SNOMED: 50993977 (2) Vomiting ICD Codes: R11.10 - Vomiting, unspecified SNOMED: 903587104 (3) Anemia ICD Codes: D64.9 - Anemia, unspecified SNOMED: 004395363 (4) Diarrhea ICD Codes: R19.7 - Diarrhea, unspecified SNOMED: 34655454 Status: stable Status Narrative Discussed with Dr. Clark. Assessment/Plan airborne isolation r/o TB anemia of chronic disease iron panel unremarkable >> no iron deficiency per Hematology note cdiff negative s/p thoracentesis 11/23/16. defer GI procedures at this time symptomatic treatment zofran prn OB stool uncollected monitor H&H, transfuse prn dc ppi BID, added H2B bowel regime abx fu labs Subjective Gastrointestinal/Abdominal: Reports: no symptoms Subjective refused protonix Objective Last 24 Hour Vital Signs Date Time Temp Pulse Resp B/P Pulse Ox O2 Delivery O2 Flow Rate FiO2 11/29/16 08:07 97.6 93 23 122/85 97 Nasal Cannula 2.0 11/29/16 04:00 97.9 96 18 117/77 98 Nasal Cannula 2.0 11/29/16 00:00 98.2 98 20 113/65 100 Room Air 11/28/16 20:00 98.2 96 18 124/69 100 Room Air 11/28/16 19:50 Nasal Cannula 2.0 28 11/28/16 19:50 88 18 Nasal Cannula 2.0 28 11/28/16 19:50 99 Nasal Cannula 2.0 28 11/28/16 16:00 97.3 92 20 120/81 99 Nasal Cannula 2.0 11/28/16 12:00 97.5 93 20 116/83 99 Nasal Cannula 2.0 Intake and Output 11/28/16 11/29/16 19:00 07:00 Intake Total 730 ml 110 ml Output Total 1300 ml 850 ml Balance -570 ml -740 ml Intake Oral 400 ml IV Total 330 ml 110 ml Output Urine Total 1300 ml 850 ml Laboratory Tests Test 11/28/16 10:35 11/28/16 15:00 11/28/16 17:20 11/29/16 04:30 TB Test (T-Spot) Pending TB Test Nil Control (T-Spot) Pending TB Test Panel A (T-Spot) Pending TB Test Panel B (T-Spot) Pending TB Test Positive Control (T-Spot) Pending Urine Collection Time 24 HRS Urine Total Volume 2500 ML Urine Total Protein mg/dL 22 mg/dL Urine Total Protein 24 Hour 550.0 mg/24hr (< 150) H Prothrombin Time 12.0 SEC (9.30-11.50) H Prothromb Time International Ratio 1.2 (0.9-1.1) H Activated Partial Thromboplast Time 37 SEC (23-33) H Urine Eosinophils None seen Test 11/29/16 06:40 White Blood Count 15.8 K/UL (4.8-10.8) H Red Blood Count 3.16 M/UL (4.20-5.40) L Hemoglobin 9.1 G/DL (12.0-16.0) L Hematocrit 28.4 % (37.0-47.0) L Mean Corpuscular Volume 90 FL (80-99) Mean Corpuscular Hemoglobin 28.7 PG (27.0-31.0) Mean Corpuscular Hemoglobin Concent 31.9 G/DL (32.0-36.0) L Red Cell Distribution Width 13.3 % (11.6-14.8) Platelet Count 418 K/UL (150-450) Mean Platelet Volume 6.0 FL (6.5-10.1) L Neutrophils (%) (Auto) % (45.0-75.0) Lymphocytes (%) (Auto) % (20.0-45.0) Monocytes (%) (Auto) % (1.0-10.0) Eosinophils (%) (Auto) % (0.0-3.0) Basophils (%) (Auto) % (0.0-2.0) Neutrophils % (Manual) Pending Lymphocytes % (Manual) Pending Platelet Estimate Pending Platelet Morphology Pending Reticulocyte Count Pending Sodium Level 140 mEQ/L (135-145) Potassium Level 4.2 mEQ/L (3.4-4.9) Chloride Level 103 mEQ/L (98-107) Carbon Dioxide Level 24 mEQ/L (20-30) Anion Gap 13 (5-15) Blood Urea Nitrogen 17 mg/dL (7-23) Creatinine 3.5 mg/dL (0.5-0.9) H Estimat Glomerular Filtration Rate 16.2 mL/min (>60) Glucose Level 94 mg/dL (74-106) Uric Acid 5.0 mg/dL (3.0-7.5) Calcium Level 8.1 mg/dL (8.6-10.2) L Phosphorus Level 3.3 mg/dL (2.5-4.8) Magnesium Level 2.2 mg/dL (1.7-2.5) Iron Level 22 ug/dL (37-145) L Total Iron Binding Capacity 142 ug/dL (250-400) L Percent Iron Saturation 15 % (15-50) Unsaturated Iron Binding 120 ug/dL (112-346) Ferritin 479 ng/mL (13-150) H Total Bilirubin < 0.2 mg/dL (0.0-1.2) Gamma Glutamyl Transpeptidase 27 U/L (5-36) Aspartate Amino Transf (AST/SGOT) 13 U/L (5-40) Alanine Aminotransferase (ALT/SGPT) 6 U/L (3-33) Alkaline Phosphatase 75 U/L (35-104) Total Creatine Kinase 22 U/L (26-140) L C-Reactive Protein, Quantitative 9.5 mg/dL (< 0.5) H Pro-B-Type Natriuretic Peptide 428 pg/mL (0-125) H Total Protein 6.3 g/dL (6.6-8.7) L Albumin 2.2 g/dL (3.5-5.2) L Globulin 4.1 g/dL Albumin/Globulin Ratio 0.5 (1.0-2.7) L Height (Feet): 5 Height (Inches): 9.00 Weight (Pounds): 132 General Appearance: no apparent distress, alert, thin Cardiovascular: normal rate Respiratory/Chest: normal breath sounds, no respiratory distress, other - 2LNC Jeny Mao N.PJosefina November 29, 2016 09:33
[2016-11-29 09:54] LABS: EOSINOPHILS % (MANUAL) 3 % (0-3); LYMPHOCYTES % (MANUAL) 4 % (20-45); NEUTROPHILS % (MANUAL) 87 % (45-75); TOTAL CELLS COUNTED 100
[2016-11-29 09:55] LABS: BAND NEUTROPHILS % (MANUAL) 0 % (0-8); BASOPHILS % (MANUAL) 0 % (0-2); HYPOCHROMASIA 1+; PLATELET ESTIMATE ADEQUATE; PLATELET MORPHOLOGY NORMAL
[2016-11-29 09:57] LABS: PATH BLOOD SMEAR/OMC SENT TO PATHOLOGIST
--- NOTE | 2016-11-29 11:10 | General Progress Note ---
Assessment/Plan Problem List: (1) SOB (shortness of breath) ICD Codes: R06.02 - Shortness of breath SNOMED: 376733907 (2) Sepsis ICD Codes: A41.9 - Sepsis, unspecified organism SNOMED: 68536845 (3) Pleural effusion, left ICD Codes: J90 - Pleural effusion, not elsewhere classified SNOMED: 10929856 (4) Upper respiratory infection ICD Codes: J06.9 - Acute upper respiratory infection, unspecified SNOMED: 07392191 (5) Abnormal blood pressure SNOMED: 65114181 Status: progressing Assessment/Plan r/o tb pna sob adenopathy abx per id moniter for bleeding afebrile Subjective ROS Limited/Unobtainable: Yes Constitutional: Reports: no symptoms Allergies: Coded Allergies: CITRUS AND DERIVATIVES (Unverified Allergy, Unknown, 11/27/16) TOMATO (Verified Allergy, Unknown, 11/27/16) per patient VANCOMYCIN (Verified Adverse Reaction, Unknown, 11/27/16) had severe abdominal pain per patient Uncoded Allergies: CITRUS (Allergy, Severe, 11/21/16) aloc Objective Last 24 Hour Vital Signs Date Time Temp Pulse Resp B/P Pulse Ox O2 Delivery O2 Flow Rate FiO2 11/29/16 08:07 97.6 93 23 122/85 97 Nasal Cannula 2.0 11/29/16 04:00 97.9 96 18 117/77 98 Nasal Cannula 2.0 11/29/16 00:00 98.2 98 20 113/65 100 Room Air 11/28/16 20:00 98.2 96 18 124/69 100 Room Air 11/28/16 19:50 Nasal Cannula 2.0 28 11/28/16 19:50 88 18 Nasal Cannula 2.0 28 11/28/16 19:50 99 Nasal Cannula 2.0 28 11/28/16 16:00 97.3 92 20 120/81 99 Nasal Cannula 2.0 11/28/16 12:00 97.5 93 20 116/83 99 Nasal Cannula 2.0 Intake and Output 11/28/16 11/29/16 19:00 07:00 Intake Total 730 ml 110 ml Output Total 1300 ml 850 ml Balance -570 ml -740 ml Intake Oral 400 ml IV Total 330 ml 110 ml Output Urine Total 1300 ml 850 ml Laboratory Tests 11/28/16 15:00: Urine Collection Time 24, Urine Total Volume 2500, Urine Total Protein mg/dL 22 , Urine Total Protein 24 Hour 550.0H 11/28/16 17:20: Prothrombin Time 12.0H, Prothromb Time International Ratio 1.2H, Activated Partial Thromboplast Time 37H 11/29/16 04:30: Urine Eosinophils None seen 11/29/16 06:40: White Blood Count 15.8H, Red Blood Count 3.16L, Hemoglobin 9.1L, Hematocrit 28.4L, Mean Corpuscular Volume 90, Mean Corpuscular Hemoglobin 28.7, Mean Corpuscular Hemoglobin Concent 31.9L, Red Cell Distribution Width 13.3, Platelet Count 418, Mean Platelet Volume 6.0L, Neutrophils (%) (Auto) , Lymphocytes (%) (Auto) , Monocytes (%) (Auto) , Eosinophils (%) (Auto) , Basophils (%) (Auto) , Differential Total Cells Counted 100, Neutrophils % ( Manual) 87H, Lymphocytes % (Manual) 4L, Monocytes % (Manual) 6, Eosinophils % ( Manual) 3, Basophils % (Manual) 0, Band Neutrophils 0, Platelet Estimate Adequate, Platelet Morphology Normal, Hypochromasia 1+, Reticulocyte Count 1.0, Sodium Level 140, Potassium Level 4.2, Chloride Level 103, Carbon Dioxide Level 24, Anion Gap 13, Blood Urea Nitrogen 17, Creatinine 3.5H, Estimat Glomerular Filtration Rate 16.2, Glucose Level 94, Uric Acid 5.0, Calcium Level 8.1L, Phosphorus Level 3.3, Magnesium Level 2.2, Iron Level 22L, Total Iron Binding Capacity 142L, Percent Iron Saturation 15, Unsaturated Iron Binding 120, Ferritin 479H, Total Bilirubin < 0.2, Gamma Glutamyl Transpeptidase 27, Aspartate Amino Transf (AST/SGOT) 13, Alanine Aminotransferase (ALT/SGPT) 6, Alkaline Phosphatase 75, Total Creatine Kinase 22L, C-Reactive Protein, Quantitative 9.5H, Pro-B-Type Natriuretic Peptide 428H, Total Protein 6.3L, Albumin 2.2L, Globulin 4.1, Albumin/Globulin Ratio 0.5L Height (Feet): 5 Height (Inches): 9.00 Weight (Pounds): 132 EENT: PERRL/EOMI Neck: supple Cardiovascular: normal rate Respiratory/Chest: lungs clear Abdomen: soft Hadadz,Ali MD November 29, 2016 11:10
[2016-11-29 11:24] LABS: COMMENT,BODY FLUID PATHOLOGIST COMMENT
--- NOTE | 2016-11-29 11:44 | Diagnostic Imaging Report ---
Indication: Status post thoracentesis Technique: One view of the chest Comparison: 11/20/16 Findings: Again demonstrated is opacity left lung base, likely reflecting loculated pleural effusion and atelectatic lung demonstrated on imaging of thoracentesis. Is unchanged in size and extent. No pneumothorax is demonstrated. The lungs are otherwise clear. An ovoid density projecting over the anterolateral fourth rib is consistent with a bone island seen narrative on recent chest CT. Impression: No radiographic evidence complication, status post left thoracentesis
--- NOTE | 2016-11-29 12:54 | Diagnostic Imaging Report ---
Indications: Pleural effusion Technique: Initial sonography demonstrates small very loculated pleural effusion, significant atelectatic lung in the area Ultrasound used to localize optimal puncture site. Sterile prepping and draping chest. Local anesthesia with 1% lidocaine. Under real-time ultrasound guidance, puncture pleural space using thoracentesis needle. Stylet removed. Catheter placed to vacuum bottle suction. Total about 4 milliliters of fluid aspirated. Specimen sent to the lab Patient tolerated procedure well, without immediate complication. Findings: Followup sonography demonstrates resistance of pleural fluid with loculation Impression: Successful ultrasound-guided thoracentesis, yielding only about 4 milliliters of fluid. Limited yield is probably due to the very loculated nature of the of fluid, with no large locules present.
[2016-11-29 14:15] LABS: T SPOT TB TEST NOT PERFORMED
--- NOTE | 2016-11-29 15:30 | Pulmonology Progress Note ---
Assessment/Plan Problems: (1) Pleural effusion, left (2) LLL pneumonia (3) Sepsis (4) ESTHER (acute kidney injury) Assessment/Plan repeat paracentesis done thoracic evaluation called for possible thoracoscopy f/u renal parameters continue antibiotics Subjective ROS Limited/Unobtainable: No Interval Events: comfortable Allergies: Coded Allergies: CITRUS AND DERIVATIVES (Unverified Allergy, Unknown, 11/27/16) TOMATO (Verified Allergy, Unknown, 11/27/16) per patient VANCOMYCIN (Verified Adverse Reaction, Unknown, 11/27/16) had severe abdominal pain per patient Uncoded Allergies: CITRUS (Allergy, Severe, 11/21/16) aloc Objective Last 24 Hour Vital Signs Date Time Temp Pulse Resp B/P Pulse Ox O2 Delivery O2 Flow Rate FiO2 11/29/16 08:07 97.6 93 23 122/85 97 Nasal Cannula 2.0 11/29/16 04:00 97.9 96 18 117/77 98 Nasal Cannula 2.0 11/29/16 00:00 98.2 98 20 113/65 100 Room Air 11/28/16 20:00 98.2 96 18 124/69 100 Room Air 11/28/16 19:50 Nasal Cannula 2.0 28 11/28/16 19:50 88 18 Nasal Cannula 2.0 28 11/28/16 19:50 99 Nasal Cannula 2.0 28 11/28/16 16:00 97.3 92 20 120/81 99 Nasal Cannula 2.0 Intake and Output 11/28/16 11/29/16 19:00 07:00 Intake Total 730 ml 110 ml Output Total 1300 ml 850 ml Balance -570 ml -740 ml Intake Oral 400 ml IV Total 330 ml 110 ml Output Urine Total 1300 ml 850 ml General Appearance: WD/WN HEENT: normocephalic, atraumatic Respiratory/Chest: chest wall non-tender, lungs clear Cardiovascular: normal peripheral pulses, normal rate Abdomen: normal bowel sounds, soft, non tender Extremities: no cyanosis Skin: no lesions Microbiology Date/Time Source Procedure Growth Status 11/26/16 20:30 Stool Clostridium difficile Toxin Assay - Final Complete Laboratory Tests 11/28/16 17:20: Prothrombin Time 12.0H, Prothromb Time International Ratio 1.2H, Activated Partial Thromboplast Time 37H 11/29/16 04:30: Urine Eosinophils None seen 11/29/16 06:40: White Blood Count 15.8H, Red Blood Count 3.16L, Hemoglobin 9.1L, Hematocrit 28.4L, Mean Corpuscular Volume 90, Mean Corpuscular Hemoglobin 28.7, Mean Corpuscular Hemoglobin Concent 31.9L, Red Cell Distribution Width 13.3, Platelet Count 418, Mean Platelet Volume 6.0L, Neutrophils (%) (Auto) , Lymphocytes (%) (Auto) , Monocytes (%) (Auto) , Eosinophils (%) (Auto) , Basophils (%) (Auto) , Differential Total Cells Counted 100, Neutrophils % ( Manual) 87H, Lymphocytes % (Manual) 4L, Monocytes % (Manual) 6, Eosinophils % ( Manual) 3, Basophils % (Manual) 0, Band Neutrophils 0, Platelet Estimate Adequate, Platelet Morphology Normal, Hypochromasia 1+, Reticulocyte Count 1.0, Sodium Level 140, Potassium Level 4.2, Chloride Level 103, Carbon Dioxide Level 24, Anion Gap 13, Blood Urea Nitrogen 17, Creatinine 3.5H, Estimat Glomerular Filtration Rate 16.2, Glucose Level 94, Uric Acid 5.0, Calcium Level 8.1L, Phosphorus Level 3.3, Magnesium Level 2.2, Iron Level 22L, Total Iron Binding Capacity 142L, Percent Iron Saturation 15, Unsaturated Iron Binding 120, Ferritin 479H, Total Bilirubin < 0.2, Gamma Glutamyl Transpeptidase 27, Aspartate Amino Transf (AST/SGOT) 13, Alanine Aminotransferase (ALT/SGPT) 6, Alkaline Phosphatase 75, Total Creatine Kinase 22L, C-Reactive Protein, Quantitative 9.5H, Pro-B-Type Natriuretic Peptide 428H, Total Protein 6.3L, Albumin 2.2L, Globulin 4.1, Albumin/Globulin Ratio 0.5L 11/29/16 12:30: Stool Occult Blood [Pending] Current Medications Medications (Trade) Dose Ordered Sig/Ruben Route PRN Reason Start Time Stop Time Status Last Admin Dose Admin Acetaminophen (Tylenol) 650 mg Q4H PRN ORAL Mild Pain/Temp > 100.5 11/22/16 22:45 12/22/16 22:44 Aspirin (Ecotrin) 325 mg DAILY ORAL 11/23/16 09:00 12/23/16 08:59 11/29/16 09:03 Dextrose (Dextrose 50%) STAT PRN IV Hypoglycemia 11/22/16 22:45 12/22/16 22:44 Docusate Sodium 100 mg 100 mg TWICE A DAY ORAL 11/26/16 18:00 12/26/16 17:59 Doxycycline Hyclate/Dextrose (Vibramycin/D5W) 110 ml @ 110 mls/hr Q12HR@0500,1700 IV 11/27/16 17:00 12/04/16 16:59 11/29/16 04:39 Ondansetron HCl (Zofran) 4 mg Q6H PRN IVP Nausea & Vomiting 11/22/16 22:45 12/22/16 22:44 11/28/16 06:23 Piperacillin Sod/ Tazobactam Sod 2.25 gm/Dextrose 110 ml @ 220 mls/hr Q6HR IVPB 11/26/16 20:00 12/03/16 19:59 11/29/16 12:10 Promethazine HCl/ Codeine (Phenergan with Codeine) 5 ml Q4H PRN ORAL For Cough 11/22/16 23:45 12/22/16 23:44 11/24/16 21:54 Ranitidine HCl (Zantac) 150 mg BEDTIME ORAL 11/29/16 21:00 12/29/16 20:59 ESTEFANI AVILES November 29, 2016 15:30
--- NOTE | 2016-11-29 15:34 | Infectious Diseases Prog Note ---
Assessment/Plan Problems: (1) LLL pneumonia Assessment & Plan: with possible tumor VS abscess with loculated effusion , on doxycycline, and zosyn . await fungal serology, and T spot test. sputum culture grew brody spp, and normal linette , screening for HIV is negative (2) Pleural effusion, left Assessment & Plan: loculated , S/P repeated thoracentesis , fluids culture is negative so far , fungal and AFB are pending , cytology showed lymphocytosis which is suggestive of either malignancy VS TB. repeated thoracentesis fluids culture is pending, may need CT surgery for decortication if TB work up is negative (3) SOB (shortness of breath) Assessment & Plan: due to the above, pulmonary is following (4) Adrenal adenoma Assessment & Plan: confirmed on MRI, recommend endocrinology eval and management (5) ESTHER (acute kidney injury) Assessment & Plan: multifactorial, improved, continue IVF for hydration, monitor renal function test. renal is following (6) Diarrhea Assessment & Plan: resolved, with negative C diff Subjective Constitutional: Reports: anorexia, fatigue HEENT: Reports: no symptoms Respiratory: Reports: dry cough, shortness of breath Cardiovascular: Reports: no symptoms Gastrointestinal/Abdominal: Reports: no symptoms Genitourinary: Reports: no symptoms Neurologic: Reports: no symptoms Psychiatric: Reports: no symptoms Skin: Reports: no symptoms Endocrine: Reports: no symptoms Hematologic: Reports: no symptoms Allergies: Coded Allergies: CITRUS AND DERIVATIVES (Unverified Allergy, Unknown, 11/27/16) TOMATO (Verified Allergy, Unknown, 11/27/16) per patient VANCOMYCIN (Verified Adverse Reaction, Unknown, 11/27/16) had severe abdominal pain per patient Uncoded Allergies: CITRUS (Allergy, Severe, 11/21/16) aloc Subjective she feels a little better , no diarrhea, less cough and phlegm, no fever or chills. Objective Vital Signs Last 24 Hour Vital Signs Date Time Temp Pulse Resp B/P Pulse Ox O2 Delivery O2 Flow Rate FiO2 11/29/16 08:07 97.6 93 23 122/85 97 Nasal Cannula 2.0 11/29/16 04:00 97.9 96 18 117/77 98 Nasal Cannula 2.0 11/29/16 00:00 98.2 98 20 113/65 100 Room Air 11/28/16 20:00 98.2 96 18 124/69 100 Room Air 11/28/16 19:50 Nasal Cannula 2.0 28 11/28/16 19:50 88 18 Nasal Cannula 2.0 28 11/28/16 19:50 99 Nasal Cannula 2.0 28 11/28/16 16:00 97.3 92 20 120/81 99 Nasal Cannula 2.0 Height (Feet): 5 Height (Inches): 9.00 Weight (Pounds): 132 General Appearance: WD/WN, no acute distress HEENT: normocephalic, atraumatic, anicteric, mucous membranes moist Respiratory/Chest: chest wall non-tender, normal breath sounds, no respiratory distress, no accessory muscle use, decreased breath sounds, crackles/rales Cardiovascular: normal peripheral pulses, normal rate, regular rhythm, no gallop/murmur Abdomen: normal bowel sounds, soft, non tender, no organomegaly, non distended , no mass Extremities: no cyanosis, no clubbing Skin: no rash, no lesions Microbiology Date/Time Source Procedure Growth Status 11/26/16 20:30 Stool Clostridium difficile Toxin Assay - Final Complete Laboratory Tests Test 11/28/16 17:20 11/29/16 04:30 11/29/16 06:40 11/29/16 12:30 Prothrombin Time 12.0 SEC (9.30-11.50) H Prothromb Time International Ratio 1.2 (0.9-1.1) H Activated Partial Thromboplast Time 37 SEC (23-33) H Urine Eosinophils None seen White Blood Count 15.8 K/UL (4.8-10.8) H Red Blood Count 3.16 M/UL (4.20-5.40) L Hemoglobin 9.1 G/DL (12.0-16.0) L Hematocrit 28.4 % (37.0-47.0) L Mean Corpuscular Volume 90 FL (80-99) Mean Corpuscular Hemoglobin 28.7 PG (27.0-31.0) Mean Corpuscular Hemoglobin Concent 31.9 G/DL (32.0-36.0) L Red Cell Distribution Width 13.3 % (11.6-14.8) Platelet Count 418 K/UL (150-450) Mean Platelet Volume 6.0 FL (6.5-10.1) L Neutrophils (%) (Auto) % (45.0-75.0) Lymphocytes (%) (Auto) % (20.0-45.0) Monocytes (%) (Auto) % (1.0-10.0) Eosinophils (%) (Auto) % (0.0-3.0) Basophils (%) (Auto) % (0.0-2.0) Differential Total Cells Counted 100 Neutrophils % (Manual) 87 % (45-75) H Lymphocytes % (Manual) 4 % (20-45) L Monocytes % (Manual) 6 % (1-10) Eosinophils % (Manual) 3 % (0-3) Basophils % (Manual) 0 % (0-2) Band Neutrophils 0 % (0-8) Platelet Estimate Adequate Platelet Morphology Normal Hypochromasia 1+ Reticulocyte Count 1.0 % (0.0-2.0) Sodium Level 140 mEQ/L (135-145) Potassium Level 4.2 mEQ/L (3.4-4.9) Chloride Level 103 mEQ/L (98-107) Carbon Dioxide Level 24 mEQ/L (20-30) Anion Gap 13 (5-15) Blood Urea Nitrogen 17 mg/dL (7-23) Creatinine 3.5 mg/dL (0.5-0.9) H Estimat Glomerular Filtration Rate 16.2 mL/min (>60) Glucose Level 94 mg/dL (74-106) Uric Acid 5.0 mg/dL (3.0-7.5) Calcium Level 8.1 mg/dL (8.6-10.2) L Phosphorus Level 3.3 mg/dL (2.5-4.8) Magnesium Level 2.2 mg/dL (1.7-2.5) Iron Level 22 ug/dL (37-145) L Total Iron Binding Capacity 142 ug/dL (250-400) L Percent Iron Saturation 15 % (15-50) Unsaturated Iron Binding 120 ug/dL (112-346) Ferritin 479 ng/mL (13-150) H Total Bilirubin < 0.2 mg/dL (0.0-1.2) Gamma Glutamyl Transpeptidase 27 U/L (5-36) Aspartate Amino Transf (AST/SGOT) 13 U/L (5-40) Alanine Aminotransferase (ALT/SGPT) 6 U/L (3-33) Alkaline Phosphatase 75 U/L (35-104) Total Creatine Kinase 22 U/L (26-140) L C-Reactive Protein, Quantitative 9.5 mg/dL (< 0.5) H Pro-B-Type Natriuretic Peptide 428 pg/mL (0-125) H Total Protein 6.3 g/dL (6.6-8.7) L Albumin 2.2 g/dL (3.5-5.2) L Globulin 4.1 g/dL Albumin/Globulin Ratio 0.5 (1.0-2.7) L Stool Occult Blood Negative (NEGATIVE) Current Medications Medications (Trade) Dose Ordered Sig/Ruben Route PRN Reason Start Time Stop Time Status Last Admin Dose Admin Acetaminophen (Tylenol) 650 mg Q4H PRN ORAL Mild Pain/Temp > 100.5 11/22/16 22:45 12/22/16 22:44 Aspirin (Ecotrin) 325 mg DAILY ORAL 11/23/16 09:00 12/23/16 08:59 11/29/16 09:03 Dextrose (Dextrose 50%) STAT PRN IV Hypoglycemia 11/22/16 22:45 12/22/16 22:44 Docusate Sodium 100 mg 100 mg TWICE A DAY ORAL 11/26/16 18:00 12/26/16 17:59 Doxycycline Hyclate/Dextrose (Vibramycin/D5W) 110 ml @ 110 mls/hr Q12HR@0500,1700 IV 11/27/16 17:00 12/04/16 16:59 11/29/16 04:39 Ondansetron HCl (Zofran) 4 mg Q6H PRN IVP Nausea & Vomiting 11/22/16 22:45 12/22/16 22:44 11/28/16 06:23 Piperacillin Sod/ Tazobactam Sod 2.25 gm/Dextrose 110 ml @ 220 mls/hr Q6HR IVPB 11/26/16 20:00 12/03/16 19:59 11/29/16 12:10 Promethazine HCl/ Codeine (Phenergan with Codeine) 5 ml Q4H PRN ORAL For Cough 11/22/16 23:45 12/22/16 23:44 11/24/16 21:54 Ranitidine HCl (Zantac) 150 mg BEDTIME ORAL 11/29/16 21:00 12/29/16 20:59 Nicolle Schmitz M.D. November 29, 2016 15:34
[2016-11-29 15:39] VITALS: BP 117/76
--- NOTE | 2016-11-29 19:25 | Cardiology Progress Note ---
Assessment/Plan Assessment/Plan 1. Sinus tachycardia, normal LV systolic function, no evidence of CHF. 2. Dyspnea due to left lower lobe PNA/left pleural effusion, s/p left thoracentesis. 3. Small pericardial effusion, ? reactive due to PNA 4. Moderate to severe pulmonary HTN Subjective Subjective Denies chest pain, mild SOB. Awaiting thoracoscopy for recurrent left pleural effusion. Objective Last 24 Hour Vital Signs Date Time Temp Pulse Resp B/P Pulse Ox O2 Delivery O2 Flow Rate FiO2 11/29/16 15:39 97.6 90 22 117/76 98 Room Air 11/29/16 08:07 97.6 93 23 122/85 97 Nasal Cannula 2.0 11/29/16 04:00 97.9 96 18 117/77 98 Nasal Cannula 2.0 11/29/16 00:00 98.2 98 20 113/65 100 Room Air 11/28/16 20:00 98.2 96 18 124/69 100 Room Air 11/28/16 19:50 Nasal Cannula 2.0 28 11/28/16 19:50 88 18 Nasal Cannula 2.0 28 11/28/16 19:50 99 Nasal Cannula 2.0 28 Intake and Output 11/28/16 11/29/16 19:00 07:00 Intake Total 730 ml 110 ml Output Total 1300 ml 850 ml Balance -570 ml -740 ml Intake Oral 400 ml IV Total 330 ml 110 ml Output Urine Total 1300 ml 850 ml 2D Echo: EF 55%, Small pericardial Eff, Large pleural Eff, Grade I LVDD,RVSP 56 mmHg Laboratory Tests Test 11/29/16 04:30 11/29/16 06:40 11/29/16 12:30 Urine Eosinophils None seen White Blood Count 15.8 K/UL (4.8-10.8) H Red Blood Count 3.16 M/UL (4.20-5.40) L Hemoglobin 9.1 G/DL (12.0-16.0) L Hematocrit 28.4 % (37.0-47.0) L Mean Corpuscular Volume 90 FL (80-99) Mean Corpuscular Hemoglobin 28.7 PG (27.0-31.0) Mean Corpuscular Hemoglobin Concent 31.9 G/DL (32.0-36.0) L Red Cell Distribution Width 13.3 % (11.6-14.8) Platelet Count 418 K/UL (150-450) Mean Platelet Volume 6.0 FL (6.5-10.1) L Neutrophils (%) (Auto) % (45.0-75.0) Lymphocytes (%) (Auto) % (20.0-45.0) Monocytes (%) (Auto) % (1.0-10.0) Eosinophils (%) (Auto) % (0.0-3.0) Basophils (%) (Auto) % (0.0-2.0) Differential Total Cells Counted 100 Neutrophils % (Manual) 87 % (45-75) H Lymphocytes % (Manual) 4 % (20-45) L Monocytes % (Manual) 6 % (1-10) Eosinophils % (Manual) 3 % (0-3) Basophils % (Manual) 0 % (0-2) Band Neutrophils 0 % (0-8) Platelet Estimate Adequate Platelet Morphology Normal Hypochromasia 1+ Reticulocyte Count 1.0 % (0.0-2.0) Sodium Level 140 mEQ/L (135-145) Potassium Level 4.2 mEQ/L (3.4-4.9) Chloride Level 103 mEQ/L (98-107) Carbon Dioxide Level 24 mEQ/L (20-30) Anion Gap 13 (5-15) Blood Urea Nitrogen 17 mg/dL (7-23) Creatinine 3.5 mg/dL (0.5-0.9) H Estimat Glomerular Filtration Rate 16.2 mL/min (>60) Glucose Level 94 mg/dL (74-106) Uric Acid 5.0 mg/dL (3.0-7.5) Calcium Level 8.1 mg/dL (8.6-10.2) L Phosphorus Level 3.3 mg/dL (2.5-4.8) Magnesium Level 2.2 mg/dL (1.7-2.5) Iron Level 22 ug/dL (37-145) L Total Iron Binding Capacity 142 ug/dL (250-400) L Percent Iron Saturation 15 % (15-50) Unsaturated Iron Binding 120 ug/dL (112-346) Ferritin 479 ng/mL (13-150) H Total Bilirubin < 0.2 mg/dL (0.0-1.2) Gamma Glutamyl Transpeptidase 27 U/L (5-36) Aspartate Amino Transf (AST/SGOT) 13 U/L (5-40) Alanine Aminotransferase (ALT/SGPT) 6 U/L (3-33) Alkaline Phosphatase 75 U/L (35-104) Total Creatine Kinase 22 U/L (26-140) L C-Reactive Protein, Quantitative 9.5 mg/dL (< 0.5) H Pro-B-Type Natriuretic Peptide 428 pg/mL (0-125) H Total Protein 6.3 g/dL (6.6-8.7) L Albumin 2.2 g/dL (3.5-5.2) L Globulin 4.1 g/dL Albumin/Globulin Ratio 0.5 (1.0-2.7) L Stool Occult Blood Negative (NEGATIVE) Microbiology Date/Time Source Procedure Growth Status 11/26/16 20:30 Stool Clostridium difficile Toxin Assay - Final Complete Objective HEENT: Atraumatic and normocephalic. Anicteric. Pupils are equal, round, and reactive to light and accommodation. Extraocular muscles intact. NECK: JVP is less than 5 cm. No carotid bruit. Carotid upstrokes 2+ bilaterally. CVS: Normal S1 and S2. No murmurs, gallops, or rubs. No pulsus paradoxus. LUNGS: Diminished breath sounds at the left base. ABDOMEN: Soft, nontender, and nondistended. No hepatosplenomegaly. Positive bowel sounds. EXTREMITIES: No evidence of edema, clubbing, or cyanosis. ALVINO RIVERO November 29, 2016 19:25
[2016-11-29 20:23] LABS: ALANINE AMINOTRANSFERASE 7 U/L (3-33); ALBUMIN/GLOBULIN RATIO 0.5 (1.0-2.7); ANION GAP 13 (5-15); ASPARTATE AMINO TRANSFERASE 16 U/L (5-40); CALCIUM 8.2 mg/dL (8.6-10.2); CARBON DIOXIDE 25 mEQ/L (20-30); CHLORIDE 101 mEQ/L (98-107); CREATININE 3.2 mg/dL (0.5-0.9); GLOMERULAR FILTRATION RATE 18.1 mL/min (>60); HEMOLYSIS 0; POTASSIUM 4.3 mEQ/L (3.4-4.9); SODIUM 139 mEQ/L (135-145); TOTAL PROTEIN 6.4 g/dL (6.6-8.7)
[2016-11-29 21:00] VITALS: BP 129/87
[2016-11-29 23:07] LABS: APPEARANCE, BODY FLUID HAZY; BD FL SOURCE THORACENTESIS; BD FL VOLUME 4 mL
[2016-11-29 23:08] LABS: BODY FLUID NUCLEATED CELLS 21 /CUMM; BODY FLUID RBC 3760 /CUMM
[2016-11-30] VITALS: BP 129/87
[2016-11-30] MEDS: Piperacillin/Tazobactam 2.25 GM in D5W 110 ML IVPB SCH ×5 (00:36→23:36)
[2016-11-30 03:20] LABS: MONONUCLEAR WBC 55 %; POLYMORPHONUCLEAR WBC 44 %
[2016-11-30 04:00] VITALS: BP 120/79
[2016-11-30] MEDS: Doxycycline Hyclate 100 MG in D5W 110 ML IV SCH ×2 (04:43→16:42)
[2016-11-30 07:05] LABS: BASOPHILS % (AUTO) 0.8 % (0.0-2.0); EOSINOPHILS % (AUTO) 2.1 % (0.0-3.0); LYMPHOCYTES % (AUTO) 6.5 % (20.0-45.0); MEAN CORPUSCULAR HEMOGLOBIN 28.6 PG (27.0-31.0); MEAN CORPUSCULAR HGB CONC 31.7 G/DL (32.0-36.0); MEAN CORPUSCULAR VOLUME 90 FL (80-99); MONOCYTES % (AUTO) 7.1 % (1.0-10.0); NEUTROPHILS % (AUTO) 83.5 % (45.0-75.0); PLATELET COUNT 431 K/UL (150-450); RED BLOOD COUNT 3.29 M/UL (4.20-5.40); RED CELL DISTRIBUTION WIDTH 13.6 % (11.6-14.8); WHITE BLOOD COUNT 13.7 K/UL (4.8-10.8)
[2016-11-30 07:26] LABS: ALANINE AMINOTRANSFERASE 8 U/L (3-33); ALBUMIN/GLOBULIN RATIO 0.5 (1.0-2.7); ANION GAP 16 (5-15); ASPARTATE AMINO TRANSFERASE 18 U/L (5-40); CALCIUM 8.7 mg/dL (8.6-10.2); CARBON DIOXIDE 24 mEQ/L (20-30); CHLORIDE 102 mEQ/L (98-107); CREATININE 3.4 mg/dL (0.5-0.9); GLOMERULAR FILTRATION RATE 16.8 mL/min (>60); HEMOLYSIS 0; PHOSPHORUS 3.5 mg/dL (2.5-4.8); POTASSIUM 4.2 mEQ/L (3.4-4.9); SODIUM 142 mEQ/L (135-145); TOTAL PROTEIN 6.5 g/dL (6.6-8.7); URIC ACID 5.2 mg/dL (3.0-7.5)
[2016-11-30 07:57] VITALS: BP 140/65
[2016-11-30] MEDS: Aspirin EC 325mg tab ORAL SCH (08:01)
[2016-11-30] MEDS: Docusate 100mg cap ORAL SCH ×2 (08:01→18:00)
--- NOTE | 2016-11-30 09:47 | GI Progress Note ---
Assessment/Plan Problems: (1) Severe malnutrition ICD Codes: E43 - Unspecified severe protein-calorie malnutrition SNOMED: 01289416 (2) Vomiting ICD Codes: R11.10 - Vomiting, unspecified SNOMED: 486002044 (3) Anemia ICD Codes: D64.9 - Anemia, unspecified SNOMED: 648266294 (4) Diarrhea ICD Codes: R19.7 - Diarrhea, unspecified SNOMED: 73537239 Status: unchanged Status Narrative Discussed with Dr. Clark. Assessment/Plan airborne isolation r/o TB anemia of chronic disease iron panel unremarkable >> no iron deficiency per Hematology note cdiff negative s/p thoracentesis 11/23/16 OB stool negative defer GI procedures at this time symptomatic treatment zofran prn monitor H&H, transfuse prn added H2B bowel regime abx fu labs Subjective Subjective refused protonix SOB no GI complaints Objective Last 24 Hour Vital Signs Date Time Temp Pulse Resp B/P Pulse Ox O2 Delivery O2 Flow Rate FiO2 11/30/16 07:57 98.2 89 18 140/65 98 Nasal Cannula 2.0 11/30/16 06:45 87 18 Nasal Cannula 2.0 11/30/16 06:45 99 Nasal Cannula 2.0 11/30/16 06:45 Nasal Cannula 2.0 11/30/16 04:00 97.5 96 18 120/79 99 11/30/16 00:00 97.9 97 19 129/87 100 Room Air 11/29/16 21:00 97.4 97 19 129/87 100 Room Air 11/29/16 19:30 Nasal Cannula 2.0 28 11/29/16 19:30 80 18 Nasal Cannula 2.0 28 11/29/16 19:30 99 Nasal Cannula 2.0 28 11/29/16 15:39 97.6 90 22 117/76 98 Room Air Intake and Output 11/29/16 11/30/16 19:00 07:00 Intake Total 940 ml 330 ml Output Total 850 ml 1350 ml Balance 90 ml -1020 ml Intake Oral 720 ml IV Total 220 ml 330 ml Output Urine Total 850 ml 1350 ml # Bowel Movements 2 1 Laboratory Tests Test 11/29/16 11:30 11/29/16 12:30 11/29/16 19:47 11/30/16 05:25 Body Fluid Source Pending Body Fluid Volume Pending Body Fluid Appearance Hazy Body Fluid RBC 3760 /CUMM Body Fluid Total Nucleated Cells 21 /CUMM Body Fluid Polynuclear WBCs (%) 44 % Body Fluid Mononuclear WBCs (%) 55 % Body Fluid Mesothelial Cells (%) 1 % Body Fluid Total Protein Pending Body Fluid Lactate Dehydrogenase Pending Stool Occult Blood Negative (NEGATIVE) Sodium Level 139 mEQ/L (135-145) 142 mEQ/L (135-145) Potassium Level 4.3 mEQ/L (3.4-4.9) 4.2 mEQ/L (3.4-4.9) Chloride Level 101 mEQ/L (98-107) 102 mEQ/L (98-107) Carbon Dioxide Level 25 mEQ/L (20-30) 24 mEQ/L (20-30) Anion Gap 13 (5-15) 16 (5-15) H Blood Urea Nitrogen 17 mg/dL (7-23) 19 mg/dL (7-23) Creatinine 3.2 mg/dL (0.5-0.9) H 3.4 mg/dL (0.5-0.9) H Estimat Glomerular Filtration Rate 18.1 mL/min (>60) 16.8 mL/min (>60) Glucose Level 116 mg/dL (74-106) H 89 mg/dL (74-106) Calcium Level 8.2 mg/dL (8.6-10.2) L 8.7 mg/dL (8.6-10.2) Total Bilirubin < 0.2 mg/dL (0.0-1.2) < 0.2 mg/dL (0.0-1.2) Aspartate Amino Transf (AST/SGOT) 16 U/L (5-40) 18 U/L (5-40) Alanine Aminotransferase (ALT/SGPT) 7 U/L (3-33) 8 U/L (3-33) Alkaline Phosphatase 77 U/L (35-104) 104 U/L (35-104) Total Protein 6.4 g/dL (6.6-8.7) L 6.5 g/dL (6.6-8.7) L Albumin 2.3 g/dL (3.5-5.2) L 2.4 g/dL (3.5-5.2) L Globulin 4.1 g/dL 4.1 g/dL Albumin/Globulin Ratio 0.5 (1.0-2.7) L 0.5 (1.0-2.7) L White Blood Count 13.7 K/UL (4.8-10.8) H Red Blood Count 3.29 M/UL (4.20-5.40) L Hemoglobin 9.4 G/DL (12.0-16.0) L Hematocrit 29.7 % (37.0-47.0) L Mean Corpuscular Volume 90 FL (80-99) Mean Corpuscular Hemoglobin 28.6 PG (27.0-31.0) Mean Corpuscular Hemoglobin Concent 31.7 G/DL (32.0-36.0) L Red Cell Distribution Width 13.6 % (11.6-14.8) Platelet Count 431 K/UL (150-450) Mean Platelet Volume 6.0 FL (6.5-10.1) L Neutrophils (%) (Auto) 83.5 % (45.0-75.0) H Lymphocytes (%) (Auto) 6.5 % (20.0-45.0) L Monocytes (%) (Auto) 7.1 % (1.0-10.0) Eosinophils (%) (Auto) 2.1 % (0.0-3.0) Basophils (%) (Auto) 0.8 % (0.0-2.0) Uric Acid 5.2 mg/dL (3.0-7.5) Phosphorus Level 3.5 mg/dL (2.5-4.8) Random Vancomycin Level 12.0 ug/mL Height (Feet): 5 Height (Inches): 9.00 Weight (Pounds): 132 General Appearance: no apparent distress, alert, thin Cardiovascular: normal rate Respiratory/Chest: no respiratory distress Abdominal Exam: normal bowel sounds, non tender, soft Extremities: normal range of motion Jeny Mao N.P. Nov 30, 2016 09:47
--- NOTE | 2016-11-30 10:56 | General Progress Note ---
Assessment/Plan Problem List: (1) SOB (shortness of breath) ICD Codes: R06.02 - Shortness of breath SNOMED: 179064080 (2) Sepsis ICD Codes: A41.9 - Sepsis, unspecified organism SNOMED: 70656470 (3) Pleural effusion, left ICD Codes: J90 - Pleural effusion, not elsewhere classified SNOMED: 70224546 (4) Upper respiratory infection ICD Codes: J06.9 - Acute upper respiratory infection, unspecified SNOMED: 90256673 (5) Abnormal blood pressure SNOMED: 13940691 Status: progressing Assessment/Plan pleural effusion sob pna sepsis biopsy pending 'afebrile worsening renal function Subjective ROS Limited/Unobtainable: Yes Constitutional: Reports: no symptoms Allergies: Coded Allergies: CITRUS AND DERIVATIVES (Unverified Allergy, Unknown, 11/27/16) TOMATO (Verified Allergy, Unknown, 11/27/16) per patient VANCOMYCIN (Verified Adverse Reaction, Unknown, 11/27/16) had severe abdominal pain per patient Uncoded Allergies: CITRUS (Allergy, Severe, 11/21/16) aloc Objective Last 24 Hour Vital Signs Date Time Temp Pulse Resp B/P Pulse Ox O2 Delivery O2 Flow Rate FiO2 11/30/16 07:57 98.2 89 18 140/65 98 Nasal Cannula 2.0 11/30/16 06:45 87 18 Nasal Cannula 2.0 11/30/16 06:45 99 Nasal Cannula 2.0 11/30/16 06:45 Nasal Cannula 2.0 11/30/16 04:00 97.5 96 18 120/79 99 11/30/16 00:00 97.9 97 19 129/87 100 Room Air 11/29/16 21:00 97.4 97 19 129/87 100 Room Air 11/29/16 19:30 Nasal Cannula 2.0 28 11/29/16 19:30 80 18 Nasal Cannula 2.0 28 11/29/16 19:30 99 Nasal Cannula 2.0 28 11/29/16 15:39 97.6 90 22 117/76 98 Room Air Intake and Output 11/29/16 11/30/16 19:00 07:00 Intake Total 940 ml 330 ml Output Total 850 ml 1350 ml Balance 90 ml -1020 ml Intake Oral 720 ml IV Total 220 ml 330 ml Output Urine Total 850 ml 1350 ml # Bowel Movements 2 1 Laboratory Tests 11/29/16 11:30: Body Fluid Source [Pending], Body Fluid Volume [Pending], Body Fluid Appearance Hazy, Body Fluid RBC 3760, Body Fluid Total Nucleated Cells 21, Body Fluid Polynuclear WBCs (%) 44, Body Fluid Mononuclear WBCs (%) 55, Body Fluid Mesothelial Cells (%) 1, Body Fluid Total Protein [Pending], Body Fluid Lactate Dehydrogenase [Pending] 11/29/16 12:30: Stool Occult Blood Negative 11/29/16 19:47: Sodium Level 139, Potassium Level 4.3, Chloride Level 101, Carbon Dioxide Level 25, Anion Gap 13, Blood Urea Nitrogen 17, Creatinine 3.2H, Estimat Glomerular Filtration Rate 18.1, Glucose Level 116H, Calcium Level 8.2L, Total Bilirubin < 0.2, Aspartate Amino Transf (AST/SGOT) 16, Alanine Aminotransferase (ALT/SGPT) 7 , Alkaline Phosphatase 77, Total Protein 6.4L, Albumin 2.3L, Globulin 4.1, Albumin/Globulin Ratio 0.5L 11/30/16 05:25: Sodium Level 142, Potassium Level 4.2, Chloride Level 102, Carbon Dioxide Level 24, Anion Gap 16H, Blood Urea Nitrogen 19, Creatinine 3.4H, Estimat Glomerular Filtration Rate 16.8, Glucose Level 89, Calcium Level 8.7, Total Bilirubin < 0.2 , Aspartate Amino Transf (AST/SGOT) 18, Alanine Aminotransferase (ALT/SGPT) 8, Alkaline Phosphatase 104, Total Protein 6.5L, Albumin 2.4L, Globulin 4.1, Albumin/Globulin Ratio 0.5L, White Blood Count 13.7H, Red Blood Count 3.29L, Hemoglobin 9.4L, Hematocrit 29.7L, Mean Corpuscular Volume 90, Mean Corpuscular Hemoglobin 28.6, Mean Corpuscular Hemoglobin Concent 31.7L, Red Cell Distribution Width 13.6, Platelet Count 431, Mean Platelet Volume 6.0L, Neutrophils (%) (Auto) 83.5H, Lymphocytes (%) (Auto) 6.5L, Monocytes (%) (Auto) 7.1, Eosinophils (%) (Auto) 2.1, Basophils (%) (Auto) 0.8, Uric Acid 5.2, Phosphorus Level 3.5, Random Vancomycin Level 12.0 Height (Feet): 5 Height (Inches): 9.00 Weight (Pounds): 132 Neck: supple Cardiovascular: normal rate Respiratory/Chest: lungs clear Abdomen: soft Kahlil Ronquillo MD Nov 30, 2016 10:56
[2016-11-30 11:57] VITALS: BP 126/83
--- NOTE | 2016-11-30 14:30 | General Progress Note ---
Assessment/Plan Assessment/Plan Assessment and Recs: # Loculated pleural effusion - cytology shows lymphocytosis, flow cytometry is negative. Have discussed with Dr. Mayer on 11/30/16 if any lesion in the chest/abd /pelvis is able to be biopsied. May need eval with cardiothoracic surgeon for potential pleuordesis. Atelectatic lung could be necrosis. PET scan would be non -specific in this case # Anemia of chronic disease - anemia 2/2 chronic disease, no iron deficiency # Coagulopathy - likely related to poor po intake, better # Right breast - will need mammo while here # LLL pneumonia with possible abscess, on abx as per ID service # Sepsis - on abx as per ID # SOB (shortness of breath) - likely related to pna Subjective Constitutional: Reports: no symptoms HEENT: Reports: no symptoms Cardiovascular: Reports: no symptoms Respiratory: Reports: no symptoms Gastrointestinal/Abdominal: Reports: no symptoms Genitourinary: Reports: no symptoms Neurologic/Psychiatric: Reports: no symptoms Endocrine: Reports: no symptoms Hematologic/Lymphatic: Reports: anemia Allergies: Coded Allergies: CITRUS AND DERIVATIVES (Unverified Allergy, Unknown, 11/27/16) TOMATO (Verified Allergy, Unknown, 11/27/16) per patient VANCOMYCIN (Verified Adverse Reaction, Unknown, 11/27/16) had severe abdominal pain per patient Uncoded Allergies: CITRUS (Allergy, Severe, 11/21/16) aloc Subjective no chills, no events, no fevers noted, cytology of thora pending from 11/29 Objective Last 24 Hour Vital Signs Date Time Temp Pulse Resp B/P Pulse Ox O2 Delivery O2 Flow Rate FiO2 11/30/16 11:57 99.5 95 18 126/83 98 Nasal Cannula 2.0 11/30/16 07:57 98.2 89 18 140/65 98 Nasal Cannula 2.0 11/30/16 06:45 87 18 Nasal Cannula 2.0 11/30/16 06:45 99 Nasal Cannula 2.0 11/30/16 06:45 Nasal Cannula 2.0 11/30/16 04:00 97.5 96 18 120/79 99 11/30/16 00:00 97.9 97 19 129/87 100 Room Air 11/29/16 21:00 97.4 97 19 129/87 100 Room Air 5/31/17 19:30 Nasal Cannula 2.0 28 11/29/16 19:30 80 18 Nasal Cannula 2.0 28 11/29/16 19:30 99 Nasal Cannula 2.0 28 11/29/16 15:39 97.6 90 22 117/76 98 Room Air Intake and Output 11/29/16 11/30/16 19:00 07:00 Intake Total 940 ml 330 ml Output Total 850 ml 1350 ml Balance 90 ml -1020 ml Intake Oral 720 ml IV Total 220 ml 330 ml Output Urine Total 850 ml 1350 ml # Bowel Movements 2 1 Laboratory Tests 11/29/16 19:47: Sodium Level 139, Potassium Level 4.3, Chloride Level 101, Carbon Dioxide Level 25, Anion Gap 13, Blood Urea Nitrogen 17, Creatinine 3.2H, Estimat Glomerular Filtration Rate 18.1, Glucose Level 116H, Calcium Level 8.2L, Total Bilirubin < 0.2, Aspartate Amino Transf (AST/SGOT) 16, Alanine Aminotransferase (ALT/SGPT) 7 , Alkaline Phosphatase 77, Total Protein 6.4L, Albumin 2.3L, Globulin 4.1, Albumin/Globulin Ratio 0.5L 11/30/16 05:25: Sodium Level 142, Potassium Level 4.2, Chloride Level 102, Carbon Dioxide Level 24, Anion Gap 16H, Blood Urea Nitrogen 19, Creatinine 3.4H, Estimat Glomerular Filtration Rate 16.8, Glucose Level 89, Calcium Level 8.7, Total Bilirubin < 0.2 , Aspartate Amino Transf (AST/SGOT) 18, Alanine Aminotransferase (ALT/SGPT) 8, Alkaline Phosphatase 104, Total Protein 6.5L, Albumin 2.4L, Globulin 4.1, Albumin/Globulin Ratio 0.5L, White Blood Count 13.7H, Red Blood Count 3.29L, Hemoglobin 9.4L, Hematocrit 29.7L, Mean Corpuscular Volume 90, Mean Corpuscular Hemoglobin 28.6, Mean Corpuscular Hemoglobin Concent 31.7L, Red Cell Distribution Width 13.6, Platelet Count 431, Mean Platelet Volume 6.0L, Neutrophils (%) (Auto) 83.5H, Lymphocytes (%) (Auto) 6.5L, Monocytes (%) (Auto) 7.1, Eosinophils (%) (Auto) 2.1, Basophils (%) (Auto) 0.8, Uric Acid 5.2, Phosphorus Level 3.5, Random Vancomycin Level 12.0 Height (Feet): 5 Height (Inches): 9.00 Weight (Pounds): 132 General Appearance: alert EENT: normal ENT inspection Neck: normal alignment Cardiovascular: normal rate Respiratory/Chest: normal breath sounds Abdomen: non tender Extremities: non-tender Edema: 1+ Leg (L), 1+ Leg (R) Neurologic: alert Skin: warm/dry Matheus Lombardi Nov 30, 2016 14:30
[2016-11-30] MEDS ORDERED: DuoNeb 0.5-3(2.5)mg/3ml neb HHN PRN (15:00)
--- NOTE | 2016-11-30 15:04 | General Progress Note ---
Assessment/Plan Status: unchanged Status Narrative Cr levelling Assessment/Plan Status: Acute Renal Failure- Cr appears to be levelling Iron Defficiency Anemia- HypoAlbuminemia , Etiology ??? Penumonia / left Pleural effusion ? abcess Adrenal Adenoma high A1c ? DM Plan: DC spears- 24 h urine for protein 500 mg Urine Eosinophils and Spot Na DC Vanco- monitor Vanco level Monitor dose- adjust Zosyn dose IV Iron change diet to renal , medium CHO per orders Subjective ROS Limited/Unobtainable: No Constitutional: Reports: malaise, weakness Allergies: Coded Allergies: CITRUS AND DERIVATIVES (Unverified Allergy, Unknown, 11/27/16) TOMATO (Verified Allergy, Unknown, 11/27/16) per patient VANCOMYCIN (Verified Adverse Reaction, Unknown, 11/27/16) had severe abdominal pain per patient Uncoded Allergies: CITRUS (Allergy, Severe, 11/21/16) aloc Objective Last 24 Hour Vital Signs Date Time Temp Pulse Resp B/P Pulse Ox O2 Delivery O2 Flow Rate FiO2 11/30/16 11:57 99.5 95 18 126/83 98 Nasal Cannula 2.0 11/30/16 07:57 98.2 89 18 140/65 98 Nasal Cannula 2.0 11/30/16 06:45 87 18 Nasal Cannula 2.0 11/30/16 06:45 99 Nasal Cannula 2.0 11/30/16 06:45 Nasal Cannula 2.0 11/30/16 04:00 97.5 96 18 120/79 99 11/30/16 00:00 97.9 97 19 129/87 100 Room Air 11/29/16 21:00 97.4 97 19 129/87 100 Room Air 11/29/16 19:30 Nasal Cannula 2.0 28 11/29/16 19:30 80 18 Nasal Cannula 2.0 28 11/29/16 19:30 99 Nasal Cannula 2.0 28 11/29/16 15:39 97.6 90 22 117/76 98 Room Air Intake and Output 11/29/16 11/30/16 19:00 07:00 Intake Total 940 ml 330 ml Output Total 850 ml 1350 ml Balance 90 ml -1020 ml Intake Oral 720 ml IV Total 220 ml 330 ml Output Urine Total 850 ml 1350 ml # Bowel Movements 2 1 Laboratory Tests 11/29/16 19:47: Sodium Level 139, Potassium Level 4.3, Chloride Level 101, Carbon Dioxide Level 25, Anion Gap 13, Blood Urea Nitrogen 17, Creatinine 3.2H, Estimat Glomerular Filtration Rate 18.1, Glucose Level 116H, Calcium Level 8.2L, Total Bilirubin < 0.2, Aspartate Amino Transf (AST/SGOT) 16, Alanine Aminotransferase (ALT/SGPT) 7 , Alkaline Phosphatase 77, Total Protein 6.4L, Albumin 2.3L, Globulin 4.1, Albumin/Globulin Ratio 0.5L 11/30/16 05:25: Sodium Level 142, Potassium Level 4.2, Chloride Level 102, Carbon Dioxide Level 24, Anion Gap 16H, Blood Urea Nitrogen 19, Creatinine 3.4H, Estimat Glomerular Filtration Rate 16.8, Glucose Level 89, Calcium Level 8.7, Total Bilirubin < 0.2 , Aspartate Amino Transf (AST/SGOT) 18, Alanine Aminotransferase (ALT/SGPT) 8, Alkaline Phosphatase 104, Total Protein 6.5L, Albumin 2.4L, Globulin 4.1, Albumin/Globulin Ratio 0.5L, White Blood Count 13.7H, Red Blood Count 3.29L, Hemoglobin 9.4L, Hematocrit 29.7L, Mean Corpuscular Volume 90, Mean Corpuscular Hemoglobin 28.6, Mean Corpuscular Hemoglobin Concent 31.7L, Red Cell Distribution Width 13.6, Platelet Count 431, Mean Platelet Volume 6.0L, Neutrophils (%) (Auto) 83.5H, Lymphocytes (%) (Auto) 6.5L, Monocytes (%) (Auto) 7.1, Eosinophils (%) (Auto) 2.1, Basophils (%) (Auto) 0.8, Uric Acid 5.2, Phosphorus Level 3.5, Random Vancomycin Level 12.0 Height (Feet): 5 Height (Inches): 9.00 Weight (Pounds): 132 General Appearance: no apparent distress, lethargic Cardiovascular: tachycardia Respiratory/Chest: decreased breath sounds Abdomen: soft Objective no other change JOAQUÍN WORRELL Nov 30, 2016 15:04
--- NOTE | 2016-11-30 15:40 | Pulmonology Progress Note ---
Assessment/Plan Problems: (1) Pleural effusion, left (2) LLL pneumonia (3) Sepsis (4) ESTHER (acute kidney injury) Assessment/Plan s/p paracentesis wbc rising might need thoracoscopy continue antibiotics contacted Dr. Yeh again, he will the Pt later today Subjective Allergies: Coded Allergies: CITRUS AND DERIVATIVES (Unverified Allergy, Unknown, 11/27/16) TOMATO (Verified Allergy, Unknown, 11/27/16) per patient VANCOMYCIN (Verified Adverse Reaction, Unknown, 11/27/16) had severe abdominal pain per patient Uncoded Allergies: CITRUS (Allergy, Severe, 11/21/16) aloc Objective Last 24 Hour Vital Signs Date Time Temp Pulse Resp B/P Pulse Ox O2 Delivery O2 Flow Rate FiO2 11/30/16 11:57 99.5 95 18 126/83 98 Nasal Cannula 2.0 11/30/16 07:57 98.2 89 18 140/65 98 Nasal Cannula 2.0 11/30/16 06:45 87 18 Nasal Cannula 2.0 11/30/16 06:45 99 Nasal Cannula 2.0 11/30/16 06:45 Nasal Cannula 2.0 11/30/16 04:00 97.5 96 18 120/79 99 11/30/16 00:00 97.9 97 19 129/87 100 Room Air 11/29/16 21:00 97.4 97 19 129/87 100 Room Air 11/29/16 19:30 Nasal Cannula 2.0 28 11/29/16 19:30 80 18 Nasal Cannula 2.0 28 11/29/16 19:30 99 Nasal Cannula 2.0 28 Intake and Output 11/29/16 11/30/16 19:00 07:00 Intake Total 940 ml 330 ml Output Total 850 ml 1350 ml Balance 90 ml -1020 ml Intake Oral 720 ml IV Total 220 ml 330 ml Output Urine Total 850 ml 1350 ml # Bowel Movements 2 1 Laboratory Tests 11/29/16 19:47: Sodium Level 139, Potassium Level 4.3, Chloride Level 101, Carbon Dioxide Level 25, Anion Gap 13, Blood Urea Nitrogen 17, Creatinine 3.2H, Estimat Glomerular Filtration Rate 18.1, Glucose Level 116H, Calcium Level 8.2L, Total Bilirubin < 0.2, Aspartate Amino Transf (AST/SGOT) 16, Alanine Aminotransferase (ALT/SGPT) 7 , Alkaline Phosphatase 77, Total Protein 6.4L, Albumin 2.3L, Globulin 4.1, Albumin/Globulin Ratio 0.5L 11/30/16 05:25: Sodium Level 142, Potassium Level 4.2, Chloride Level 102, Carbon Dioxide Level 24, Anion Gap 16H, Blood Urea Nitrogen 19, Creatinine 3.4H, Estimat Glomerular Filtration Rate 16.8, Glucose Level 89, Calcium Level 8.7, Total Bilirubin < 0.2 , Aspartate Amino Transf (AST/SGOT) 18, Alanine Aminotransferase (ALT/SGPT) 8, Alkaline Phosphatase 104, Total Protein 6.5L, Albumin 2.4L, Globulin 4.1, Albumin/Globulin Ratio 0.5L, White Blood Count 13.7H, Red Blood Count 3.29L, Hemoglobin 9.4L, Hematocrit 29.7L, Mean Corpuscular Volume 90, Mean Corpuscular Hemoglobin 28.6, Mean Corpuscular Hemoglobin Concent 31.7L, Red Cell Distribution Width 13.6, Platelet Count 431, Mean Platelet Volume 6.0L, Neutrophils (%) (Auto) 83.5H, Lymphocytes (%) (Auto) 6.5L, Monocytes (%) (Auto) 7.1, Eosinophils (%) (Auto) 2.1, Basophils (%) (Auto) 0.8, Uric Acid 5.2, Phosphorus Level 3.5, Random Vancomycin Level 12.0 Current Medications Medications (Trade) Dose Ordered Sig/Ruben Route PRN Reason Start Time Stop Time Status Last Admin Dose Admin Acetaminophen (Tylenol) 650 mg Q4H PRN ORAL Mild Pain/Temp > 100.5 11/22/16 22:45 12/22/16 22:44 Albuterol/ Ipratropium (DuoNeb 0.5-3(2.5)mg/3ml) 3 ml Q6HR PRN HHN Shortness of Breath 11/30/16 15:00 12/05/16 14:59 Aspirin (Ecotrin) 325 mg DAILY ORAL 11/23/16 09:00 12/23/16 08:59 11/30/16 08:01 Dextrose (Dextrose 50%) STAT PRN IV Hypoglycemia 11/22/16 22:45 12/22/16 22:44 Docusate Sodium 100 mg 100 mg TWICE A DAY ORAL 11/26/16 18:00 12/26/16 17:59 Doxycycline Hyclate/Dextrose (Vibramycin/D5W) 110 ml @ 110 mls/hr Q12HR@0500,1700 IV 11/27/16 17:00 12/04/16 16:59 11/30/16 04:43 Ondansetron HCl (Zofran) 4 mg Q6H PRN IVP Nausea & Vomiting 11/22/16 22:45 12/22/16 22:44 11/28/16 06:23 Piperacillin Sod/ Tazobactam Sod 2.25 gm/Dextrose 110 ml @ 220 mls/hr Q6HR IVPB 11/26/16 20:00 12/03/16 19:59 11/30/16 11:55 Promethazine HCl/ Codeine (Phenergan with Codeine) 5 ml Q4H PRN ORAL For Cough 11/22/16 23:45 12/22/16 23:44 11/24/16 21:54 Ranitidine HCl (Zantac) 150 mg BEDTIME ORAL 11/29/16 21:00 12/29/16 20:59 ESTEFANI AVILES Nov 30, 2016 15:40
--- NOTE | 2016-11-30 15:41 | Infectious Diseases Prog Note ---
Assessment/Plan Problems: (1) LLL pneumonia Assessment & Plan: possible tumor VS abscess with loculated effusion , on doxycycline, and zosyn . await fungal serology, and T spot test. sputum culture grew brody spp, and normal linette , screening for HIV is negative . (2) Pleural effusion, left Assessment & Plan: loculated , S/P repeated thoracentesis , fluids culture is negative so far , fungal and AFB are pending , cytology showed lymphocytosis which is suggestive of either malignancy VS TB. repeated thoracentesis fluids culture is pending, may need CT surgery for decortication if TB work up is negative (3) SOB (shortness of breath) Assessment & Plan: due to the above, pulmonary is following (4) Adrenal adenoma Assessment & Plan: confirmed on MRI, recommend endocrinology eval and management (5) ESTHER (acute kidney injury) Assessment & Plan: multifactorial, improved, continue IVF for hydration, monitor renal function test. renal is following (6) Diarrhea Assessment & Plan: resolved, with negative C diff Subjective Constitutional: Reports: no symptoms HEENT: Reports: no symptoms Respiratory: Reports: dry cough Breasts: Reports: no symptoms Cardiovascular: Reports: no symptoms Gastrointestinal/Abdominal: Reports: no symptoms Genitourinary: Reports: no symptoms Neurologic: Reports: no symptoms Psychiatric: Reports: no symptoms Skin: Reports: no symptoms Endocrine: Reports: no symptoms Allergies: Coded Allergies: CITRUS AND DERIVATIVES (Unverified Allergy, Unknown, 11/27/16) TOMATO (Verified Allergy, Unknown, 11/27/16) per patient VANCOMYCIN (Verified Adverse Reaction, Unknown, 11/27/16) had severe abdominal pain per patient Uncoded Allergies: CITRUS (Allergy, Severe, 11/21/16) aloc Subjective she feels a little better , no diarrhea, less cough and phlegm, no fever or chills. Objective Vital Signs Last 24 Hour Vital Signs Date Time Temp Pulse Resp B/P Pulse Ox O2 Delivery O2 Flow Rate FiO2 11/30/16 11:57 99.5 95 18 126/83 98 Nasal Cannula 2.0 11/30/16 07:57 98.2 89 18 140/65 98 Nasal Cannula 2.0 11/30/16 06:45 87 18 Nasal Cannula 2.0 11/30/16 06:45 99 Nasal Cannula 2.0 11/30/16 06:45 Nasal Cannula 2.0 11/30/16 04:00 97.5 96 18 120/79 99 11/30/16 00:00 97.9 97 19 129/87 100 Room Air 11/29/16 21:00 97.4 97 19 129/87 100 Room Air 11/29/16 19:30 Nasal Cannula 2.0 28 11/29/16 19:30 80 18 Nasal Cannula 2.0 28 11/29/16 19:30 99 Nasal Cannula 2.0 28 11/29/16 15:39 97.6 90 22 117/76 98 Room Air Height (Feet): 5 Height (Inches): 9.00 Weight (Pounds): 132 General Appearance: WD/WN, no acute distress HEENT: normocephalic, atraumatic, anicteric, mucous membranes moist Respiratory/Chest: chest wall non-tender, lungs clear, normal breath sounds, no respiratory distress, no accessory muscle use Cardiovascular: normal peripheral pulses, normal rate, regular rhythm, no gallop/murmur, no JVD Abdomen: normal bowel sounds, soft, non tender, no organomegaly, non distended , no mass Extremities: no cyanosis, no clubbing Skin: no rash, no lesions Laboratory Tests Test 11/29/16 19:47 11/30/16 05:25 Sodium Level 139 mEQ/L (135-145) 142 mEQ/L (135-145) Potassium Level 4.3 mEQ/L (3.4-4.9) 4.2 mEQ/L (3.4-4.9) Chloride Level 101 mEQ/L (98-107) 102 mEQ/L (98-107) Carbon Dioxide Level 25 mEQ/L (20-30) 24 mEQ/L (20-30) Anion Gap 13 (5-15) 16 (5-15) H Blood Urea Nitrogen 17 mg/dL (7-23) 19 mg/dL (7-23) Creatinine 3.2 mg/dL (0.5-0.9) H 3.4 mg/dL (0.5-0.9) H Estimat Glomerular Filtration Rate 18.1 mL/min (>60) 16.8 mL/min (>60) Glucose Level 116 mg/dL (74-106) H 89 mg/dL (74-106) Calcium Level 8.2 mg/dL (8.6-10.2) L 8.7 mg/dL (8.6-10.2) Total Bilirubin < 0.2 mg/dL (0.0-1.2) < 0.2 mg/dL (0.0-1.2) Aspartate Amino Transf (AST/SGOT) 16 U/L (5-40) 18 U/L (5-40) Alanine Aminotransferase (ALT/SGPT) 7 U/L (3-33) 8 U/L (3-33) Alkaline Phosphatase 77 U/L (35-104) 104 U/L (35-104) Total Protein 6.4 g/dL (6.6-8.7) L 6.5 g/dL (6.6-8.7) L Albumin 2.3 g/dL (3.5-5.2) L 2.4 g/dL (3.5-5.2) L Globulin 4.1 g/dL 4.1 g/dL Albumin/Globulin Ratio 0.5 (1.0-2.7) L 0.5 (1.0-2.7) L White Blood Count 13.7 K/UL (4.8-10.8) H Red Blood Count 3.29 M/UL (4.20-5.40) L Hemoglobin 9.4 G/DL (12.0-16.0) L Hematocrit 29.7 % (37.0-47.0) L Mean Corpuscular Volume 90 FL (80-99) Mean Corpuscular Hemoglobin 28.6 PG (27.0-31.0) Mean Corpuscular Hemoglobin Concent 31.7 G/DL (32.0-36.0) L Red Cell Distribution Width 13.6 % (11.6-14.8) Platelet Count 431 K/UL (150-450) Mean Platelet Volume 6.0 FL (6.5-10.1) L Neutrophils (%) (Auto) 83.5 % (45.0-75.0) H Lymphocytes (%) (Auto) 6.5 % (20.0-45.0) L Monocytes (%) (Auto) 7.1 % (1.0-10.0) Eosinophils (%) (Auto) 2.1 % (0.0-3.0) Basophils (%) (Auto) 0.8 % (0.0-2.0) Uric Acid 5.2 mg/dL (3.0-7.5) Phosphorus Level 3.5 mg/dL (2.5-4.8) Random Vancomycin Level 12.0 ug/mL Current Medications Medications (Trade) Dose Ordered Sig/Ruben Route PRN Reason Start Time Stop Time Status Last Admin Dose Admin Acetaminophen (Tylenol) 650 mg Q4H PRN ORAL Mild Pain/Temp > 100.5 11/22/16 22:45 12/22/16 22:44 Albuterol/ Ipratropium (DuoNeb 0.5-3(2.5)mg/3ml) 3 ml Q6HR PRN HHN Shortness of Breath 11/30/16 15:00 12/05/16 14:59 Aspirin (Ecotrin) 325 mg DAILY ORAL 11/23/16 09:00 12/23/16 08:59 11/30/16 08:01 Dextrose (Dextrose 50%) STAT PRN IV Hypoglycemia 11/22/16 22:45 12/22/16 22:44 Docusate Sodium 100 mg 100 mg TWICE A DAY ORAL 11/26/16 18:00 12/26/16 17:59 Doxycycline Hyclate/Dextrose (Vibramycin/D5W) 110 ml @ 110 mls/hr Q12HR@0500,1700 IV 11/27/16 17:00 12/04/16 16:59 11/30/16 04:43 Ondansetron HCl (Zofran) 4 mg Q6H PRN IVP Nausea & Vomiting 11/22/16 22:45 12/22/16 22:44 11/28/16 06:23 Piperacillin Sod/ Tazobactam Sod 2.25 gm/Dextrose 110 ml @ 220 mls/hr Q6HR IVPB 11/26/16 20:00 12/03/16 19:59 11/30/16 11:55 Promethazine HCl/ Codeine (Phenergan with Codeine) 5 ml Q4H PRN ORAL For Cough 11/22/16 23:45 12/22/16 23:44 11/24/16 21:54 Ranitidine HCl (Zantac) 150 mg BEDTIME ORAL 11/29/16 21:00 12/29/16 20:59 Nicolle Schmitz M.D. Nov 30, 2016 15:41
[2016-11-30 16:00] VITALS: BP 122/80
[2016-11-30 20:00] VITALS: BP 119/77
--- NOTE | 2016-11-30 20:30 | Cardiology Progress Note ---
Assessment/Plan Assessment/Plan 1. Sinus tachycardia, normal LV systolic function, no evidence of CHF. 2. Dyspnea due to left lower lobe PNA/recurrent left pleural effusion, s/p left thoracentesis, possible thoracoscopy per Dr. Lomax 3. Small pericardial effusion, ? reactive due to PNA 4. Moderate to severe pulmonary HTN Subjective Subjective Denies chest pain, mild SOB. s/p thoracentesis Objective Last 24 Hour Vital Signs Date Time Temp Pulse Resp B/P Pulse Ox O2 Delivery O2 Flow Rate FiO2 11/30/16 20:19 93 18 96 Nasal Cannula 2.0 28 11/30/16 19:43 Nasal Cannula 2.0 11/30/16 19:42 98 Nasal Cannula 2.0 11/30/16 19:42 86 18 Nasal Cannula 2.0 11/30/16 16:00 99.0 90 18 122/80 98 Nasal Cannula 2.0 11/30/16 11:57 99.5 95 18 126/83 98 Nasal Cannula 2.0 11/30/16 07:57 98.2 89 18 140/65 98 Nasal Cannula 2.0 11/30/16 06:45 87 18 Nasal Cannula 2.0 11/30/16 06:45 99 Nasal Cannula 2.0 11/30/16 06:45 Nasal Cannula 2.0 11/30/16 04:00 97.5 96 18 120/79 99 11/30/16 00:00 97.9 97 19 129/87 100 Room Air 11/29/16 21:00 97.4 97 19 129/87 100 Room Air Intake and Output 11/29/16 11/30/16 19:00 07:00 Intake Total 940 ml 330 ml Output Total 850 ml 1350 ml Balance 90 ml -1020 ml Intake Oral 720 ml IV Total 220 ml 330 ml Output Urine Total 850 ml 1350 ml # Bowel Movements 2 1 2D Echo: EF 55%, Small pericardial Eff, Large pleural Eff, Grade I LVDD,RVSP 56 mmHg Laboratory Tests Test 11/30/16 05:25 White Blood Count 13.7 K/UL (4.8-10.8) H Red Blood Count 3.29 M/UL (4.20-5.40) L Hemoglobin 9.4 G/DL (12.0-16.0) L Hematocrit 29.7 % (37.0-47.0) L Mean Corpuscular Volume 90 FL (80-99) Mean Corpuscular Hemoglobin 28.6 PG (27.0-31.0) Mean Corpuscular Hemoglobin Concent 31.7 G/DL (32.0-36.0) L Red Cell Distribution Width 13.6 % (11.6-14.8) Platelet Count 431 K/UL (150-450) Mean Platelet Volume 6.0 FL (6.5-10.1) L Neutrophils (%) (Auto) 83.5 % (45.0-75.0) H Lymphocytes (%) (Auto) 6.5 % (20.0-45.0) L Monocytes (%) (Auto) 7.1 % (1.0-10.0) Eosinophils (%) (Auto) 2.1 % (0.0-3.0) Basophils (%) (Auto) 0.8 % (0.0-2.0) Sodium Level 142 mEQ/L (135-145) Potassium Level 4.2 mEQ/L (3.4-4.9) Chloride Level 102 mEQ/L (98-107) Carbon Dioxide Level 24 mEQ/L (20-30) Anion Gap 16 (5-15) H Blood Urea Nitrogen 19 mg/dL (7-23) Creatinine 3.4 mg/dL (0.5-0.9) H Estimat Glomerular Filtration Rate 16.8 mL/min (>60) Glucose Level 89 mg/dL (74-106) Uric Acid 5.2 mg/dL (3.0-7.5) Calcium Level 8.7 mg/dL (8.6-10.2) Phosphorus Level 3.5 mg/dL (2.5-4.8) Total Bilirubin < 0.2 mg/dL (0.0-1.2) Aspartate Amino Transf (AST/SGOT) 18 U/L (5-40) Alanine Aminotransferase (ALT/SGPT) 8 U/L (3-33) Alkaline Phosphatase 104 U/L (35-104) Total Protein 6.5 g/dL (6.6-8.7) L Albumin 2.4 g/dL (3.5-5.2) L Globulin 4.1 g/dL Albumin/Globulin Ratio 0.5 (1.0-2.7) L Random Vancomycin Level 12.0 ug/mL Objective HEENT: Atraumatic and normocephalic. Anicteric. Pupils are equal, round, and reactive to light and accommodation. Extraocular muscles intact. NECK: JVP is less than 5 cm. No carotid bruit. Carotid upstrokes 2+ bilaterally. CVS: Normal S1 and S2. No murmurs, gallops, or rubs. No pulsus paradoxus. LUNGS: Diminished breath sounds at the left base. ABDOMEN: Soft, nontender, and nondistended. No hepatosplenomegaly. Positive bowel sounds. EXTREMITIES: No evidence of edema, clubbing, or cyanosis. ALVINO RIVERO Nov 30, 2016 20:30
--- NOTE | 2016-11-30 22:00 | Consultation ---
DATE OF CONSULTATION: 11/29/2016 SURGICAL CONSULTATION: CONSULTING PHYSICIAN: Marshall Yeh M.D. SURGEON: Marshall Yeh M.D., Thoracic Surgery. REFERRING PHYSICIAN: Sadie Lomax M.D. HISTORY OF PRESENTING ILLNESS: The patient is a 56-year-old female, who was admitted to [facility] with two-week history of fevers and chills associated with shortness of breath. Workup including a chest CT scan, demonstrated left loculated pleural effusion. Thoracic surgery was then consulted for further evaluation. PAST MEDICAL HISTORY: History was notable for meningitis at the age of 23. PAST SURGICAL HISTORY: Past surgical history was notable for: 1. Bilateral breast cyst removal. 2. Left tib-fib effusion during adolescents. MEDICATIONS: Medications were reviewed. ALLERGIES: The patient is allergic to citrus. FAMILY AND SOCIAL HISTORY: The patient has had a 14-pack a year of smoking history and stopped smoking at the age of 25. She denies any alcohol or illicit drug use. The patient lives in her van and has no immediate family member in the [facility]. PHYSICAL EXAMINATION: GENERAL AND VITAL SIGNS: She is noted to be afebrile. Her vitals are within normal limits. CARDIAC: Regular rate and rhythm. No gallops or murmur. RESPIRATORY: Clear to auscultation on the right and decreased crackles noted on the left. ABDOMEN: Soft, nondistended, and nontender with normoactive bowel sounds. EXTREMITIES: Showed no evidence of cyanosis, clubbing, or edema. LABORATORY DATA: Laboratory study performed on 11/30/2016 showed WBC of 13.7, hemoglobin 9.4, hematocrit 29.7, and platelet count of 431,000. Chemistry is 142, potassium 4.2, chloride 102, bicarbonate 24, BUN 19, creatinine 3.4, and glucose 89. Her PT is 12, PTT 37, and INR 1.2. DIAGNOSTIC DATA: A chest CT scan performed on 11/21/2016 that demonstrated a large left loculated pleural effusion. In addition, there is evidence of pericardial effusion. There is also a nonspecific adenopathy of the mediastinum as well as in the left hilum. ASSESSMENT AND PLAN: This is a 56-year-old female, who presented to [facility] with history of low-grade fever and chills associated with dyspnea. The patient was evaluated at the bedside today. After reviewing her clinical database, I recommended a clearance from Infectious Disease to rule out tuberculosis as well as a Cardiology clearance prior to surgical intervention. The patient will be a candidate for left video-assisted thoracoscopic surgery with drainage of loculated pleural effusion/washout. The risks and benefits of the proposed operation were explained to the patient in details and she understands and wishes to proceed without reservation. All questions were answered to her satisfaction. Thank you for referring this patient to my attention. If there are any questions in regards to this patient's clinical care, please do not hesitate to contact me. Henley M.D. DR: Ken JOB#: [id number] CC: [email or web address]
[2016-12-01] VITALS: BP 126/73
[2016-12-01 04:00] VITALS: BP 121/122
[2016-12-01] MEDS: Doxycycline Hyclate 100 MG in D5W 110 ML IV SCH ×2 (04:35→17:29)
[2016-12-01] MEDS: Piperacillin/Tazobactam 2.25 GM in D5W 110 ML IVPB SCH ×3 (05:54→18:52)
[2016-12-01 06:47] LABS: BASOPHILS % (AUTO) 0.8 % (0.0-2.0); EOSINOPHILS % (AUTO) 2.2 % (0.0-3.0); MEAN CORPUSCULAR HEMOGLOBIN 28.8 PG (27.0-31.0); MEAN CORPUSCULAR HGB CONC 32.1 G/DL (32.0-36.0); MEAN CORPUSCULAR VOLUME 90 FL (80-99); MEAN PLATELET VOLUME 5.6 FL (6.5-10.1); MONOCYTES % (AUTO) 6.5 % (1.0-10.0); NEUTROPHILS % (AUTO) 81.5 % (45.0-75.0); PLATELET COUNT 465 K/UL (150-450); RED BLOOD COUNT 3.48 M/UL (4.20-5.40); RED CELL DISTRIBUTION WIDTH 13.6 % (11.6-14.8); WHITE BLOOD COUNT 13.1 K/UL (4.8-10.8)
[2016-12-01 07:11] LABS: CALCIUM 8.5 mg/dL (8.6-10.2); GLOMERULAR FILTRATION RATE 19.4 mL/min (>60); POTASSIUM 4.4 mEQ/L (3.4-4.9)
[2016-12-01 07:22] LABS: ALANINE AMINOTRANSFERASE 11 U/L (3-33); ASPARTATE AMINO TRANSFERASE 20 U/L (5-40); BILIRUBIN,DIRECT 0.1 mg/dL (0.1-0.3); HEMOLYSIS 3; MAGNESIUM 2.2 mg/dL (1.7-2.5); PHOSPHORUS 3.2 mg/dL (2.5-4.8); TOTAL PROTEIN 6.5 g/dL (6.6-8.7); URIC ACID 4.7 mg/dL (3.0-7.5)
--- NOTE | 2016-12-01 08:16 | Anethesia Preoperative Eval ---
Anesthesia Pre-op PMH/ROS General Date of Evaluation: Dec 01, 2016 Time of Evaluation: 14:16 Anesthesiologist: Leyla ASA Score: ASA 3 Mallampati Score Class I : Soft palate, uvula, fauces, pillars visible Class II: Soft palate, uvula, fauces visible Class III: Soft palate, base of uvula visible Class IV: Only hard plate visible Mallampati Classification: Class II Surgeon: Rao Diagnosis: pleural Effusion Surgical Procedure: VATS Anesthesia History: none Social History: smoking Family History: no anesthesia problems Allergies: Coded Allergies: CITRUS AND DERIVATIVES (Unverified Allergy, Unknown, 11/27/16) TOMATO (Verified Allergy, Unknown, 11/27/16) per patient VANCOMYCIN (Verified Adverse Reaction, Unknown, 11/27/16) had severe abdominal pain per patient Uncoded Allergies: CITRUS (Allergy, Severe, 11/21/16) aloc Medications: see eMAR Past Medical History Pulmonary: Reports: other - Smoker, L Pleural Effusion Neurologic/Psychiatric: Reports: CVA, other - Meningitis Hematology/Immune: Reports: anemia Anesthesia Pre-op Phys. Exam Physician Exam Last Vital Signs Date Time Temp Pulse Resp B/P Pulse Ox O2 Delivery O2 Flow Rate FiO2 12/01/16 07:58 Nasal Cannula 2.0 12/01/16 07:57 96 12/01/16 07:56 79 18 12/01/16 04:00 97.4 121/122 11/30/16 20:30 28 Constitutional: NAD Neurologic: CN 2-12 intact Cardiovascular: RRR Respiratory: CTA Gastrointestinal: S/NT/ND Airway Exam Mallampati Score: Class II MO: full ROM: limited Teeth: missing, intact Anesthesia Pre-op A/P Labs Hematology Test 12/01/16 06:25 White Blood Count 13.1 K/UL (4.8-10.8) H Red Blood Count 3.48 M/UL (4.20-5.40) L Hemoglobin 10.0 G/DL (12.0-16.0) L Hematocrit 31.2 % (37.0-47.0) L Mean Corpuscular Volume 90 FL (80-99) Mean Corpuscular Hemoglobin 28.8 PG (27.0-31.0) Mean Corpuscular Hemoglobin Concent 32.1 G/DL (32.0-36.0) Red Cell Distribution Width 13.6 % (11.6-14.8) Platelet Count 465 K/UL (150-450) H Mean Platelet Volume 5.6 FL (6.5-10.1) L Neutrophils (%) (Auto) 81.5 % (45.0-75.0) H Lymphocytes (%) (Auto) 9.0 % (20.0-45.0) L Monocytes (%) (Auto) 6.5 % (1.0-10.0) Eosinophils (%) (Auto) 2.2 % (0.0-3.0) Basophils (%) (Auto) 0.8 % (0.0-2.0) Chemistry Test 12/01/16 06:25 Sodium Level 137 mEQ/L (135-145) Potassium Level 4.4 mEQ/L (3.4-4.9) Chloride Level 100 mEQ/L (98-107) Carbon Dioxide Level 22 mEQ/L (20-30) Anion Gap 15 (5-15) Blood Urea Nitrogen 22 mg/dL (7-23) Creatinine 3.0 mg/dL (0.5-0.9) H Estimat Glomerular Filtration Rate 19.4 mL/min (>60) Glucose Level 106 mg/dL (74-106) Uric Acid 4.7 mg/dL (3.0-7.5) Calcium Level 8.5 mg/dL (8.6-10.2) L Phosphorus Level 3.2 mg/dL (2.5-4.8) Magnesium Level 2.2 mg/dL (1.7-2.5) Total Bilirubin < 0.2 mg/dL (0.0-1.2) Direct Bilirubin 0.1 mg/dL (0.1-0.3) Aspartate Amino Transf (AST/SGOT) 20 U/L (5-40) Alanine Aminotransferase (ALT/SGPT) 11 U/L (3-33) Alkaline Phosphatase 88 U/L (35-104) Total Protein 6.5 g/dL (6.6-8.7) L Albumin 2.8 g/dL (3.5-5.2) L Risk Assessment & Plan Assessment: ASA 3 Plan: GA, DL tube, A Line Status Change Before Surgery: No Pre-Antibiotics Drug: Mauri Montes MD Dec 01, 2016 08:15
[2016-12-01 08:51] VITALS: BP 121/78
--- NOTE | 2016-12-01 08:53 | Pulmonology Progress Note ---
Assessment/Plan Assessment/Plan ASSESSMENT sepsis multiloculated LLL pleural effusion s/p thoracentesis x 2 ( 11/23 and 11/29) possible lung abscess ST small pericardial effusion moderate to severe pulmonary HTN acute renal failure anemia of chronic disease adrenal mass possible DM R breast cystic mass PLAN OF CARE MS floor airborne isolation abx ID follows blood cx negative, pleural fluid cx negative, sputum cx + Caridad, stool C dif negative HIV test negative, serology for TB and cocci still pending , otherwise negative O2 HHN prn antitussive prn initial CXR with LLL PNA and moderate to large L pleural effusion CTA thorax no PE, dissection, aneurysm, + moderate L pleural effusion, left hilar and mediastinal lymphadenopathy-inflammatory vs neoplastic, LLL atelectasis suggestive of underlying lung abscess vs tumor s/p thoracentesis 11/23-110-cc total from multiloculated pleural effusion ( 50cc and 60cc from [address] places) fup CXR no change, persistent L multiloculated pleural effusion s/p another thoracentesis 11/29- only [address] surgeon seen and evaluated the patient on 11/30 per surgery the patient is a candidate for left video-assisted thoracoscopic surgery with drainage of loculated pleural effusion/washout surgery was discussed with patient by surgeon, including purpose, need, risks and benefits, patient desires to proceed with surgery will need ID and cardio clearance prior to surgery Venous Duplex BLE negative cardio follows ECHO with preserved EF and evidence of moderate to severe pulmonary HTN as well as large left pleural effusion and small pericardial effusion no evidence of CHF as per cardio per cardio ST likely due to sepsis and dyspnea due to PNA and pleural effusion, small pericardial effusion ?reactive [address] A/P noted MRI with R adrenal adenoma, benign, no further workup indicated endo seen and evaluated for adrenal adenoma and suggested even if adenoma not functional, consider renal adrenalectomy 2 to large size nephro follows, renal parameters slightly better, creat down to 3.0 24 hr urine with 500 mg protein further management as per nephro R breast with evidence of cystic mass on CT thorax- need mammogram vs US, per heme/onco discretion, unlikely will be able to have mammo here but may try US anemia of chronic disease as per heme, no iron deficiency anemia flow cytometry negative pleural fluid with lymphocytosis, pathology negative for malignant cells GI follows defer any GI procedures for now H2 morgna stool OB negative , CEA WNL symptomatic Rx bowel regimen pain management elevated HgA1c, BS stable, will repeat HgA1c, if indeed diagnostic of DM , will need to start treatment Subjective Allergies: Coded Allergies: CITRUS AND DERIVATIVES (Unverified Allergy, Unknown, 11/27/16) TOMATO (Verified Allergy, Unknown, 11/27/16) per patient VANCOMYCIN (Verified Adverse Reaction, Unknown, 11/27/16) had severe abdominal pain per patient Uncoded Allergies: CITRUS (Allergy, Severe, 11/21/16) aloc Subjective still with leukocytosis, afebrile on RA sat stable, intermittens SOB, no chest pain, + cough, occasionally productive, no hemoptysis Objective Last 24 Hour Vital Signs Date Time Temp Pulse Resp B/P Pulse Ox O2 Delivery O2 Flow Rate FiO2 12/01/16 07:58 Nasal Cannula 2.0 12/01/16 07:57 96 Nasal Cannula 2.0 12/01/16 07:56 79 18 Nasal Cannula 2.0 12/01/16 04:00 97.4 70 121/122 96 Nasal Cannula 3.0 12/01/16 00:00 98.8 93 18 126/73 99 Room Air 11/30/16 20:30 95 18 97 Nasal Cannula 2.0 28 11/30/16 20:19 93 18 96 Nasal Cannula 2.0 28 11/30/16 20:00 97.3 96 18 119/77 11/30/16 19:43 Nasal Cannula 2.0 11/30/16 19:42 98 Nasal Cannula 2.0 11/30/16 19:42 86 18 Nasal Cannula 2.0 11/30/16 16:00 99.0 90 18 122/80 98 Nasal Cannula 2.0 11/30/16 11:57 99.5 95 18 126/83 98 Nasal Cannula 2.0 Intake and Output 11/30/16 12/01/16 19:00 07:00 Intake Total 2330 ml 1350 ml Output Total 600 ml Balance 1730 ml 1350 ml Intake Oral 2000 ml 800 ml IV Total 330 ml 550 ml Output Urine Total 600 ml # Voids 2 7 # Bowel Movements 1 1 General Appearance: no acute distress HEENT: normocephalic, atraumatic, anicteric, mucous membranes moist Respiratory/Chest: no respiratory distress, no accessory muscle use, decreased breath sounds - on the left Cardiovascular: normal rate, regular rhythm Abdomen: soft, non tender, non distended Genitourinary: normal external genitalia Extremities: no edema Neurologic/Psychiatric: no motor/sensory deficits, alert, responsive Musculoskeletal: normal muscle bulk Laboratory Tests 12/01/16 06:25: White Blood Count 13.1H, Red Blood Count 3.48L, Hemoglobin 10.0L, Hematocrit 31.2L, Mean Corpuscular Volume 90, Mean Corpuscular Hemoglobin 28.8, Mean Corpuscular Hemoglobin Concent 32.1, Red Cell Distribution Width 13.6, Platelet Count 465H, Mean Platelet Volume 5.6L, Neutrophils (%) (Auto) 81.5H, Lymphocytes (%) (Auto) 9.0L, Monocytes (%) (Auto) 6.5, Eosinophils (%) (Auto) 2.2, Basophils (%) (Auto) 0.8, Sodium Level 137, Potassium Level 4.4, Chloride Level 100, Carbon Dioxide Level 22, Anion Gap 15, Blood Urea Nitrogen 22, Creatinine 3.0H, Estimat Glomerular Filtration Rate 19.4, Glucose Level 106, Uric Acid 4.7, Calcium Level 8.5L, Phosphorus Level 3.2, Magnesium Level 2.2, Total Bilirubin < 0.2, Direct Bilirubin 0.1, Aspartate Amino Transf (AST/SGOT) 20, Alanine Aminotransferase (ALT/SGPT) 11, Alkaline Phosphatase 88, Total Protein 6.5L, Albumin 2.8L, TB Test (T-Spot) [Pending], TB Test Nil Control (T- Spot) [Pending], TB Test Panel A (T-Spot) [Pending], TB Test Panel B (T-Spot) [ Pending], TB Test Positive Control (T-Spot) [Pending] Current Medications Medications (Trade) Dose Ordered Sig/Ruben Route PRN Reason Start Time Stop Time Status Last Admin Dose Admin Acetaminophen (Tylenol) 650 mg Q4H PRN ORAL Mild Pain/Temp > 100.5 11/22/16 22:45 12/22/16 22:44 Albuterol/ Ipratropium (DuoNeb 0.5-3(2.5)mg/3ml) 3 ml Q6HR PRN HHN Shortness of Breath 11/30/16 15:00 12/05/16 14:59 11/30/16 20:17 Aspirin (Ecotrin) 325 mg DAILY ORAL 11/23/16 09:00 12/23/16 08:59 11/30/16 08:01 Dextrose (Dextrose 50%) STAT PRN IV Hypoglycemia 11/22/16 22:45 12/22/16 22:44 Docusate Sodium 100 mg 100 mg TWICE A DAY ORAL 11/26/16 18:00 12/26/16 17:59 Doxycycline Hyclate/Dextrose (Vibramycin/D5W) 110 ml @ 110 mls/hr Q12HR@0500,1700 IV 11/27/16 17:00 12/04/16 16:59 12/01/16 04:35 Ondansetron HCl (Zofran) 4 mg Q6H PRN IVP Nausea & Vomiting 11/22/16 22:45 12/22/16 22:44 11/28/16 06:23 Piperacillin Sod/ Tazobactam Sod 2.25 gm/Dextrose 110 ml @ 220 mls/hr Q6HR IVPB 11/26/16 20:00 12/03/16 19:59 12/01/16 05:54 Promethazine HCl/ Codeine (Phenergan with Codeine) 5 ml Q4H PRN ORAL For Cough 11/22/16 23:45 12/22/16 23:44 11/24/16 21:54 Ranitidine HCl (Zantac) 150 mg BEDTIME ORAL 11/29/16 21:00 12/29/16 20:59 Elier Diggs)Shahnaz NP Dec 01, 2016 08:53
[2016-12-01] MEDS: Docusate 100mg cap ORAL SCH ×2 (09:00→17:29)
--- NOTE | 2016-12-01 09:30 | GI Progress Note ---
Assessment/Plan Problems: (1) Severe malnutrition ICD Codes: E43 - Unspecified severe protein-calorie malnutrition SNOMED: 91875616 (2) Vomiting ICD Codes: R11.10 - Vomiting, unspecified SNOMED: 939485874 (3) Anemia ICD Codes: D64.9 - Anemia, unspecified SNOMED: 745412459 (4) Diarrhea ICD Codes: R19.7 - Diarrhea, unspecified SNOMED: 83707146 Status: stable, progressing Status Narrative Discussed with Dr. Clark. Assessment/Plan airborne isolation r/o TB anemia of chronic disease iron panel unremarkable >> no iron deficiency per Hematology note cdiff negative s/p thoracentesis 11/23/16 OB stool negative defer GI procedures at this time symptomatic treatment zofran prn monitor H&H, transfuse prn H2B, refusing bowel regime abx fu labs Subjective Subjective refusing zantac no GI complaints Objective Last 24 Hour Vital Signs Date Time Temp Pulse Resp B/P Pulse Ox O2 Delivery O2 Flow Rate FiO2 12/01/16 08:51 97.7 101 20 121/78 100 Room Air 12/01/16 07:58 Nasal Cannula 2.0 12/01/16 07:57 96 Nasal Cannula 2.0 12/01/16 07:56 79 18 Nasal Cannula 2.0 12/01/16 04:00 97.4 70 121/122 96 Nasal Cannula 3.0 12/01/16 00:00 98.8 93 18 126/73 99 Room Air 11/30/16 20:30 95 18 97 Nasal Cannula 2.0 28 11/30/16 20:19 93 18 96 Nasal Cannula 2.0 28 11/30/16 20:00 97.3 96 18 119/77 11/30/16 19:43 Nasal Cannula 2.0 11/30/16 19:42 98 Nasal Cannula 2.0 11/30/16 19:42 86 18 Nasal Cannula 2.0 11/30/16 16:00 99.0 90 18 122/80 98 Nasal Cannula 2.0 11/30/16 11:57 99.5 95 18 126/83 98 Nasal Cannula 2.0 Intake and Output 11/30/16 12/01/16 19:00 07:00 Intake Total 2330 ml 1350 ml Output Total 600 ml Balance 1730 ml 1350 ml Intake Oral 2000 ml 800 ml IV Total 330 ml 550 ml Output Urine Total 600 ml # Voids 2 7 # Bowel Movements 1 1 Laboratory Tests Test 12/01/16 06:25 White Blood Count 13.1 K/UL (4.8-10.8) H Red Blood Count 3.48 M/UL (4.20-5.40) L Hemoglobin 10.0 G/DL (12.0-16.0) L Hematocrit 31.2 % (37.0-47.0) L Mean Corpuscular Volume 90 FL (80-99) Mean Corpuscular Hemoglobin 28.8 PG (27.0-31.0) Mean Corpuscular Hemoglobin Concent 32.1 G/DL (32.0-36.0) Red Cell Distribution Width 13.6 % (11.6-14.8) Platelet Count 465 K/UL (150-450) H Mean Platelet Volume 5.6 FL (6.5-10.1) L Neutrophils (%) (Auto) 81.5 % (45.0-75.0) H Lymphocytes (%) (Auto) 9.0 % (20.0-45.0) L Monocytes (%) (Auto) 6.5 % (1.0-10.0) Eosinophils (%) (Auto) 2.2 % (0.0-3.0) Basophils (%) (Auto) 0.8 % (0.0-2.0) Sodium Level 137 mEQ/L (135-145) Potassium Level 4.4 mEQ/L (3.4-4.9) Chloride Level 100 mEQ/L (98-107) Carbon Dioxide Level 22 mEQ/L (20-30) Anion Gap 15 (5-15) Blood Urea Nitrogen 22 mg/dL (7-23) Creatinine 3.0 mg/dL (0.5-0.9) H Estimat Glomerular Filtration Rate 19.4 mL/min (>60) Glucose Level 106 mg/dL (74-106) Hemoglobin A1c Pending Uric Acid 4.7 mg/dL (3.0-7.5) Calcium Level 8.5 mg/dL (8.6-10.2) L Phosphorus Level 3.2 mg/dL (2.5-4.8) Magnesium Level 2.2 mg/dL (1.7-2.5) Total Bilirubin < 0.2 mg/dL (0.0-1.2) Direct Bilirubin 0.1 mg/dL (0.1-0.3) Aspartate Amino Transf (AST/SGOT) 20 U/L (5-40) Alanine Aminotransferase (ALT/SGPT) 11 U/L (3-33) Alkaline Phosphatase 88 U/L (35-104) Total Protein 6.5 g/dL (6.6-8.7) L Albumin 2.8 g/dL (3.5-5.2) L TB Test (T-Spot) Pending TB Test Nil Control (T-Spot) Pending TB Test Panel A (T-Spot) Pending TB Test Panel B (T-Spot) Pending TB Test Positive Control (T-Spot) Pending Height (Feet): 5 Height (Inches): 9.00 Weight (Pounds): 132 General Appearance: no apparent distress, alert, thin Cardiovascular: normal rate Respiratory/Chest: normal breath sounds, no respiratory distress Abdominal Exam: normal bowel sounds, non tender, soft Jeny Mao N.Deidre Dec 01, 2016 09:30
[2016-12-01] MEDS: Aspirin EC 325mg tab ORAL SCH (09:38)
[2016-12-01 11:59] VITALS: BP 137/91
--- NOTE | 2016-12-01 12:48 | General Progress Note ---
Assessment/Plan Problem List: (1) SOB (shortness of breath) ICD Codes: R06.02 - Shortness of breath SNOMED: 007213603 (2) Sepsis ICD Codes: A41.9 - Sepsis, unspecified organism SNOMED: 20496167 (3) Pleural effusion, left ICD Codes: J90 - Pleural effusion, not elsewhere classified SNOMED: 69002310 (4) Upper respiratory infection ICD Codes: J06.9 - Acute upper respiratory infection, unspecified SNOMED: 83491917 (5) Abnormal blood pressure SNOMED: 07911640 Status: progressing Assessment/Plan pleural effusion thoracic surgeon wants VATS clearance per dr wan r/o tb per pulmonary and id afebrile sob unclear etiology Subjective Respiratory: Reports: shortness of breath Allergies: Coded Allergies: CITRUS AND DERIVATIVES (Unverified Allergy, Unknown, 11/27/16) TOMATO (Verified Allergy, Unknown, 11/27/16) per patient VANCOMYCIN (Verified Adverse Reaction, Unknown, 11/27/16) had severe abdominal pain per patient Uncoded Allergies: CITRUS (Allergy, Severe, 11/21/16) aloc Objective Last 24 Hour Vital Signs Date Time Temp Pulse Resp B/P Pulse Ox O2 Delivery O2 Flow Rate FiO2 12/01/16 11:59 97.9 101 20 137/91 97 Room Air 12/01/16 08:51 97.7 101 20 121/78 100 Room Air 12/01/16 07:58 Nasal Cannula 2.0 12/01/16 07:57 96 Nasal Cannula 2.0 12/01/16 07:56 79 18 Nasal Cannula 2.0 12/01/16 04:00 97.4 70 121/122 96 Nasal Cannula 3.0 12/01/16 00:00 98.8 93 18 126/73 99 Room Air 11/30/16 20:30 95 18 97 Nasal Cannula 2.0 28 11/30/16 20:19 93 18 96 Nasal Cannula 2.0 28 11/30/16 20:00 97.3 96 18 119/77 11/30/16 19:43 Nasal Cannula 2.0 11/30/16 19:42 98 Nasal Cannula 2.0 11/30/16 19:42 86 18 Nasal Cannula 2.0 11/30/16 16:00 99.0 90 18 122/80 98 Nasal Cannula 2.0 Intake and Output 11/30/16 12/01/16 19:00 07:00 Intake Total 2330 ml 1350 ml Output Total 600 ml Balance 1730 ml 1350 ml Intake Oral 2000 ml 800 ml IV Total 330 ml 550 ml Output Urine Total 600 ml # Voids 2 7 # Bowel Movements 1 1 Laboratory Tests 12/01/16 06:25: White Blood Count 13.1H, Red Blood Count 3.48L, Hemoglobin 10.0L, Hematocrit 31.2L, Mean Corpuscular Volume 90, Mean Corpuscular Hemoglobin 28.8, Mean Corpuscular Hemoglobin Concent 32.1, Red Cell Distribution Width 13.6, Platelet Count 465H, Mean Platelet Volume 5.6L, Neutrophils (%) (Auto) 81.5H, Lymphocytes (%) (Auto) 9.0L, Monocytes (%) (Auto) 6.5, Eosinophils (%) (Auto) 2.2, Basophils (%) (Auto) 0.8, Sodium Level 137, Potassium Level 4.4, Chloride Level 100, Carbon Dioxide Level 22, Anion Gap 15, Blood Urea Nitrogen 22, Creatinine 3.0H, Estimat Glomerular Filtration Rate 19.4, Glucose Level 106, Hemoglobin A1c 6.5H, Uric Acid 4.7, Calcium Level 8.5L, Phosphorus Level 3.2, Magnesium Level 2.2, Total Bilirubin < 0.2, Direct Bilirubin 0.1, Aspartate Amino Transf (AST/SGOT) 20, Alanine Aminotransferase (ALT/SGPT) 11, Alkaline Phosphatase 88, Total Protein 6.5L, Albumin 2.8L, TB Test (T-Spot) [Pending], TB Test Nil Control (T-Spot) [Pending], TB Test Panel A (T-Spot) [Pending], TB Test Panel B (T-Spot) [Pending], TB Test Positive Control (T-Spot) [Pending] Height (Feet): 5 Height (Inches): 9.00 Weight (Pounds): 132 Neck: supple Cardiovascular: normal rate Respiratory/Chest: lungs clear Abdomen: soft Kahlil Ronquillo MD Dec 01, 2016 12:48
--- NOTE | 2016-12-01 14:59 | General Progress Note ---
Assessment/Plan Status: stable Status Narrative cr lowering : 3 today Assessment/Plan Status: Acute Renal Failure- Cr appears to be levelling Iron Defficiency Anemia- HypoAlbuminemia , Etiology ??? Penumonia / left Pleural effusion ? abcess Adrenal Adenoma high A1c ? DM Plan: DC spears- 24 h urine for protein 500 mg Urine Eosinophils and Spot Na DC Vanco- monitor Vanco level Monitor dose- adjust Zosyn dose IV Iron change diet to renal , medium CHO per orders Subjective ROS Limited/Unobtainable: No Constitutional: Reports: malaise Allergies: Coded Allergies: CITRUS AND DERIVATIVES (Unverified Allergy, Unknown, 11/27/16) TOMATO (Verified Allergy, Unknown, 11/27/16) per patient VANCOMYCIN (Verified Adverse Reaction, Unknown, 11/27/16) had severe abdominal pain per patient Uncoded Allergies: CITRUS (Allergy, Severe, 11/21/16) aloc Objective Last 24 Hour Vital Signs Date Time Temp Pulse Resp B/P Pulse Ox O2 Delivery O2 Flow Rate FiO2 12/01/16 11:59 97.9 101 20 137/91 97 Room Air 12/01/16 08:51 97.7 101 20 121/78 100 Room Air 12/01/16 07:58 Nasal Cannula 2.0 12/01/16 07:57 96 Nasal Cannula 2.0 12/01/16 07:56 79 18 Nasal Cannula 2.0 12/01/16 04:00 97.4 70 121/122 96 Nasal Cannula 3.0 12/01/16 00:00 98.8 93 18 126/73 99 Room Air 11/30/16 20:30 95 18 97 Nasal Cannula 2.0 28 11/30/16 20:19 93 18 96 Nasal Cannula 2.0 28 11/30/16 20:00 97.3 96 18 119/77 11/30/16 19:43 Nasal Cannula 2.0 11/30/16 19:42 98 Nasal Cannula 2.0 11/30/16 19:42 86 18 Nasal Cannula 2.0 11/30/16 16:00 99.0 90 18 122/80 98 Nasal Cannula 2.0 Intake and Output 11/30/16 12/01/16 19:00 07:00 Intake Total 2330 ml 1350 ml Output Total 600 ml Balance 1730 ml 1350 ml Intake Oral 2000 ml 800 ml IV Total 330 ml 550 ml Output Urine Total 600 ml # Voids 2 7 # Bowel Movements 1 1 Laboratory Tests 12/01/16 06:25: White Blood Count 13.1H, Red Blood Count 3.48L, Hemoglobin 10.0L, Hematocrit 31.2L, Mean Corpuscular Volume 90, Mean Corpuscular Hemoglobin 28.8, Mean Corpuscular Hemoglobin Concent 32.1, Red Cell Distribution Width 13.6, Platelet Count 465H, Mean Platelet Volume 5.6L, Neutrophils (%) (Auto) 81.5H, Lymphocytes (%) (Auto) 9.0L, Monocytes (%) (Auto) 6.5, Eosinophils (%) (Auto) 2.2, Basophils (%) (Auto) 0.8, Sodium Level 137, Potassium Level 4.4, Chloride Level 100, Carbon Dioxide Level 22, Anion Gap 15, Blood Urea Nitrogen 22, Creatinine 3.0H, Estimat Glomerular Filtration Rate 19.4, Glucose Level 106, Hemoglobin A1c 6.5H, Uric Acid 4.7, Calcium Level 8.5L, Phosphorus Level 3.2, Magnesium Level 2.2, Total Bilirubin < 0.2, Direct Bilirubin 0.1, Aspartate Amino Transf (AST/SGOT) 20, Alanine Aminotransferase (ALT/SGPT) 11, Alkaline Phosphatase 88, Total Protein 6.5L, Albumin 2.8L, TB Test (T-Spot) [Pending], TB Test Nil Control (T-Spot) [Pending], TB Test Panel A (T-Spot) [Pending], TB Test Panel B (T-Spot) [Pending], TB Test Positive Control (T-Spot) [Pending] Height (Feet): 5 Height (Inches): 9.00 Weight (Pounds): 132 General Appearance: no apparent distress Objective no other change JOAQUÍN WORRELL Dec 01, 2016 14:59
--- NOTE | 2016-12-01 15:27 | Infectious Diseases Prog Note ---
Assessment/Plan Problems: (1) LLL pneumonia Assessment & Plan: most likely abscess with loculated effusion , on doxycycline, and zosyn . fungal serology is negative . T spot test is pending . sputum culture grew brody spp, and normal linette , screening for HIV is negative . (2) Pleural effusion, left Assessment & Plan: loculated , S/P repeated thoracentesis , fluids culture is negative so far , fungal and AFB are pending , cytology showed lymphocytosis which is suggestive of either malignancy VS TB. repeated thoracentesis fluids culture is pending, may need CT surgery for decortication if TB work up is negative (3) Adrenal adenoma Assessment & Plan: confirmed on MRI, recommend endocrinology eval and management (4) ESTHER (acute kidney injury) Assessment & Plan: multifactorial, improved, continue IVF for hydration, monitor renal function test. renal is following (5) Diarrhea Assessment & Plan: resolved, with negative C diff Subjective Constitutional: Reports: no symptoms HEENT: Reports: no symptoms Respiratory: Reports: no symptoms Breasts: Reports: no symptoms Cardiovascular: Reports: no symptoms Gastrointestinal/Abdominal: Reports: no symptoms Genitourinary: Reports: no symptoms Neurologic: Reports: no symptoms Psychiatric: Reports: no symptoms Skin: Reports: no symptoms Endocrine: Reports: no symptoms Allergies: Coded Allergies: CITRUS AND DERIVATIVES (Unverified Allergy, Unknown, 11/27/16) TOMATO (Verified Allergy, Unknown, 11/27/16) per patient VANCOMYCIN (Verified Adverse Reaction, Unknown, 11/27/16) had severe abdominal pain per patient Uncoded Allergies: CITRUS (Allergy, Severe, 11/21/16) aloc Subjective she feels a little better , no diarrhea, less cough and phlegm, no fever or chills. Objective Vital Signs Last 24 Hour Vital Signs Date Time Temp Pulse Resp B/P Pulse Ox O2 Delivery O2 Flow Rate FiO2 12/01/16 11:59 97.9 101 20 137/91 97 Room Air 12/01/16 08:51 97.7 101 20 121/78 100 Room Air 12/01/16 07:58 Nasal Cannula 2.0 12/01/16 07:57 96 Nasal Cannula 2.0 12/01/16 07:56 79 18 Nasal Cannula 2.0 12/01/16 04:00 97.4 70 121/122 96 Nasal Cannula 3.0 12/01/16 00:00 98.8 93 18 126/73 99 Room Air 11/30/16 20:30 95 18 97 Nasal Cannula 2.0 28 11/30/16 20:19 93 18 96 Nasal Cannula 2.0 28 11/30/16 20:00 97.3 96 18 119/77 11/30/16 19:43 Nasal Cannula 2.0 11/30/16 19:42 98 Nasal Cannula 2.0 11/30/16 19:42 86 18 Nasal Cannula 2.0 11/30/16 16:00 99.0 90 18 122/80 98 Nasal Cannula 2.0 Height (Feet): 5 Height (Inches): 9.00 Weight (Pounds): 132 General Appearance: WD/WN, no acute distress HEENT: normocephalic, atraumatic, anicteric, mucous membranes moist Respiratory/Chest: chest wall non-tender, lungs clear, normal breath sounds, no respiratory distress, no accessory muscle use, decreased breath sounds, crackles/rales Cardiovascular: normal peripheral pulses, normal rate, regular rhythm, no gallop/murmur, no JVD Abdomen: normal bowel sounds, soft, non tender, no organomegaly, non distended , no mass, no scars Extremities: no cyanosis, no clubbing Skin: no rash, no lesions, no ulcers Laboratory Tests Test 12/01/16 06:25 White Blood Count 13.1 K/UL (4.8-10.8) H Red Blood Count 3.48 M/UL (4.20-5.40) L Hemoglobin 10.0 G/DL (12.0-16.0) L Hematocrit 31.2 % (37.0-47.0) L Mean Corpuscular Volume 90 FL (80-99) Mean Corpuscular Hemoglobin 28.8 PG (27.0-31.0) Mean Corpuscular Hemoglobin Concent 32.1 G/DL (32.0-36.0) Red Cell Distribution Width 13.6 % (11.6-14.8) Platelet Count 465 K/UL (150-450) H Mean Platelet Volume 5.6 FL (6.5-10.1) L Neutrophils (%) (Auto) 81.5 % (45.0-75.0) H Lymphocytes (%) (Auto) 9.0 % (20.0-45.0) L Monocytes (%) (Auto) 6.5 % (1.0-10.0) Eosinophils (%) (Auto) 2.2 % (0.0-3.0) Basophils (%) (Auto) 0.8 % (0.0-2.0) Sodium Level 137 mEQ/L (135-145) Potassium Level 4.4 mEQ/L (3.4-4.9) Chloride Level 100 mEQ/L (98-107) Carbon Dioxide Level 22 mEQ/L (20-30) Anion Gap 15 (5-15) Blood Urea Nitrogen 22 mg/dL (7-23) Creatinine 3.0 mg/dL (0.5-0.9) H Estimat Glomerular Filtration Rate 19.4 mL/min (>60) Glucose Level 106 mg/dL (74-106) Hemoglobin A1c 6.5 % (< 6.0) H Uric Acid 4.7 mg/dL (3.0-7.5) Calcium Level 8.5 mg/dL (8.6-10.2) L Phosphorus Level 3.2 mg/dL (2.5-4.8) Magnesium Level 2.2 mg/dL (1.7-2.5) Total Bilirubin < 0.2 mg/dL (0.0-1.2) Direct Bilirubin 0.1 mg/dL (0.1-0.3) Aspartate Amino Transf (AST/SGOT) 20 U/L (5-40) Alanine Aminotransferase (ALT/SGPT) 11 U/L (3-33) Alkaline Phosphatase 88 U/L (35-104) Total Protein 6.5 g/dL (6.6-8.7) L Albumin 2.8 g/dL (3.5-5.2) L TB Test (T-Spot) Pending TB Test Nil Control (T-Spot) Pending TB Test Panel A (T-Spot) Pending TB Test Panel B (T-Spot) Pending TB Test Positive Control (T-Spot) Pending Current Medications Medications (Trade) Dose Ordered Sig/Ruben Route PRN Reason Start Time Stop Time Status Last Admin Dose Admin Acetaminophen (Tylenol) 650 mg Q4H PRN ORAL Mild Pain/Temp > 100.5 11/22/16 22:45 12/22/16 22:44 Albuterol/ Ipratropium (DuoNeb 0.5-3(2.5)mg/3ml) 3 ml Q6HR PRN HHN Shortness of Breath 11/30/16 15:00 12/05/16 14:59 11/30/16 20:17 Aspirin (Ecotrin) 325 mg DAILY ORAL 11/23/16 09:00 12/23/16 08:59 12/01/16 09:38 Dextrose (Dextrose 50%) STAT PRN IV Hypoglycemia 11/22/16 22:45 12/22/16 22:44 Docusate Sodium 100 mg 100 mg TWICE A DAY ORAL 11/26/16 18:00 12/26/16 17:59 Doxycycline Hyclate/Dextrose (Vibramycin/D5W) 110 ml @ 110 mls/hr Q12HR@0500,1700 IV 11/27/16 17:00 12/04/16 16:59 12/01/16 04:35 Ondansetron HCl (Zofran) 4 mg Q6H PRN IVP Nausea & Vomiting 11/22/16 22:45 12/22/16 22:44 11/28/16 06:23 Piperacillin Sod/ Tazobactam Sod 2.25 gm/Dextrose 110 ml @ 220 mls/hr Q6HR IVPB 11/26/16 20:00 12/03/16 19:59 12/01/16 12:07 Promethazine HCl/ Codeine (Phenergan with Codeine) 5 ml Q4H PRN ORAL For Cough 11/22/16 23:45 12/22/16 23:44 11/24/16 21:54 Ranitidine HCl (Zantac) 150 mg BEDTIME ORAL 11/29/16 21:00 12/29/16 20:59 Nicolle Schmitz M.D. Dec 01, 2016 15:27
[2016-12-01 16:43] VITALS: BP 120/80
--- NOTE | 2016-12-01 17:10 | General Progress Note ---
Assessment/Plan Assessment/Plan Assessment and Recs: # Loculated pleural effusion - cytology shows lymphocytosis, flow cytometry is negative. Have discussed with Dr. Mayer on 11/30/16 if any lesion in the chest/abd /pelvis is able to be biopsied, none are. May need VATs with Dr. Yeh, agree with washout # Anemia of chronic disease - anemia 2/2 chronic disease, no iron deficiency # Coagulopathy - likely related to poor po intake, better # Right breast - will need mammo while here # LLL pneumonia with possible abscess, on abx as per ID service # Sepsis - on abx as per ID # SOB (shortness of breath) - likely related to pna Subjective Constitutional: Denies: chills, diaphoresis, fever, malaise, no symptoms, other , weakness HEENT: Denies: blurred vision, double vision, ear discharge, ear pain, eye pain , mouth pain, mouth swelling, no symptoms, nose congestion, nose pain, other, tearing, throat pain, throat swelling Cardiovascular: Denies: chest pain, edema, irregular heart rate, lightheadedness, no symptoms, other, palpitations, syncope Respiratory: Denies: SOB at rest, SOB with excertion, cough, no symptoms, orthopnea, other, shortness of breath, sputum, stridor, wheezing Gastrointestinal/Abdominal: Denies: abdomen distended, abdominal pain, black stools, blood in stool, constipated, diarrhea, difficulty swallowing, nausea, no symptoms, other, poor appetite, poor fluid intake, rectal bleeding, tarry stools, vomiting Genitourinary: Denies: burning, discharge, flank pain, frequency, hematuria, incontinence, no symptoms, other, pain, urgency Neurologic/Psychiatric: Denies: anxiety, depressed, emotional problems, headache, no symptoms, numbness, other, paresthesia, pre-existing deficit, seizure, tingling, tremors, weakness Endocrine: Denies: excessive sweating, flushing, increased hunger, increased thirst, increased urine, intolerance to cold, intolerance to heat, no symptoms, other, unexplained weight gain, unexplained weight loss Hematologic/Lymphatic: Denies: anemia, easy bleeding, easy bruising, no symptoms, other Allergies: Coded Allergies: CITRUS AND DERIVATIVES (Unverified Allergy, Unknown, 11/27/16) TOMATO (Verified Allergy, Unknown, 11/27/16) per patient VANCOMYCIN (Verified Adverse Reaction, Unknown, 11/27/16) had severe abdominal pain per patient Uncoded Allergies: CITRUS (Allergy, Severe, 11/21/16) aloc Subjective no chills, no events, no fevers noted, pleural effusion drainage planned Objective Last 24 Hour Vital Signs Date Time Temp Pulse Resp B/P Pulse Ox O2 Delivery O2 Flow Rate FiO2 12/01/16 16:43 98.2 99 16 120/80 Nasal Cannula 12/01/16 11:59 97.9 101 20 137/91 97 Room Air 12/01/16 08:51 97.7 101 20 121/78 100 Room Air 12/01/16 07:58 Nasal Cannula 2.0 12/01/16 07:57 96 Nasal Cannula 2.0 12/01/16 07:56 79 18 Nasal Cannula 2.0 12/01/16 04:00 97.4 70 121/122 96 Nasal Cannula 3.0 12/01/16 00:00 98.8 93 18 126/73 99 Room Air 11/30/16 20:30 95 18 97 Nasal Cannula 2.0 28 11/30/16 20:19 93 18 96 Nasal Cannula 2.0 28 11/30/16 20:00 97.3 96 18 119/77 11/30/16 19:43 Nasal Cannula 2.0 11/30/16 19:42 98 Nasal Cannula 2.0 11/30/16 19:42 86 18 Nasal Cannula 2.0 Intake and Output 11/30/16 12/01/16 19:00 07:00 Intake Total 2330 ml 1350 ml Output Total 600 ml Balance 1730 ml 1350 ml Intake Oral 2000 ml 800 ml IV Total 330 ml 550 ml Output Urine Total 600 ml # Voids 2 7 # Bowel Movements 1 1 Laboratory Tests 12/01/16 06:25: White Blood Count 13.1H, Red Blood Count 3.48L, Hemoglobin 10.0L, Hematocrit 31.2L, Mean Corpuscular Volume 90, Mean Corpuscular Hemoglobin 28.8, Mean Corpuscular Hemoglobin Concent 32.1, Red Cell Distribution Width 13.6, Platelet Count 465H, Mean Platelet Volume 5.6L, Neutrophils (%) (Auto) 81.5H, Lymphocytes (%) (Auto) 9.0L, Monocytes (%) (Auto) 6.5, Eosinophils (%) (Auto) 2.2, Basophils (%) (Auto) 0.8, Sodium Level 137, Potassium Level 4.4, Chloride Level 100, Carbon Dioxide Level 22, Anion Gap 15, Blood Urea Nitrogen 22, Creatinine 3.0H, Estimat Glomerular Filtration Rate 19.4, Glucose Level 106, Hemoglobin A1c 6.5H, Uric Acid 4.7, Calcium Level 8.5L, Phosphorus Level 3.2, Magnesium Level 2.2, Total Bilirubin < 0.2, Direct Bilirubin 0.1, Aspartate Amino Transf (AST/SGOT) 20, Alanine Aminotransferase (ALT/SGPT) 11, Alkaline Phosphatase 88, Total Protein 6.5L, Albumin 2.8L, TB Test (T-Spot) [Pending], TB Test Nil Control (T-Spot) [Pending], TB Test Panel A (T-Spot) [Pending], TB Test Panel B (T-Spot) [Pending], TB Test Positive Control (T-Spot) [Pending] Height (Feet): 5 Height (Inches): 9.00 Weight (Pounds): 132 General Appearance: no apparent distress EENT: TMs normal Neck: supple Cardiovascular: regular rhythm Respiratory/Chest: normal breath sounds Abdomen: non tender Extremities: non-tender Edema: 1+ Leg (L), 1+ Leg (R) Edema: mild edema Skin: warm/dry Matheus Lombardi Dec 01, 2016 17:10
[2016-12-01 20:00] VITALS: BP 123/87
--- NOTE | 2016-12-01 23:15 | Cardiology Progress Note ---
Assessment/Plan Assessment/Plan 1. Sinus tachycardia, likely due to sepsis, LLL pneumonia and left pleural effusion, 2D echo reveals normal LV systolic function, no evidence of CHF. 2. Dyspnea due to left lower lobe PNA/recurrent left pleural effusion, s/p left thoracentesis x 2. 3. Small pericardial effusion, ? reactive due to PNA 4. Moderate to severe pulmonary HTN Subjective Subjective Denies chest pain, mild SOB. Objective Last 24 Hour Vital Signs Date Time Temp Pulse Resp B/P Pulse Ox O2 Delivery O2 Flow Rate FiO2 12/01/16 20:00 98.2 100 18 123/87 97 Room Air 12/01/16 19:39 Nasal Cannula 2.0 12/01/16 19:39 97 Nasal Cannula 2.0 28 12/01/16 19:39 81 18 Nasal Cannula 2.0 12/01/16 16:43 98.2 99 16 120/80 Nasal Cannula 12/01/16 11:59 97.9 101 20 137/91 97 Room Air 12/01/16 08:51 97.7 101 20 121/78 100 Room Air 12/01/16 07:58 Nasal Cannula 2.0 12/01/16 07:57 96 Nasal Cannula 2.0 12/01/16 07:56 79 18 Nasal Cannula 2.0 12/01/16 04:00 97.4 70 121/122 96 Nasal Cannula 3.0 12/01/16 00:00 98.8 93 18 126/73 99 Room Air Intake and Output 11/30/16 12/01/16 19:00 07:00 Intake Total 2330 ml 1350 ml Output Total 600 ml Balance 1730 ml 1350 ml Intake Oral 2000 ml 800 ml IV Total 330 ml 550 ml Output Urine Total 600 ml # Voids 2 7 # Bowel Movements 1 1 2D Echo: EF 55%, Small pericardial Eff, Large pleural Eff, Grade I LVDD,RVSP 56 mmHg Laboratory Tests Test 12/01/16 06:25 White Blood Count 13.1 K/UL (4.8-10.8) H Red Blood Count 3.48 M/UL (4.20-5.40) L Hemoglobin 10.0 G/DL (12.0-16.0) L Hematocrit 31.2 % (37.0-47.0) L Mean Corpuscular Volume 90 FL (80-99) Mean Corpuscular Hemoglobin 28.8 PG (27.0-31.0) Mean Corpuscular Hemoglobin Concent 32.1 G/DL (32.0-36.0) Red Cell Distribution Width 13.6 % (11.6-14.8) Platelet Count 465 K/UL (150-450) H Mean Platelet Volume 5.6 FL (6.5-10.1) L Neutrophils (%) (Auto) 81.5 % (45.0-75.0) H Lymphocytes (%) (Auto) 9.0 % (20.0-45.0) L Monocytes (%) (Auto) 6.5 % (1.0-10.0) Eosinophils (%) (Auto) 2.2 % (0.0-3.0) Basophils (%) (Auto) 0.8 % (0.0-2.0) Sodium Level 137 mEQ/L (135-145) Potassium Level 4.4 mEQ/L (3.4-4.9) Chloride Level 100 mEQ/L (98-107) Carbon Dioxide Level 22 mEQ/L (20-30) Anion Gap 15 (5-15) Blood Urea Nitrogen 22 mg/dL (7-23) Creatinine 3.0 mg/dL (0.5-0.9) H Estimat Glomerular Filtration Rate 19.4 mL/min (>60) Glucose Level 106 mg/dL (74-106) Hemoglobin A1c 6.5 % (< 6.0) H Uric Acid 4.7 mg/dL (3.0-7.5) Calcium Level 8.5 mg/dL (8.6-10.2) L Phosphorus Level 3.2 mg/dL (2.5-4.8) Magnesium Level 2.2 mg/dL (1.7-2.5) Total Bilirubin < 0.2 mg/dL (0.0-1.2) Direct Bilirubin 0.1 mg/dL (0.1-0.3) Aspartate Amino Transf (AST/SGOT) 20 U/L (5-40) Alanine Aminotransferase (ALT/SGPT) 11 U/L (3-33) Alkaline Phosphatase 88 U/L (35-104) Total Protein 6.5 g/dL (6.6-8.7) L Albumin 2.8 g/dL (3.5-5.2) L TB Test (T-Spot) Pending TB Test Nil Control (T-Spot) Pending TB Test Panel A (T-Spot) Pending TB Test Panel B (T-Spot) Pending TB Test Positive Control (T-Spot) Pending Objective HEENT: Atraumatic and normocephalic. Anicteric. Pupils are equal, round, and reactive to light and accommodation. Extraocular muscles intact. NECK: JVP is less than 5 cm. No carotid bruit. Carotid upstrokes 2+ bilaterally. CVS: Normal S1 and S2. No murmurs, gallops, or rubs. No pulsus paradoxus. LUNGS: Diminished breath sounds at the left base. ABDOMEN: Soft, nontender, and nondistended. No hepatosplenomegaly. Positive bowel sounds. EXTREMITIES: No evidence of edema, clubbing, or cyanosis. ALVINO RIVERO Dec 01, 2016 23:15
[2016-12-02] VITALS: BP 115/81
[2016-12-02] MEDS: Piperacillin/Tazobactam 2.25 GM in D5W 110 ML IVPB SCH ×4 (00:44→19:38)
[2016-12-02 04:00] VITALS: BP 128/81
[2016-12-02] MEDS: Doxycycline Hyclate 100 MG in D5W 110 ML IV SCH ×2 (05:44→17:35)
[2016-12-02 06:21] LABS: BASOPHILS % (AUTO) 1.5 % (0.0-2.0); EOSINOPHILS % (AUTO) 2.1 % (0.0-3.0); MEAN CORPUSCULAR HEMOGLOBIN 28.6 PG (27.0-31.0); MEAN CORPUSCULAR HGB CONC 31.9 G/DL (32.0-36.0); MEAN CORPUSCULAR VOLUME 90 FL (80-99); MONOCYTES % (AUTO) 6.5 % (1.0-10.0); NEUTROPHILS % (AUTO) 80.9 % (45.0-75.0); PLATELET COUNT 453 K/UL (150-450); RED BLOOD COUNT 3.34 M/UL (4.20-5.40); RED CELL DISTRIBUTION WIDTH 13.6 % (11.6-14.8); WHITE BLOOD COUNT 11.2 K/UL (4.8-10.8)
[2016-12-02 06:41] LABS: BD FL SOURCE THORACENTESIS; BD FL VOLUME 4 mL; LDH, BODY FLUID 482 U/L
[2016-12-02 06:42] LABS: CALCIUM 8.6 mg/dL (8.6-10.2); CREATININE 2.8 mg/dL (0.5-0.9); GLOMERULAR FILTRATION RATE 21.1 mL/min (>60); POTASSIUM 4.4 mEQ/L (3.4-4.9)
[2016-12-02 06:47] LABS: ALANINE AMINOTRANSFERASE 10 U/L (3-33); ASPARTATE AMINO TRANSFERASE 16 U/L (5-40); BILIRUBIN,DIRECT 0.1 mg/dL (0.1-0.3); HEMOLYSIS 14; PHOSPHORUS 3.5 mg/dL (2.5-4.8); TOTAL PROTEIN 6.2 g/dL (6.6-8.7); URIC ACID 4.9 mg/dL (3.0-7.5)
[2016-12-02 07:05] LABS: MAGNESIUM 1.8 mg/dL (1.7-2.5)
[2016-12-02 08:13] VITALS: BP 124/84
[2016-12-02] MEDS: Aspirin EC 325mg tab ORAL SCH (08:16)
[2016-12-02] MEDS: Docusate 100mg cap ORAL SCH ×2 (08:17→17:36)
--- NOTE | 2016-12-02 10:36 | General Progress Note ---
Assessment/Plan Status: stable Status Narrative Cr down to 2.8 Assessment/Plan Status: Acute Renal Failure- Cr appears to be levelling Iron Defficiency Anemia- HypoAlbuminemia , Etiology ??? Penumonia / left Pleural effusion ? abcess Adrenal Adenoma high A1c ? DM Plan: DC spears- 24 h urine for protein 500 mg Urine Eosinophils and Spot Na DC Vanco- monitor Vanco level Monitor dose- adjust Zosyn dose IV Iron change diet to renal , medium CHO per orders Subjective ROS Limited/Unobtainable: No Constitutional: Reports: malaise Allergies: Coded Allergies: CITRUS AND DERIVATIVES (Unverified Allergy, Unknown, 11/27/16) TOMATO (Verified Allergy, Unknown, 11/27/16) per patient VANCOMYCIN (Verified Adverse Reaction, Unknown, 11/27/16) had severe abdominal pain per patient Uncoded Allergies: CITRUS (Allergy, Severe, 11/21/16) aloc Objective Last 24 Hour Vital Signs Date Time Temp Pulse Resp B/P Pulse Ox O2 Delivery O2 Flow Rate FiO2 12/02/16 08:13 97.9 85 21 124/84 100 Nasal Cannula 2.0 12/02/16 07:00 100 Nasal Cannula 2.0 28 12/02/16 07:00 86 20 Nasal Cannula 2.0 12/02/16 07:00 Nasal Cannula 2.0 12/02/16 04:00 99.0 96 18 128/81 95 Room Air 12/02/16 00:00 97.7 96 18 115/81 100 Room Air 12/01/16 20:00 98.2 100 18 123/87 97 Room Air 12/01/16 19:39 Nasal Cannula 2.0 12/01/16 19:39 97 Nasal Cannula 2.0 28 12/01/16 19:39 81 18 Nasal Cannula 2.0 12/01/16 16:43 98.2 99 16 120/80 Nasal Cannula 12/01/16 11:59 97.9 101 20 137/91 97 Room Air Intake and Output 12/01/16 12/02/16 19:00 07:00 Intake Total 1200 ml 930 ml Balance 1200 ml 930 ml Intake Oral 1200 ml 600 ml IV Total 330 ml # Voids 4 3 # Bowel Movements 1 Laboratory Tests 12/02/16 05:30: White Blood Count 11.2H, Red Blood Count 3.34L, Hemoglobin 9.5L, Hematocrit 30.0L, Mean Corpuscular Volume 90, Mean Corpuscular Hemoglobin 28.6, Mean Corpuscular Hemoglobin Concent 31.9L, Red Cell Distribution Width 13.6, Platelet Count 453H, Mean Platelet Volume 6.0L, Neutrophils (%) (Auto) 80.9H, Lymphocytes (%) (Auto) 9.0L, Monocytes (%) (Auto) 6.5, Eosinophils (%) (Auto) 2.1, Basophils (%) (Auto) 1.5, Sodium Level 140, Potassium Level 4.4, Chloride Level 103, Carbon Dioxide Level 23, Anion Gap 14, Blood Urea Nitrogen 19, Creatinine 2.8H, Estimat Glomerular Filtration Rate 21.1, Glucose Level 86, Uric Acid 4.9, Calcium Level 8.6, Phosphorus Level 3.5, Magnesium Level 1.8, Total Bilirubin < 0.2, Direct Bilirubin 0.1, Aspartate Amino Transf (AST/SGOT) 16, Alanine Aminotransferase (ALT/SGPT) 10, Alkaline Phosphatase 85, Total Protein 6.2L, Albumin 2.6L Height (Feet): 5 Height (Inches): 9.00 Weight (Pounds): 132 General Appearance: no apparent distress Objective no other change JOAQUÍN WORRELL Dec 02, 2016 10:36
--- NOTE | 2016-12-02 10:37 | General Progress Note ---
Assessment/Plan Problem List: (1) Upper respiratory infection ICD Codes: J06.9 - Acute upper respiratory infection, unspecified SNOMED: 10630687 (2) LLL pneumonia ICD Codes: J18.1 - Lobar pneumonia, unspecified organism SNOMED: 640792553 (3) SOB (shortness of breath) ICD Codes: R06.02 - Shortness of breath SNOMED: 784683711 (4) Sepsis ICD Codes: A41.9 - Sepsis, unspecified organism SNOMED: 07559239 (5) Dyspnea ICD Codes: R06.00 - Dyspnea, unspecified SNOMED: 245970552 Qualifiers: Qualified Codes: R06.09 - Other forms of dyspnea (6) Tachycardia ICD Codes: R00.0 - Tachycardia, unspecified SNOMED: 8485694 (7) Pleural effusion, left ICD Codes: J90 - Pleural effusion, not elsewhere classified SNOMED: 13068815 (8) Abnormal blood pressure SNOMED: 78387655 (9) Adrenal adenoma ICD Codes: D35.00 - Benign neoplasm of unspecified adrenal gland SNOMED: 888804402 (10) ESTHER (acute kidney injury) ICD Codes: N17.9 - Acute kidney failure, unspecified SNOMED: 52469898 (11) Diarrhea ICD Codes: R19.7 - Diarrhea, unspecified SNOMED: 98775367 (12) Iron deficiency ICD Codes: E61.1 - Iron deficiency SNOMED: 21561933 (13) Anemia ICD Codes: D64.9 - Anemia, unspecified SNOMED: 110557923 (14) Vomiting ICD Codes: R11.10 - Vomiting, unspecified SNOMED: 548948829 (15) Severe malnutrition ICD Codes: E43 - Unspecified severe protein-calorie malnutrition SNOMED: 81158814 Status: stable, progressing, tolerating diet Assessment/Plan o2 pulm tx abx ot pt diet cbc bmp am Subjective Constitutional: Reports: weakness Allergies: Coded Allergies: CITRUS AND DERIVATIVES (Unverified Allergy, Unknown, 11/27/16) TOMATO (Verified Allergy, Unknown, 11/27/16) per patient VANCOMYCIN (Verified Adverse Reaction, Unknown, 11/27/16) had severe abdominal pain per patient Uncoded Allergies: CITRUS (Allergy, Severe, 11/21/16) aloc All Systems: reviewed and negative except above Subjective calm in bed Objective Last 24 Hour Vital Signs Date Time Temp Pulse Resp B/P Pulse Ox O2 Delivery O2 Flow Rate FiO2 12/02/16 08:13 97.9 85 21 124/84 100 Nasal Cannula 2.0 12/02/16 07:00 100 Nasal Cannula 2.0 28 12/02/16 07:00 86 20 Nasal Cannula 2.0 12/02/16 07:00 Nasal Cannula 2.0 12/02/16 04:00 99.0 96 18 128/81 95 Room Air 12/02/16 00:00 97.7 96 18 115/81 100 Room Air 12/01/16 20:00 98.2 100 18 123/87 97 Room Air 12/01/16 19:39 Nasal Cannula 2.0 12/01/16 19:39 97 Nasal Cannula 2.0 28 12/01/16 19:39 81 18 Nasal Cannula 2.0 12/01/16 16:43 98.2 99 16 120/80 Nasal Cannula 12/01/16 11:59 97.9 101 20 137/91 97 Room Air Intake and Output 12/01/16 12/02/16 19:00 07:00 Intake Total 1200 ml 930 ml Balance 1200 ml 930 ml Intake Oral 1200 ml 600 ml IV Total 330 ml # Voids 4 3 # Bowel Movements 1 Laboratory Tests 12/02/16 05:30: White Blood Count 11.2H, Red Blood Count 3.34L, Hemoglobin 9.5L, Hematocrit 30.0L, Mean Corpuscular Volume 90, Mean Corpuscular Hemoglobin 28.6, Mean Corpuscular Hemoglobin Concent 31.9L, Red Cell Distribution Width 13.6, Platelet Count 453H, Mean Platelet Volume 6.0L, Neutrophils (%) (Auto) 80.9H, Lymphocytes (%) (Auto) 9.0L, Monocytes (%) (Auto) 6.5, Eosinophils (%) (Auto) 2.1, Basophils (%) (Auto) 1.5, Sodium Level 140, Potassium Level 4.4, Chloride Level 103, Carbon Dioxide Level 23, Anion Gap 14, Blood Urea Nitrogen 19, Creatinine 2.8H, Estimat Glomerular Filtration Rate 21.1, Glucose Level 86, Uric Acid 4.9, Calcium Level 8.6, Phosphorus Level 3.5, Magnesium Level 1.8, Total Bilirubin < 0.2, Direct Bilirubin 0.1, Aspartate Amino Transf (AST/SGOT) 16, Alanine Aminotransferase (ALT/SGPT) 10, Alkaline Phosphatase 85, Total Protein 6.2L, Albumin 2.6L Height (Feet): 5 Height (Inches): 9.00 Weight (Pounds): 132 General Appearance: lethargic EENT: normal ENT inspection Neck: normal alignment Cardiovascular: normal peripheral pulses, normal rate, regular rhythm Respiratory/Chest: chest wall non-tender, lungs clear, normal breath sounds Abdomen: normal bowel sounds, non tender, soft Extremities: normal inspection Edema: no edema noted Arm (L), no edema noted Arm (R), no edema noted Leg (L), no edema noted Leg (R), no edema noted Pedal (L), no edema noted Pedal (R), no edema noted Generalized Neurologic: motor weakness Skin: normal pigmentation, warm/dry ARAMIS LAMBERT Dec 02, 2016 10:37
--- NOTE | 2016-12-02 10:42 | General Progress Note ---
Assessment/Plan Problem List: (1) Vomiting ICD Codes: R11.10 - Vomiting, unspecified SNOMED: 451967513 (2) Anemia ICD Codes: D64.9 - Anemia, unspecified SNOMED: 717496204 (3) Iron deficiency ICD Codes: E61.1 - Iron deficiency SNOMED: 50513582 (4) Diarrhea ICD Codes: R19.7 - Diarrhea, unspecified SNOMED: 19667531 (5) Adrenal adenoma ICD Codes: D35.00 - Benign neoplasm of unspecified adrenal gland SNOMED: 319581220 (6) Pleural effusion, left ICD Codes: J90 - Pleural effusion, not elsewhere classified SNOMED: 40001879 Assessment/Plan no recurrent vomiting iron prn thoracentesis GI procedures on hold Subjective ROS Limited/Unobtainable: Yes Allergies: Coded Allergies: CITRUS AND DERIVATIVES (Unverified Allergy, Unknown, 11/27/16) TOMATO (Verified Allergy, Unknown, 11/27/16) per patient VANCOMYCIN (Verified Adverse Reaction, Unknown, 11/27/16) had severe abdominal pain per patient Uncoded Allergies: CITRUS (Allergy, Severe, 11/21/16) aloc Subjective no event Objective Last 24 Hour Vital Signs Date Time Temp Pulse Resp B/P Pulse Ox O2 Delivery O2 Flow Rate FiO2 12/02/16 08:13 97.9 85 21 124/84 100 Nasal Cannula 2.0 12/02/16 07:00 100 Nasal Cannula 2.0 28 12/02/16 07:00 86 20 Nasal Cannula 2.0 12/02/16 07:00 Nasal Cannula 2.0 12/02/16 04:00 99.0 96 18 128/81 95 Room Air 12/02/16 00:00 97.7 96 18 115/81 100 Room Air 12/01/16 20:00 98.2 100 18 123/87 97 Room Air 12/01/16 19:39 Nasal Cannula 2.0 12/01/16 19:39 97 Nasal Cannula 2.0 28 12/01/16 19:39 81 18 Nasal Cannula 2.0 12/01/16 16:43 98.2 99 16 120/80 Nasal Cannula 12/01/16 11:59 97.9 101 20 137/91 97 Room Air Intake and Output 12/01/16 12/02/16 19:00 07:00 Intake Total 1200 ml 930 ml Balance 1200 ml 930 ml Intake Oral 1200 ml 600 ml IV Total 330 ml # Voids 4 3 # Bowel Movements 1 Laboratory Tests 12/02/16 05:30: White Blood Count 11.2H, Red Blood Count 3.34L, Hemoglobin 9.5L, Hematocrit 30.0L, Mean Corpuscular Volume 90, Mean Corpuscular Hemoglobin 28.6, Mean Corpuscular Hemoglobin Concent 31.9L, Red Cell Distribution Width 13.6, Platelet Count 453H, Mean Platelet Volume 6.0L, Neutrophils (%) (Auto) 80.9H, Lymphocytes (%) (Auto) 9.0L, Monocytes (%) (Auto) 6.5, Eosinophils (%) (Auto) 2.1, Basophils (%) (Auto) 1.5, Sodium Level 140, Potassium Level 4.4, Chloride Level 103, Carbon Dioxide Level 23, Anion Gap 14, Blood Urea Nitrogen 19, Creatinine 2.8H, Estimat Glomerular Filtration Rate 21.1, Glucose Level 86, Uric Acid 4.9, Calcium Level 8.6, Phosphorus Level 3.5, Magnesium Level 1.8, Total Bilirubin < 0.2, Direct Bilirubin 0.1, Aspartate Amino Transf (AST/SGOT) 16, Alanine Aminotransferase (ALT/SGPT) 10, Alkaline Phosphatase 85, Total Protein 6.2L, Albumin 2.6L Height (Feet): 5 Height (Inches): 9.00 Weight (Pounds): 132 General Appearance: no apparent distress EENT: normal ENT inspection Neck: supple Cardiovascular: normal rate Respiratory/Chest: decreased breath sounds Abdomen: normal bowel sounds, non tender, soft Extremities: non-tender RIGOBERTO SANCHEZ Dec 02, 2016 10:42
[2016-12-02] MEDS ORDERED: NS 550ML IV ONE (10:43)
[2016-12-02] MEDS ORDERED: NS 275ml ONE (10:43)
[2016-12-02] MEDS ORDERED: Tubing IV Secondary IV ONE (10:43)
[2016-12-02 12:23] VITALS: BP 129/87
--- NOTE | 2016-12-02 14:13 | Pulmonology Progress Note ---
Assessment/Plan Assessment/Plan ASSESSMENT sepsis multiloculated LLL pleural effusion s/p thoracentesis x 2 ( 11/23 and 11/29) possible lung abscess ST small pericardial effusion moderate to severe pulmonary HTN acute renal failure anemia of chronic disease adrenal mass possible DM R breast cystic mass PLAN OF CARE MS floor airborne isolation abx ID follows blood cx negative, pleural fluid cx negative, sputum cx + Caridad, stool C dif negative HIV test negative, serology for TB and cocci still pending , otherwise negative O2 HHN prn antitussive prn initial CXR with LLL PNA and moderate to large L pleural effusion CTA thorax no PE, dissection, aneurysm, + moderate L pleural effusion, left hilar and mediastinal lymphadenopathy-inflammatory vs neoplastic, LLL atelectasis suggestive of underlying lung abscess vs tumor s/p thoracentesis 11/23-110-cc total from multiloculated pleural effusion ( 50cc and 60cc from [address] places) fup CXR no change, persistent L multiloculated pleural effusion s/p another thoracentesis 11/29- only [address] surgeon seen and evaluated the patient on 11/30 per surgery the patient is a candidate for left video-assisted thoracoscopic surgery with drainage of loculated pleural effusion/washout surgery was discussed with patient by surgeon, including purpose, need, risks and benefits, patient desires to proceed with surgery will need ID and cardio clearance prior to surgery Venous Duplex BLE negative cardio follows ECHO with preserved EF and evidence of moderate to severe pulmonary HTN as well as large left pleural effusion and small pericardial effusion no evidence of CHF as per cardio per cardio ST likely due to sepsis and dyspnea due to PNA and pleural effusion, small pericardial effusion ?reactive [address] A/P noted MRI with R adrenal adenoma, benign, no further workup indicated endo seen and evaluated for adrenal adenoma and suggested even if adenoma not functional, consider renal adrenalectomy 2 to large size nephro follows, renal parameters slightly better, creat down to 2.8 24 hr urine with 500 mg protein further management as per nephro R breast with evidence of cystic mass on CT thorax- need mammogram vs US, per heme/onco discretion, unlikely will be able to have mammo here but may try US anemia of chronic disease as per heme, no iron deficiency anemia flow cytometry negative pleural fluid with lymphocytosis, pathology negative for malignant cells GI follows defer any GI procedures for now H2 morgan stool OB negative , CEA WNL symptomatic Rx bowel regimen pain management elevated HgA1c, BS stable, will repeat HgA1c, if indeed diagnostic of DM , will need to start treatment Subjective Allergies: Coded Allergies: CITRUS AND DERIVATIVES (Unverified Allergy, Unknown, 11/27/16) TOMATO (Verified Allergy, Unknown, 11/27/16) per patient VANCOMYCIN (Verified Adverse Reaction, Unknown, 11/27/16) had severe abdominal pain per patient Uncoded Allergies: CITRUS (Allergy, Severe, 11/21/16) aloc Subjective still with leukocytosis, but trending down, afebrile on RA sat stable, intermittent SOB, no chest pain, + cough, occasionally productive, no hemoptysis Objective Last 24 Hour Vital Signs Date Time Temp Pulse Resp B/P Pulse Ox O2 Delivery O2 Flow Rate FiO2 12/02/16 12:23 97.6 90 20 129/87 100 Room Air 12/02/16 08:13 97.9 85 21 124/84 100 Nasal Cannula 2.0 12/02/16 07:00 100 Nasal Cannula 2.0 28 12/02/16 07:00 86 20 Nasal Cannula 2.0 12/02/16 07:00 Nasal Cannula 2.0 12/02/16 04:00 99.0 96 18 128/81 95 Room Air 12/02/16 00:00 97.7 96 18 115/81 100 Room Air 12/01/16 20:00 98.2 100 18 123/87 97 Room Air 12/01/16 19:39 Nasal Cannula 2.0 12/01/16 19:39 97 Nasal Cannula 2.0 28 12/01/16 19:39 81 18 Nasal Cannula 2.0 12/01/16 16:43 98.2 99 16 120/80 Nasal Cannula Intake and Output 12/01/16 12/02/16 19:00 07:00 Intake Total 1200 ml 930 ml Balance 1200 ml 930 ml Intake Oral 1200 ml 600 ml IV Total 330 ml # Voids 4 3 # Bowel Movements 1 Objective General Appearance: no acute distress HEENT: normocephalic, atraumatic, anicteric, mucous membranes moist Respiratory/Chest: no respiratory distress, no accessory muscle use, decreased breath sounds - on the left Cardiovascular: normal rate, regular rhythm Abdomen: soft, non tender, non distended Genitourinary: normal external genitalia Extremities: no edema Neurologic/Psychiatric: no motor/sensory deficits, alert, responsive Musculoskeletal: normal muscle bulk Laboratory Tests 12/02/16 05:30: White Blood Count 11.2H, Red Blood Count 3.34L, Hemoglobin 9.5L, Hematocrit 30.0L, Mean Corpuscular Volume 90, Mean Corpuscular Hemoglobin 28.6, Mean Corpuscular Hemoglobin Concent 31.9L, Red Cell Distribution Width 13.6, Platelet Count 453H, Mean Platelet Volume 6.0L, Neutrophils (%) (Auto) 80.9H, Lymphocytes (%) (Auto) 9.0L, Monocytes (%) (Auto) 6.5, Eosinophils (%) (Auto) 2.1, Basophils (%) (Auto) 1.5, Sodium Level 140, Potassium Level 4.4, Chloride Level 103, Carbon Dioxide Level 23, Anion Gap 14, Blood Urea Nitrogen 19, Creatinine 2.8H, Estimat Glomerular Filtration Rate 21.1, Glucose Level 86, Uric Acid 4.9, Calcium Level 8.6, Phosphorus Level 3.5, Magnesium Level 1.8, Total Bilirubin < 0.2, Direct Bilirubin 0.1, Aspartate Amino Transf (AST/SGOT) 16, Alanine Aminotransferase (ALT/SGPT) 10, Alkaline Phosphatase 85, Total Protein 6.2L, Albumin 2.6L Current Medications Medications (Trade) Dose Ordered Sig/Ruben Route PRN Reason Start Time Stop Time Status Last Admin Dose Admin Acetaminophen (Tylenol) 650 mg Q4H PRN ORAL Mild Pain/Temp > 100.5 11/22/16 22:45 12/22/16 22:44 Albuterol/ Ipratropium (DuoNeb 0.5-3(2.5)mg/3ml) 3 ml Q6HR PRN HHN Shortness of Breath 11/30/16 15:00 12/05/16 14:59 11/30/16 20:17 Aspirin (Ecotrin) 325 mg DAILY ORAL 11/23/16 09:00 12/23/16 08:59 12/02/16 08:16 Dextrose (Dextrose 50%) STAT PRN IV Hypoglycemia 11/22/16 22:45 12/22/16 22:44 Docusate Sodium 100 mg 100 mg TWICE A DAY ORAL 11/26/16 18:00 12/26/16 17:59 Doxycycline Hyclate/Dextrose (Vibramycin/D5W) 110 ml @ 110 mls/hr Q12HR@0500,1700 IV 11/27/16 17:00 12/04/16 16:59 12/02/16 05:44 Ondansetron HCl (Zofran) 4 mg Q6H PRN IVP Nausea & Vomiting 11/22/16 22:45 12/22/16 22:44 11/28/16 06:23 Piperacillin Sod/ Tazobactam Sod 2.25 gm/Dextrose 110 ml @ 220 mls/hr Q6HR IVPB 11/26/16 20:00 12/03/16 19:59 12/02/16 13:11 Promethazine HCl/ Codeine (Phenergan with Codeine) 5 ml Q4H PRN ORAL For Cough 11/22/16 23:45 12/22/16 23:44 11/24/16 21:54 Ranitidine HCl (Zantac) 150 mg BEDTIME ORAL 11/29/16 21:00 12/29/16 20:59 Elier AlmanzarShahnaz acevedo NP Dec 02, 2016 14:13
--- NOTE | 2016-12-02 14:30 | General Progress Note ---
Assessment/Plan Assessment/Plan Assessment/Plan Assessment/Plan Assessment and Recs: # Loculated pleural effusion - cytology shows lymphocytosis, flow cytometry is negative. Have discussed with Dr. Mayer on 11/30/16 if any lesion in the chest/abd /pelvis is able to be biopsied, none are. May need VATs with Dr. Yeh, agree with washout # Anemia of chronic disease - anemia 2/2 chronic disease, no iron deficiency # Coagulopathy - likely related to poor po intake, better # Right breast - will need mammo while here # LLL pneumonia with possible abscess, on abx as per ID service # Sepsis - on abx as per ID # SOB (shortness of breath) - likely related to pna # Failure to thrive. Fanny Lombardi M.D. Subjective Constitutional: Reports: no symptoms HEENT: Reports: no symptoms Cardiovascular: Reports: no symptoms Respiratory: Reports: no symptoms Gastrointestinal/Abdominal: Reports: no symptoms Genitourinary: Reports: no symptoms Neurologic/Psychiatric: Reports: no symptoms Endocrine: Reports: no symptoms Hematologic/Lymphatic: Reports: no symptoms Allergies: Coded Allergies: CITRUS AND DERIVATIVES (Unverified Allergy, Unknown, 11/27/16) TOMATO (Verified Allergy, Unknown, 11/27/16) per patient VANCOMYCIN (Verified Adverse Reaction, Unknown, 11/27/16) had severe abdominal pain per patient Uncoded Allergies: CITRUS (Allergy, Severe, 11/21/16) aloc Objective Last 24 Hour Vital Signs Date Time Temp Pulse Resp B/P Pulse Ox O2 Delivery O2 Flow Rate FiO2 12/02/16 12:23 97.6 90 20 129/87 100 Room Air 12/02/16 08:13 97.9 85 21 124/84 100 Nasal Cannula 2.0 12/02/16 07:00 100 Nasal Cannula 2.0 28 12/02/16 07:00 86 20 Nasal Cannula 2.0 12/02/16 07:00 Nasal Cannula 2.0 12/02/16 04:00 99.0 96 18 128/81 95 Room Air 12/02/16 00:00 97.7 96 18 115/81 100 Room Air 12/01/16 20:00 98.2 100 18 123/87 97 Room Air 12/01/16 19:39 Nasal Cannula 2.0 12/01/16 19:39 97 Nasal Cannula 2.0 28 12/01/16 19:39 81 18 Nasal Cannula 2.0 12/01/16 16:43 98.2 99 16 120/80 Nasal Cannula Intake and Output 12/01/16 12/02/16 19:00 07:00 Intake Total 1200 ml 930 ml Balance 1200 ml 930 ml Intake Oral 1200 ml 600 ml IV Total 330 ml # Voids 4 3 # Bowel Movements 1 Laboratory Tests 12/02/16 05:30: White Blood Count 11.2H, Red Blood Count 3.34L, Hemoglobin 9.5L, Hematocrit 30.0L, Mean Corpuscular Volume 90, Mean Corpuscular Hemoglobin 28.6, Mean Corpuscular Hemoglobin Concent 31.9L, Red Cell Distribution Width 13.6, Platelet Count 453H, Mean Platelet Volume 6.0L, Neutrophils (%) (Auto) 80.9H, Lymphocytes (%) (Auto) 9.0L, Monocytes (%) (Auto) 6.5, Eosinophils (%) (Auto) 2.1, Basophils (%) (Auto) 1.5, Sodium Level 140, Potassium Level 4.4, Chloride Level 103, Carbon Dioxide Level 23, Anion Gap 14, Blood Urea Nitrogen 19, Creatinine 2.8H, Estimat Glomerular Filtration Rate 21.1, Glucose Level 86, Uric Acid 4.9, Calcium Level 8.6, Phosphorus Level 3.5, Magnesium Level 1.8, Total Bilirubin < 0.2, Direct Bilirubin 0.1, Aspartate Amino Transf (AST/SGOT) 16, Alanine Aminotransferase (ALT/SGPT) 10, Alkaline Phosphatase 85, Total Protein 6.2L, Albumin 2.6L Height (Feet): 5 Height (Inches): 9.00 Weight (Pounds): 132 General Appearance: no apparent distress EENT: TMs normal Neck: supple Cardiovascular: normal rate Respiratory/Chest: lungs clear Abdomen: soft Pelvis: no masses Extremities: non-tender Edema: no edema noted Arm (L), no edema noted Arm (R), no edema noted Leg (L), no edema noted Leg (R), no edema noted Pedal (L), no edema noted Pedal (R), no edema noted Generalized Edema: mild edema Neurologic: alert Skin: warm/dry Lymphatic: normal anterior cervical (L), normal anterior cervical (R), normal axillary (L), normal axillary (R), normal inguinal (L), normal inguinal (R), normal other, normal posterior cervical (L), normal posterior cervical (R), normal submandibular (L), normal submandibular (R), normal supraclavicular (L), normal supraclavicular (R) FANNY LOMBARDI Dec 02, 2016 14:30
--- NOTE | 2016-12-02 14:38 | Infectious Diseases Prog Note ---
Assessment/Plan Problems: (1) LLL pneumonia Assessment & Plan: most likely abscess with loculated effusion , on doxycycline, and zosyn . fungal serology is negative . T spot test is pending to rule out TB . will need decortication once TB is ruled out. (2) Pleural effusion, left Assessment & Plan: loculated , S/P repeated thoracentesis , fluids culture is negative so far , fungal and AFB are pending , cytology showed lymphocytosis which is suggestive of either malignancy VS TB. repeated thoracentesis fluids culture is pending, may need CT surgery for decortication if TB work up is negative (3) Adrenal adenoma Assessment & Plan: confirmed on MRI, recommend endocrinology eval and management (4) ESTHER (acute kidney injury) Assessment & Plan: multifactorial, improving, continue IVF for hydration, monitor renal function test. renal is following (5) Diarrhea Assessment & Plan: resolved, with negative C diff Subjective Constitutional: Reports: no symptoms HEENT: Reports: no symptoms Respiratory: Reports: no symptoms Breasts: Reports: no symptoms Cardiovascular: Reports: no symptoms Gastrointestinal/Abdominal: Reports: no symptoms Genitourinary: Reports: no symptoms Neurologic: Reports: no symptoms Psychiatric: Reports: no symptoms Skin: Reports: no symptoms Endocrine: Reports: no symptoms Allergies: Coded Allergies: CITRUS AND DERIVATIVES (Unverified Allergy, Unknown, 11/27/16) TOMATO (Verified Allergy, Unknown, 11/27/16) per patient VANCOMYCIN (Verified Adverse Reaction, Unknown, 11/27/16) had severe abdominal pain per patient Uncoded Allergies: CITRUS (Allergy, Severe, 11/21/16) aloc Subjective she feels a little better , no diarrhea, less cough and phlegm, no fever or chills. Objective Vital Signs Last 24 Hour Vital Signs Date Time Temp Pulse Resp B/P Pulse Ox O2 Delivery O2 Flow Rate FiO2 12/02/16 12:23 97.6 90 20 129/87 100 Room Air 12/02/16 08:13 97.9 85 21 124/84 100 Nasal Cannula 2.0 12/02/16 07:00 100 Nasal Cannula 2.0 28 12/02/16 07:00 86 20 Nasal Cannula 2.0 12/02/16 07:00 Nasal Cannula 2.0 12/02/16 04:00 99.0 96 18 128/81 95 Room Air 12/02/16 00:00 97.7 96 18 115/81 100 Room Air 12/01/16 20:00 98.2 100 18 123/87 97 Room Air 12/01/16 19:39 Nasal Cannula 2.0 12/01/16 19:39 97 Nasal Cannula 2.0 28 12/01/16 19:39 81 18 Nasal Cannula 2.0 12/01/16 16:43 98.2 99 16 120/80 Nasal Cannula Height (Feet): 5 Height (Inches): 9.00 Weight (Pounds): 132 General Appearance: WD/WN, no acute distress HEENT: normocephalic, atraumatic, anicteric, mucous membranes moist Respiratory/Chest: chest wall non-tender, normal breath sounds, no respiratory distress, no accessory muscle use, decreased breath sounds, crackles/rales Cardiovascular: normal peripheral pulses, normal rate, regular rhythm Abdomen: normal bowel sounds, soft, non tender, no organomegaly, non distended , no mass Extremities: no cyanosis, no clubbing Skin: no rash, no lesions Laboratory Tests Test 12/02/16 05:30 White Blood Count 11.2 K/UL (4.8-10.8) H Red Blood Count 3.34 M/UL (4.20-5.40) L Hemoglobin 9.5 G/DL (12.0-16.0) L Hematocrit 30.0 % (37.0-47.0) L Mean Corpuscular Volume 90 FL (80-99) Mean Corpuscular Hemoglobin 28.6 PG (27.0-31.0) Mean Corpuscular Hemoglobin Concent 31.9 G/DL (32.0-36.0) L Red Cell Distribution Width 13.6 % (11.6-14.8) Platelet Count 453 K/UL (150-450) H Mean Platelet Volume 6.0 FL (6.5-10.1) L Neutrophils (%) (Auto) 80.9 % (45.0-75.0) H Lymphocytes (%) (Auto) 9.0 % (20.0-45.0) L Monocytes (%) (Auto) 6.5 % (1.0-10.0) Eosinophils (%) (Auto) 2.1 % (0.0-3.0) Basophils (%) (Auto) 1.5 % (0.0-2.0) Sodium Level 140 mEQ/L (135-145) Potassium Level 4.4 mEQ/L (3.4-4.9) Chloride Level 103 mEQ/L (98-107) Carbon Dioxide Level 23 mEQ/L (20-30) Anion Gap 14 (5-15) Blood Urea Nitrogen 19 mg/dL (7-23) Creatinine 2.8 mg/dL (0.5-0.9) H Estimat Glomerular Filtration Rate 21.1 mL/min (>60) Glucose Level 86 mg/dL (74-106) Uric Acid 4.9 mg/dL (3.0-7.5) Calcium Level 8.6 mg/dL (8.6-10.2) Phosphorus Level 3.5 mg/dL (2.5-4.8) Magnesium Level 1.8 mg/dL (1.7-2.5) Total Bilirubin < 0.2 mg/dL (0.0-1.2) Direct Bilirubin 0.1 mg/dL (0.1-0.3) Aspartate Amino Transf (AST/SGOT) 16 U/L (5-40) Alanine Aminotransferase (ALT/SGPT) 10 U/L (3-33) Alkaline Phosphatase 85 U/L (35-104) Total Protein 6.2 g/dL (6.6-8.7) L Albumin 2.6 g/dL (3.5-5.2) L Current Medications Medications (Trade) Dose Ordered Sig/Ruben Route PRN Reason Start Time Stop Time Status Last Admin Dose Admin Acetaminophen (Tylenol) 650 mg Q4H PRN ORAL Mild Pain/Temp > 100.5 11/22/16 22:45 12/22/16 22:44 Albuterol/ Ipratropium (DuoNeb 0.5-3(2.5)mg/3ml) 3 ml Q6HR PRN HHN Shortness of Breath 11/30/16 15:00 12/05/16 14:59 11/30/16 20:17 Aspirin (Ecotrin) 325 mg DAILY ORAL 11/23/16 09:00 12/23/16 08:59 12/02/16 08:16 Dextrose (Dextrose 50%) STAT PRN IV Hypoglycemia 11/22/16 22:45 12/22/16 22:44 Docusate Sodium 100 mg 100 mg TWICE A DAY ORAL 11/26/16 18:00 12/26/16 17:59 Doxycycline Hyclate/Dextrose (Vibramycin/D5W) 110 ml @ 110 mls/hr Q12HR@0500,1700 IV 11/27/16 17:00 12/04/16 16:59 12/02/16 05:44 Ondansetron HCl (Zofran) 4 mg Q6H PRN IVP Nausea & Vomiting 11/22/16 22:45 12/22/16 22:44 11/28/16 06:23 Piperacillin Sod/ Tazobactam Sod 2.25 gm/Dextrose 110 ml @ 220 mls/hr Q6HR IVPB 11/26/16 20:00 12/03/16 19:59 12/02/16 13:11 Promethazine HCl/ Codeine (Phenergan with Codeine) 5 ml Q4H PRN ORAL For Cough 11/22/16 23:45 12/22/16 23:44 11/24/16 21:54 Ranitidine HCl (Zantac) 150 mg BEDTIME ORAL 11/29/16 21:00 12/29/16 20:59 Nicolle Schmitz M.D. Dec 02, 2016 14:38
[2016-12-02 15:50] VITALS: BP 116/80
[2016-12-02 20:00] VITALS: BP 120/80
[2016-12-03] VITALS: BP 122/82
[2016-12-03 04:00] VITALS: BP 127/89
[2016-12-03] MEDS: Piperacillin/Tazobactam 2.25 GM in D5W 110 ML IVPB SCH ×6 (05:09→23:34)
[2016-12-03] MEDS: Doxycycline Hyclate 100 MG in D5W 110 ML IV SCH ×2 (05:09→16:21)
[2016-12-03 08:00] VITALS: BP 119/79
[2016-12-03] MEDS: Aspirin EC 325mg tab ORAL SCH (08:21)
[2016-12-03] MEDS: Docusate 100mg cap ORAL SCH ×2 (08:21→17:40)
--- NOTE | 2016-12-03 08:38 | General Progress Note ---
Assessment/Plan Problem List: (1) Upper respiratory infection ICD Codes: J06.9 - Acute upper respiratory infection, unspecified SNOMED: 06374350 (2) LLL pneumonia ICD Codes: J18.1 - Lobar pneumonia, unspecified organism SNOMED: 700805992 (3) SOB (shortness of breath) ICD Codes: R06.02 - Shortness of breath SNOMED: 306504822 (4) Sepsis ICD Codes: A41.9 - Sepsis, unspecified organism SNOMED: 27123253 (5) Dyspnea ICD Codes: R06.00 - Dyspnea, unspecified SNOMED: 051084351 Qualifiers: Qualified Codes: R06.09 - Other forms of dyspnea (6) Tachycardia ICD Codes: R00.0 - Tachycardia, unspecified SNOMED: 7122214 (7) Pleural effusion, left ICD Codes: J90 - Pleural effusion, not elsewhere classified SNOMED: 95884472 (8) Abnormal blood pressure SNOMED: 43621108 (9) Adrenal adenoma ICD Codes: D35.00 - Benign neoplasm of unspecified adrenal gland SNOMED: 369141327 (10) ESTHER (acute kidney injury) ICD Codes: N17.9 - Acute kidney failure, unspecified SNOMED: 72992888 (11) Diarrhea ICD Codes: R19.7 - Diarrhea, unspecified SNOMED: 04515429 (12) Iron deficiency ICD Codes: E61.1 - Iron deficiency SNOMED: 41101021 (13) Anemia ICD Codes: D64.9 - Anemia, unspecified SNOMED: 675653809 (14) Vomiting ICD Codes: R11.10 - Vomiting, unspecified SNOMED: 404673514 (15) Severe malnutrition ICD Codes: E43 - Unspecified severe protein-calorie malnutrition SNOMED: 78832892 Status: stable, progressing, tolerating diet Assessment/Plan o2 pulm tx abx ot pt diet cbc bmp am Subjective Constitutional: Reports: weakness Allergies: Coded Allergies: CITRUS AND DERIVATIVES (Unverified Allergy, Unknown, 11/27/16) TOMATO (Verified Allergy, Unknown, 11/27/16) per patient VANCOMYCIN (Verified Adverse Reaction, Unknown, 11/27/16) had severe abdominal pain per patient Uncoded Allergies: CITRUS (Allergy, Severe, 11/21/16) aloc All Systems: reviewed and negative except above Subjective calm in bed Objective Last 24 Hour Vital Signs Date Time Temp Pulse Resp B/P Pulse Ox O2 Delivery O2 Flow Rate FiO2 12/03/16 04:00 97.9 84 20 127/89 99 Nasal Cannula 2.0 12/03/16 00:00 97.5 89 20 122/82 100 Nasal Cannula 2.0 12/02/16 20:00 98.7 88 18 120/80 100 Nasal Cannula 2.0 12/02/16 19:15 Nasal Cannula 2.0 12/02/16 19:15 97 Nasal Cannula 2.0 28 12/02/16 19:14 82 18 Nasal Cannula 2.0 12/02/16 15:50 98.4 83 20 116/80 98 Room Air 12/02/16 12:23 97.6 90 20 129/87 100 Room Air Intake and Output 12/02/16 12/03/16 19:00 07:00 Intake Total 1520 ml 800 ml Balance 1520 ml 800 ml Intake Oral 1520 ml 360 ml IV Total 440 ml # Voids 3 2 # Bowel Movements 3 Height (Feet): 5 Height (Inches): 9.00 Weight (Pounds): 132 General Appearance: lethargic EENT: normal ENT inspection Neck: normal alignment Cardiovascular: normal peripheral pulses, normal rate, regular rhythm Respiratory/Chest: chest wall non-tender, lungs clear, normal breath sounds Abdomen: normal bowel sounds, soft Extremities: normal inspection Edema: no edema noted Arm (L), no edema noted Arm (R), no edema noted Leg (L), no edema noted Leg (R), no edema noted Pedal (L), no edema noted Pedal (R), no edema noted Generalized Neurologic: responsive, motor weakness Skin: normal pigmentation, warm/dry ARAMIS LAMBERT Dec 03, 2016 08:38
--- NOTE | 2016-12-03 08:56 | General Progress Note ---
Assessment/Plan Problem List: (1) Vomiting ICD Codes: R11.10 - Vomiting, unspecified SNOMED: 271015854 (2) Anemia ICD Codes: D64.9 - Anemia, unspecified SNOMED: 538327873 (3) Iron deficiency ICD Codes: E61.1 - Iron deficiency SNOMED: 42647623 (4) Diarrhea ICD Codes: R19.7 - Diarrhea, unspecified SNOMED: 68921795 (5) Adrenal adenoma ICD Codes: D35.00 - Benign neoplasm of unspecified adrenal gland SNOMED: 425771124 (6) Pleural effusion, left ICD Codes: J90 - Pleural effusion, not elsewhere classified SNOMED: 24412298 Assessment/Plan no recurrent vomiting iron prn thoracentesis GI procedures on hold neg stool ob Subjective ROS Limited/Unobtainable: Yes Allergies: Coded Allergies: CITRUS AND DERIVATIVES (Unverified Allergy, Unknown, 11/27/16) TOMATO (Verified Allergy, Unknown, 11/27/16) per patient VANCOMYCIN (Verified Adverse Reaction, Unknown, 11/27/16) had severe abdominal pain per patient Uncoded Allergies: CITRUS (Allergy, Severe, 11/21/16) aloc Subjective no event Objective Last 24 Hour Vital Signs Date Time Temp Pulse Resp B/P Pulse Ox O2 Delivery O2 Flow Rate FiO2 12/03/16 08:00 98.1 92 18 119/79 97 Room Air 12/03/16 04:00 97.9 84 20 127/89 99 Nasal Cannula 2.0 12/03/16 00:00 97.5 89 20 122/82 100 Nasal Cannula 2.0 12/02/16 20:00 98.7 88 18 120/80 100 Nasal Cannula 2.0 12/02/16 19:15 Nasal Cannula 2.0 12/02/16 19:15 97 Nasal Cannula 2.0 28 12/02/16 19:14 82 18 Nasal Cannula 2.0 12/02/16 15:50 98.4 83 20 116/80 98 Room Air 12/02/16 12:23 97.6 90 20 129/87 100 Room Air Intake and Output 12/02/16 12/03/16 19:00 07:00 Intake Total 1520 ml 800 ml Balance 1520 ml 800 ml Intake Oral 1520 ml 360 ml IV Total 440 ml # Voids 3 2 # Bowel Movements 3 Height (Feet): 5 Height (Inches): 9.00 Weight (Pounds): 132 General Appearance: no apparent distress EENT: normal ENT inspection Neck: supple Cardiovascular: normal rate Respiratory/Chest: decreased breath sounds Abdomen: normal bowel sounds, non tender, soft Extremities: non-tender RIGOBERTO SANCHEZ Dec 03, 2016 08:56
--- NOTE | 2016-12-03 10:39 | General Progress Note ---
Assessment/Plan Status: stable - from renal stand Assessment/Plan Status: Acute Renal Failure- Cr appears to be lowering Iron Defficiency Anemia- HypoAlbuminemia , Etiology ??? Penumonia / left Pleural effusion ? abcess Adrenal Adenoma high A1c ? DM Plan: no labs today due surgery left thorax 24 h urine for protein 500 mg Urine Eosinophils and Spot Na DC Vanco- monitor Vanco level Monitor dose- adjust Zosyn dose IV Iron change diet to renal , medium CHO per orders Subjective ROS Limited/Unobtainable: No Constitutional: Reports: malaise Allergies: Coded Allergies: CITRUS AND DERIVATIVES (Unverified Allergy, Unknown, 11/27/16) TOMATO (Verified Allergy, Unknown, 11/27/16) per patient VANCOMYCIN (Verified Adverse Reaction, Unknown, 11/27/16) had severe abdominal pain per patient Uncoded Allergies: CITRUS (Allergy, Severe, 11/21/16) aloc Objective Last 24 Hour Vital Signs Date Time Temp Pulse Resp B/P Pulse Ox O2 Delivery O2 Flow Rate FiO2 12/03/16 08:00 98.1 92 18 119/79 97 Room Air 12/03/16 04:00 97.9 84 20 127/89 99 Nasal Cannula 2.0 12/03/16 00:00 97.5 89 20 122/82 100 Nasal Cannula 2.0 12/02/16 20:00 98.7 88 18 120/80 100 Nasal Cannula 2.0 12/02/16 19:15 Nasal Cannula 2.0 12/02/16 19:15 97 Nasal Cannula 2.0 28 12/02/16 19:14 82 18 Nasal Cannula 2.0 12/02/16 15:50 98.4 83 20 116/80 98 Room Air 12/02/16 12:23 97.6 90 20 129/87 100 Room Air Intake and Output 12/02/16 12/03/16 19:00 07:00 Intake Total 1520 ml 800 ml Balance 1520 ml 800 ml Intake Oral 1520 ml 360 ml IV Total 440 ml # Voids 3 2 # Bowel Movements 3 Height (Feet): 5 Height (Inches): 9.00 Weight (Pounds): 132 General Appearance: no apparent distress Respiratory/Chest: decreased breath sounds Abdomen: soft Objective no other change JOAQUÍN WORRELL Dec 03, 2016 10:39
[2016-12-03 11:03] LABS: BASOPHILS % (AUTO) 1.4 % (0.0-2.0); EOSINOPHILS % (AUTO) 1.6 % (0.0-3.0); LYMPHOCYTES % (AUTO) 9.2 % (20.0-45.0); MEAN CORPUSCULAR HEMOGLOBIN 28.1 PG (27.0-31.0); MEAN CORPUSCULAR HGB CONC 31.7 G/DL (32.0-36.0); MEAN CORPUSCULAR VOLUME 89 FL (80-99); MEAN PLATELET VOLUME 5.1 FL (6.5-10.1); MONOCYTES % (AUTO) 9.5 % (1.0-10.0); NEUTROPHILS % (AUTO) 78.3 % (45.0-75.0); PLATELET COUNT 472 K/UL (150-450); RED BLOOD COUNT 3.43 M/UL (4.20-5.40); RED CELL DISTRIBUTION WIDTH 13.7 % (11.6-14.8); WHITE BLOOD COUNT 9.6 K/UL (4.8-10.8)
[2016-12-03 11:17] LABS: CALCIUM 8.6 mg/dL (8.6-10.2); CREATININE 2.5 mg/dL (0.5-0.9); POTASSIUM 4.2 mEQ/L (3.4-4.9)
[2016-12-03 12:07] VITALS: BP 122/75
--- NOTE | 2016-12-03 12:26 | Pulmonology Progress Note ---
Assessment/Plan Assessment/Plan ASSESSMENT sepsis multiloculated LLL pleural effusion s/p thoracentesis x 2 ( 11/23 and 11/29) possible lung abscess ST small pericardial effusion moderate to severe pulmonary HTN acute renal failure anemia of chronic disease adrenal mass possible DM R breast cystic mass newly diagnosed DM PLAN OF CARE MS floor airborne isolation abx ID follows blood cx negative, pleural fluid cx negative, sputum cx + Caridad, stool C dif negative HIV test negative, serology for TB and cocci still pending , otherwise negative O2 HHN prn antitussive prn initial CXR with LLL PNA and moderate to large L pleural effusion CTA thorax no PE, dissection, aneurysm, + moderate L pleural effusion, left hilar and mediastinal lymphadenopathy-inflammatory vs neoplastic, LLL atelectasis suggestive of underlying lung abscess vs tumor s/p thoracentesis 11/23-110-cc total from multiloculated pleural effusion ( 50cc and 60cc from [address]) fup CXR no change, persistent L multiloculated pleural effusion s/p another thoracentesis 11/29- only [address] surgeon seen and evaluated the patient on 11/30 per surgery the patient is a candidate for left video-assisted thoracoscopic surgery with drainage of loculated pleural effusion/washout surgery was discussed with patient by surgeon, including purpose, need, risks and benefits, patient desires to proceed with surgery will need ID and cardio clearance prior to surgery Venous Duplex BLE negative cardio follows ECHO with preserved EF and evidence of moderate to severe pulmonary HTN as well as large left pleural effusion and small pericardial effusion no evidence of CHF as per cardio per cardio ST likely due to sepsis and dyspnea due to PNA and pleural effusion, small pericardial effusion ?reactive [address] A/P noted MRI with R adrenal adenoma, benign, no further workup indicated endo seen and evaluated for adrenal adenoma and suggested even if adenoma not functional, consider renal adrenalectomy 2 to large size nephro follows, renal parameters better, creat down to 2.5 24 hr urine with 500 mg protein further management as per nephro R breast with evidence of cystic mass on CT thorax- need mammogram vs US, per heme/onco discretion, unlikely will be able to have mammo here but may try US anemia of chronic disease as per heme, no iron deficiency anemia flow cytometry negative pleural fluid with lymphocytosis, pathology negative for malignant cells GI follows defer any GI procedures for now H2 morgan stool OB negative , CEA WNL symptomatic Rx bowel regimen pain management elevated HgA1c -6.7, repeated -6.5 start blood glucose monitoring and sensitive SS of insulin case discussed and evaluated by supervising physician Subjective Allergies: Coded Allergies: CITRUS AND DERIVATIVES (Unverified Allergy, Unknown, 11/27/16) TOMATO (Verified Allergy, Unknown, 11/27/16) per patient VANCOMYCIN (Verified Adverse Reaction, Unknown, 11/27/16) had severe abdominal pain per patient Uncoded Allergies: CITRUS (Allergy, Severe, 11/21/16) aloc Subjective leukocytosis resolved afebrile on RA sat stable, intermittent SOB, no chest pain, + cough, occasionally productive, no hemoptysis Objective Last 24 Hour Vital Signs Date Time Temp Pulse Resp B/P Pulse Ox O2 Delivery O2 Flow Rate FiO2 12/03/16 12:07 98.2 87 18 122/75 97 Nasal Cannula 2.0 12/03/16 08:00 98.1 92 18 119/79 97 Room Air 12/03/16 04:00 97.9 84 20 127/89 99 Nasal Cannula 2.0 12/03/16 00:00 97.5 89 20 122/82 100 Nasal Cannula 2.0 12/02/16 20:00 98.7 88 18 120/80 100 Nasal Cannula 2.0 12/02/16 19:15 Nasal Cannula 2.0 12/02/16 19:15 97 Nasal Cannula 2.0 28 12/02/16 19:14 82 18 Nasal Cannula 2.0 12/02/16 15:50 98.4 83 20 116/80 98 Room Air 12/02/16 12:23 97.6 90 20 129/87 100 Room Air Intake and Output 12/02/16 12/03/16 19:00 07:00 Intake Total 1520 ml 800 ml Balance 1520 ml 800 ml Intake Oral 1520 ml 360 ml IV Total 440 ml # Voids 3 2 # Bowel Movements 3 Objective General Appearance: no acute distress HEENT: normocephalic, atraumatic, anicteric, mucous membranes moist Respiratory/Chest: no respiratory distress, no accessory muscle use, decreased breath sounds - on the left Cardiovascular: normal rate, regular rhythm Abdomen: soft, non tender, non distended Genitourinary: normal external genitalia Extremities: no edema Neurologic/Psychiatric: no motor/sensory deficits, alert, responsive Musculoskeletal: normal muscle bulk Laboratory Tests 12/03/16 10:50: White Blood Count 9.6, Red Blood Count 3.43L, Hemoglobin 9.6L, Hematocrit 30.4L , Mean Corpuscular Volume 89, Mean Corpuscular Hemoglobin 28.1, Mean Corpuscular Hemoglobin Concent 31.7L, Red Cell Distribution Width 13.7, Platelet Count 472H, Mean Platelet Volume 5.1L, Neutrophils (%) (Auto) 78.3H, Lymphocytes (%) (Auto) 9.2L, Monocytes (%) (Auto) 9.5, Eosinophils (%) (Auto) 1.6, Basophils (%) (Auto) 1.4, Sodium Level 135, Potassium Level 4.2, Chloride Level 99, Carbon Dioxide Level 21, Anion Gap 15, Blood Urea Nitrogen 20, Creatinine 2.5H, Estimat Glomerular Filtration Rate 24.0, Glucose Level 83, Calcium Level 8.6, Total Creatine Kinase 25L Current Medications Medications (Trade) Dose Ordered Sig/Ruben Route PRN Reason Start Time Stop Time Status Last Admin Dose Admin Acetaminophen (Tylenol) 650 mg Q4H PRN ORAL Mild Pain/Temp > 100.5 11/22/16 22:45 12/22/16 22:44 Albuterol/ Ipratropium (DuoNeb 0.5-3(2.5)mg/3ml) 3 ml Q6HR PRN HHN Shortness of Breath 11/30/16 15:00 12/05/16 14:59 11/30/16 20:17 Aspirin (Ecotrin) 325 mg DAILY ORAL 11/23/16 09:00 12/23/16 08:59 12/03/16 08:21 Dextrose (Dextrose 50%) STAT PRN IV Hypoglycemia 11/22/16 22:45 12/22/16 22:44 Docusate Sodium 100 mg 100 mg TWICE A DAY ORAL 11/26/16 18:00 12/26/16 17:59 Doxycycline Hyclate/Dextrose (Vibramycin/D5W) 110 ml @ 110 mls/hr Q12HR@0500,1700 IV 11/27/16 17:00 12/04/16 16:59 12/03/16 05:09 Ondansetron HCl (Zofran) 4 mg Q6H PRN IVP Nausea & Vomiting 11/22/16 22:45 12/22/16 22:44 11/28/16 06:23 Piperacillin Sod/ Tazobactam Sod 2.25 gm/Dextrose 110 ml @ 220 mls/hr Q6HR IVPB 11/26/16 20:00 12/03/16 19:59 12/03/16 11:44 Promethazine HCl/ Codeine (Phenergan with Codeine) 5 ml Q4H PRN ORAL For Cough 11/22/16 23:45 12/22/16 23:44 11/24/16 21:54 Ranitidine HCl (Zantac) 150 mg BEDTIME ORAL 11/29/16 21:00 12/29/16 20:59 [facility] ([facility])Shahnaz NP Dec 03, 2016 12:26
[2016-12-03 15:02] LABS: NIL (NEG) CONTROL SPOT COUNT 0 (0-9); PANEL A SPOT COUNT 0; PANEL B SPOT COUNT 0; T SPOT TB NEGATIVE
[2016-12-03 15:03] LABS: POSITIVE CONTROL SPOT COUNT > 20
[2016-12-03 15:51] VITALS: BP 118/76
[2016-12-03] MEDS: NovoLOG Insulin Flexpen SUBQ SCH ×2 (16:30→21:00)
--- NOTE | 2016-12-03 19:54 | General Progress Note ---
Assessment/Plan Assessment/Plan Assessment and Recs: # Loculated pleural effusion - cytology shows lymphocytosis, flow cytometry is negative. Have discussed with Dr. Mayer on 11/30/16 if any lesion in the chest/abd /pelvis is able to be biopsied, none are. May need VATs with Dr. Yeh, agree with plan, pending clearance # Anemia of chronic disease - anemia 2/2 chronic disease, no iron deficiency # Coagulopathy - likely related to poor po intake, better # Right breast - will need mammo while outpatient, nonurgent # LLL pneumonia with possible abscess, on abx as per ID service # Sepsis - on abx as per ID # SOB (shortness of breath) - likely related to pna, improved Subjective Constitutional: Reports: no symptoms HEENT: Reports: no symptoms Cardiovascular: Reports: no symptoms Respiratory: Reports: no symptoms Genitourinary: Reports: no symptoms Neurologic/Psychiatric: Reports: no symptoms Endocrine: Reports: no symptoms Hematologic/Lymphatic: Reports: anemia Allergies: Coded Allergies: CITRUS AND DERIVATIVES (Unverified Allergy, Unknown, 11/27/16) TOMATO (Verified Allergy, Unknown, 11/27/16) per patient VANCOMYCIN (Verified Adverse Reaction, Unknown, 11/27/16) had severe abdominal pain per patient Uncoded Allergies: CITRUS (Allergy, Severe, 11/21/16) aloc Subjective no chills, no events, no fevers noted, ct surg eval planned Objective Last 24 Hour Vital Signs Date Time Temp Pulse Resp B/P Pulse Ox O2 Delivery O2 Flow Rate FiO2 12/03/16 15:51 98.6 84 18 118/76 96 Nasal Cannula 2.0 12/03/16 12:07 98.2 87 18 122/75 97 Nasal Cannula 2.0 12/03/16 08:00 98.1 92 18 119/79 97 Room Air 12/03/16 04:00 97.9 84 20 127/89 99 Nasal Cannula 2.0 12/03/16 00:00 97.5 89 20 122/82 100 Nasal Cannula 2.0 12/02/16 20:00 98.7 88 18 120/80 100 Nasal Cannula 2.0 Intake and Output 12/02/16 12/03/16 19:00 07:00 Intake Total 1520 ml 800 ml Balance 1520 ml 800 ml Intake Oral 1520 ml 360 ml IV Total 440 ml # Voids 3 2 # Bowel Movements 3 Laboratory Tests 12/03/16 10:50: White Blood Count 9.6, Red Blood Count 3.43L, Hemoglobin 9.6L, Hematocrit 30.4L , Mean Corpuscular Volume 89, Mean Corpuscular Hemoglobin 28.1, Mean Corpuscular Hemoglobin Concent 31.7L, Red Cell Distribution Width 13.7, Platelet Count 472H, Mean Platelet Volume 5.1L, Neutrophils (%) (Auto) 78.3H, Lymphocytes (%) (Auto) 9.2L, Monocytes (%) (Auto) 9.5, Eosinophils (%) (Auto) 1.6, Basophils (%) (Auto) 1.4, Sodium Level 135, Potassium Level 4.2, Chloride Level 99, Carbon Dioxide Level 21, Anion Gap 15, Blood Urea Nitrogen 20, Creatinine 2.5H, Estimat Glomerular Filtration Rate 24.0, Glucose Level 83, Calcium Level 8.6, Total Creatine Kinase 25L Height (Feet): 5 Height (Inches): 9.00 Weight (Pounds): 132 General Appearance: alert EENT: TMs normal Neck: normal alignment Cardiovascular: regular rhythm Respiratory/Chest: respiratory distress Abdomen: no organomegaly Extremities: non-tender Edema: 1+ Leg (L), 1+ Leg (R) Edema: mild edema Neurologic: alert Skin: warm/dry Matheus Lombardi Dec 03, 2016 19:54
[2016-12-03 20:14] VITALS: BP 121/81
--- NOTE | 2016-12-03 22:35 | Cardiology Progress Note ---
Assessment/Plan Assessment/Plan 1. Sinus tachycardia, likely due to sepsis, LLL pneumonia and left pleural effusion, 2D echo reveals normal LV systolic function, no evidence of CHF. 2. Dyspnea due to left lower lobe PNA/recurrent left pleural effusion, s/p left thoracentesis x 2, awaiting VATS. The patient is clear for the VATS procedure with the risk of coronary artery events perioperatively estimated to be less than 1%. 3. Small pericardial effusion, ? reactive due to PNA 4. Moderate to severe pulmonary HTN Subjective Subjective Complain about pleuritic chest pain. Not on the telemetry unit. Objective Last 24 Hour Vital Signs Date Time Temp Pulse Resp B/P Pulse Ox O2 Delivery O2 Flow Rate FiO2 12/03/16 20:14 98.2 91 19 121/81 99 Room Air 12/03/16 19:30 98 Nasal Cannula 2.0 28 12/03/16 19:30 88 18 Nasal Cannula 2.0 28 12/03/16 19:30 Nasal Cannula 2.0 28 12/03/16 15:51 98.6 84 18 118/76 96 Nasal Cannula 2.0 12/03/16 12:07 98.2 87 18 122/75 97 Nasal Cannula 2.0 12/03/16 08:00 98.1 92 18 119/79 97 Room Air 12/03/16 04:00 97.9 84 20 127/89 99 Nasal Cannula 2.0 12/03/16 00:00 97.5 89 20 122/82 100 Nasal Cannula 2.0 Intake and Output 12/02/16 12/03/16 19:00 07:00 Intake Total 1520 ml 800 ml Balance 1520 ml 800 ml Intake Oral 1520 ml 360 ml IV Total 440 ml # Voids 3 2 # Bowel Movements 3 2D Echo: EF 55%, Small pericardial Eff, Large pleural Eff, Grade I LVDD,RVSP 56 mmHg Laboratory Tests Test 12/03/16 10:50 White Blood Count 9.6 K/UL (4.8-10.8) Red Blood Count 3.43 M/UL (4.20-5.40) L Hemoglobin 9.6 G/DL (12.0-16.0) L Hematocrit 30.4 % (37.0-47.0) L Mean Corpuscular Volume 89 FL (80-99) Mean Corpuscular Hemoglobin 28.1 PG (27.0-31.0) Mean Corpuscular Hemoglobin Concent 31.7 G/DL (32.0-36.0) L Red Cell Distribution Width 13.7 % (11.6-14.8) Platelet Count 472 K/UL (150-450) H Mean Platelet Volume 5.1 FL (6.5-10.1) L Neutrophils (%) (Auto) 78.3 % (45.0-75.0) H Lymphocytes (%) (Auto) 9.2 % (20.0-45.0) L Monocytes (%) (Auto) 9.5 % (1.0-10.0) Eosinophils (%) (Auto) 1.6 % (0.0-3.0) Basophils (%) (Auto) 1.4 % (0.0-2.0) Sodium Level 135 mEQ/L (135-145) Potassium Level 4.2 mEQ/L (3.4-4.9) Chloride Level 99 mEQ/L (98-107) Carbon Dioxide Level 21 mEQ/L (20-30) Anion Gap 15 (5-15) Blood Urea Nitrogen 20 mg/dL (7-23) Creatinine 2.5 mg/dL (0.5-0.9) H Estimat Glomerular Filtration Rate 24.0 mL/min (>60) Glucose Level 83 mg/dL (74-106) Calcium Level 8.6 mg/dL (8.6-10.2) Total Creatine Kinase 25 U/L (26-140) L Objective HEENT: Atraumatic and normocephalic. Anicteric. Pupils are equal, round, and reactive to light and accommodation. Extraocular muscles intact. NECK: JVP is less than 5 cm. No carotid bruit. Carotid upstrokes 2+ bilaterally. CVS: Normal S1 and S2. No murmurs, gallops, or rubs. No pulsus paradoxus. LUNGS: Diminished breath sounds at the left base. ABDOMEN: Soft, nontender, and nondistended. No hepatosplenomegaly. Positive bowel sounds. EXTREMITIES: No evidence of edema, clubbing, or cyanosis. ALVINO RIVERO Dec 03, 2016 22:35
[2016-12-04 00:10] VITALS: BP 121/74
[2016-12-04 04:12] VITALS: BP 118/76
[2016-12-04] MEDS ORDERED: Doxycycline 100mg Inj IV ONE ×2 (04:18→04:29)
[2016-12-04] MEDS: Doxycycline Hyclate 100 MG in D5W 110 ML IV SCH (04:38)
[2016-12-04] MEDS: Piperacillin/Tazobactam 2.25 GM in D5W 110 ML IVPB SCH ×4 (05:51→23:31)
[2016-12-04] MEDS: NovoLOG Insulin Flexpen SUBQ SCH ×4 (06:01→21:00)
[2016-12-04 07:03] LABS: BASOPHILS % (AUTO) 1.6 % (0.0-2.0); EOSINOPHILS % (AUTO) 2.5 % (0.0-3.0); LYMPHOCYTES % (AUTO) 14.7 % (20.0-45.0); MEAN CORPUSCULAR HGB CONC 32.6 G/DL (32.0-36.0); MEAN CORPUSCULAR VOLUME 89 FL (80-99); MEAN PLATELET VOLUME 6.3 FL (6.5-10.1); MONOCYTES % (AUTO) 6.2 % (1.0-10.0); PLATELET COUNT 471 K/UL (150-450); RED BLOOD COUNT 3.23 M/UL (4.20-5.40); RED CELL DISTRIBUTION WIDTH 13.9 % (11.6-14.8); WHITE BLOOD COUNT 9.4 K/UL (4.8-10.8)
[2016-12-04 07:23] LABS: CALCIUM 8.9 mg/dL (8.6-10.2); CREATININE 2.2 mg/dL (0.5-0.9); GLOMERULAR FILTRATION RATE 27.8 mL/min (>60); POTASSIUM 4.2 mEQ/L (3.4-4.9)
[2016-12-04 07:48] LABS: ALANINE AMINOTRANSFERASE 9 U/L (3-33); ASPARTATE AMINO TRANSFERASE 13 U/L (5-40); BILIRUBIN,DIRECT 0.1 mg/dL (0.1-0.3); HEMOLYSIS 1; MAGNESIUM 1.7 mg/dL (1.7-2.5); PHOSPHORUS 3.7 mg/dL (2.5-4.8); URIC ACID 4.2 mg/dL (3.0-7.5)
[2016-12-04 08:10] VITALS: BP 119/78
[2016-12-04] MEDS: Docusate 100mg cap ORAL SCH ×2 (09:00→17:07)
[2016-12-04] MEDS: Aspirin EC 325mg tab ORAL SCH (09:14)
--- NOTE | 2016-12-04 10:48 | Pre-Procedure Note/Attestation ---
Pre-Procedure Note/Attestation Complete Prior to Procedure Planned Procedure: not applicable Procedure Narrative: egd/eus Indications for Procedure Pre-Operative Diagnosis: duodenal mass Attestation I attest that I discussed the nature of the procedure; its benefits; risks and complications; and alternatives (and the risks and benefits of such alternatives ), prior to the procedure, with the patient (or the patient's legal loss prevention representative). I attest that, if there was a reasonable possibility of needing a blood transfusion, the patient (or the patient's legal loss prevention representative) was given the [facility] standardized written summary, pursuant to the [place] Blood Safety Act ([place] Health and Safety Code # 1645, as amended). I attest that I re-evaluated the patient just prior to the surgery and that there has been no change in the patient's H&P, except as documented below: RIGOBERTO SANCHEZ Dec 04, 2016 10:48
--- NOTE | 2016-12-04 11:06 | GI Progress Note ---
Assessment/Plan Problems: (1) Severe malnutrition ICD Codes: E43 - Unspecified severe protein-calorie malnutrition SNOMED: 57549013 (2) Vomiting ICD Codes: R11.10 - Vomiting, unspecified SNOMED: 152283573 (3) Anemia ICD Codes: D64.9 - Anemia, unspecified SNOMED: 050172321 (4) Diarrhea ICD Codes: R19.7 - Diarrhea, unspecified SNOMED: 61206952 Status: stable, progressing Status Narrative Discussed with Dr. Clark. Assessment/Plan airborne isolation d/c anemia of chronic disease iron panel unremarkable >> no iron deficiency per Hematology note cdiff negative s/p thoracentesis 11/23/16 OB stool negative defer GI procedures at this time symptomatic treatment zofran prn monitor H&H, transfuse prn H2B, refusing bowel regime abx fu labs outpatient colonoscopy Subjective Subjective refusing zantac no GI complaints vomiting resolved Objective Last 24 Hour Vital Signs Date Time Temp Pulse Resp B/P Pulse Ox O2 Delivery O2 Flow Rate FiO2 12/04/16 08:10 98.6 87 20 119/78 97 Room Air 12/04/16 07:40 77 18 Nasal Cannula 2.0 28 12/04/16 07:39 95 Room Air 12/04/16 07:39 Room Air 12/04/16 04:12 97.9 77 19 118/76 95 Room Air 12/04/16 00:10 98.2 85 18 121/74 99 Room Air 12/03/16 20:14 98.2 91 19 121/81 99 Room Air 12/03/16 19:30 98 Nasal Cannula 2.0 28 12/03/16 19:30 88 18 Nasal Cannula 2.0 28 12/03/16 19:30 Nasal Cannula 2.0 28 12/03/16 15:51 98.6 84 18 118/76 96 Nasal Cannula 2.0 12/03/16 12:07 98.2 87 18 122/75 97 Nasal Cannula 2.0 Intake and Output 12/03/16 12/04/16 19:00 07:00 Intake Total 450 ml Balance 450 ml Intake Oral 450 ml # Voids 3 3 # Bowel Movements 2 Laboratory Tests Test 12/04/16 06:15 White Blood Count 9.4 K/UL (4.8-10.8) Red Blood Count 3.23 M/UL (4.20-5.40) L Hemoglobin 9.4 G/DL (12.0-16.0) L Hematocrit 28.8 % (37.0-47.0) L Mean Corpuscular Volume 89 FL (80-99) Mean Corpuscular Hemoglobin 29.0 PG (27.0-31.0) Mean Corpuscular Hemoglobin Concent 32.6 G/DL (32.0-36.0) Red Cell Distribution Width 13.9 % (11.6-14.8) Platelet Count 471 K/UL (150-450) H Mean Platelet Volume 6.3 FL (6.5-10.1) L Neutrophils (%) (Auto) 75.0 % (45.0-75.0) Lymphocytes (%) (Auto) 14.7 % (20.0-45.0) L Monocytes (%) (Auto) 6.2 % (1.0-10.0) Eosinophils (%) (Auto) 2.5 % (0.0-3.0) Basophils (%) (Auto) 1.6 % (0.0-2.0) Sodium Level 141 mEQ/L (135-145) Potassium Level 4.2 mEQ/L (3.4-4.9) Chloride Level 102 mEQ/L (98-107) Carbon Dioxide Level 22 mEQ/L (20-30) Anion Gap 17 (5-15) H Blood Urea Nitrogen 19 mg/dL (7-23) Creatinine 2.2 mg/dL (0.5-0.9) H Estimat Glomerular Filtration Rate 27.8 mL/min (>60) Glucose Level 94 mg/dL (74-106) Uric Acid 4.2 mg/dL (3.0-7.5) Calcium Level 8.9 mg/dL (8.6-10.2) Phosphorus Level 3.7 mg/dL (2.5-4.8) Magnesium Level 1.7 mg/dL (1.7-2.5) Total Bilirubin < 0.2 mg/dL (0.0-1.2) Direct Bilirubin 0.1 mg/dL (0.1-0.3) Aspartate Amino Transf (AST/SGOT) 13 U/L (5-40) Alanine Aminotransferase (ALT/SGPT) 9 U/L (3-33) Alkaline Phosphatase 83 U/L (35-104) Total Protein 7.0 g/dL (6.6-8.7) Albumin 2.6 g/dL (3.5-5.2) L Height (Feet): 5 Height (Inches): 9.00 Weight (Pounds): 132 General Appearance: no apparent distress, alert, other - showered today Cardiovascular: normal rate Respiratory/Chest: normal breath sounds, no respiratory distress Abdominal Exam: normal bowel sounds, non tender, soft Extremities: normal range of motion Jeny Mao N.P. Dec 04, 2016 11:06
--- NOTE | 2016-12-04 11:26 | General Progress Note ---
Assessment/Plan Assessment/Plan Assessment and Recs: # Loculated pleural effusion - cytology shows lymphocytosis, flow cytometry is negative. Have discussed with Dr. Mayer on 11/30/16 if any lesion in the chest/abd /pelvis is able to be biopsied, none are. VATS planned for wed # Anemia of chronic disease - anemia 2/2 chronic disease, no iron deficiency # Coagulopathy - likely related to poor po intake, better # Right breast - will need mammo while outpatient, nonurgent # LLL pneumonia with possible abscess, on abx as per ID service # Sepsis - on abx as per ID # SOB (shortness of breath) - likely related to pna, improved Subjective Constitutional: Reports: no symptoms HEENT: Reports: no symptoms Cardiovascular: Reports: no symptoms Genitourinary: Reports: no symptoms Neurologic/Psychiatric: Reports: no symptoms Endocrine: Reports: no symptoms Hematologic/Lymphatic: Reports: anemia Allergies: Coded Allergies: CITRUS AND DERIVATIVES (Unverified Allergy, Unknown, 11/27/16) TOMATO (Verified Allergy, Unknown, 11/27/16) per patient VANCOMYCIN (Verified Adverse Reaction, Unknown, 11/27/16) had severe abdominal pain per patient Uncoded Allergies: CITRUS (Allergy, Severe, 11/21/16) aloc Subjective no chills, no events, no fevers noted, ct surg wed Objective Last 24 Hour Vital Signs Date Time Temp Pulse Resp B/P Pulse Ox O2 Delivery O2 Flow Rate FiO2 12/04/16 08:10 98.6 87 20 119/78 97 Room Air 12/04/16 07:40 77 18 Nasal Cannula 2.0 12/04/16 07:39 95 Room Air 12/04/16 07:39 Room Air 12/04/16 04:12 97.9 77 19 118/76 95 Room Air 12/04/16 00:10 98.2 85 18 121/74 99 Room Air 12/03/16 20:14 98.2 91 19 121/81 99 Room Air 12/03/16 19:30 98 Nasal Cannula 2.0 12/03/16 19:30 88 18 Nasal Cannula 2.0 12/03/16 19:30 Nasal Cannula 2.0 12/03/16 15:51 98.6 84 18 118/76 96 Nasal Cannula 2.0 12/03/16 12:07 98.2 87 18 122/75 97 Nasal Cannula 2.0 Intake and Output 12/03/16 12/04/16 19:00 07:00 Intake Total 450 ml Balance 450 ml Intake Oral 450 ml # Voids 3 3 # Bowel Movements 2 Laboratory Tests 12/04/16 06:15: White Blood Count 9.4, Red Blood Count 3.23L, Hemoglobin 9.4L, Hematocrit 28.8L , Mean Corpuscular Volume 89, Mean Corpuscular Hemoglobin 29.0, Mean Corpuscular Hemoglobin Concent 32.6, Red Cell Distribution Width 13.9, Platelet Count 471H, Mean Platelet Volume 6.3L, Neutrophils (%) (Auto) 75.0, Lymphocytes (%) (Auto) 14.7L, Monocytes (%) (Auto) 6.2, Eosinophils (%) (Auto) 2.5, Basophils (%) (Auto) 1.6, Sodium Level 141, Potassium Level 4.2, Chloride Level 102, Carbon Dioxide Level 22, Anion Gap 17H, Blood Urea Nitrogen 19, Creatinine 2.2H, Estimat Glomerular Filtration Rate 27.8, Glucose Level 94, Uric Acid 4.2, Calcium Level 8.9, Phosphorus Level 3.7, Magnesium Level 1.7, Total Bilirubin < 0.2, Direct Bilirubin 0.1, Aspartate Amino Transf (AST/SGOT) 13, Alanine Aminotransferase (ALT/SGPT) 9, Alkaline Phosphatase 83, Total Protein 7.0, Albumin 2.6L Height (Feet): 5 Height (Inches): 9.00 Weight (Pounds): 132 General Appearance: alert EENT: PERRL/EOMI Neck: normal alignment Cardiovascular: regular rhythm Respiratory/Chest: normal breath sounds Abdomen: abnormal bowel sounds Extremities: non-tender Edema: 1+ Leg (L), 1+ Leg (R) Edema: mild edema Neurologic: alert Skin: warm/dry Matheus Lombardi Dec 04, 2016 11:26
--- NOTE | 2016-12-04 11:30 | General Progress Note ---
Assessment/Plan Problem List: (1) SOB (shortness of breath) ICD Codes: R06.02 - Shortness of breath SNOMED: 406935505 (2) Sepsis ICD Codes: A41.9 - Sepsis, unspecified organism SNOMED: 39344963 (3) Pleural effusion, left ICD Codes: J90 - Pleural effusion, not elsewhere classified SNOMED: 81155964 (4) Upper respiratory infection ICD Codes: J06.9 - Acute upper respiratory infection, unspecified SNOMED: 59693196 (5) Abnormal blood pressure SNOMED: 95848613 Status: unchanged Assessment/Plan pleural effusion thoracic surgeon wants VATS clearance per dr wan vats per thoracic surgeon pleural effusion of unclear etiology Subjective Respiratory: Reports: shortness of breath Allergies: Coded Allergies: CITRUS AND DERIVATIVES (Unverified Allergy, Unknown, 11/27/16) TOMATO (Verified Allergy, Unknown, 11/27/16) per patient VANCOMYCIN (Verified Adverse Reaction, Unknown, 11/27/16) had severe abdominal pain per patient Uncoded Allergies: CITRUS (Allergy, Severe, 11/21/16) aloc Objective Last 24 Hour Vital Signs Date Time Temp Pulse Resp B/P Pulse Ox O2 Delivery O2 Flow Rate FiO2 12/04/16 08:10 98.6 87 20 119/78 97 Room Air 12/04/16 07:40 77 18 Nasal Cannula 2.0 12/04/16 07:39 95 Room Air 12/04/16 07:39 Room Air 12/04/16 04:12 97.9 77 19 118/76 95 Room Air 12/04/16 00:10 98.2 85 18 121/74 99 Room Air 12/03/16 20:14 98.2 91 19 121/81 99 Room Air 12/03/16 19:30 98 Nasal Cannula 2.0 28 12/03/16 19:30 88 18 Nasal Cannula 2.0 28 12/03/16 19:30 Nasal Cannula 2.0 28 12/03/16 15:51 98.6 84 18 118/76 96 Nasal Cannula 2.0 12/03/16 12:07 98.2 87 18 122/75 97 Nasal Cannula 2.0 Intake and Output 12/03/16 12/04/16 19:00 07:00 Intake Total 450 ml Balance 450 ml Intake Oral 450 ml # Voids 3 3 # Bowel Movements 2 Laboratory Tests 12/04/16 06:15: White Blood Count 9.4, Red Blood Count 3.23L, Hemoglobin 9.4L, Hematocrit 28.8L , Mean Corpuscular Volume 89, Mean Corpuscular Hemoglobin 29.0, Mean Corpuscular Hemoglobin Concent 32.6, Red Cell Distribution Width 13.9, Platelet Count 471H, Mean Platelet Volume 6.3L, Neutrophils (%) (Auto) 75.0, Lymphocytes (%) (Auto) 14.7L, Monocytes (%) (Auto) 6.2, Eosinophils (%) (Auto) 2.5, Basophils (%) (Auto) 1.6, Sodium Level 141, Potassium Level 4.2, Chloride Level 102, Carbon Dioxide Level 22, Anion Gap 17H, Blood Urea Nitrogen 19, Creatinine 2.2H, Estimat Glomerular Filtration Rate 27.8, Glucose Level 94, Uric Acid 4.2, Calcium Level 8.9, Phosphorus Level 3.7, Magnesium Level 1.7, Total Bilirubin < 0.2, Direct Bilirubin 0.1, Aspartate Amino Transf (AST/SGOT) 13, Alanine Aminotransferase (ALT/SGPT) 9, Alkaline Phosphatase 83, Total Protein 7.0, Albumin 2.6L Height (Feet): 5 Height (Inches): 9.00 Weight (Pounds): 132 Respiratory/Chest: rhonchi - bilaterally Kahlil Ronquillo MD Dec 04, 2016 11:30
[2016-12-04 11:52] VITALS: BP 125/91
--- NOTE | 2016-12-04 12:31 | General Progress Note ---
Assessment/Plan Status: stable Status Narrative Cr lower Assessment/Plan Status: Acute Renal Failure- Cr appears to be lowering Iron Defficiency Anemia- HypoAlbuminemia , Etiology ??? Penumonia / left Pleural effusion ? abcess Adrenal Adenoma high A1c ? DM Plan: due surgery left thorax 24 h urine for protein 500 mg Urine Eosinophils and Spot Na DC Vanco- monitor Vanco level Monitor dose- adjust Zosyn dose IV Iron change diet to renal , medium CHO per orders Subjective ROS Limited/Unobtainable: No Constitutional: Reports: malaise Allergies: Coded Allergies: CITRUS AND DERIVATIVES (Unverified Allergy, Unknown, 11/27/16) TOMATO (Verified Allergy, Unknown, 11/27/16) per patient VANCOMYCIN (Verified Adverse Reaction, Unknown, 11/27/16) had severe abdominal pain per patient Uncoded Allergies: CITRUS (Allergy, Severe, 11/21/16) aloc Objective Last 24 Hour Vital Signs Date Time Temp Pulse Resp B/P Pulse Ox O2 Delivery O2 Flow Rate FiO2 12/04/16 11:52 98.3 93 21 125/91 97 Nasal Cannula 2.0 12/04/16 08:10 98.6 87 20 119/78 97 Room Air 12/04/16 07:40 77 18 Nasal Cannula 2.0 28 12/04/16 07:39 95 Room Air 12/04/16 07:39 Room Air 12/04/16 04:12 97.9 77 19 118/76 95 Room Air 12/04/16 00:10 98.2 85 18 121/74 99 Room Air 12/03/16 20:14 98.2 91 19 121/81 99 Room Air 12/03/16 19:30 98 Nasal Cannula 2.0 28 12/03/16 19:30 88 18 Nasal Cannula 2.0 28 12/03/16 19:30 Nasal Cannula 2.0 28 12/03/16 15:51 98.6 84 18 118/76 96 Nasal Cannula 2.0 Intake and Output 12/03/16 12/04/16 19:00 07:00 Intake Total 450 ml Balance 450 ml Intake Oral 450 ml # Voids 3 3 # Bowel Movements 2 Laboratory Tests 12/04/16 06:15: White Blood Count 9.4, Red Blood Count 3.23L, Hemoglobin 9.4L, Hematocrit 28.8L , Mean Corpuscular Volume 89, Mean Corpuscular Hemoglobin 29.0, Mean Corpuscular Hemoglobin Concent 32.6, Red Cell Distribution Width 13.9, Platelet Count 471H, Mean Platelet Volume 6.3L, Neutrophils (%) (Auto) 75.0, Lymphocytes (%) (Auto) 14.7L, Monocytes (%) (Auto) 6.2, Eosinophils (%) (Auto) 2.5, Basophils (%) (Auto) 1.6, Sodium Level 141, Potassium Level 4.2, Chloride Level 102, Carbon Dioxide Level 22, Anion Gap 17H, Blood Urea Nitrogen 19, Creatinine 2.2H, Estimat Glomerular Filtration Rate 27.8, Glucose Level 94, Uric Acid 4.2, Calcium Level 8.9, Phosphorus Level 3.7, Magnesium Level 1.7, Total Bilirubin < 0.2, Direct Bilirubin 0.1, Aspartate Amino Transf (AST/SGOT) 13, Alanine Aminotransferase (ALT/SGPT) 9, Alkaline Phosphatase 83, Total Protein 7.0, Albumin 2.6L Height (Feet): 5 Height (Inches): 9.00 Weight (Pounds): 132 General Appearance: no apparent distress Objective no other change JOAQUÍN WORRELL Dec 04, 2016 12:31
[2016-12-04 15:51] VITALS: BP 121/85
--- NOTE | 2016-12-04 15:51 | Infectious Diseases Prog Note ---
Assessment/Plan Problems: (1) LLL pneumonia Assessment & Plan: most likely abscess with loculated effusion , improving on doxycycline, and zosyn . fungal serology is negative . T spot test is negative, and PPD test was negative , which rule out TB . for decortication by thoracic on Sunday, will continue current antibiotics for now (2) Pleural effusion, left Assessment & Plan: loculated , S/P repeated thoracentesis , fluids culture is negative so far , fungal serology is negative , cytology was negative for malignancy. repeated thoracentesis fluids culture is pending, CT surgery is following for decortication (3) Adrenal adenoma Assessment & Plan: confirmed on MRI, recommend endocrinology eval and management (4) ESTHER (acute kidney injury) Assessment & Plan: multifactorial, improving, continue IVF for hydration, monitor renal function test. renal is following (5) Breast cyst Assessment & Plan: recommend mammogram for follow up Subjective Constitutional: Reports: no symptoms HEENT: Reports: no symptoms Respiratory: Reports: no symptoms Breasts: Reports: no symptoms Cardiovascular: Reports: no symptoms Gastrointestinal/Abdominal: Reports: no symptoms Genitourinary: Reports: no symptoms Neurologic: Reports: no symptoms Psychiatric: Reports: no symptoms Skin: Reports: no symptoms Endocrine: Reports: no symptoms Hematologic: Reports: no symptoms Allergies: Coded Allergies: CITRUS AND DERIVATIVES (Unverified Allergy, Unknown, 11/27/16) TOMATO (Verified Allergy, Unknown, 11/27/16) per patient VANCOMYCIN (Verified Adverse Reaction, Unknown, 11/27/16) had severe abdominal pain per patient Uncoded Allergies: CITRUS (Allergy, Severe, 11/21/16) aloc Subjective she feels good , no diarrhea, less cough and phlegm, no fever or chills. Objective Vital Signs Last 24 Hour Vital Signs Date Time Temp Pulse Resp B/P Pulse Ox O2 Delivery O2 Flow Rate FiO2 12/04/16 11:52 98.3 93 21 125/91 97 Nasal Cannula 2.0 12/04/16 08:10 98.6 87 20 119/78 97 Room Air 12/04/16 07:40 77 18 Nasal Cannula 2.0 28 12/04/16 07:39 95 Room Air 12/04/16 07:39 Room Air 12/04/16 04:12 97.9 77 19 118/76 95 Room Air 12/04/16 00:10 98.2 85 18 121/74 99 Room Air 12/03/16 20:14 98.2 91 19 121/81 99 Room Air 12/03/16 19:30 98 Nasal Cannula 2.0 28 12/03/16 19:30 88 18 Nasal Cannula 2.0 12/03/16 19:30 Nasal Cannula 2.0 28 12/03/16 15:51 98.6 84 18 118/76 96 Nasal Cannula 2.0 Height (Feet): 5 Height (Inches): 9.00 Weight (Pounds): 132 General Appearance: WD/WN, no acute distress HEENT: normocephalic, atraumatic, anicteric, mucous membranes moist Respiratory/Chest: chest wall non-tender, lungs clear, normal breath sounds, no respiratory distress, no accessory muscle use Cardiovascular: normal peripheral pulses, normal rate, regular rhythm, no gallop/murmur Abdomen: normal bowel sounds, soft, non tender, no organomegaly, non distended , no mass Extremities: no cyanosis, no clubbing Skin: no rash, no lesions Laboratory Tests Test 12/04/16 06:15 White Blood Count 9.4 K/UL (4.8-10.8) Red Blood Count 3.23 M/UL (4.20-5.40) L Hemoglobin 9.4 G/DL (12.0-16.0) L Hematocrit 28.8 % (37.0-47.0) L Mean Corpuscular Volume 89 FL (80-99) Mean Corpuscular Hemoglobin 29.0 PG (27.0-31.0) Mean Corpuscular Hemoglobin Concent 32.6 G/DL (32.0-36.0) Red Cell Distribution Width 13.9 % (11.6-14.8) Platelet Count 471 K/UL (150-450) H Mean Platelet Volume 6.3 FL (6.5-10.1) L Neutrophils (%) (Auto) 75.0 % (45.0-75.0) Lymphocytes (%) (Auto) 14.7 % (20.0-45.0) L Monocytes (%) (Auto) 6.2 % (1.0-10.0) Eosinophils (%) (Auto) 2.5 % (0.0-3.0) Basophils (%) (Auto) 1.6 % (0.0-2.0) Sodium Level 141 mEQ/L (135-145) Potassium Level 4.2 mEQ/L (3.4-4.9) Chloride Level 102 mEQ/L (98-107) Carbon Dioxide Level 22 mEQ/L (20-30) Anion Gap 17 (5-15) H Blood Urea Nitrogen 19 mg/dL (7-23) Creatinine 2.2 mg/dL (0.5-0.9) H Estimat Glomerular Filtration Rate 27.8 mL/min (>60) Glucose Level 94 mg/dL (74-106) Uric Acid 4.2 mg/dL (3.0-7.5) Calcium Level 8.9 mg/dL (8.6-10.2) Phosphorus Level 3.7 mg/dL (2.5-4.8) Magnesium Level 1.7 mg/dL (1.7-2.5) Total Bilirubin < 0.2 mg/dL (0.0-1.2) Direct Bilirubin 0.1 mg/dL (0.1-0.3) Aspartate Amino Transf (AST/SGOT) 13 U/L (5-40) Alanine Aminotransferase (ALT/SGPT) 9 U/L (3-33) Alkaline Phosphatase 83 U/L (35-104) Total Protein 7.0 g/dL (6.6-8.7) Albumin 2.6 g/dL (3.5-5.2) L Current Medications Medications (Trade) Dose Ordered Sig/Ruben Route PRN Reason Start Time Stop Time Status Last Admin Dose Admin Acetaminophen (Tylenol) 650 mg Q4H PRN ORAL Mild Pain/Temp > 100.5 11/22/16 22:45 12/22/16 22:44 Albuterol/ Ipratropium (DuoNeb 0.5-3(2.5)mg/3ml) 3 ml Q6HR PRN HHN Shortness of Breath 11/30/16 15:00 12/05/16 14:59 11/30/16 20:17 Aspirin (Ecotrin) 325 mg DAILY ORAL 11/23/16 09:00 12/23/16 08:59 12/04/16 09:14 Dextrose (Dextrose 50%) STAT PRN IV Hypoglycemia 12/03/16 12:30 01/02/17 12:29 Docusate Sodium 100 mg 100 mg TWICE A DAY ORAL 11/26/16 18:00 12/26/16 17:59 Doxycycline Hyclate/Dextrose (Vibramycin/D5W) 110 ml @ 110 mls/hr Q12HR@0500,1700 IV 11/27/16 17:00 12/04/16 16:59 12/04/16 04:38 Insulin Aspart (NovoLOG) BEFORE MEALS AND HS SUBQ 12/03/16 16:30 01/02/17 16:29 Ondansetron HCl (Zofran) 4 mg Q6H PRN IVP Nausea & Vomiting 11/22/16 22:45 12/22/16 22:44 11/28/16 06:23 Piperacillin Sod/ Tazobactam Sod 2.25 gm/Dextrose 110 ml @ 220 mls/hr Q6HR IVPB 11/26/16 20:00 12/10/16 19:59 12/04/16 13:05 Promethazine HCl/ Codeine (Phenergan with Codeine) 5 ml Q4H PRN ORAL For Cough 11/22/16 23:45 12/22/16 23:44 11/24/16 21:54 Ranitidine HCl (Zantac) 150 mg BEDTIME ORAL 11/29/16 21:00 12/29/16 20:59 Nicolle Schmitz M.D. Dec 04, 2016 15:51
[2016-12-04 20:19] VITALS: BP 122/81
--- NOTE | 2016-12-04 23:16 | Cardiology Progress Note ---
Assessment/Plan Assessment/Plan 1. Sinus tachycardia, likely due to sepsis, LLL pneumonia and left pleural effusion, 2D echo reveals normal LV systolic function, no evidence of CHF. 2. Dyspnea due to left lower lobe PNA/recurrent left pleural effusion, s/p left thoracentesis x 2, awaiting VATS. The patient is clear for the VATS procedure with the risk of coronary artery events perioperatively estimated to be less than 1%. 3. Small pericardial effusion, ? reactive due to PNA 4. Moderate to severe pulmonary HTN Subjective Subjective No cardiac events. Not on the telemetry unit. Objective Last 24 Hour Vital Signs Date Time Temp Pulse Resp B/P Pulse Ox O2 Delivery O2 Flow Rate FiO2 12/04/16 20:19 98.6 100 20 122/81 96 Room Air 12/04/16 15:51 97.9 97 20 121/85 99 Nasal Cannula 2.0 12/04/16 11:52 98.3 93 21 125/91 97 Nasal Cannula 2.0 12/04/16 08:10 98.6 87 20 119/78 97 Room Air 12/04/16 07:40 77 18 Nasal Cannula 2.0 28 12/04/16 07:39 95 Room Air 12/04/16 07:39 Room Air 12/04/16 04:12 97.9 77 19 118/76 95 Room Air 12/04/16 00:10 98.2 85 18 121/74 99 Room Air Intake and Output 12/03/16 12/04/16 19:00 07:00 Intake Total 450 ml Balance 450 ml Intake Oral 450 ml # Voids 3 3 # Bowel Movements 2 2D Echo: EF 55%, Small pericardial Eff, Large pleural Eff, Grade I LVDD,RVSP 56 mmH Laboratory Tests Test 12/04/16 06:15 White Blood Count 9.4 K/UL (4.8-10.8) Red Blood Count 3.23 M/UL (4.20-5.40) L Hemoglobin 9.4 G/DL (12.0-16.0) L Hematocrit 28.8 % (37.0-47.0) L Mean Corpuscular Volume 89 FL (80-99) Mean Corpuscular Hemoglobin 29.0 PG (27.0-31.0) Mean Corpuscular Hemoglobin Concent 32.6 G/DL (32.0-36.0) Red Cell Distribution Width 13.9 % (11.6-14.8) Platelet Count 471 K/UL (150-450) H Mean Platelet Volume 6.3 FL (6.5-10.1) L Neutrophils (%) (Auto) 75.0 % (45.0-75.0) Lymphocytes (%) (Auto) 14.7 % (20.0-45.0) L Monocytes (%) (Auto) 6.2 % (1.0-10.0) Eosinophils (%) (Auto) 2.5 % (0.0-3.0) Basophils (%) (Auto) 1.6 % (0.0-2.0) Sodium Level 141 mEQ/L (135-145) Potassium Level 4.2 mEQ/L (3.4-4.9) Chloride Level 102 mEQ/L (98-107) Carbon Dioxide Level 22 mEQ/L (20-30) Anion Gap 17 (5-15) H Blood Urea Nitrogen 19 mg/dL (7-23) Creatinine 2.2 mg/dL (0.5-0.9) H Estimat Glomerular Filtration Rate 27.8 mL/min (>60) Glucose Level 94 mg/dL (74-106) Uric Acid 4.2 mg/dL (3.0-7.5) Calcium Level 8.9 mg/dL (8.6-10.2) Phosphorus Level 3.7 mg/dL (2.5-4.8) Magnesium Level 1.7 mg/dL (1.7-2.5) Total Bilirubin < 0.2 mg/dL (0.0-1.2) Direct Bilirubin 0.1 mg/dL (0.1-0.3) Aspartate Amino Transf (AST/SGOT) 13 U/L (5-40) Alanine Aminotransferase (ALT/SGPT) 9 U/L (3-33) Alkaline Phosphatase 83 U/L (35-104) Total Protein 7.0 g/dL (6.6-8.7) Albumin 2.6 g/dL (3.5-5.2) L Objective HEENT: Atraumatic and normocephalic. Anicteric. Pupils are equal, round, and reactive to light and accommodation. Extraocular muscles intact. NECK: JVP is less than 5 cm. No carotid bruit. Carotid upstrokes 2+ bilaterally. CVS: Normal S1 and S2. No murmurs, gallops, or rubs. No pulsus paradoxus. LUNGS: Diminished breath sounds at the left base. ABDOMEN: Soft, nontender, and nondistended. No hepatosplenomegaly. Positive bowel sounds. EXTREMITIES: No evidence of edema, clubbing, or cyanosis. ALVINO RIVERO Dec 04, 2016 23:16
[2016-12-05 00:23] VITALS: BP 113/77
[2016-12-05 04:00] VITALS: BP 118/63
[2016-12-05] MEDS: Piperacillin/Tazobactam 2.25 GM in D5W 110 ML IVPB SCH ×3 (05:53→17:26)
[2016-12-05] MEDS: NovoLOG Insulin Flexpen SUBQ SCH ×4 (06:28→21:00)
[2016-12-05 06:38] LABS: BASOPHILS % (AUTO) 1.3 % (0.0-2.0); EOSINOPHILS % (AUTO) 2.5 % (0.0-3.0); LYMPHOCYTES % (AUTO) 13.9 % (20.0-45.0); MEAN CORPUSCULAR HEMOGLOBIN 28.7 PG (27.0-31.0); MEAN CORPUSCULAR VOLUME 90 FL (80-99); MEAN PLATELET VOLUME 6.2 FL (6.5-10.1); MONOCYTES % (AUTO) 8.3 % (1.0-10.0); PLATELET COUNT 474 K/UL (150-450); RED BLOOD COUNT 3.21 M/UL (4.20-5.40); RED CELL DISTRIBUTION WIDTH 14.1 % (11.6-14.8); WHITE BLOOD COUNT 9.3 K/UL (4.8-10.8)
[2016-12-05 06:45] LABS: CALCIUM 8.7 mg/dL (8.6-10.2); CREATININE 2.1 mg/dL (0.5-0.9); GLOMERULAR FILTRATION RATE 29.3 mL/min (>60); POTASSIUM 4.6 mEQ/L (3.4-4.9)
[2016-12-05 08:00] VITALS: BP 127/79
[2016-12-05] MEDS: Aspirin EC 325mg tab ORAL SCH (08:31)
[2016-12-05] MEDS: Docusate 100mg cap ORAL SCH ×2 (08:32→17:27)
[2016-12-05] MEDS: Doxycycline Hyclate 100 MG in D5W 110 ML IV SCH ×2 (11:32→21:16)
[2016-12-05 12:00] VITALS: BP 117/64
--- NOTE | 2016-12-05 12:08 | Cardiology Report ---
APPROVED REPORT EXAM: Two-dimensional and M-mode echocardiogram with Doppler and color Doppler. INDICATION Pericardial effusion M-Mode DIMENSIONS IVSd0.8 (0.7-1.1cm)Left Atrium (MM)2.7 (1.6-4.0cm) LVDd4.4 (3.5-5.6cm)Aortic Root2.3 (2.0-3.7cm) PWd0.8 (0.7-1.1cm)Aortic Cusp Exc.2.0 (1.5-2.0cm) LVDs2.8 (2.5-4.0cm) PWs1.3 cm Normal left ventricular chamber size, systolic function and wall motion. Left ventricular ejection fraction estimated to be 60-65 %. No evidence of ventricular hypertrophy. Small pericardial effusion. Large pleural effusion. All other cardiac chamber sizes are within normal limits. Mild focal aortic valve sclerosis with adequate cusp excursion. Mildly thickened mitral valve leaflets with normal excursion. Mild mitral annulus and aortic root calcification. Normal pulmonic valve structure. Normal tricuspid valve structure. IVC dilated at 2.1 cm with physiologic collapse. A color flow and spectral Doppler study was performed and revealed: No aortic regurgitation. No mitral regurgitation. Mitral diastolic velocities suggest reduced left ventricular relaxation (Grade I). Mild tricuspid regurgitation. Tricuspid systolic velocities suggests peak right ventricular systolic pressure of 56 mmHg, consistent with moderate pulmonary hypertension. No pulmonic regurgitation present.
--- NOTE | 2016-12-05 14:04 | GI Progress Note ---
Assessment/Plan Problems: (1) Severe malnutrition ICD Codes: E43 - Unspecified severe protein-calorie malnutrition SNOMED: 37310002 (2) Vomiting ICD Codes: R11.10 - Vomiting, unspecified SNOMED: 460399124 (3) Anemia ICD Codes: D64.9 - Anemia, unspecified SNOMED: 400552768 (4) Diarrhea ICD Codes: R19.7 - Diarrhea, unspecified SNOMED: 22617187 Status: stable Status Narrative Discussed with Dr. Clark. Assessment/Plan airborne isolation d/c anemia of chronic disease iron panel unremarkable >> no iron deficiency per Hematology note cdiff negative s/p thoracentesis 11/23/16 OB stool negative ok for DC per GI standpoint symptomatic treatment zofran prn monitor H&H, transfuse prn H2B, refusing bowel regime abx fu labs outpatient colonoscopy Subjective Subjective no GI complaints vomiting resolved Objective Last 24 Hour Vital Signs Date Time Temp Pulse Resp B/P Pulse Ox O2 Delivery O2 Flow Rate FiO2 12/05/16 12:00 97.7 89 18 117/64 99 Room Air 12/05/16 08:00 98.1 82 19 127/79 97 Room Air 12/05/16 04:00 98.1 86 17 118/63 95 Nasal Cannula 2.0 12/05/16 00:23 97.9 100 18 113/77 99 Nasal Cannula 2.0 12/04/16 23:42 Room Air 12/04/16 23:41 96 Room Air 12/04/16 23:41 89 18 Room Air 12/04/16 20:19 98.6 100 20 122/81 96 Room Air 12/04/16 19:20 81 18 Nasal Cannula 2.0 28 12/04/16 19:20 96 Nasal Cannula 2.0 28 12/04/16 19:20 Nasal Cannula 2.0 28 12/04/16 15:51 97.9 97 20 121/85 99 Nasal Cannula 2.0 Intake and Output 12/04/16 12/05/16 19:00 07:00 Intake Total 2110 ml 350 ml Balance 2110 ml 350 ml Intake Oral 1780 ml 240 ml IV Total 330 ml 110 ml # Voids 4 2 Laboratory Tests Test 12/05/16 05:15 White Blood Count 9.3 K/UL (4.8-10.8) Red Blood Count 3.21 M/UL (4.20-5.40) L Hemoglobin 9.2 G/DL (12.0-16.0) L Hematocrit 28.8 % (37.0-47.0) L Mean Corpuscular Volume 90 FL (80-99) Mean Corpuscular Hemoglobin 28.7 PG (27.0-31.0) Mean Corpuscular Hemoglobin Concent 32.0 G/DL (32.0-36.0) Red Cell Distribution Width 14.1 % (11.6-14.8) Platelet Count 474 K/UL (150-450) H Mean Platelet Volume 6.2 FL (6.5-10.1) L Neutrophils (%) (Auto) 74.0 % (45.0-75.0) Lymphocytes (%) (Auto) 13.9 % (20.0-45.0) L Monocytes (%) (Auto) 8.3 % (1.0-10.0) Eosinophils (%) (Auto) 2.5 % (0.0-3.0) Basophils (%) (Auto) 1.3 % (0.0-2.0) Sodium Level 138 mEQ/L (135-145) Potassium Level 4.6 mEQ/L (3.4-4.9) Chloride Level 101 mEQ/L (98-107) Carbon Dioxide Level 21 mEQ/L (20-30) Anion Gap 16 (5-15) H Blood Urea Nitrogen 20 mg/dL (7-23) Creatinine 2.1 mg/dL (0.5-0.9) H Estimat Glomerular Filtration Rate 29.3 mL/min (>60) Glucose Level 82 mg/dL (74-106) Calcium Level 8.7 mg/dL (8.6-10.2) Height (Feet): 5 Height (Inches): 9.00 Weight (Pounds): 132 General Appearance: no apparent distress, alert Cardiovascular: normal rate Respiratory/Chest: normal breath sounds Abdominal Exam: normal bowel sounds, non tender, soft Extremities: normal range of motion Jeny Mao N.P. Dec 05, 2016 14:04
--- NOTE | 2016-12-05 14:46 | General Progress Note ---
Assessment/Plan Status: unchanged Status Narrative Cr stable and lower Assessment/Plan Status: Acute Renal Failure- Cr appears to be lowering Iron Defficiency Anemia- HypoAlbuminemia , Etiology ??? Penumonia / left Pleural effusion ? abcess Adrenal Adenoma high A1c ? DM Plan: due surgery left thorax 24 h urine for protein 500 mg Urine Eosinophils and Spot Na IV Iron change diet to renal , medium CHO per orders Subjective ROS Limited/Unobtainable: No Constitutional: Reports: fever, malaise Allergies: Coded Allergies: CITRUS AND DERIVATIVES (Unverified Allergy, Unknown, 11/27/16) TOMATO (Verified Allergy, Unknown, 11/27/16) per patient VANCOMYCIN (Verified Adverse Reaction, Unknown, 11/27/16) had severe abdominal pain per patient Uncoded Allergies: CITRUS (Allergy, Severe, 11/21/16) aloc Objective Last 24 Hour Vital Signs Date Time Temp Pulse Resp B/P Pulse Ox O2 Delivery O2 Flow Rate FiO2 12/05/16 12:00 97.7 89 18 117/64 99 Room Air 12/05/16 08:00 98.1 82 19 127/79 97 Room Air 12/05/16 04:00 98.1 86 17 118/63 95 Nasal Cannula 2.0 12/05/16 00:23 97.9 100 18 113/77 99 Nasal Cannula 2.0 12/04/16 23:42 Room Air 12/04/16 23:41 96 Room Air 12/04/16 23:41 89 18 Room Air 12/04/16 20:19 98.6 100 20 122/81 96 Room Air 12/04/16 19:20 81 18 Nasal Cannula 2.0 28 12/04/16 19:20 96 Nasal Cannula 2.0 28 12/04/16 19:20 Nasal Cannula 2.0 28 12/04/16 15:51 97.9 97 20 121/85 99 Nasal Cannula 2.0 Intake and Output 12/04/16 12/05/16 19:00 07:00 Intake Total 2110 ml 350 ml Balance 2110 ml 350 ml Intake Oral 1780 ml 240 ml IV Total 330 ml 110 ml # Voids 4 2 Laboratory Tests 12/05/16 05:15: White Blood Count 9.3, Red Blood Count 3.21L, Hemoglobin 9.2L, Hematocrit 28.8L , Mean Corpuscular Volume 90, Mean Corpuscular Hemoglobin 28.7, Mean Corpuscular Hemoglobin Concent 32.0, Red Cell Distribution Width 14.1, Platelet Count 474H, Mean Platelet Volume 6.2L, Neutrophils (%) (Auto) 74.0, Lymphocytes (%) (Auto) 13.9L, Monocytes (%) (Auto) 8.3, Eosinophils (%) (Auto) 2.5, Basophils (%) (Auto) 1.3, Sodium Level 138, Potassium Level 4.6, Chloride Level 101, Carbon Dioxide Level 21, Anion Gap 16H, Blood Urea Nitrogen 20, Creatinine 2.1H, Estimat Glomerular Filtration Rate 29.3, Glucose Level 82, Calcium Level 8.7 Height (Feet): 5 Height (Inches): 9.00 Weight (Pounds): 132 General Appearance: no apparent distress Cardiovascular: regular rhythm Respiratory/Chest: decreased breath sounds Abdomen: soft Objective no other change JOAQUÍN WORRELL Dec 05, 2016 14:46
[2016-12-05 16:00] VITALS: BP 114/71
--- NOTE | 2016-12-05 16:19 | Anethesia Preoperative Eval ---
Anesthesia Pre-op PMH/ROS General Date of Evaluation: Dec 05, 2016 Time of Evaluation: 16:13 Anesthesiologist: Aniya ASA Score: ASA 3 Mallampati Score Class I : Soft palate, uvula, fauces, pillars visible Class II: Soft palate, uvula, fauces visible Class III: Soft palate, base of uvula visible Class IV: Only hard plate visible Mallampati Classification: Class II Surgeon: Santana Diagnosis: L pleural effusion Surgical Procedure: Bronchoscopy L VATS Anesthesia History: none Social History: smoking - h/o Family History: no anesthesia problems Allergies: Coded Allergies: CITRUS AND DERIVATIVES (Unverified Allergy, Unknown, 11/27/16) TOMATO (Verified Allergy, Unknown, 11/27/16) per patient VANCOMYCIN (Verified Adverse Reaction, Unknown, 11/27/16) had severe abdominal pain per patient Uncoded Allergies: CITRUS (Allergy, Severe, 11/21/16) aloc Medications: see eMAR Past Medical History Cardiovascular: Reports: HTN - mild, Denies: CAD, MS, arrhythmia, other, valve dz Pulmonary: Reports: COPD, Denies: DINORA, asthma, other Gastrointestinal/Genitourinary: Reports: CRI, Denies: ESRD, GERD, other Neurologic/Psychiatric: Reports: depression/anxiety, Denies: CVA, TIA, dementia, other Endocrine: Denies: DM, hypothyroidism, other, steroids HEENT: Denies: HOONAH (L), HOONAH (R), cataract (L), cataract (R), glaucoma, other Hematology/Immune: Reports: anemia - mild, Denies: DVT, bleeding disorder, other Musculoskeletal/Integumentary: Reports: OA, Denies: DDD, DJD, RA, edema, other Other: other - malnourished moderate weight loss PMH Narrative: as above PSxH Narrative: Breast Sx, ORIF tibia Fx. Anesthesia Pre-op Phys. Exam Physician Exam Last Vital Signs Date Time Temp Pulse Resp B/P Pulse Ox O2 Delivery O2 Flow Rate FiO2 12/05/16 12:00 97.7 89 18 117/64 99 Room Air 12/05/16 04:00 2.0 12/04/16 23:41 Constitutional: NAD Neurologic: CN 2-12 intact Cardiovascular: RRR, no M/R/G Respiratory: CTA Gastrointestinal: S/NT/ND Airway Exam Mallampati Score: Class II MO: full Neck: flexible ROM: limited Teeth: missing Dentures: no lower, no upper Anesthesia Pre-op A/P Labs Hematology Test 12/05/16 05:15 White Blood Count 9.3 K/UL (4.8-10.8) Red Blood Count 3.21 M/UL (4.20-5.40) L Hemoglobin 9.2 G/DL (12.0-16.0) L Hematocrit 28.8 % (37.0-47.0) L Mean Corpuscular Volume 90 FL (80-99) Mean Corpuscular Hemoglobin 28.7 PG (27.0-31.0) Mean Corpuscular Hemoglobin Concent 32.0 G/DL (32.0-36.0) Red Cell Distribution Width 14.1 % (11.6-14.8) Platelet Count 474 K/UL (150-450) H Mean Platelet Volume 6.2 FL (6.5-10.1) L Neutrophils (%) (Auto) 74.0 % (45.0-75.0) Lymphocytes (%) (Auto) 13.9 % (20.0-45.0) L Monocytes (%) (Auto) 8.3 % (1.0-10.0) Eosinophils (%) (Auto) 2.5 % (0.0-3.0) Basophils (%) (Auto) 1.3 % (0.0-2.0) Chemistry Test 12/05/16 05:15 Sodium Level 138 mEQ/L (135-145) Potassium Level 4.6 mEQ/L (3.4-4.9) Chloride Level 101 mEQ/L (98-107) Carbon Dioxide Level 21 mEQ/L (20-30) Anion Gap 16 (5-15) H Blood Urea Nitrogen 20 mg/dL (7-23) Creatinine 2.1 mg/dL (0.5-0.9) H Estimat Glomerular Filtration Rate 29.3 mL/min (>60) Glucose Level 82 mg/dL (74-106) Calcium Level 8.7 mg/dL (8.6-10.2) Studies Pre-op Studies: EKG - NSR, echo - EF 55-60% Risk Assessment & Plan Assessment: ASA 3 Plan: GA with ETT lungs separation double lumen tube, postoperative ICU care, possible respiratory support Status Change Before Surgery: No Pre-Antibiotics Drug: as scheduled ELAINE GILLETTE M.D. Dec 05, 2016 16:19
--- NOTE | 2016-12-05 16:52 | Infectious Diseases Prog Note ---
Assessment/Plan Problems: (1) LLL pneumonia Assessment & Plan: complicated with loculated effusion, on doxycycline, and zosyn empirically pending decortication . fungal serology is negative . T spot test is negative, and PPD test was negative as an outpatient , which rule out TB . for decortication by thoracic on Sunday, will continue current antibiotics for now (2) Pleural effusion, left Assessment & Plan: loculated , S/P repeated thoracentesis , fluids culture is negative so far , fungal serology is negative , cytology was negative for malignancy. repeated thoracentesis fluids culture is pending, CT surgery is following for decortication (3) Adrenal adenoma Assessment & Plan: confirmed on MRI, recommend endocrinology eval and management (4) ESTHER (acute kidney injury) Assessment & Plan: multifactorial, improving, continue IVF for hydration, monitor renal function test. renal is following (5) Breast cyst Assessment & Plan: recommend mammogram for follow up Subjective Constitutional: Reports: no symptoms HEENT: Reports: no symptoms Respiratory: Reports: no symptoms Breasts: Reports: no symptoms Cardiovascular: Reports: no symptoms Gastrointestinal/Abdominal: Reports: no symptoms Genitourinary: Reports: no symptoms Neurologic: Reports: no symptoms Psychiatric: Reports: no symptoms Skin: Reports: no symptoms Allergies: Coded Allergies: CITRUS AND DERIVATIVES (Unverified Allergy, Unknown, 11/27/16) TOMATO (Verified Allergy, Unknown, 11/27/16) per patient VANCOMYCIN (Verified Adverse Reaction, Unknown, 11/27/16) had severe abdominal pain per patient Uncoded Allergies: CITRUS (Allergy, Severe, 11/21/16) aloc Objective Vital Signs Last 24 Hour Vital Signs Date Time Temp Pulse Resp B/P Pulse Ox O2 Delivery O2 Flow Rate FiO2 12/05/16 12:00 97.7 89 18 117/64 99 Room Air 12/05/16 08:00 98.1 82 19 127/79 97 Room Air 12/05/16 04:00 98.1 86 17 118/63 95 Nasal Cannula 2.0 12/05/16 00:23 97.9 100 18 113/77 99 Nasal Cannula 2.0 12/04/16 23:42 Room Air 12/04/16 23:41 96 Room Air 12/04/16 23:41 89 18 Room Air 12/04/16 20:19 98.6 100 20 122/81 96 Room Air 12/04/16 19:20 81 18 Nasal Cannula 2.0 28 12/04/16 19:20 96 Nasal Cannula 2.0 28 12/04/16 19:20 Nasal Cannula 2.0 28 Height (Feet): 5 Height (Inches): 9.00 Weight (Pounds): 132 General Appearance: WD/WN, no acute distress HEENT: normocephalic, atraumatic, anicteric, mucous membranes moist Respiratory/Chest: chest wall non-tender, normal breath sounds, no respiratory distress, no accessory muscle use, decreased breath sounds, crackles/rales Cardiovascular: normal peripheral pulses, normal rate, regular rhythm, no gallop/murmur Abdomen: normal bowel sounds, soft, non tender, no organomegaly, non distended , no mass Extremities: no cyanosis, no clubbing Skin: no rash, no lesions Laboratory Tests Test 12/05/16 05:15 White Blood Count 9.3 K/UL (4.8-10.8) Red Blood Count 3.21 M/UL (4.20-5.40) L Hemoglobin 9.2 G/DL (12.0-16.0) L Hematocrit 28.8 % (37.0-47.0) L Mean Corpuscular Volume 90 FL (80-99) Mean Corpuscular Hemoglobin 28.7 PG (27.0-31.0) Mean Corpuscular Hemoglobin Concent 32.0 G/DL (32.0-36.0) Red Cell Distribution Width 14.1 % (11.6-14.8) Platelet Count 474 K/UL (150-450) H Mean Platelet Volume 6.2 FL (6.5-10.1) L Neutrophils (%) (Auto) 74.0 % (45.0-75.0) Lymphocytes (%) (Auto) 13.9 % (20.0-45.0) L Monocytes (%) (Auto) 8.3 % (1.0-10.0) Eosinophils (%) (Auto) 2.5 % (0.0-3.0) Basophils (%) (Auto) 1.3 % (0.0-2.0) Sodium Level 138 mEQ/L (135-145) Potassium Level 4.6 mEQ/L (3.4-4.9) Chloride Level 101 mEQ/L (98-107) Carbon Dioxide Level 21 mEQ/L (20-30) Anion Gap 16 (5-15) H Blood Urea Nitrogen 20 mg/dL (7-23) Creatinine 2.1 mg/dL (0.5-0.9) H Estimat Glomerular Filtration Rate 29.3 mL/min (>60) Glucose Level 82 mg/dL (74-106) Calcium Level 8.7 mg/dL (8.6-10.2) Current Medications Medications (Trade) Dose Ordered Sig/Ruben Route PRN Reason Start Time Stop Time Status Last Admin Dose Admin Acetaminophen (Tylenol) 650 mg Q4H PRN ORAL Mild Pain/Temp > 100.5 11/22/16 22:45 12/22/16 22:44 Aspirin (Ecotrin) 325 mg DAILY ORAL 11/23/16 09:00 12/23/16 08:59 12/05/16 08:31 Dextrose STAT PRN IV Hypoglycemia 12/03/16 12:30 01/02/17 12:29 Docusate Sodium 100 mg 100 mg TWICE A DAY ORAL 11/26/16 18:00 12/26/16 17:59 Doxycycline Hyclate/Dextrose (Vibramycin/D5W) 110 ml @ 110 mls/hr Q12HR IV 12/05/16 10:30 12/12/16 10:29 12/05/16 11:32 Insulin Aspart (NovoLOG) BEFORE MEALS AND HS SUBQ 12/03/16 16:30 01/02/17 16:29 Ondansetron HCl (Zofran) 4 mg Q6H PRN IVP Nausea & Vomiting 11/22/16 22:45 12/22/16 22:44 11/28/16 06:23 Piperacillin Sod/ Tazobactam Sod/ Dextrose (Zosyn/D5W) 110 ml @ 220 mls/hr Q6HR IVPB 11/26/16 20:00 12/10/16 19:59 12/05/16 11:56 Promethazine HCl/ Codeine (Phenergan with Codeine) 5 ml Q4H PRN ORAL For Cough 11/22/16 23:45 12/22/16 23:44 11/24/16 21:54 Ranitidine HCl (Zantac) 150 mg BEDTIME ORAL 11/29/16 21:00 12/29/16 20:59 Nicolle Schmitz M.D. Dec 05, 2016 16:52
--- NOTE | 2016-12-05 20:19 | General Progress Note ---
Assessment/Plan Assessment/Plan Assessment and Recs: # Loculated pleural effusion - cytology shows lymphocytosis, flow cytometry is negative. Have discussed with Dr. Mayer on 11/30/16 if any lesion in the chest/abd /pelvis is able to be biopsied, none are. VATS planned for wed # Anemia of chronic disease - anemia 2/2 chronic disease, no iron deficiency # Coagulopathy - likely related to poor po intake, better # Right breast - will need mammo while outpatient, nonurgent # LLL pneumonia with possible abscess, on abx as per ID service # Sepsis - on abx as per ID # SOB (shortness of breath) - likely related to pna, improved Subjective Constitutional: Reports: no symptoms HEENT: Reports: no symptoms Cardiovascular: Reports: no symptoms Respiratory: Reports: no symptoms Gastrointestinal/Abdominal: Reports: no symptoms Genitourinary: Reports: no symptoms Neurologic/Psychiatric: Reports: no symptoms Endocrine: Reports: no symptoms Hematologic/Lymphatic: Reports: anemia Allergies: Coded Allergies: CITRUS AND DERIVATIVES (Unverified Allergy, Unknown, 11/27/16) TOMATO (Verified Allergy, Unknown, 11/27/16) per patient VANCOMYCIN (Verified Adverse Reaction, Unknown, 11/27/16) had severe abdominal pain per patient Uncoded Allergies: CITRUS (Allergy, Severe, 11/21/16) aloc Subjective no chills, no fevers, no hematemesis, no hemoptysis Objective Last 24 Hour Vital Signs Date Time Temp Pulse Resp B/P Pulse Ox O2 Delivery O2 Flow Rate FiO2 12/05/16 16:00 97.7 87 18 114/71 97 Room Air 12/05/16 12:00 97.7 89 18 117/64 99 Room Air 12/05/16 08:00 98.1 82 19 127/79 97 Room Air 12/05/16 04:00 98.1 86 17 118/63 95 Nasal Cannula 2.0 12/05/16 00:23 97.9 100 18 113/77 99 Nasal Cannula 2.0 12/04/16 23:42 Room Air 12/04/16 23:41 96 Room Air 12/04/16 23:41 89 18 Room Air 12/04/16 20:19 98.6 100 20 122/81 96 Room Air Intake and Output 12/04/16 12/05/16 19:00 07:00 Intake Total 2110 ml 350 ml Balance 2110 ml 350 ml Intake Oral 1780 ml 240 ml IV Total 330 ml 110 ml # Voids 4 2 Laboratory Tests 12/05/16 05:15: White Blood Count 9.3, Red Blood Count 3.21L, Hemoglobin 9.2L, Hematocrit 28.8L , Mean Corpuscular Volume 90, Mean Corpuscular Hemoglobin 28.7, Mean Corpuscular Hemoglobin Concent 32.0, Red Cell Distribution Width 14.1, Platelet Count 474H, Mean Platelet Volume 6.2L, Neutrophils (%) (Auto) 74.0, Lymphocytes (%) (Auto) 13.9L, Monocytes (%) (Auto) 8.3, Eosinophils (%) (Auto) 2.5, Basophils (%) (Auto) 1.3, Sodium Level 138, Potassium Level 4.6, Chloride Level 101, Carbon Dioxide Level 21, Anion Gap 16H, Blood Urea Nitrogen 20, Creatinine 2.1H, Estimat Glomerular Filtration Rate 29.3, Glucose Level 82, Calcium Level 8.7 Height (Feet): 5 Height (Inches): 9.00 Weight (Pounds): 132 General Appearance: WD/WN EENT: PERRL/EOMI Neck: non-tender Cardiovascular: normal peripheral pulses Respiratory/Chest: lungs clear Abdomen: soft Edema: no edema noted Arm (L), no edema noted Arm (R), no edema noted Leg (L), no edema noted Leg (R) Skin: warm/dry Matheus Lombardi Dec 05, 2016 20:19
[2016-12-05 20:38] VITALS: BP 121/78
[2016-12-05] MEDS: D5NS 1,000 ML IV SCH (22:26)
[2016-12-06 00:17] VITALS: BP 122/80
[2016-12-06] MEDS: Piperacillin/Tazobactam 2.25 GM in D5W 110 ML IVPB SCH ×4 (00:31→17:46)
[2016-12-06 04:00] VITALS: BP 119/74
[2016-12-06] MEDS: NovoLOG Insulin Flexpen SUBQ SCH ×4 (06:30→21:00)
[2016-12-06 07:14] LABS: BASOPHILS % (AUTO) 1.7 % (0.0-2.0); EOSINOPHILS % (AUTO) 3.2 % (0.0-3.0); MEAN CORPUSCULAR HEMOGLOBIN 28.5 PG (27.0-31.0); MEAN CORPUSCULAR HGB CONC 31.5 G/DL (32.0-36.0); MEAN CORPUSCULAR VOLUME 91 FL (80-99); MEAN PLATELET VOLUME 6.1 FL (6.5-10.1); MONOCYTES % (AUTO) 8.2 % (1.0-10.0); NEUTROPHILS % (AUTO) 73.9 % (45.0-75.0); PLATELET COUNT 452 K/UL (150-450); RED CELL DISTRIBUTION WIDTH 14.2 % (11.6-14.8)
[2016-12-06 07:39] LABS: CALCIUM 8.3 mg/dL (8.6-10.2); CREATININE 1.7 mg/dL (0.5-0.9); GLOMERULAR FILTRATION RATE 37.5 mL/min (>60)
[2016-12-06 08:00] VITALS: BP 125/84
[2016-12-06] MEDS: Docusate 100mg cap ORAL SCH ×2 (08:33→17:47)
[2016-12-06] MEDS: Aspirin EC 325mg tab ORAL SCH (08:33)
[2016-12-06] MEDS: Doxycycline Hyclate 100 MG in D5W 110 ML IV SCH ×2 (08:33→20:57)
--- NOTE | 2016-12-06 10:34 | General Progress Note ---
Assessment/Plan Status: stable Status Narrative Cr down to 1.7 Assessment/Plan Status: Acute Renal Failure- Cr appears to be lowering Iron Defficiency Anemia- HypoAlbuminemia , Etiology ??? Penumonia / left Pleural effusion ? abcess Adrenal Adenoma high A1c ? DM Plan: due surgery left thorax- REFUSED 24 h urine for protein 500 mg Urine Eosinophils and Spot Na IV Iron change diet to renal , medium CHO per orders ? DC planning Subjective ROS Limited/Unobtainable: No Allergies: Coded Allergies: CITRUS AND DERIVATIVES (Unverified Allergy, Unknown, 11/27/16) TOMATO (Verified Allergy, Unknown, 11/27/16) per patient VANCOMYCIN (Verified Adverse Reaction, Unknown, 11/27/16) had severe abdominal pain per patient Uncoded Allergies: CITRUS (Allergy, Severe, 11/21/16) aloc Objective Last 24 Hour Vital Signs Date Time Temp Pulse Resp B/P Pulse Ox O2 Delivery O2 Flow Rate FiO2 12/06/16 08:00 97.9 82 19 125/84 99 Room Air 12/06/16 07:23 77 16 Nasal Cannula 2.0 12/06/16 07:23 Nasal Cannula 2.0 12/06/16 07:23 100 Nasal Cannula 2.0 12/06/16 04:00 97.7 64 18 119/74 100 Room Air 12/06/16 00:17 97.5 100 17 122/80 98 Nasal Cannula 2.0 12/05/16 20:38 98.1 104 19 121/78 99 Nasal Cannula 2.0 12/05/16 16:00 97.7 87 18 114/71 97 Room Air 12/05/16 12:00 97.7 89 18 117/64 99 Room Air Intake and Output 12/05/16 12/06/16 19:00 07:00 Intake Total 600 ml 740 ml Balance 600 ml 740 ml Intake Oral 600 ml 240 ml IV Total 500 ml # Voids 3 Laboratory Tests 12/06/16 06:10: White Blood Count 9.0, Red Blood Count 3.10L, Hemoglobin 8.9L, Hematocrit 28.1L , Mean Corpuscular Volume 91, Mean Corpuscular Hemoglobin 28.5, Mean Corpuscular Hemoglobin Concent 31.5L, Red Cell Distribution Width 14.2, Platelet Count 452H, Mean Platelet Volume 6.1L, Neutrophils (%) (Auto) 73.9, Lymphocytes (%) (Auto) 13.0L, Monocytes (%) (Auto) 8.2, Eosinophils (%) (Auto) 3.2H, Basophils (%) (Auto) 1.7, Sodium Level 136, Potassium Level 4.0, Chloride Level 105, Carbon Dioxide Level 21, Anion Gap 10, Blood Urea Nitrogen 25H, Creatinine 1.7H, Estimat Glomerular Filtration Rate 37.5, Glucose Level 95, Calcium Level 8.3L Height (Feet): 5 Height (Inches): 9.00 Weight (Pounds): 132 General Appearance: no apparent distress Cardiovascular: other - variable rate Respiratory/Chest: decreased breath sounds Abdomen: soft Objective no other change JOAQUÍN WORRELL Dec 06, 2016 10:34
--- NOTE | 2016-12-06 10:53 | GI Progress Note ---
Assessment/Plan Problems: (1) Severe malnutrition ICD Codes: E43 - Unspecified severe protein-calorie malnutrition SNOMED: 76698335 (2) Vomiting ICD Codes: R11.10 - Vomiting, unspecified SNOMED: 615279620 (3) Anemia ICD Codes: D64.9 - Anemia, unspecified SNOMED: 766249248 (4) Diarrhea ICD Codes: R19.7 - Diarrhea, unspecified SNOMED: 57964448 Status: stable Status Narrative Discussed with Dr. Clark. Assessment/Plan airborne isolation d/c anemia of chronic disease iron panel unremarkable >> no iron deficiency per Hematology note cdiff negative s/p thoracentesis 11/23/16 OB stool negative ok for DC per GI standpoint symptomatic treatment zofran prn imodium prn monitor H&H, transfuse prn H2B, refusing bowel regime abx fu labs outpatient colonoscopy Subjective Subjective refused surgery today wants to speak to ID to r/o [place] Fever Objective Last 24 Hour Vital Signs Date Time Temp Pulse Resp B/P Pulse Ox O2 Delivery O2 Flow Rate FiO2 12/06/16 08:00 97.9 82 19 125/84 99 Room Air 12/06/16 07:23 77 16 Nasal Cannula 2.0 12/06/16 07:23 Nasal Cannula 2.0 12/06/16 07:23 100 Nasal Cannula 2.0 12/06/16 04:00 97.7 64 18 119/74 100 Room Air 12/06/16 00:17 97.5 100 17 122/80 98 Nasal Cannula 2.0 12/05/16 20:38 98.1 104 19 121/78 99 Nasal Cannula 2.0 12/05/16 16:00 97.7 87 18 114/71 97 Room Air 12/05/16 12:00 97.7 89 18 117/64 99 Room Air Intake and Output 12/05/16 12/06/16 19:00 07:00 Intake Total 600 ml 740 ml Balance 600 ml 740 ml Intake Oral 600 ml 240 ml IV Total 500 ml # Voids 3 Laboratory Tests Test 12/06/16 06:10 White Blood Count 9.0 K/UL (4.8-10.8) Red Blood Count 3.10 M/UL (4.20-5.40) L Hemoglobin 8.9 G/DL (12.0-16.0) L Hematocrit 28.1 % (37.0-47.0) L Mean Corpuscular Volume 91 FL (80-99) Mean Corpuscular Hemoglobin 28.5 PG (27.0-31.0) Mean Corpuscular Hemoglobin Concent 31.5 G/DL (32.0-36.0) L Red Cell Distribution Width 14.2 % (11.6-14.8) Platelet Count 452 K/UL (150-450) H Mean Platelet Volume 6.1 FL (6.5-10.1) L Neutrophils (%) (Auto) 73.9 % (45.0-75.0) Lymphocytes (%) (Auto) 13.0 % (20.0-45.0) L Monocytes (%) (Auto) 8.2 % (1.0-10.0) Eosinophils (%) (Auto) 3.2 % (0.0-3.0) H Basophils (%) (Auto) 1.7 % (0.0-2.0) Sodium Level 136 mEQ/L (135-145) Potassium Level 4.0 mEQ/L (3.4-4.9) Chloride Level 105 mEQ/L (98-107) Carbon Dioxide Level 21 mEQ/L (20-30) Anion Gap 10 (5-15) Blood Urea Nitrogen 25 mg/dL (7-23) H Creatinine 1.7 mg/dL (0.5-0.9) H Estimat Glomerular Filtration Rate 37.5 mL/min (>60) Glucose Level 95 mg/dL (74-106) Calcium Level 8.3 mg/dL (8.6-10.2) L Height (Feet): 5 Height (Inches): 9.00 Weight (Pounds): 132 General Appearance: no apparent distress, alert Cardiovascular: normal rate Respiratory/Chest: normal breath sounds, no respiratory distress Abdominal Exam: normal bowel sounds, non tender, soft Extremities: normal range of motion Jeny Mao N.P. Dec 06, 2016 10:52
[2016-12-06 12:00] VITALS: BP 119/72
--- NOTE | 2016-12-06 15:14 | Pulmonology Progress Note ---
Assessment/Plan Problems: (1) Pleural effusion, left (2) LLL pneumonia (3) Sepsis (4) ESTHER (acute kidney injury) Assessment/Plan pt agreed with thoracoscopy continue current meds reschedule for surgery Subjective Interval Events: pt refused the surgery this morning, but after talking to me she agreed Allergies: Coded Allergies: CITRUS AND DERIVATIVES (Unverified Allergy, Unknown, 11/27/16) TOMATO (Verified Allergy, Unknown, 11/27/16) per patient VANCOMYCIN (Verified Adverse Reaction, Unknown, 11/27/16) had severe abdominal pain per patient Uncoded Allergies: CITRUS (Allergy, Severe, 11/21/16) aloc Objective Last 24 Hour Vital Signs Date Time Temp Pulse Resp B/P Pulse Ox O2 Delivery O2 Flow Rate FiO2 12/06/16 12:00 99.1 82 19 119/72 97 Room Air 12/06/16 08:00 97.9 82 19 125/84 99 Room Air 12/06/16 07:23 77 16 Nasal Cannula 2.0 12/06/16 07:23 Nasal Cannula 2.0 12/06/16 07:23 100 Nasal Cannula 2.0 12/06/16 04:00 97.7 64 18 119/74 100 Room Air 12/06/16 00:17 97.5 100 17 122/80 98 Nasal Cannula 2.0 12/05/16 20:38 98.1 104 19 121/78 99 Nasal Cannula 2.0 12/05/16 16:00 97.7 87 18 114/71 97 Room Air Intake and Output 12/05/16 12/06/16 19:00 07:00 Intake Total 600 ml 740 ml Balance 600 ml 740 ml Intake Oral 600 ml 240 ml IV Total 500 ml # Voids 3 General Appearance: WD/WN HEENT: normocephalic, atraumatic Respiratory/Chest: chest wall non-tender, lungs clear Breasts: no masses Cardiovascular: normal peripheral pulses Abdomen: normal bowel sounds, no organomegaly Genitourinary: normal external genitalia Extremities: no cyanosis Laboratory Tests 12/06/16 06:10: White Blood Count 9.0, Red Blood Count 3.10L, Hemoglobin 8.9L, Hematocrit 28.1L , Mean Corpuscular Volume 91, Mean Corpuscular Hemoglobin 28.5, Mean Corpuscular Hemoglobin Concent 31.5L, Red Cell Distribution Width 14.2, Platelet Count 452H, Mean Platelet Volume 6.1L, Neutrophils (%) (Auto) 73.9, Lymphocytes (%) (Auto) 13.0L, Monocytes (%) (Auto) 8.2, Eosinophils (%) (Auto) 3.2H, Basophils (%) (Auto) 1.7, Sodium Level 136, Potassium Level 4.0, Chloride Level 105, Carbon Dioxide Level 21, Anion Gap 10, Blood Urea Nitrogen 25H, Creatinine 1.7H, Estimat Glomerular Filtration Rate 37.5, Glucose Level 95, Calcium Level 8.3L Current Medications Medications (Trade) Dose Ordered Sig/Ruben Route PRN Reason Start Time Stop Time Status Last Admin Dose Admin Acetaminophen (Tylenol) 650 mg Q4H PRN ORAL Mild Pain/Temp > 100.5 11/22/16 22:45 12/22/16 22:44 Aspirin (Ecotrin) 325 mg DAILY ORAL 11/23/16 09:00 12/23/16 08:59 12/06/16 08:33 Dextrose STAT PRN IV Hypoglycemia 12/03/16 12:30 01/02/17 12:29 Dextrose/Sodium Chloride (D5ns) 1,000 ml @ 50 mls/hr Q20H IV 12/05/16 22:15 01/04/17 22:14 12/05/16 22:26 Docusate Sodium 100 mg 100 mg TWICE A DAY ORAL 11/26/16 18:00 12/26/16 17:59 Doxycycline Hyclate 100 mg/ Dextrose 110 ml @ 110 mls/hr Q12HR IV 12/05/16 10:30 12/12/16 10:29 12/06/16 08:33 Insulin Aspart (NovoLOG) BEFORE MEALS AND HS SUBQ 12/03/16 16:30 01/02/17 16:29 Ondansetron HCl (Zofran) 4 mg Q6H PRN IVP Nausea & Vomiting 11/22/16 22:45 12/22/16 22:44 11/28/16 06:23 Piperacillin Sod/ Tazobactam Sod/ Dextrose (Zosyn/D5W) 110 ml @ 220 mls/hr Q6HR IVPB 11/26/16 20:00 12/10/16 19:59 12/06/16 11:31 Promethazine HCl/ Codeine (Phenergan with Codeine) 5 ml Q4H PRN ORAL For Cough 11/22/16 23:45 12/22/16 23:44 11/24/16 21:54 Ranitidine HCl (Zantac) 150 mg BEDTIME ORAL 11/29/16 21:00 12/29/16 20:59 ESTEFANI AVILES Dec 06, 2016 15:14
--- NOTE | 2016-12-06 15:14 | General Progress Note ---
Assessment/Plan Problem List: (1) SOB (shortness of breath) ICD Codes: R06.02 - Shortness of breath SNOMED: 002563332 (2) Sepsis ICD Codes: A41.9 - Sepsis, unspecified organism SNOMED: 05882248 (3) Pleural effusion, left ICD Codes: J90 - Pleural effusion, not elsewhere classified SNOMED: 48481392 (4) Upper respiratory infection ICD Codes: J06.9 - Acute upper respiratory infection, unspecified SNOMED: 41046674 (5) Abnormal blood pressure SNOMED: 03586659 Status: stable Assessment/Plan pleural effusion REFUSING VATS SO DC PLAN PER DR AVILES I JOHN W DR AVILES DECISION Subjective ROS Limited/Unobtainable: Yes Constitutional: Reports: no symptoms Respiratory: Reports: shortness of breath Allergies: Coded Allergies: CITRUS AND DERIVATIVES (Unverified Allergy, Unknown, 11/27/16) TOMATO (Verified Allergy, Unknown, 11/27/16) per patient VANCOMYCIN (Verified Adverse Reaction, Unknown, 11/27/16) had severe abdominal pain per patient Uncoded Allergies: CITRUS (Allergy, Severe, 11/21/16) aloc Objective Last 24 Hour Vital Signs Date Time Temp Pulse Resp B/P Pulse Ox O2 Delivery O2 Flow Rate FiO2 12/06/16 12:00 99.1 82 19 119/72 97 Room Air 12/06/16 08:00 97.9 82 19 125/84 99 Room Air 12/06/16 07:23 77 16 Nasal Cannula 2.0 12/06/16 07:23 Nasal Cannula 2.0 12/06/16 07:23 100 Nasal Cannula 2.0 12/06/16 04:00 97.7 64 18 119/74 100 Room Air 12/06/16 00:17 97.5 100 17 122/80 98 Nasal Cannula 2.0 12/05/16 20:38 98.1 104 19 121/78 99 Nasal Cannula 2.0 12/05/16 16:00 97.7 87 18 114/71 97 Room Air Intake and Output 12/05/16 12/06/16 19:00 07:00 Intake Total 600 ml 740 ml Balance 600 ml 740 ml Intake Oral 600 ml 240 ml IV Total 500 ml # Voids 3 Laboratory Tests 12/06/16 06:10: White Blood Count 9.0, Red Blood Count 3.10L, Hemoglobin 8.9L, Hematocrit 28.1L , Mean Corpuscular Volume 91, Mean Corpuscular Hemoglobin 28.5, Mean Corpuscular Hemoglobin Concent 31.5L, Red Cell Distribution Width 14.2, Platelet Count 452H, Mean Platelet Volume 6.1L, Neutrophils (%) (Auto) 73.9, Lymphocytes (%) (Auto) 13.0L, Monocytes (%) (Auto) 8.2, Eosinophils (%) (Auto) 3.2H, Basophils (%) (Auto) 1.7, Sodium Level 136, Potassium Level 4.0, Chloride Level 105, Carbon Dioxide Level 21, Anion Gap 10, Blood Urea Nitrogen 25H, Creatinine 1.7H, Estimat Glomerular Filtration Rate 37.5, Glucose Level 95, Calcium Level 8.3L Height (Feet): 5 Height (Inches): 9.00 Weight (Pounds): 132 Neck: non-tender Cardiovascular: normal rate Respiratory/Chest: lungs clear Abdomen: non tender Kahlil Ronquillo MD Dec 06, 2016 15:14
[2016-12-06 16:00] VITALS: BP 125/74
--- NOTE | 2016-12-06 16:19 | Infectious Diseases Prog Note ---
Assessment/Plan Problems: (1) LLL pneumonia Assessment & Plan: complicated with loculated effusion, on doxycycline, and zosyn empirically pending decortication . fungal serology is negative . T spot test is negative, and PPD test was negative as an outpatient . she refused decortication by thoracic today , will continue current antibiotics for now (2) Pleural effusion, left Assessment & Plan: loculated , S/P repeated thoracentesis , fluids culture is negative so far , fungal serology is negative , cytology was negative for malignancy. repeated thoracentesis fluids culture is pending, CT surgery is following for decortication (3) Adrenal adenoma Assessment & Plan: confirmed on MRI, recommend endocrinology eval and management (4) ESTHER (acute kidney injury) Assessment & Plan: multifactorial, improving, continue IVF for hydration, monitor renal function test. renal is following (5) Breast cyst Assessment & Plan: recommend mammogram for follow up Subjective Constitutional: Reports: no symptoms HEENT: Reports: no symptoms Respiratory: Reports: no symptoms Breasts: Reports: no symptoms Cardiovascular: Reports: no symptoms Gastrointestinal/Abdominal: Reports: no symptoms Genitourinary: Reports: no symptoms Neurologic: Reports: no symptoms Psychiatric: Reports: no symptoms Skin: Reports: no symptoms Endocrine: Reports: no symptoms Hematologic: Reports: no symptoms Allergies: Coded Allergies: CITRUS AND DERIVATIVES (Unverified Allergy, Unknown, 11/27/16) TOMATO (Verified Allergy, Unknown, 11/27/16) per patient VANCOMYCIN (Verified Adverse Reaction, Unknown, 11/27/16) had severe abdominal pain per patient Uncoded Allergies: CITRUS (Allergy, Severe, 11/21/16) aloc Objective Vital Signs Last 24 Hour Vital Signs Date Time Temp Pulse Resp B/P Pulse Ox O2 Delivery O2 Flow Rate FiO2 12/06/16 12:00 99.1 82 19 119/72 97 Room Air 12/06/16 08:00 97.9 82 19 125/84 99 Room Air 12/06/16 07:23 77 16 Nasal Cannula 2.0 12/06/16 07:23 Nasal Cannula 2.0 12/06/16 07:23 100 Nasal Cannula 2.0 12/06/16 04:00 97.7 64 18 119/74 100 Room Air 12/06/16 00:17 97.5 100 17 122/80 98 Nasal Cannula 2.0 12/05/16 20:38 98.1 104 19 121/78 99 Nasal Cannula 2.0 Height (Feet): 5 Height (Inches): 9.00 Weight (Pounds): 132 General Appearance: WD/WN, no acute distress HEENT: normocephalic, atraumatic, anicteric, mucous membranes moist Respiratory/Chest: chest wall non-tender, no respiratory distress, no accessory muscle use, decreased breath sounds, crackles/rales Cardiovascular: normal peripheral pulses, normal rate, regular rhythm, no gallop/murmur Abdomen: normal bowel sounds, soft, non tender, no organomegaly, non distended , no mass Extremities: no cyanosis, no clubbing Skin: no rash, no lesions, no ulcers Laboratory Tests Test 12/06/16 06:10 White Blood Count 9.0 K/UL (4.8-10.8) Red Blood Count 3.10 M/UL (4.20-5.40) L Hemoglobin 8.9 G/DL (12.0-16.0) L Hematocrit 28.1 % (37.0-47.0) L Mean Corpuscular Volume 91 FL (80-99) Mean Corpuscular Hemoglobin 28.5 PG (27.0-31.0) Mean Corpuscular Hemoglobin Concent 31.5 G/DL (32.0-36.0) L Red Cell Distribution Width 14.2 % (11.6-14.8) Platelet Count 452 K/UL (150-450) H Mean Platelet Volume 6.1 FL (6.5-10.1) L Neutrophils (%) (Auto) 73.9 % (45.0-75.0) Lymphocytes (%) (Auto) 13.0 % (20.0-45.0) L Monocytes (%) (Auto) 8.2 % (1.0-10.0) Eosinophils (%) (Auto) 3.2 % (0.0-3.0) H Basophils (%) (Auto) 1.7 % (0.0-2.0) Sodium Level 136 mEQ/L (135-145) Potassium Level 4.0 mEQ/L (3.4-4.9) Chloride Level 105 mEQ/L (98-107) Carbon Dioxide Level 21 mEQ/L (20-30) Anion Gap 10 (5-15) Blood Urea Nitrogen 25 mg/dL (7-23) H Creatinine 1.7 mg/dL (0.5-0.9) H Estimat Glomerular Filtration Rate 37.5 mL/min (>60) Glucose Level 95 mg/dL (74-106) Calcium Level 8.3 mg/dL (8.6-10.2) L Current Medications Medications (Trade) Dose Ordered Sig/Ruben Route PRN Reason Start Time Stop Time Status Last Admin Dose Admin Acetaminophen (Tylenol) 650 mg Q4H PRN ORAL Mild Pain/Temp > 100.5 11/22/16 22:45 12/22/16 22:44 Aspirin (Ecotrin) 325 mg DAILY ORAL 11/23/16 09:00 12/23/16 08:59 12/06/16 08:33 Dextrose STAT PRN IV Hypoglycemia 12/03/16 12:30 01/02/17 12:29 Dextrose/Sodium Chloride (D5ns) 1,000 ml @ 50 mls/hr Q20H IV 12/05/16 22:15 01/04/17 22:14 12/05/16 22:26 Docusate Sodium 100 mg 100 mg TWICE A DAY ORAL 11/26/16 18:00 12/26/16 17:59 Doxycycline Hyclate 100 mg/ Dextrose 110 ml @ 110 mls/hr Q12HR IV 12/05/16 10:30 12/12/16 10:29 12/06/16 08:33 Insulin Aspart (NovoLOG) BEFORE MEALS AND HS SUBQ 12/03/16 16:30 01/02/17 16:29 Ondansetron HCl (Zofran) 4 mg Q6H PRN IVP Nausea & Vomiting 11/22/16 22:45 12/22/16 22:44 11/28/16 06:23 Piperacillin Sod/ Tazobactam Sod/ Dextrose (Zosyn/D5W) 110 ml @ 220 mls/hr Q6HR IVPB 11/26/16 20:00 12/10/16 19:59 12/06/16 11:31 Promethazine HCl/ Codeine (Phenergan with Codeine) 5 ml Q4H PRN ORAL For Cough 11/22/16 23:45 12/22/16 23:44 11/24/16 21:54 Ranitidine HCl (Zantac) 150 mg BEDTIME ORAL 11/29/16 21:00 12/29/16 20:59 Nicolle Schmitz M.D. Dec 06, 2016 16:19
[2016-12-06] MEDS: D5NS 1,000 ML IV SCH (18:15)
[2016-12-06 20:00] VITALS: BP 116/78
--- NOTE | 2016-12-06 23:48 | Cardiology Progress Note ---
Assessment/Plan Assessment/Plan 1. Sinus tachycardia, persistent, likely due to sepsis, LLL pneumonia and left pleural effusion, 2D echo reveals normal LV systolic function, no evidence of CHF. 2. Dyspnea due to left lower lobe PNA/recurrent left pleural effusion, s/p left thoracentesis x 2, refused VATS this morning. 3. Small pericardial effusion, ? reactive due to PNA 4. Moderate to severe pulmonary HTN 5. Clear for the VATS procedure from the cardiac standpoint. Subjective Subjective No cardiac events. Refused thoracoscopy this morning. Not on the telemetry unit. Objective Last 24 Hour Vital Signs Date Time Temp Pulse Resp B/P Pulse Ox O2 Delivery O2 Flow Rate FiO2 12/06/16 20:06 Room Air 12/06/16 20:06 97 Room Air 12/06/16 20:00 97.9 98 18 116/78 96 Room Air 12/06/16 16:00 97.9 100 20 125/74 97 Room Air 12/06/16 12:00 99.1 82 19 119/72 97 Room Air 12/06/16 08:00 97.9 82 19 125/84 99 Room Air 12/06/16 07:23 77 16 Nasal Cannula 2.0 12/06/16 07:23 Nasal Cannula 2.0 12/06/16 07:23 100 Nasal Cannula 2.0 12/06/16 04:00 97.7 64 18 119/74 100 Room Air 12/06/16 00:17 97.5 100 17 122/80 98 Nasal Cannula 2.0 Intake and Output 12/05/16 12/06/16 19:00 07:00 Intake Total 600 ml 740 ml Balance 600 ml 740 ml Intake Oral 600 ml 240 ml IV Total 500 ml # Voids 3 2D Echo: EF 55%, Small pericardial Eff, Large pleural Eff, Grade I LVDD,RVSP 56 mmH Laboratory Tests Test 12/06/16 06:10 White Blood Count 9.0 K/UL (4.8-10.8) Red Blood Count 3.10 M/UL (4.20-5.40) L Hemoglobin 8.9 G/DL (12.0-16.0) L Hematocrit 28.1 % (37.0-47.0) L Mean Corpuscular Volume 91 FL (80-99) Mean Corpuscular Hemoglobin 28.5 PG (27.0-31.0) Mean Corpuscular Hemoglobin Concent 31.5 G/DL (32.0-36.0) L Red Cell Distribution Width 14.2 % (11.6-14.8) Platelet Count 452 K/UL (150-450) H Mean Platelet Volume 6.1 FL (6.5-10.1) L Neutrophils (%) (Auto) 73.9 % (45.0-75.0) Lymphocytes (%) (Auto) 13.0 % (20.0-45.0) L Monocytes (%) (Auto) 8.2 % (1.0-10.0) Eosinophils (%) (Auto) 3.2 % (0.0-3.0) H Basophils (%) (Auto) 1.7 % (0.0-2.0) Sodium Level 136 mEQ/L (135-145) Potassium Level 4.0 mEQ/L (3.4-4.9) Chloride Level 105 mEQ/L (98-107) Carbon Dioxide Level 21 mEQ/L (20-30) Anion Gap 10 (5-15) Blood Urea Nitrogen 25 mg/dL (7-23) H Creatinine 1.7 mg/dL (0.5-0.9) H Estimat Glomerular Filtration Rate 37.5 mL/min (>60) Glucose Level 95 mg/dL (74-106) Calcium Level 8.3 mg/dL (8.6-10.2) L Objective HEENT: Atraumatic and normocephalic. Anicteric. Pupils are equal, round, and reactive to light and accommodation. Extraocular muscles intact. NECK: JVP is less than 5 cm. No carotid bruit. Carotid upstrokes 2+ bilaterally. CVS: Normal S1 and S2. No murmurs, gallops, or rubs. No pulsus paradoxus. LUNGS: Diminished breath sounds at the left base. ABDOMEN: Soft, nontender, and nondistended. No hepatosplenomegaly. Positive bowel sounds. EXTREMITIES: No evidence of edema, clubbing, or cyanosis. ALVINO RIVERO Dec 06, 2016 23:48
--- NOTE | 2016-12-07 00:02 | General Progress Note ---
Assessment/Plan Assessment/Plan Assessment and Recs: # Loculated pleural effusion - cytology shows lymphocytosis, flow cytometry is negative. Have discussed with Dr. Mayer on 11/30/16 if any lesion in the chest/abd /pelvis is able to be biopsied, none are. # Anemia of chronic disease - anemia 2/2 chronic disease, no iron deficiency # Coagulopathy - likely related to poor po intake, better # Right breast - will need mammo while outpatient, nonurgent # LLL pneumonia with possible abscess, on abx as per ID service # Sepsis - on abx as per ID # SOB (shortness of breath) - likely related to pna, improved Subjective Constitutional: Reports: no symptoms HEENT: Reports: no symptoms Cardiovascular: Reports: no symptoms Respiratory: Reports: no symptoms Gastrointestinal/Abdominal: Reports: no symptoms Genitourinary: Reports: no symptoms Neurologic/Psychiatric: Reports: no symptoms Endocrine: Reports: no symptoms Hematologic/Lymphatic: Reports: no symptoms Allergies: Coded Allergies: CITRUS AND DERIVATIVES (Unverified Allergy, Unknown, 11/27/16) TOMATO (Verified Allergy, Unknown, 11/27/16) per patient VANCOMYCIN (Verified Adverse Reaction, Unknown, 11/27/16) had severe abdominal pain per patient Uncoded Allergies: CITRUS (Allergy, Severe, 11/21/16) aloc Subjective no chills, no fevers, no hematemesis, mild SOB Objective Last 24 Hour Vital Signs Date Time Temp Pulse Resp B/P Pulse Ox O2 Delivery O2 Flow Rate FiO2 12/06/16 20:06 Room Air 12/06/16 20:06 97 Room Air 12/06/16 20:00 97.9 98 18 116/78 96 Room Air 12/06/16 16:00 97.9 100 20 125/74 97 Room Air 12/06/16 12:00 99.1 82 19 119/72 97 Room Air 12/06/16 08:00 97.9 82 19 125/84 99 Room Air 12/06/16 07:23 77 16 Nasal Cannula 2.0 12/06/16 07:23 Nasal Cannula 2.0 12/06/16 07:23 100 Nasal Cannula 2.0 12/06/16 04:00 97.7 64 18 119/74 100 Room Air 12/06/16 00:17 97.5 100 17 122/80 98 Nasal Cannula 2.0 Intake and Output 12/06/16 12/07/16 19:00 07:00 Intake Total 2180 ml Balance 2180 ml Intake Oral 550 ml IV Total 1630 ml # Voids 3 # Bowel Movements 1 Laboratory Tests 12/06/16 06:10: White Blood Count 9.0, Red Blood Count 3.10L, Hemoglobin 8.9L, Hematocrit 28.1L , Mean Corpuscular Volume 91, Mean Corpuscular Hemoglobin 28.5, Mean Corpuscular Hemoglobin Concent 31.5L, Red Cell Distribution Width 14.2, Platelet Count 452H, Mean Platelet Volume 6.1L, Neutrophils (%) (Auto) 73.9, Lymphocytes (%) (Auto) 13.0L, Monocytes (%) (Auto) 8.2, Eosinophils (%) (Auto) 3.2H, Basophils (%) (Auto) 1.7, Sodium Level 136, Potassium Level 4.0, Chloride Level 105, Carbon Dioxide Level 21, Anion Gap 10, Blood Urea Nitrogen 25H, Creatinine 1.7H, Estimat Glomerular Filtration Rate 37.5, Glucose Level 95, Calcium Level 8.3L Height (Feet): 5 Height (Inches): 9.00 Weight (Pounds): 132 General Appearance: WD/WN, no apparent distress EENT: PERRL/EOMI Neck: non-tender Cardiovascular: normal peripheral pulses Respiratory/Chest: chest wall non-tender Abdomen: normal bowel sounds, soft Edema: no edema noted Arm (R), no edema noted Leg (L), no edema noted Leg (R) 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
[2016-12-07] MEDS: Piperacillin/Tazobactam 2.25 GM in D5W 110 ML IVPB SCH ×3 (00:28→12:16)
[2016-12-07 04:00] VITALS: BP 127/89
[2016-12-07] MEDS: NovoLOG Insulin Flexpen SUBQ SCH ×2 (05:41→11:30)
[2016-12-07 06:20] LABS: BASOPHILS % (AUTO) 2.6 % (0.0-2.0); EOSINOPHILS % (AUTO) 4.4 % (0.0-3.0); LYMPHOCYTES % (AUTO) 12.1 % (20.0-45.0); MEAN CORPUSCULAR HGB CONC 31.9 G/DL (32.0-36.0); MEAN CORPUSCULAR VOLUME 91 FL (80-99); MEAN PLATELET VOLUME 6.1 FL (6.5-10.1); NEUTROPHILS % (AUTO) 73.9 % (45.0-75.0); PLATELET COUNT 491 K/UL (150-450); RED BLOOD COUNT 3.52 M/UL (4.20-5.40); RED CELL DISTRIBUTION WIDTH 14.6 % (11.6-14.8); WHITE BLOOD COUNT 9.1 K/UL (4.8-10.8)
[2016-12-07 06:58] LABS: CALCIUM 9.1 mg/dL (8.6-10.2); CREATININE 1.7 mg/dL (0.5-0.9); GLOMERULAR FILTRATION RATE 37.5 mL/min (>60)
[2016-12-07 08:00] VITALS: BP 118/69
[2016-12-07] MEDS: Docusate 100mg cap ORAL SCH (09:00)
[2016-12-07] MEDS: Doxycycline Hyclate 100 MG in D5W 110 ML IV SCH (09:40)
[2016-12-07] MEDS: Aspirin EC 325mg tab ORAL SCH (09:40)
--- NOTE | 2016-12-07 10:54 | GI Progress Note ---
Assessment/Plan Problems: (1) Severe malnutrition ICD Codes: E43 - Unspecified severe protein-calorie malnutrition SNOMED: 43732575 (2) Vomiting ICD Codes: R11.10 - Vomiting, unspecified SNOMED: 153322300 (3) Anemia ICD Codes: D64.9 - Anemia, unspecified SNOMED: 015322675 (4) Diarrhea ICD Codes: R19.7 - Diarrhea, unspecified SNOMED: 60801095 Status: stable, progressing Status Narrative Discussed with Dr. Clark. Assessment/Plan airborne isolation d/c anemia of chronic disease iron panel unremarkable >> no iron deficiency per Hematology note cdiff negative s/p thoracentesis 11/23/16 OB stool negative ok for DC per GI standpoint symptomatic treatment zofran prn Imodium prn monitor H&H, transfuse prn H2B, refusing bowel regime abx fu labs outpatient colonoscopy Subjective Subjective diarrhea Objective Last 24 Hour Vital Signs Date Time Temp Pulse Resp B/P Pulse Ox O2 Delivery O2 Flow Rate FiO2 12/07/16 08:00 97.7 69 20 118/69 99 Nasal Cannula 2.0 12/07/16 04:00 98.1 92 18 127/89 97 Room Air 12/06/16 20:06 Room Air 12/06/16 20:06 97 Room Air 12/06/16 20:00 97.9 98 18 116/78 96 Room Air 12/06/16 16:00 97.9 100 20 125/74 97 Room Air 12/06/16 12:00 99.1 82 19 119/72 97 Room Air Intake and Output 12/06/16 12/07/16 19:00 07:00 Intake Total 2230 ml 640 ml Balance 2230 ml 640 ml Intake Oral 550 ml 240 ml IV Total 1680 ml 400 ml # Voids 3 3 # Bowel Movements 1 Laboratory Tests Test 12/07/16 04:35 White Blood Count 9.1 K/UL (4.8-10.8) Red Blood Count 3.52 M/UL (4.20-5.40) L Hemoglobin 10.2 G/DL (12.0-16.0) L Hematocrit 32.0 % (37.0-47.0) L Mean Corpuscular Volume 91 FL (80-99) Mean Corpuscular Hemoglobin 29.0 PG (27.0-31.0) Mean Corpuscular Hemoglobin Concent 31.9 G/DL (32.0-36.0) L Red Cell Distribution Width 14.6 % (11.6-14.8) Platelet Count 491 K/UL (150-450) H Mean Platelet Volume 6.1 FL (6.5-10.1) L Neutrophils (%) (Auto) 73.9 % (45.0-75.0) Lymphocytes (%) (Auto) 12.1 % (20.0-45.0) L Monocytes (%) (Auto) 7.0 % (1.0-10.0) Eosinophils (%) (Auto) 4.4 % (0.0-3.0) H Basophils (%) (Auto) 2.6 % (0.0-2.0) H Sodium Level 139 mEQ/L (135-145) Potassium Level 5.0 mEQ/L (3.4-4.9) H Chloride Level 103 mEQ/L (98-107) Carbon Dioxide Level 20 mEQ/L (20-30) Anion Gap 16 (5-15) H Blood Urea Nitrogen 23 mg/dL (7-23) Creatinine 1.7 mg/dL (0.5-0.9) H Estimat Glomerular Filtration Rate 37.5 mL/min (>60) Glucose Level 91 mg/dL (74-106) Calcium Level 9.1 mg/dL (8.6-10.2) Height (Feet): 5 Height (Inches): 9.00 Weight (Pounds): 132 General Appearance: no apparent distress, alert Cardiovascular: normal rate Respiratory/Chest: normal breath sounds, no respiratory distress Abdominal Exam: normal bowel sounds, non tender, soft Extremities: normal range of motion Jeny Mao N.P. Dec 07, 2016 10:54
--- NOTE | 2016-12-07 12:03 | General Progress Note ---
Assessment/Plan Status: stable Status Narrative Cr 1.7 unchanged Assessment/Plan Status: Acute Renal Failure- Cr appears to be lowering Iron Defficiency Anemia- HypoAlbuminemia , Etiology ??? Penumonia / left Pleural effusion ? abcess Adrenal Adenoma high A1c ? DM Plan: due surgery left thorax- REFUSED 24 h urine for protein 500 mg IV Iron change diet to renal , medium CHO per orders ? DC planning Subjective ROS Limited/Unobtainable: No Allergies: Coded Allergies: CITRUS AND DERIVATIVES (Unverified Allergy, Unknown, 11/27/16) TOMATO (Verified Allergy, Unknown, 11/27/16) per patient VANCOMYCIN (Verified Adverse Reaction, Unknown, 11/27/16) had severe abdominal pain per patient Uncoded Allergies: CITRUS (Allergy, Severe, 11/21/16) aloc Objective Last 24 Hour Vital Signs Date Time Temp Pulse Resp B/P Pulse Ox O2 Delivery O2 Flow Rate FiO2 12/07/16 08:00 97.7 69 20 118/69 99 Nasal Cannula 2.0 12/07/16 04:00 98.1 92 18 127/89 97 Room Air 12/06/16 20:06 Room Air 12/06/16 20:06 97 Room Air 12/06/16 20:00 97.9 98 18 116/78 96 Room Air 12/06/16 16:00 97.9 100 20 125/74 97 Room Air Intake and Output 12/06/16 12/07/16 19:00 07:00 Intake Total 2230 ml 640 ml Balance 2230 ml 640 ml Intake Oral 550 ml 240 ml IV Total 1680 ml 400 ml # Voids 3 3 # Bowel Movements 1 Laboratory Tests 12/07/16 04:35: White Blood Count 9.1, Red Blood Count 3.52L, Hemoglobin 10.2L, Hematocrit 32.0L , Mean Corpuscular Volume 91, Mean Corpuscular Hemoglobin 29.0, Mean Corpuscular Hemoglobin Concent 31.9L, Red Cell Distribution Width 14.6, Platelet Count 491H, Mean Platelet Volume 6.1L, Neutrophils (%) (Auto) 73.9, Lymphocytes (%) (Auto) 12.1L, Monocytes (%) (Auto) 7.0, Eosinophils (%) (Auto) 4.4H, Basophils (%) (Auto) 2.6H, Sodium Level 139, Potassium Level 5.0H, Chloride Level 103, Carbon Dioxide Level 20, Anion Gap 16H, Blood Urea Nitrogen 23, Creatinine 1.7H, Estimat Glomerular Filtration Rate 37.5, Glucose Level 91, Calcium Level 9.1 Height (Feet): 5 Height (Inches): 9.00 Weight (Pounds): 132 General Appearance: no apparent distress Cardiovascular: normal rate Respiratory/Chest: decreased breath sounds Abdomen: soft Objective no other change JOAQUÍN WORRELL Dec 07, 2016 12:03
--- NOTE | 2016-12-07 12:16 | General Progress Note ---
Assessment/Plan Problem List: (1) SOB (shortness of breath) ICD Codes: R06.02 - Shortness of breath SNOMED: 003010915 (2) Sepsis ICD Codes: A41.9 - Sepsis, unspecified organism SNOMED: 16632289 (3) Pleural effusion, left ICD Codes: J90 - Pleural effusion, not elsewhere classified SNOMED: 78901414 (4) Upper respiratory infection ICD Codes: J06.9 - Acute upper respiratory infection, unspecified SNOMED: 22512263 (5) Abnormal blood pressure SNOMED: 05450783 Status: progressing Assessment/Plan pleural effusion REFUSING VATS SO DC PLAN PER DR STEFAN LOPEZ W DR STEFAN JONES needs vats for diagnosis of recurrent pleural effusion sob Subjective Respiratory: Reports: shortness of breath Allergies: Coded Allergies: CITRUS AND DERIVATIVES (Unverified Allergy, Unknown, 11/27/16) TOMATO (Verified Allergy, Unknown, 11/27/16) per patient VANCOMYCIN (Verified Adverse Reaction, Unknown, 11/27/16) had severe abdominal pain per patient Uncoded Allergies: CITRUS (Allergy, Severe, 11/21/16) aloc Subjective sob Objective Last 24 Hour Vital Signs Date Time Temp Pulse Resp B/P Pulse Ox O2 Delivery O2 Flow Rate FiO2 12/07/16 08:00 97.7 69 20 118/69 99 Nasal Cannula 2.0 12/07/16 04:00 98.1 92 18 127/89 97 Room Air 12/06/16 20:06 Room Air 12/06/16 20:06 97 Room Air 12/06/16 20:00 97.9 98 18 116/78 96 Room Air 12/06/16 16:00 97.9 100 20 125/74 97 Room Air Intake and Output 12/06/16 12/07/16 19:00 07:00 Intake Total 2230 ml 640 ml Balance 2230 ml 640 ml Intake Oral 550 ml 240 ml IV Total 1680 ml 400 ml # Voids 3 3 # Bowel Movements 1 Laboratory Tests 12/07/16 04:35: White Blood Count 9.1, Red Blood Count 3.52L, Hemoglobin 10.2L, Hematocrit 32.0L , Mean Corpuscular Volume 91, Mean Corpuscular Hemoglobin 29.0, Mean Corpuscular Hemoglobin Concent 31.9L, Red Cell Distribution Width 14.6, Platelet Count 491H, Mean Platelet Volume 6.1L, Neutrophils (%) (Auto) 73.9, Lymphocytes (%) (Auto) 12.1L, Monocytes (%) (Auto) 7.0, Eosinophils (%) (Auto) 4.4H, Basophils (%) (Auto) 2.6H, Sodium Level 139, Potassium Level 5.0H, Chloride Level 103, Carbon Dioxide Level 20, Anion Gap 16H, Blood Urea Nitrogen 23, Creatinine 1.7H, Estimat Glomerular Filtration Rate 37.5, Glucose Level 91, Calcium Level 9.1 Height (Feet): 5 Height (Inches): 9.00 Weight (Pounds): 132 Respiratory/Chest: rhonchi - bilaterally Kahlil Ronquillo MD Dec 07, 2016 12:16
[2016-12-07] MEDS ORDERED: D5NS 1000ml IV ONE (12:31)
[2016-12-07] MEDS ORDERED: Tubing IV Secondary IV ONE (12:31)
[2016-12-07] MEDS ORDERED: AUGMENTIN 875-1 EAC1 ORAL (13:32)
[2016-12-07] MEDS ORDERED: VIBRAMYCIN100 MG ORAL (13:34)
--- NOTE | 2016-12-07 13:58 | Infectious Diseases Prog Note ---
Assessment/Plan Problems: (1) LLL pneumonia Assessment & Plan: improved, with loculated effusion, she refused surgical decortication yesterday , will transition to oral doxycycline, and augmantin for two more weeks to finish her course of therapy. she is to follow up with CT surgery as an outpatient . (2) Pleural effusion, left Assessment & Plan: loculated , S/P repeated thoracentesis , fluids culture is negative so far , fungal serology is negative , cytology was negative for malignancy. repeated thoracentesis fluids culture is negative for any growth , CT surgery is following (3) Adrenal adenoma Assessment & Plan: confirmed on MRI, recommend endocrinology eval and management (4) ESTHER (acute kidney injury) Assessment & Plan: multifactorial, improving, continue IVF for hydration, monitor renal function test. renal is following (5) Breast cyst Assessment & Plan: recommend mammogram for follow up Subjective Constitutional: Reports: no symptoms HEENT: Reports: no symptoms Respiratory: Reports: no symptoms Breasts: Reports: no symptoms Cardiovascular: Reports: no symptoms Gastrointestinal/Abdominal: Reports: no symptoms Genitourinary: Reports: no symptoms Neurologic: Reports: no symptoms Psychiatric: Reports: no symptoms Skin: Reports: no symptoms Endocrine: Reports: no symptoms Hematologic: Reports: no symptoms Allergies: Coded Allergies: CITRUS AND DERIVATIVES (Unverified Allergy, Unknown, 11/27/16) TOMATO (Verified Allergy, Unknown, 11/27/16) per patient VANCOMYCIN (Verified Adverse Reaction, Unknown, 11/27/16) had severe abdominal pain per patient Uncoded Allergies: CITRUS (Allergy, Severe, 11/21/16) aloc Objective Vital Signs Last 24 Hour Vital Signs Date Time Temp Pulse Resp B/P Pulse Ox O2 Delivery O2 Flow Rate FiO2 12/07/16 08:00 97.7 69 20 118/69 99 Nasal Cannula 2.0 12/07/16 04:00 98.1 92 18 127/89 97 Room Air 12/06/16 20:06 Room Air 12/06/16 20:06 97 Room Air 12/06/16 20:00 97.9 98 18 116/78 96 Room Air 12/06/16 16:00 97.9 100 20 125/74 97 Room Air Height (Feet): 5 Height (Inches): 9.00 Weight (Pounds): 132 General Appearance: WD/WN, no acute distress HEENT: normocephalic, atraumatic, anicteric, mucous membranes moist, PERRL Respiratory/Chest: chest wall non-tender, lungs clear, normal breath sounds, no respiratory distress, no accessory muscle use Cardiovascular: normal peripheral pulses, normal rate, regular rhythm, no gallop/murmur Abdomen: normal bowel sounds, soft, non tender, no organomegaly, non distended , no mass Extremities: no cyanosis, no clubbing Skin: no rash, no lesions Laboratory Tests Test 12/07/16 04:35 White Blood Count 9.1 K/UL (4.8-10.8) Red Blood Count 3.52 M/UL (4.20-5.40) L Hemoglobin 10.2 G/DL (12.0-16.0) L Hematocrit 32.0 % (37.0-47.0) L Mean Corpuscular Volume 91 FL (80-99) Mean Corpuscular Hemoglobin 29.0 PG (27.0-31.0) Mean Corpuscular Hemoglobin Concent 31.9 G/DL (32.0-36.0) L Red Cell Distribution Width 14.6 % (11.6-14.8) Platelet Count 491 K/UL (150-450) H Mean Platelet Volume 6.1 FL (6.5-10.1) L Neutrophils (%) (Auto) 73.9 % (45.0-75.0) Lymphocytes (%) (Auto) 12.1 % (20.0-45.0) L Monocytes (%) (Auto) 7.0 % (1.0-10.0) Eosinophils (%) (Auto) 4.4 % (0.0-3.0) H Basophils (%) (Auto) 2.6 % (0.0-2.0) H Sodium Level 139 mEQ/L (135-145) Potassium Level 5.0 mEQ/L (3.4-4.9) H Chloride Level 103 mEQ/L (98-107) Carbon Dioxide Level 20 mEQ/L (20-30) Anion Gap 16 (5-15) H Blood Urea Nitrogen 23 mg/dL (7-23) Creatinine 1.7 mg/dL (0.5-0.9) H Estimat Glomerular Filtration Rate 37.5 mL/min (>60) Glucose Level 91 mg/dL (74-106) Calcium Level 9.1 mg/dL (8.6-10.2) Current Medications Medications (Trade) Dose Ordered Sig/Ruben Route PRN Reason Start Time Stop Time Status Last Admin Dose Admin Acetaminophen (Tylenol) 650 mg Q4H PRN ORAL Mild Pain/Temp > 100.5 11/22/16 22:45 12/22/16 22:44 Aspirin (Ecotrin) 325 mg DAILY ORAL 11/23/16 09:00 12/23/16 08:59 12/07/16 09:40 Dextrose STAT PRN IV Hypoglycemia 12/03/16 12:30 01/02/17 12:29 Dextrose/Sodium Chloride (D5ns) 1,000 ml @ 50 mls/hr Q20H IV 12/05/16 22:15 01/04/17 22:14 12/05/16 22:26 Docusate Sodium 100 mg 100 mg TWICE A DAY ORAL 11/26/16 18:00 12/26/16 17:59 Doxycycline Hyclate 100 mg/ Dextrose 110 ml @ 110 mls/hr Q12HR IV 12/05/16 10:30 12/12/16 10:29 12/07/16 09:40 Insulin Aspart (NovoLOG) BEFORE MEALS AND HS SUBQ 12/03/16 16:30 01/02/17 16:29 Ondansetron HCl (Zofran) 4 mg Q6H PRN IVP Nausea & Vomiting 11/22/16 22:45 12/22/16 22:44 11/28/16 06:23 Piperacillin Sod/ Tazobactam Sod/ Dextrose (Zosyn/D5W) 110 ml @ 220 mls/hr Q6HR IVPB 11/26/16 20:00 12/10/16 19:59 12/07/16 12:16 Promethazine HCl/ Codeine (Phenergan with Codeine) 5 ml Q4H PRN ORAL For Cough 11/22/16 23:45 12/22/16 23:44 11/24/16 21:54 Ranitidine HCl (Zantac) 150 mg BEDTIME ORAL 11/29/16 21:00 12/29/16 20:59 Nicolle Schmitz M.D. Dec 07, 2016 13:58
--- NOTE | 2016-12-07 21:52 | General Progress Note ---
Assessment/Plan Assessment/Plan Assessment and Recs: # Loculated pleural effusion - cytology shows lymphocytosis, flow cytometry is negative. Have discussed with Dr. Mayer on 11/30/16 if any lesion in the chest/abd /pelvis is able to be biopsied, none are. # Anemia of chronic disease - anemia 2/2 chronic disease, no iron deficiency # Coagulopathy - likely related to poor po intake, better # Right breast - will need mammo while outpatient, nonurgent # LLL pneumonia with possible abscess, on abx as per ID service # Sepsis - on abx as per ID # SOB (shortness of breath) - likely related to pna, improved Subjective Constitutional: Reports: no symptoms HEENT: Reports: no symptoms Cardiovascular: Reports: no symptoms Respiratory: Reports: no symptoms Gastrointestinal/Abdominal: Reports: no symptoms Genitourinary: Reports: no symptoms Neurologic/Psychiatric: Reports: no symptoms Endocrine: Reports: no symptoms Hematologic/Lymphatic: Reports: no symptoms Allergies: Coded Allergies: CITRUS AND DERIVATIVES (Unverified Allergy, Unknown, 11/27/16) TOMATO (Verified Allergy, Unknown, 11/27/16) per patient VANCOMYCIN (Verified Adverse Reaction, Unknown, 11/27/16) had severe abdominal pain per patient Uncoded Allergies: CITRUS (Allergy, Severe, 11/21/16) aloc Subjective no chills, no fevers, clear for discharge Objective Last 24 Hour Vital Signs Date Time Temp Pulse Resp B/P Pulse Ox O2 Delivery O2 Flow Rate FiO2 12/07/16 08:00 97.7 69 20 118/69 99 Nasal Cannula 2.0 12/07/16 04:00 98.1 92 18 127/89 97 Room Air Intake and Output 12/06/16 12/07/16 19:00 07:00 Intake Total 2230 ml 640 ml Balance 2230 ml 640 ml Intake Oral 550 ml 240 ml IV Total 1680 ml 400 ml # Voids 3 3 # Bowel Movements 1 Laboratory Tests 12/07/16 04:35: White Blood Count 9.1, Red Blood Count 3.52L, Hemoglobin 10.2L, Hematocrit 32.0L , Mean Corpuscular Volume 91, Mean Corpuscular Hemoglobin 29.0, Mean Corpuscular Hemoglobin Concent 31.9L, Red Cell Distribution Width 14.6, Platelet Count 491H, Mean Platelet Volume 6.1L, Neutrophils (%) (Auto) 73.9, Lymphocytes (%) (Auto) 12.1L, Monocytes (%) (Auto) 7.0, Eosinophils (%) (Auto) 4.4H, Basophils (%) (Auto) 2.6H, Sodium Level 139, Potassium Level 5.0H, Chloride Level 103, Carbon Dioxide Level 20, Anion Gap 16H, Blood Urea Nitrogen 23, Creatinine 1.7H, Estimat Glomerular Filtration Rate 37.5, Glucose Level 91, Calcium Level 9.1 Height (Feet): 5 Height (Inches): 9.00 Weight (Pounds): 132 General Appearance: no apparent distress EENT: PERRL/EOMI Neck: non-tender Cardiovascular: normal peripheral pulses Respiratory/Chest: chest wall non-tender Abdomen: non tender Extremities: normal range of motion Edema: no edema noted Leg (L), no edema noted Leg (R) 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
--- NOTE | 2016-12-08 03:30 | Consultation ---
DATE OF CONSULTATION: 12/07/2016 HISTORY OF PRESENT ILLNESS: The patient is a 56-year-old female with a history of multiple medical problems, including pneumonia, shortness of breath, sepsis, pleural effusion, general adenoma, acute kidney injury, diarrhea, malnutrition and tachycardia at breakfast, who has been admitted to the hospital for medical stabilization. The patient currently has a 2-week history of fever and chills with shortness of breath. CT scan of the chest was significant for pleural effusion. MRI of the abdomen was significant for mass and the patient was willing to go through surgery and after preparation for several days the patient refused to go and that she wants to seek other options. During the evaluation, the patient expressed that she has been homeless for a while and has been . It appears that she is somewhat suffering from PTSD, but she did not want to get into the details and she is not open to any psychotropic medications. I thought she is suffering from depression. Her target symptoms include depressed mood and decreased energy, mild anhedonia. No suicidal or homicidal ideation, no insomnia. She also had anxiety. PAST PSYCHIATRIC HISTORY: She has been treated for depression in the past. PAST MEDICAL HISTORY: Anemia, meningitis, and cardiac problems. ALLERGIES: Includes citrus. SUBSTANCE ABUSE HISTORY: No history of illicit drug use or alcohol. She is a former smoker. MENTAL STATUS EXAMINATION: The patient is alert and oriented x3. Mood is depressed. Affect is constricted. Congruent mood. Thought process is concrete. Thought content, no suicidal or homicidal ideation. Thought content is positive for paranoid ideation. ASSESSMENT: Major depressive disorder. The patient has capacity to make decisions. PLAN: 1. I do recommend antidepressant, however, the patient is reluctant to take medication. 2. Provide the patient with supportive therapy and reality orientation. Rajesh Gomez M.D. DR: GUY JOB#: [id number] CC:
--- NOTE | 2016-12-08 14:39 | Discharge Summary ---
Discharge Summary Hospital Course Date of Admission November 21, 2016 at 16:22 Date of Discharge Dec 07, 2016 at 14:30 Admitting Diagnosis DYSPNEA HPI Lien Tadeo is a 56 year old female who was admitted on November 21, 2016 at 16: 22 for Dyspnea Hospital Course [id number] Discharge Discharge Disposition Patient was discharged to Home (01) Discharge Diagnoses: Maggy Gómez NP Dec 08, 2016 14:39
--- NOTE | 2016-12-09 06:15 | Discharge Summary 2 SIG ---
DATE OF ADMISSION: 11/21/2016 DATE OF DISCHARGE: 12/07/2016 CONSULTANTS: 1. Rajesh Gomez M.D. 2. Matheus Lombardi M.D. 3. Nicolle Schmitz M.D. 4. Sea Jones M.D. 5. Juan David Clark M.D. 6. Tyson Schneider M.D. 7. Sadie Lomax M.D. 8. Marshall Yeh M.D. BRIEF HOSPITAL COURSE: The patient is a 56-year-old female, who presented to ED complaining of productive cough that has been ongoing for two weeks with associated dyspnea and orthopnea. On evaluation at ED, she was noted to be tachycardic with distant lung sounds and was wheezing with rhonchi. She was given bronchodilators treatment. Chest x-ray showed elevation of left hemidiaphragm with large subpulmonic pleural effusion. CTA of the chest showed no evidence of PE, aortic dissection, or aneurysm, but with atelectasis on the left lower lobe suggestive of lung abscess. There was moderate pleural effusion on the left hilar and mediastinal lymphadenopathy noted. Dr. Lomax was consulted. The patient already had taken ciprofloxacin two days prior to admission. She was was given vancomycin and Zosyn. There was also findings of adrenal gland adenoma and adnexal cyst from CT. Echocardiogram was done showing ejection fraction of 60% to 65% with a small pericardial effusion. There was no evidence of pericardial tamponade. There was no indication for pericardiocentesis. She was also seen by Dr. Jones for evaluation of rising creatinine and Dr. Hwang for evaluation of adrenal adenoma. The patient did not present with clinical pictures or findings of hyperaldosteronism or Xenia's disease or pheochromocytoma and was recommended outpatient workup.She would benefit from adrenalectomy due to large size of adenoma. Thoracentesis of the left pleural effusion was done on 11/23/2016 yielding 50 mL of clear light yellow fluid from the posterior loculation. She was also evaluated by Dr. Yeh for possible video-assisted thoracoscopic surgery. HIV test was negative. TB test was negative. Coccidioides streptococcus and histoplasma serology were likewise negative. Gram stain of body fluid did not isolate any growth. Tuberculosis was ruled out. Repeat thoracentesis was done on 11/29/2016 yielding only 4 mL of fluid and the patient was cleared for VATS, however, the patient refused the procedure. She was followed by Dr. Gomez and was assessed to have the capacity to make decisions. She was suggested to be started on antidepressants, however, refused. Antibiotics were then transition to oral doxycycline and Augmentin for two more weeks and to follow up with cardiothoracic surgeon as an outpatient. FINAL DIAGNOSES: 1. Left lower lobe pneumonia. 2. left pleural effusion status post thoracentesis. Cultures has negative growth. 3. Adrenal adenomas. 4. Acute kidney injury. 5. Coagulopathy. 6. Anemia of chronic disease. 7. Iron deficiency anemia. 8. Severe protein calorie malnutrition. 9. Moderate to severe pulmonary hypertension. 10. Sinus tachycardia. 11. Right breast mass. 12. Possible diabetes mellitus. 13. Possible lung abscess . Kahlil Ronquillo M.D. I have been assigned to dictate discharge summary on this account and I was not involved in the patient's management. Maggy Gómez N.P. DR: Ryan JOB#: [id number] CC: [email or web address]
--- NOTE | 2016-12-09 19:46 | General Progress Note ---
Assessment/Plan Assessment/Plan Assessment and Recs: # Loculated pleural effusion - cytology shows lymphocytosis, flow cytometry is negative. Have discussed with Dr. Mayer on 11/30/16 if any lesion in the chest/abd /pelvis is able to be biopsied, none are. # Anemia of chronic disease - anemia 2/2 chronic disease, no iron deficiency # Coagulopathy - likely related to poor po intake, better # Right breast - will need mammo while outpatient, nonurgent # LLL pneumonia with possible abscess, on abx as per ID service # Sepsis - on abx as per ID # SOB (shortness of breath) - likely related to pna, improved Subjective Constitutional: Reports: no symptoms HEENT: Reports: no symptoms Cardiovascular: Reports: no symptoms Respiratory: Reports: no symptoms Gastrointestinal/Abdominal: Reports: no symptoms Genitourinary: Reports: no symptoms Neurologic/Psychiatric: Reports: no symptoms Endocrine: Reports: no symptoms Hematologic/Lymphatic: Reports: no symptoms Allergies: Coded Allergies: CITRUS AND DERIVATIVES (Unverified Allergy, Unknown, 11/27/16) TOMATO (Verified Allergy, Unknown, 11/27/16) per patient VANCOMYCIN (Verified Adverse Reaction, Unknown, 11/27/16) had severe abdominal pain per patient Uncoded Allergies: CITRUS (Allergy, Severe, 11/21/16) aloc Subjective no chills, no fevers, clear for discharge Objective Height (Feet): 5 Height (Inches): 9.00 Weight (Pounds): 132 General Appearance: WD/WN Neck: non-tender Cardiovascular: normal peripheral pulses Respiratory/Chest: chest wall non-tender 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
== END 2016-12-07 14:30 | disposition home or self-care (01) | DRG 720 ==
LOC: EMR 16:03 → 2E 16:22 → EDBEDREQ 16:43 → 4E 11-22 22:04 → 3E 12-02 21:01
PROC: 0W9B3ZZ Drainage of Left Pleural Cavity, Percutaneous Approach (ICD-10-PCS; principal; 2016-11-21)
DX: A41.9 Sepsis, unspecified organism (principal); J85.1 Abscess of lung with pneumonia; E43 Unspecified severe protein-calorie malnutrition; N17.9 Acute kidney failure, unspecified; J90 Pleural effusion, not elsewhere classified; D68.9 Coagulation defect, unspecified; F32.9 Major depressive disorder, single episode, unspecified; D35.02 Benign neoplasm of left adrenal gland; D50.9 Iron deficiency anemia, unspecified; I27.2 Other secondary pulmonary hypertension; I10 Essential (primary) hypertension; K21.9 Gastro-esophageal reflux disease without esophagitis; R59.9 Enlarged lymph nodes, unspecified; E11.9 Type 2 diabetes mellitus without complications; I31.3 Pericardial effusion (noninflammatory); Z68.1 Body mass index [BMI] 19.9 or less, adult; R19.7 Diarrhea, unspecified; N60.01 Solitary cyst of right breast; D35.01 Benign neoplasm of right adrenal gland; R62.7 Adult failure to thrive; R11.10 Vomiting, unspecified; Z79.82 Long term (current) use of aspirin; Z87.891 Personal history of nicotine dependence; Z53.29 Procedure and treatment not carried out because of patient's decision for other reasons
CPT/HCPCS: 36415; 71010; 71275; 74176; 74181; 76942; 80048; 80053; 80061; 80076; 80202; 81001; 81050; 82270; 82378; 82550; 82553; 82565; 82607; 82728; 82746; 82962; 82977; 83036; 83540; 83550; 83615; 83690; 83735; 83880; 84100; 84156; 84300; 84443; 84484; 84550; 85007; 85025; 85044; 85060; 85610; 85730; 86140; 86171; 86612; 86635; 86703; 86850; 86900; 86901; 87040; 87070; 87081; 87205; 87324; 87449; 88104; 89050; 89051; 93005; 93306; 93970; 94640; 94664; 94760; 97803; J1815; J2405; J3490; J7620